=== PATIENT | male | born 1950 | race Caucasian/White ===

== ENCOUNTER 2024-12-24 06:29 | Emergency (ER) | payer OTHER, SELFPAY ==
[2024-12-24 06:38] VITALS: BP 212/126
--- NOTE | 2024-12-24 06:48 | ED.GENMED ---
History of Present Illness
General
Chief Complaint: Urinary Symptoms
Source: patient
Exam Limitations: none
Time Seen by Provider: 12/24/24 06:47
Nursing documentation reviewed up to this point in time: agreed with
History of Present Illness
History of Present Illness:
74-year-old male presents emergency department complaining of being unable to urinate for the past 24 hours. His abdomen distended and he is very uncomfortable. He has had this happen before.
Past History
Past History
ED Past Medical History: Other (Acute urinary retention September 2020; BPH)
ED Past Surgical History: Other (Hernia repair 1989)
Social History
Tobacco: Non-smoker
Alcohol: None
Drug: None
Personal:
Living: with family
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
Family History
Family History: Other (Noncontributory)
Review of Systems
Review of Systems
Allergies reviewed?: Yes
All Other Systems: Not applicable
Constitutional: Reports no symptoms
EENT: Reports no symptoms
Respiratory: Reports no symptoms
Cardiac: Reports no symptoms
ABD/GI: Reports no symptoms
: Reports difficulty voiding
Musculoskeletal: Reports no symptoms
Skin: Reports no symptoms
Neurological: Reports no symptoms
Endocrine: Reports no symptoms
Hematologic/Lymphatic: Reports no symptoms
Phy Exam
Physical Exam
Physical Exam:
Physical Exam
General: Afebrile, appears on, pacing in room
Neck: supple. no meningeal signs. normal posterior pharynx
Heart: s1/s2 tachycardia, no murmur. equal radial
pulses.
HEENT: Pupils equal round reactive to light, EOMI
Lungs: no acute respiratory distress. clear bilaterally
Abdomen: normal bowel sounds. not tender. no CVAT, suprapubic distention
Neuro: alert and oriented. no focal neurological deficits cranial nerves II through XII intact
Skin: no rash
Psychiatric: well kept. interactive and cooperative
Extremities: no edema. no calf tenderness. negative homans. good distal pulses
Course
Orders/Labs/Results
Orders:
Orders
12/24/24 06:47
Dickinson Placement- Treatment ONCE
Reason for insertion: Acute Retention
Vital Signs
Initial and Last Documented VS:
Initial Vital Signs
Temp Pulse Resp BP Pulse Ox
97.8 F 138 30 212/126 100
12/24/24 06:38 12/24/24 06:38 12/24/24 06:38 12/24/24 06:38 12/24/24 06:38
Last Documented Vital Signs
Temp Pulse Resp BP Pulse Ox
97.8 F 113 20 210/141 99
12/24/24 06:38 12/24/24 07:05 12/24/24 07:05 12/24/24 07:05 12/24/24 07:05
MDM/Problems Addressed
Differential Diagnosis Includes:
UTI, bowel obstruction, urinary retention
MDM/Problems Addressed:
74-year-old male with acute urinary retention, improved after Dickinson placement. Will follow-up with urology.
Chronic conditions affecting care: Other (BPH)
Acute Exacerbation and/or Progression of Chronic Illness: Other (BPH)
*Pulse Oximetry
Patient hypoxic: no
*Critical Care Note
Total Time (30-74mins, 75-104mins- exclusive of procedures): Not Applicable
Patient Management
Social determinants of health affecting care: Living situation and Strong social support
Escalation/DeEscalation of care consider admission/obs:
Admission not indicated
ED Attending Note
-
Portions of this chart may have been created with voice recognition software.� Occasional wrong word or��sound alike� substitutions may have occurred due to the inherent limitations of voice recognition software.
Discharge Plan
Departure
Patient Disposition: Home (Routine Discharge)
Date of Disposition: 12/24/24
Time of Disposition: 07:52
Patient with high blood pressure during this ER visit?: Yes
Condition: Good
Discharge Problem:
Acute urinary retention
Instructions: How to Care for Your Dickinson Catheter, Male, BLOOD PRESSURE
Prescriptions:
No Action
tamsulosin 0.4 MG capsule
0.4 mg PO DAILY
doxazosin 1 MG tablet
0.5 mg PO HS Qty: 30 0RF
Referrals:
Peter Kelley MD [Active] - Call in 1-3 days for appt
Bandar Culp MD [Family Provider] -
Interventions
Interventions:
*Risk Screen - Suicide Last Done: 12/24/24 06:38
*Neglect/Abuse Screening Last Done: 12/24/24 06:38
Discharge Date and Time
Print Language: LUX[place]BOURG[place]
[2024-12-24 07:05] VITALS: BP 210/141
[2024-12-24 09:00] VITALS: BP 127/99
== END 2024-12-24 09:10 | disposition home or self-care (01) ==
LOC: EMR 06:29
PROVIDERS: EMERGENCY PHYSICIAN Emergency Medicine; FAMILY PHYSICIAN Family Medicine
DX: N40.1 Benign prostatic hyperplasia with lower urinary tract symptoms (principal); R33.8 Other retention of urine
CPT/HCPCS: 51702; 99283

== ENCOUNTER 2025-04-30 14:48 | Emergency (ER) | payer OTHER, SELFPAY ==
[2025-04-30 14:49] VITALS: BP 134/81
--- NOTE | 2025-04-30 16:03 | ED.GENMED ---
History of Present Illness
<BERTHA Russell - Last Filed: 04/30/25 21:52>
General
Chief Complaint: Male Genito-Urinary Symptoms
Source: patient
Time Seen by Provider: 04/30/25 15:35
History of Present Illness
History of Present Illness:
This is a 74 y/o M with a PMH of HLD, HTN, inguinal hernia, elevated PSA, BPH with urinary retention who presents with trouble urinating x few weeks. He reports talking with his family doc, Dr. Culp from [facility], who suggested
patient come to ED for a catheter. Patient reports being able to urinate however he has to strain and feels as though he is not emptying his bladder fully. He reports being told this is from his hernia. He began wearing depends in case of
incontinence but denies incontinence episodes. He denies fever, abdominal pain, dysuria, hematuria, frequency, hesitancy, nausea, vomiting, diarrhea, hematochezia, dyschezia.
He denies a hx of BPH or prostate CA. FHx noncontributory. He had hernia surgery in the . He denies allergies to medications.
Past History
<BERTHA Russell - Last Filed: 04/30/25 21:52>
Past History
ED Past Medical History: Other (Acute urinary retention September 2020; BPH)
ED Past Surgical History: Other (Hernia repair 1989)
Social History
Tobacco: Non-smoker
Alcohol: None
Drug: None
Personal:
Living: with family
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
Family History
Family History: Other (Noncontributory)
Review of Systems
<BERTHA Russell - Last Filed: 04/30/25 21:52>
Review of Systems
Constitutional: Reports no symptoms
Respiratory: Reports no symptoms
Cardiac: Reports no symptoms
ABD/GI: Reports no symptoms
: Reports difficulty voiding; Denies dysuria, flank pain, incontinence, urgency or discharge
Musculoskeletal: Reports no symptoms
Skin: Reports no symptoms
Neurological: Reports no symptoms
Phy Exam
<ST YvonneGA - Last Filed: 04/30/25 21:52>
General Physical Exam
General Presentation: well appearing
General age: appears stated age
General Skin: warm and dry
General Habitus: elderly and frail
General Mental: alert
Cardiovascular Exam
Cardiovascular Exam: tachycardia
Pulmonary Exam
Pulmonary Exam: lungs clear
Gastrointestinal Exam
Gastrointestinal Exam: normal bowel sounds, non tender, non distended, no indwelling devices and no masses
Genitourinary Exam Male
Exam Male: non circumcised and other (significant erythema, tenderness and yeast noted)
Course
<Ailyn Javier [facility] - Last Filed: 04/30/25 21:52>
Orders/Labs/Results
Orders:
Orders
04/30/25 16:09
Bladder Scan- Treatment ONCE
04/30/25 17:08
Dickinson Placement- Treatment ONCE
Reason for insertion: Outlet obstruction
04/30/25 17:22
Urinalysis Reflex To Culture Urgent
Date Specimen was Collected: 04/30/25
Time Specimen was Collected: 17:21
Urine Microscopic Reflex Cult Urgent
Urine Culture Urgent
JEFF Source: U
Specimen Description:
Date Specimen was Collected: 04/30/25
Time Specimen was Collected: 17:21
Abnormal Lab Results
04/30/25
17:22
Urine Ketones 2+ A
(Negative)
Ur Occult Blood Reflex 4+ A
(Negative)
Leukocyte Esterase Rfl 3+ A
(Negative)
Urine WBC (Reflex) >100 A /HPF
(0-5)
Urine Bacteria (Reflex) Few A
(Negative)
Urine Yeast Many A
(Negative)
Urine Glucose 4+ A
(Negative)
Urine Albumin (Reflex) 3+ A
(Neg - Trace)
Vital Signs
Initial and Last Documented VS:
Initial Vital Signs
Temp Pulse Resp BP Pulse Ox
97.3 F 124 20 134/81 96
04/30/25 14:49 04/30/25 14:49 04/30/25 14:49 04/30/25 14:49 04/30/25 14:49
Last Documented Vital Signs
Temp Pulse Resp BP Pulse Ox
97.3 F 98 16 137/89 98
04/30/25 14:49 04/30/25 18:19 04/30/25 18:19 04/30/25 18:19 04/30/25 18:19
<Aguila Lock MD - Last Filed: 04/30/25 19:45>
Orders/Labs/Results
Orders:
Orders
04/30/25 16:09
Bladder Scan- Treatment ONCE
04/30/25 17:08
Dickinson Placement- Treatment ONCE
Reason for insertion: Outlet obstruction
04/30/25 17:22
Urinalysis Reflex To Culture Urgent
Date Specimen was Collected: 04/30/25
Time Specimen was Collected: 17:21
Urine Microscopic Reflex Cult Urgent
Urine Culture Urgent
JEFF Source: U
Specimen Description:
Date Specimen was Collected: 04/30/25
Time Specimen was Collected: 17:21
Abnormal Lab Results
04/30/25
17:22
Urine Ketones 2+ A
(Negative)
Ur Occult Blood Reflex 4+ A
(Negative)
Leukocyte Esterase Rfl 3+ A
(Negative)
Urine WBC (Reflex) >100 A /HPF
(0-5)
Urine Bacteria (Reflex) Few A
(Negative)
Urine Yeast Many A
(Negative)
Urine Glucose 4+ A
(Negative)
Urine Albumin (Reflex) 3+ A
(Neg - Trace)
Vital Signs
Initial and Last Documented VS:
Initial Vital Signs
Temp Pulse Resp BP Pulse Ox
97.3 F 124 20 134/81 96
04/30/25 14:49 04/30/25 14:49 04/30/25 14:49 04/30/25 14:49 04/30/25 14:49
Last Documented Vital Signs
Temp Pulse Resp BP Pulse Ox
97.3 F 98 16 137/89 98
04/30/25 14:49 04/30/25 18:19 04/30/25 18:19 04/30/25 18:19 04/30/25 18:19
<BERTHA Russell - Last Filed: 04/30/25 21:52>
MDM/Problems Addressed
MDM/Problems Addressed:
This is a 74 y/o M with a PMH of HLD, HTN, inguinal hernia, elevated PSA, BPH with urinary retention who presents with trouble urinating x few weeks. Dickinson catheter placed successfully. Significant fungal infection noted. No antifungals at this time
per urology. Symptomatic treatment with good hygiene. Patient stable.
<BERTHA Russell - Last Filed: 04/30/25 21:52>
*Critical Care Note
Total Time (30-74mins, 75-104mins- exclusive of procedures): Not Applicable
ED Attending Note
<BERTHA Russell - Last Filed: 04/30/25 21:52>
-
Portions of this chart may have been created with voice recognition software.� Occasional wrong word or��sound alike� substitutions may have occurred due to the inherent limitations of voice recognition software.
<Aguila Noh, MD - Last Filed: 04/30/25 19:45>
ED Attending Note
Patient seen and examined by attending physician: Yes
ED Attending Note:
Patient with history of BPH and urinary retention requiring Dickinson catheter, presents to ED secondary to recurrent urinary frequency associated with incomplete voiding sensation over the past 2 weeks. Patient has been wearing diaper which has caused
significant irritation to his scrotum. Patient does report having had urinary retention earlier this year requiring catheter placement, secondary to 'infection'. Patient was evaluated by his primary care physician who advised patient come to the
ED for Dickinson placement.
Physical Exam
General: mild distress, not acutely ill. afebrile
Head: nc/at. eomi
Neck: supple. no meningeal signs.
Abdomen: normal bowel sounds. not tender.
: excoriation/erythema noted over penile/scrotum, with yeast present. mildly tender to palpation
Neuro: alert and oriented x 3. no focal neurological deficits
Skin: no rash
Psychiatric: well kept. interactive and cooperative
Extremities: no edema. no calf tenderness.
Postvoid residual: 110 mL urine
Dickinson catheter placed successfully.
Urinalysis results as well as his physical exam findings discussed with on-call urology, Dr. Martinez. Does not recommend antifungal treatment at this time. Recommend symptomatic treatment with hygiene, keeping area clean and dry, along with
[id number] A&D ointment for symptomatic treatment.
Discharge Plan
Departure
Patient Disposition: Home (Routine Discharge)
Date of Disposition: 04/30/25
Time of Disposition: 18:00
Patient with high blood pressure during this ER visit?: Yes
Condition: Fair
Discharge Problem:
Acute urinary retention
Instructions: How to Care for Your Dickinson Catheter, Male, Urinary Retention (DC), BLOOD PRESSURE
Prescriptions:
No Action
tamsulosin 0.4 MG capsule
0.4 mg PO DAILY
doxazosin 1 MG tablet
0.5 mg PO HS Qty: 30 0RF
Referrals:
Alok Martinez MD [Active, Urology]
UNKNOWN - PT DOES,NOT KNOW [Family Provider]
Activity Restrictions/Additional Instructions:
As discussed, please follow-up with your primary care physician as well as referred urologist for further evaluation or treatment.
Interventions
Interventions:
*Risk Screen - Suicide Last Done: 04/30/25 14:49
*General Assessment Last Done: 04/30/25 14:49
*Neglect/Abuse Screening Last Done: 04/30/25 18:19
*ED- Fall Risk Assessment Last Done: 04/30/25 18:19
*ED COVID-19 Vaccine History Last Done: 04/30/25 18:19
*Nursing Disposition Last Done: 04/30/25 18:19
ED-Male Genitourinary Assessment Last Done: 04/30/25 17:03
Discharge Date and Time
Discharge Date/Time: 04/30/25 18:21
Print Language: VINCENTIAN
[2025-04-30 17:29] LABS: Urine Albumin 3+ (Neg - Trace); Urine Bilirubin Negative (Negative); Urine Character Cloudy (Clear); Urine Color Yellow; Urine Glucose 4+ (Negative); Urine Ketone 2+ (Negative); Urine Leukocyte 3+ (Negative); Urine Nitrite Negative (Negative); Urine Occult Blood 4+ (Negative); Urine Specific Gravity 1.015 (<1.030); Urine Urobilinogen Negative (Neg - 1+)
[2025-04-30 17:46] LABS: Urine Squamous Cell 0-2 /LPF (Few)
[2025-04-30 17:47] LABS: Urine Bacteria Few (Negative); Urine White Cell >100 /HPF (0-5)
[2025-04-30 17:50] LABS: Urine Yeast Many (Negative)
[2025-04-30 18:19] VITALS: BP 137/89
== END 2025-04-30 18:21 | disposition home or self-care (01) ==
LOC: EMR 14:48
PROVIDERS: EMERGENCY PHYSICIAN Emergency Medicine
DX: R33.8 Other retention of urine (principal); N40.1 Benign prostatic hyperplasia with lower urinary tract symptoms; I10 Essential (primary) hypertension; E78.5 Hyperlipidemia, unspecified
CPT/HCPCS: 51702; 99283; 81003; 81015; 87086

== ENCOUNTER 2025-05-14 14:44 | Inpatient (IN) | payer OTHER, SELFPAY ==
[2025-05-14] VITALS (17 sets, daily range): BP systolic 92–147; BP diastolic 58–89; BMI 18.8; BMI 19.7
[2025-05-14] MEDS: NSS 1000 IV ×3 (08:23→16:41)
[2025-05-14 08:30] LABS: Hematocrit 49.2 % (39.0-52.0); Hemoglobin 16.7 g/dL (13.0-18.0); Mean Corp Hgb Conc. 33.9 g/dL (33.0-37.0); Mean Corpuscular Volume 80.7 fL (80.0-94.0); Platelet Count 628 10^3/uL (130-400); Red Cell Dist. Width 12.9 % (11.5-14.5)
--- NOTE | 2025-05-14 08:32 | ED.GENMED ---
History of Present Illness
General
Chief Complaint: Failure to Thrive
Source: patient and spouse
Exam Limitations: clinical condition
Time Seen by Provider: 05/14/25 08:07
History of Present Illness
History of Present Illness:
Patient is a 73-year-old male who has been digressing over the last month or so. Has had a Dickinson placed about 3 weeks ago. Followed by urology. Significant weight loss. has not been privy to the information from his doctor. No inguinal
hernias. Patient was brought in this morning with confusion in the last 24 hours. Collapsed in triage and went unresponsive. Brought immediately back to room 41. Patient is unable to add further history.
Past History
Past History
ED Past Medical History: Other (Acute urinary retention September 2020; BPH)
ED Past Surgical History: Other (Hernia repair 1989)
Social History
Tobacco: Non-smoker
Alcohol: None
Drug: None
Personal:
Living: with family
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
Family History
Family History: Other (Noncontributory)
Phy Exam
Physical Exam
Physical Exam:
GENERAL: Alert. Will answer simple questions but appears mildly confused. Very chronically ill-appearing and cachectic
EYE: Orbits normal.
NECK: Supple, no significant adenopathy.
ENT: Pharynx without erythema
CARDIAC: Tacky and irregular no murmur
LUNGS: Mildly tachypneic. Slight rhonchi in the bases
ABDOMEN: Soft, without focal tenderness or distention
: Dickinson in place with chocolate milk appearing urine
NEUROLOGICAL: Alert and oriented , grossly non-focal. But cognitively very slow
SKIN: Warm and dry, no rash or lesion, no discoloration, skin intact.
MUSCULOSKELETAL: No edema,no deformity.Good color
Course
Orders/Labs/Results
Orders:
Orders
05/14/25 08:02
EPINEPHrine [Adrenalin 1 mg/10 ml] 1 mg .ROUTE .STK-MED ONE
Etomidate [Amidate] 40 mg .ROUTE .STK-MED ONE
Succinylcholine Chloride [Anectine] 200 mg .ROUTE .STK-MED ONE
05/14/25 08:04
Electrocardiogram (*1) Urgent
Reason for Study: Other
Other Reason for Exam: Possible Sepsis
Cardiac Monitoring- Treatment ONCE
IV Insert/Care/Rem.- Treatment PRN
05/14/25 08:05
EKG- Treatment ONCE
05/14/25 08:09
0.9% Sodium Chloride 1000 ml [Nss] 1,000 ml IV BOLUS
CXR Port [CR Chest Portable - 1 View] Urgent
Comment:
Reason For Exam: Short of breath
Reason Study Needs to be Portable: Patient Unstable
05/14/25 08:10
Complete Blood Count/With Diff Urgent
Glycohemoglobin (HgbA1c) Urgent
05/14/25 08:15
Lactic Acid Q4H
Comment: ON ICE, CANCEL 2ND ORDER IF FIRST LACTIC ACID LEVEL <2
Blood Culture Q20M
JEFF Source: Blood/Venous
Specimen Description:
Comment: Urgent from separate sites. If patient screens positive for possible sepsis
Blood Culture Q20M
JEFF Source: Blood/Venous
Specimen Description:
Comment: Urgent from separate sites. If patient screens positive for possible sepsis
05/14/25 08:29
Urinalysis Reflex To Culture Urgent
Date Specimen was Collected: 05/14/25
Time Specimen was Collected: 08:05
Urine Microscopic Reflex Cult Urgent
Urine Culture Urgent
JEFF Source: U
Specimen Description:
Date Specimen was Collected: 05/14/25
Time Specimen was Collected: 08:05
05/14/25 08:31
Piperacillin/Tazo 3.375 Gram [Zosyn] 3.375 gram in 50 ml IV NOW
05/14/25 08:36
Add On- LAB Urgent
Tests Added?: tsh reflex t4
05/14/25 09:00
0.9% Sodium Chloride 1000 ml [Nss] 1,000 ml IV BOLUS
05/14/25 09:02
Vancomycin [Vancocin] 1,500 mg 0.9% Sodium Chloride 500 ml [Nss] 500 ml IV NOW
05/14/25 09:17
Vancomycin [Vancocin] 1,500 mg 0.9% Sodium Chloride 500 ml [Nss] 500 ml IV NOW
05/14/25 09:24
CT Abd/pel Without Iv Or Oral Urgent
Comment:
Reason For Exam: Weight loss/cachexia/mental status change
CT Head W/o Iv Contrast Urgent
Comment:
Reason For Exam: Weight loss/cachexia/mental status change
05/14/25 Lunch
NPO
Allow oral meds: No
Allow clear liquids: No
05/14/25 11:23
Electrocardiogram (*1) Stat
Reason for Study: Other
Other Reason for Exam: chest pain
05/14/25 11:29
Comprehensive Metabolic Panel Stat
Lactic Acid Q4H
Comment: ON ICE, CANCEL 2ND ORDER IF FIRST LACTIC ACID LEVEL <2
Magnesium Stat
Comment: ADD ON
TSH Reflex To Free T4 Stat
05/14/25 12:52
Bedside Glucose- Treatment ONCE
Reg Insulin 100 Units/100 ml [Novolin R Insulin Infusion] 100 units in 100 ml IV NOW
05/14/25 13:02
Add On- LAB Routine
Tests Added?: magnesium
Calcium Gluconate 1,000 mg IV NOW STA
05/14/25 13:04
Insulin Human Regular [Novolin R] 6 units IV NOW STA
05/14/25 13:14
Reg Insulin 100 Units/100 ml [Novolin R Insulin Infusion] 100 units in 100 ml IV NOW
05/14/25 13:27
Heparin Protocol- PTT Orders As Directed
PTT per Heparin protocol: -Obtain CBC and baseline PTT - if not already collected.
-Obtain PTT 6 hours from start of infusion. Then, every 6 hours until 2 consecutive
PTT's are therapeutic. Then, PTT Daily.
-With each rate change, obtain PTT every 6 hours until 2 consecutive PTT's are
therapeutic. Then, PTT Daily.
Notify MD As Directed
Notify physician if: PTT is greater than or equal to 200.
05/14/25 13:29
Admit/Transfer Patient As Directed
Co-Sign Provider:
Level of Care: Inpatient admission
Assign to:: ICU
Physician / Group: Valentina Lamas
Diagnosis: DKA
Reason for Hospitalization: DKA
Expected length of stay greater than two midnights?: Yes
ELOS- Estimated Length of Stay in days: 5
I certify the patient meets the requirements for IP care: Yes
PRN Pain Medication Management As Directed
May give lesser potent ordered pain med per pt: Yes
preference::
Protocol:: Medication orders for pain may be administered in a
manner that supports deferring to patient preference
when the pt is:
- Requesting an ordered lesser potent pain medication.
Least to most potent pain medications are defined
as: acetaminophen < NSAID < tramadol < opioids
(morphine, oxycodone, hydromorphone).
- Requesting a lesser dose of the same medication IF
ORDERED.
- Requesting a less intrusive route of administration
if both routes are prescribed by the provider (PO <
IV).
05/14/25 13:30
Heparin 01836 Units/250 ml 25,000 units in 250 ml IV PER PROTOCOL
Weight to be used for heparin protocol in kilograms (kg):: 56
Protocol:: Cardiac Tx/Acute Coronary
PTT Goal Range to be used:: PTT 73 to 111 seconds
Order type:: Initial
INITIAL Infusion Dose (UNITS/KG/hr) & then follow protocol:: 12 units/kg/hr
Infusion Dose in UNITS/hr & then follow protocol (UNITS/hr):: 650
INFUSION RATE in mL/hr & then follow protocol (mL/hr):: 6.5
PTT less than or equal to 64 seconds:: Increase rate by 200 units/hr (+ 2 mL/hr)
PTT 64.1 to 72.9 seconds:: Increase rate by 100 units/hr (+ 1 mL/hr)
PTT 73 to 111 seconds:: Target Range. No change in rate.
PTT 111.1 to 130.9 seconds:: Decrease rate by 100 units/hr (- 1 mL/hr)
PTT 131 to 199.9 seconds:: HOLD for 1 hr. Then decrease rate by 200 units/hr (- 2 mL/hr)
PTT greater than or equal to 200 seconds:: HOLD for 2 hrs & Notify Provider. Then decrease by 200 units/hr (-
2 mL/hr)
Lab follow-up:: Each change, PTT q6h until 2 consecutive are therapeutic. Then PTT
daily.
05/14/25 13:31
Code Status As Directed
Resuscitation Status: Full Code
05/14/25 13:50
Heparin 03862 Units/250 ml 25,000 units in 250 ml .ROUTE .STK-MED
05/14/25 14:00
Flush (0.9% Sodium Chloride) [Flush (Nss)] See Dose Instructions IV PER PROTOCOL
05/14/25 14:08
Add On- LAB Stat
Comments:: Please add A1C to AM Labs from today. Thank you
Tests Added?: A1C
05/14/25 14:09
B-Hydroxybutyrate Urgent
Basic Metabolic Panel Q2H
Lactate Level [Lactic Acid] Q6H
PTT Urgent
Comment: Obtain baseline before beginning heparin infusion if not already collected
Prothrombin Time Urgent
Comment: ADD ON
Venous Blood Gas Urgent
%Oxygen/Room Air: 95
05/14/25 14:50
0.9% Sodium Chloride 1000 ml [Nss] 1,000 ml IV 250 mls/hr
Reg Insulin 100 Units/100 ml [Novolin R Insulin Infusion] 100 units in 100 ml IV PER PROTOCOL
Currently infusing. Continue current dose and titrate:: Yes
05/14/25 14:50
Consult Cardiology [CARDIOLOGY CONSULT] Routine
Consulting Provider: Eddi Del Rio
Was physician already notified: Yes
Consult Infectious Disease [INFECTIOUS DISEASE CONSULT] Routine
Consulting Provider: Cate Crowley
Was physician already notified: Yes
Consult Bias Machine Operator [Bias Machine Operator Consult] Routine
Consulting Provider: Jermain Rivera
Was physician already notified: Yes
Diabetes Management by Nurse Practitioner Routine
Consulting Provider: Nelida Valentino
Was provider already notified?: Yes
Heparin Protocol- PTT Orders As Directed
PTT per Heparin protocol: -Obtain CBC and baseline PTT - if not already collected.
-Obtain PTT 6 hours from start of infusion. Then, every 6 hours until 2 consecutive
PTT's are therapeutic. Then, PTT Daily.
-With each rate change, obtain PTT every 6 hours until 2 consecutive PTT's are
therapeutic. Then, PTT Daily.
Activity As Directed
Activity Level: As Tolerated
Bedside Glucose Monitoring As Directed
Frequency: Q1H
Intake/ Output As Directed
Frequency: Per unit guidelines
Notify MD As Directed
Notify physician if: Nurse to contact provider when glucose reaches 250 to obtain orders for D5 0.45 NaCl
Notify MD As Directed
Notify physician if: PTT is greater than or equal to 200.
Vital Signs As Directed
Frequency: Per unit guidelines
OT Consult [Ot Eval And Treat] Routine
Physical Therapy Consult [Pt Eval And Treat] Routine
Activity Level: As Tolerated
Speech Therapy Eval & Treat Routine
05/14/25 16:00
Piperacillin/Tazo 2.25 Gram [Zosyn] 2.25 grams in 50 ml IV Q6H
05/14/25 16:05
Urine Creatinine Routine
Date Specimen was Collected: 05/14/25
Time Specimen was Collected: 16:01
Urine Sodium Routine
Date Specimen was Collected: 05/14/25
Time Specimen was Collected: 16:01
05/14/25 16:11
Basic Metabolic Panel Q4
05/14/25 20:45
Basic Metabolic Panel Q4
Lactate Level [Lactic Acid] Q6H
PTT Urgent
05/15/25 00:44
Basic Metabolic Panel Q4
05/15/25 04:47
Complete Blood Count/With Diff IN AM
05/15/25 05:04
Basic Metabolic Panel Q4
Lactate Level [Lactic Acid] Q6H
05/15/25 06:00
Echo 2D MMode Color/Doppler IN AM
Reason for Study: atrial fibrillation
Electrocardiogram (*1) IN AM
Reason for Study: Atrial Fibrillation
05/15/25 08:00
Tamsulosin [Flomax] 0.4 mg PO DAILY
05/15/25 11:35
Basic Metabolic Panel Q4
05/16/25 06:00
Complete Blood Count/No Diff IN AM
Comment: Notify MD if platelet count is <130,000 or decreases by 50% from baseline
05/17/25 06:00
Complete Blood Count/No Diff IN AM
Comment: Notify MD if platelet count is <130,000 or decreases by 50% from baseline
05/18/25 06:00
Complete Blood Count/No Diff IN AM
Comment: Notify MD if platelet count is <130,000 or decreases by 50% from baseline
05/19/25 06:00
Complete Blood Count/No Diff IN AM
Comment: Notify MD if platelet count is <130,000 or decreases by 50% from baseline
05/20/25 06:00
Complete Blood Count/No Diff IN AM
Comment: Notify MD if platelet count is <130,000 or decreases by 50% from baseline
05/21/25 06:00
Complete Blood Count/No Diff IN AM
Comment: Notify MD if platelet count is <130,000 or decreases by 50% from baseline
05/22/25 06:00
Complete Blood Count/No Diff IN AM
Comment: Notify MD if platelet count is <130,000 or decreases by 50% from baseline
05/23/25 06:00
Complete Blood Count/No Diff IN AM
Comment: Notify MD if platelet count is <130,000 or decreases by 50% from baseline
Abnormal Lab Results
05/14/25 05/14/25 05/14/25
08:10 08:15 08:29
WBC 51.9 H* 10^3/uL
(4.8-10.8)
Plt Count 628 H 10^3/uL
(130-400)
Abs Immat Gran (auto) 1.2 H 10^3/uL
(0-0.05)
Absolute Neuts (auto) 46.1 H 10^3/uL
(1.4-6.5)
Absolute Monos (auto) 3.3 H 10^3/uL
(0.1-0.6)
Immature Gran % 2.3 H %
(0-0.5)
Neutrophils % 88.8 H %
(42.2-75.2)
Lymphocytes % 2.5 L %
(20.5-51.1)
PT
VBG pH
VBG pCO2
VBG HCO3
Sodium
Potassium
Chloride
Carbon Dioxide
BUN
Creatinine
Glucose
Hemoglobin A1c 15.9 H %
(4.0-5.6)
Lactic Acid 4.9 H* mmol/L
(0.7-2.0)
Magnesium
AST
Total Protein
Albumin
Urine Ketones 2+ A
(Negative)
Ur Occult Blood Reflex 4+ A
(Negative)
Leukocyte Esterase Rfl 3+ A
(Negative)
Urine RBC 50-60 A /HPF
(0-2)
Urine WBC (Reflex) >100 A /HPF
(0-5)
Urine Bacteria (Reflex) Many A
(Negative)
Urine Yeast Moderate A
(Negative)
Urine Glucose 3+ A
(Negative)
Urine Albumin (Reflex) 3+ A
(Neg - Trace)
B-Hydroxybutyrate
POC Glucose
05/14/25 05/14/25 05/14/25
10:59 11:29 14:09
WBC
Plt Count
Abs Immat Gran (auto)
Absolute Neuts (auto)
Absolute Monos (auto)
Immature Gran %
Neutrophils %
Lymphocytes %
PT 18.6 H Sec
(11.4-14.6)
VBG pH 7.11 L*
(7.32-7.43)
VBG pCO2 28 L mmHg
(35-48)
VBG HCO3 8.9 L mmol/L
(22-27)
Sodium 126 L mmol/L 129 L mmol/L
(135-145) (135-145)
Potassium 6.4 H* mmol/L 5.9 H mmol/L
(3.5-5.1) (3.5-5.1)
Chloride 90 L mmol/L 94 L mmol/L
(98-107) (98-107)
Carbon Dioxide 6 L* mmol/L 7 L* mmol/L
(22-30) (22-30)
BUN 82 H mg/dl 80 H mg/dl
(9-20) (9-20)
Creatinine 3.0 H mg/dL 3.2 H mg/dL
(0.7-1.3) (0.7-1.3)
Glucose 754 H* mg/dl 653 H* mg/dl
(-) (-99)
Hemoglobin A1c
Lactic Acid 4.2 H* mmol/L 3.5 H mmol/L
(0.7-2.0) (0.7-2.0)
Magnesium 2.7 H mg/dl
(1.6-2.3)
AST 16 L U/L
(17-59)
Total Protein 5.4 L g/dl
(6.3-8.2)
Albumin 3.2 L g/dl
(3.5-5.0)
Urine Ketones
Ur Occult Blood Reflex
Leukocyte Esterase Rfl
Urine RBC
Urine WBC (Reflex)
Urine Bacteria (Reflex)
Urine Yeast
Urine Glucose
Urine Albumin (Reflex)
B-Hydroxybutyrate > 9.0 H mmol/L
(0.02-0.27)
POC Glucose > 600 H* mg/dl
(-)
05/14/25 08:10
05/14/25 14:09
Vital Signs
Initial and Last Documented VS:
Initial Vital Signs
Pulse Resp BP
138 16 122/81
05/14/25 08:07 05/14/25 08:07 05/14/25 08:07
Last Documented Vital Signs
Temp Pulse Resp BP Pulse Ox
98.6 F 79 21 96/58 98
05/15/25 11:40 05/15/25 12:00 05/15/25 12:00 05/15/25 12:00 05/15/25 12:07
MDM/Problems Addressed
Differential Diagnosis Includes:
Patient syncopized to triage. Atrial fibrillation RVR with unknown onset. No history of atrial fibrillation. Clinically very kick within clearly has digressed significantly over the last month. stated he was in no intubation no CPR however
patient who is relatively alert at this time states he would want this done. Differential would include sepsis underlying cancer underlying electrolyte abnormality underlying endocrine abnormality along with this atrial fibrillation/RVR. Workup in
progress
*Pulse Oximetry
SaO2: 94
Oxygen Mode of Delivery: Room air
Patient hypoxic: no
*EKG
Interpreted by ED Provider?: Yes
Interpretation: abnormal
Comparison EKG: no comparison EKG present
Heart Rate: 141
Rate: tachycardiac
Rhythm: a-fib and PVC's
[place]: normal axis
Interval: normal interval
QRS Pattern: wide non-specific
Ischemia: non-specific ST changes
*Glazing Machine Operator Interpretation
Rate: tachycardiac
Interpretation: abnormal
Heart Rate: 120
Rhythm: a-fib
*Critical Care Note
Total Time (30-74mins, 75-104mins- exclusive of procedures): 55
Data Reviewed
Review of Other/Old Records Reveals: Records
Update Note
Update Note:
0845... Patient and family been updated multiple times. High white count. Infection versus blood dyscrasia versus both. Zosyn has been ordered. Fluids ordered. Chest x-ray grossly unremarkable. Awaiting BUN/creatinine. Will need CT scans.
Clearly needs admission. Family is describing difficulty swallowing over the last week or so to the point that he has stopped with solids and some liquids.
0900.... Talk to patient's physician. Patient is also diabetic. This was not made aware earlier. Noncompliant apparently. Lactic acid 4.9. Second liter of fluid ordered.
0930... Blood hemolyzed. Will order CTs plain. I suspect his renal function is going to be off. Family updated. Chest x-ray reviewed and agree with radiology that is negative
1120... Patient looks much better. Much more alert. Stable vital signs. Converted to a sinus tachycardia. Will repeat EKG. Still waiting on labs. CT scans reviewed.
1200... Repeat EKG sinus tachycardia 101. Nonspecific changes
ED Attending Note
-
Portions of this chart may have been created with voice recognition software.� Occasional wrong word or��sound alike� substitutions may have occurred due to the inherent limitations of voice recognition software.
Discharge Plan
Departure
Patient Disposition: Admit
Date of Disposition: 05/14/25
Time of Disposition: 12:53
Presentation/result/management discussed w/ accepting MD/DO: Hospitalist
Discharge Problem:
DKA, Dehydration/renal insufficiency, Sepsis/UTI, Atrial fibrillation/RVR
Interventions
Interventions:
*Risk Screen - Suicide Last Done: 05/14/25 10:35
*General Assessment Last Done: 05/14/25 09:03
*Neglect/Abuse Screening Last Done: 05/14/25 09:03
*ED- Fall Risk Assessment Last Done: 05/14/25 09:03
*ED COVID-19 Vaccine History Last Done: 05/14/25 09:03
*Nursing Disposition Last Done: 05/14/25 14:45
Discharge Date and Time
Discharge Date/Time: 05/14/25 14:45
[2025-05-14 08:39] LABS: Urine Character Cloudy (Clear)
[2025-05-14 08:53] LABS: Urine Squamous Cell 0-2 /LPF (Few); Urine Urothelial Cell 0-2 /LPF (FEW)
[2025-05-14 08:55] LABS: Urine Red Blood Cell 50-60 /HPF (0-2); Urine White Cell >100 /HPF (0-5)
[2025-05-14 08:58] LABS: Nucleated Red Blood Cells % 0 % (-)
--- NOTE | 2025-05-14 09:05 | PHANOTE ---
med rec note- patient family explain that patient hides his drug bottles in his car, from what i can see drug bottles are full and have not been filled recently. also multiple of bottles for the same drug.
[2025-05-14] MEDS: ZOSYN 50 IV ×3 (09:18→22:34)
[2025-05-14] MEDS: VANCOCIN 530 MG IV (10:17)
[2025-05-14 11:01] LABS: Glucose - Point of Care > 600 mg/dl (70-99)
[2025-05-14 12:43] LABS: ALT (SGPT) 12 U/L (0-50); AST (SGOT) 16 U/L (17-59); Albumin 3.2 g/dl (3.5-5.0); Alkaline Phosphatase 109 U/L (38-126); Blood Urea Nitrogen 82 mg/dl (9-20); Calcium 9.3 mg/dl (8.4-10.2); Carbon Dioxide 6 mmol/L (22-30); Chloride 90 mmol/L (98-107); Estimated Creatinine Clearance 18 ml/min; Potassium 6.4 mmol/L (3.5-5.1); Sodium 126 mmol/L (135-145); Total Protein 5.4 g/dl (6.3-8.2); eGFR 21.40
--- NOTE | 2025-05-14 12:51 | HPS.HSE ---
Addendum entered and electronically signed by Valentina Lamas MD 05/14/25 16:10:
Essential HTN - hold BEAVER TRAPPER Losartan in setting of LUIS and hyperkalemia
Original Note:
Family Physician
-
Family Physician: Bandar Culp
Chief Complaint
-
confusion
History of Present Illness
Mr. Anthony Wright is a 74 yo man with hx HTN, HLD, BPH, ER visit 04/30/25 for urinary retention s/p zarate brought in by for confusion x 24 hours. Patient had a syncopal episode in triage.
History mainly obtained by family at bedside. Patient states he wasn't taking his medications because they caused urinary leakage around his zarate catheter which has now stopped. He has never been on insulin. Per family he hasn't had a bowel
movement in weeks. He also hasn't been eating. They report he coughs with any sips of water or food. He has lost significant weight. No fevers/chills. No chest pain. He vomited this morning. Last night he looked like he was gasping more for
air, he was more confused today and so they took him to the ER.
He is concerned about inguinal hernias he's had, they are reducible. He went to family doctor, did not allow family to go with him.
Patient states he can walk up stairs slowly.
Per family and patient, he feels and looks a lot better after receiving IVF in the ER.
Medical History
Past Medical History
Past Medical History: Reports Other ( HTN, HLD, BPH, ER visit 04/30/25 for urinary retention s/p zarate)
Past Surgical History: Reports Other
Social History
Tobacco: Non-smoker
Alcohol: None
Family History
Family History: Not pertinent
Allergies / Home Medications
Allergies reflects when Allergies were last updated in [facility].
Home Medications with original date entered in [facility]
Allergy/Medication List:
Allergies
Allergy/AdvReac Type Severity Reaction Status Date / Time
No Known Allergies Allergy Verified 04/30/25 14:51
Home Medications
tamsulosin 0.4 mg capsule 0.4 mg PO DAILY BPH 10/10/20
atorvastatin 20 mg tablet (Lipitor) 20 mg PO DAILY High Cholesterol 05/14/25
cinnamon bark 500 mg capsule (Cinnamon) 2,000 mg PO DAILY Supplement 05/14/25
glucosamine-chondroitin 250 mg-200 mg tablet 2 tab PO DAILY Supplement 05/14/25
losartan 50 mg tablet 50 mg PO DAILY Blood Pressure 05/14/25
metformin 1,000 mg tablet 2,000 mg PO DAILY Diabetes 05/14/25
pioglitazone 45 mg tablet (Actos) 45 mg PO DAILY Diabetes 05/14/25
semaglutide 14 mg tablet (Rybelsus) 14 mg PO DAILY Diabetes 05/14/25
Review of Systems
-
History Source: Patient
A 12 point ROS was completed and negative except as noted: Yes
Physical Exam
Vital Signs
Vital Signs
Temp Pulse Resp BP Pulse Ox
98.8 F 104 21 124/79 99
05/14/25 09:02 05/14/25 11:30 05/14/25 09:02 05/14/25 11:00 05/14/25 11:30
Physical Exam
General: No Apparent Distress, Conversant and Other (frail appearing, cachectic )
HEENT: PERRLA
Respiratory: Clear; No Wheezes
Cardiac: S1/S2 and Regular Rhythm
GI: Soft, Non Tender, Non Distended and Other (reducible inguinal hernia)
Genito-urinary: Zarate
Musculoskeletal: No Edema
Skin: Warm and Dry; No Rash
Neuro: AO x 3
Psych: Agitated
Laboratory Results
-
05/14/25 08:10
05/14/25 11:29
Laboratory Results
Lactic Acid 4.2 mmol/L (0.7-2.0) H* 05/14/25 11:29
Total Bilirubin 1.0 mg/dl (0.2-1.3) 05/14/25 11:29
AST 16 U/L (17-59) L 05/14/25 11:29
ALT 12 U/L (0-50) 05/14/25 11:29
Alkaline Phosphatase 109 U/L (38-126) 05/14/25 11:29
Data Reviewed
-
Diagnostic Radiology: Report Reviewed by me
Lab Data: Labs Reviewed by me
Impression/Plan
-
Mr. Anthony Wright is a 74 yo man with hx HTN, HLD, BPH, ER visit 04/30/25 for urinary retention s/p zarate brought in by for confusion x 24 hours. Patient had a syncopal episode in triage.
Triage VS: T 98.8, P 138, RR 16, BP 122/81m, SpO2 99%
EKG: atrial fibrillation with RVR @ 141, aberrantly conducted complexes versus PVC's; intraventricular conductin block
LABS: WBC 51.9, Hg 16.7, PLT 628, Na (corrected) 134, K+ 6.4, Cl 09, CO2 6, Cr 3.0, Lactate 4.9 --> 4.2, T. Bili 1.0, AST 16, ALT 12
UA with > 100 WBC
CXR
IMPRESSION:
No acute cardiopulmonary process.
CT A/P
IMPRESSION:
Limited CT examination in the absence of intravenous and oral contrast.
Small left nephrolith.
Mild right hydroureteronephrosis without evidence for an obstructing ureteral calculus.
Collapsed urinary bladder with a Zarate catheter in place and urinary bladder wall thickening. Recommend correlation with a urinalysis.
Prostatomegaly.
Bowel containing right inguinal hernia.
Other chronic findings, as detailed above.
HEAD CT
IMPRESSION:
No acute intracranial abnormality.
MAR: 2L NS, IV Vanc/Zosyn, IV insulin gtt
DKA
-AG = 30 with glucose > 700. Patient is not on insulin at home, has not been on oral anti-hyperglycemics
-s/p 2L and insulin regular 6 units x 1 followed by initiation of insulin gtt
-admit to ICU
-NS @ 250; add D5 when glucose < 250 and changed to 1/2 NS
-q1 hour glucose checks
-q2 hour BMP until K corrected
-DM CHIEF ENGINEER WATERWORKS consult
-Improvement Auditor consult
Acute Renal Failure
-patient clearly dehydrated, has not been eating or drinking for several weeks
-aggressive IVF as above
-CT with mild right hydro, no stone
-continue zarate catheter
-urine studies
-consider renal consult if no improvement in renal function tomorrow
Hyperkalemia in setting of DKA
-IV insulin as above
-q2 hour BMP
Severe Sepsis
Lactic Acidosis
UTI
-IVF as above, trend lactate
-continue IV Zosyn, history of Pseudomonas in urine
-yeast in urine - will consult ID, unclear if indication to treat in setting of chronic zarate and DKA
Atrial Fibrillation with RVR
-patient currently in sinus
-F/U TSH
-TTE
-Cardiology consult
-start IV Heparin gtt, patient denies history of bleeding episodes
Urinary Retention with chronic zarate catheter on admission
-*patient will need zarate catheter exchange this admission
Right Inguinal Hernia
-reducible
Constipation
-patient will likely need enema, consider ordering tomorrow when acute issues more stabilized
DVT PPx: heparin gtt
FULL CODE - patient reports full code, this seems to be different than wishes in past per family; further discussions can be had as inpatient
Total Critical Care Time 60 minutes. I was immediately available to the patient and staff. I personally examined, reviewed labs, diagnostic images/reports, interpretations, treatment plans, discussed patient care with other providers and family
or caregivers (if patient is unable to make decisions), entered orders as appropriate and documented the medical record.
[2025-05-14 13:01] LABS: Glucose 754 mg/dl (70-99)
[2025-05-14] MEDS: CALCIUM GLUCONATE 1000 MG IV (13:19)
[2025-05-14] MEDS: NOVOLIN R 6 UNITS IV (13:26)
[2025-05-14] MEDS: NOVOLIN R INSULIN INFUSION 100 IV (13:29)
[2025-05-14 13:40] LABS: Magnesium 2.7 mg/dl (1.6-2.3)
--- NOTE | 2025-05-14 14:00 | CM ---
CM reviewed chart and met with and daughter at bedside in ED
Lives with , multistory home, [address], first floor half BA full flight of steps to second floor BR/full BA
Independent in ADLs, personal care, driving and ambulation at baseline. No DME in home
Recent zarate insertion 04/30/25
No hx VN/SNF
PCP: Bandar Culp
Phrmacy: [facility] [address] [facility]
Discharge plan: Anticipate home pending ongoing medical evaluation, watch for needs
[2025-05-14] MEDS: HEPARIN 25000 UNITS/250 ML IV (14:16)
[2025-05-14 14:19] LABS: Venous Blood Gas B.E. -19.2 mmol/L (-4 to +4); Venous Blood Gas O2 Sat % 76.0 %
[2025-05-14 14:35] LABS: Blood Urea Nitrogen 80 mg/dl (9-20); Calcium 9.6 mg/dl (8.4-10.2); Carbon Dioxide 7 mmol/L (22-30); Chloride 94 mmol/L (98-107); Estimated Creatinine Clearance 17 ml/min; Potassium 5.9 mmol/L (3.5-5.1); Sodium 129 mmol/L (135-145); eGFR 19.80
[2025-05-14 14:46] LABS: APTT 30.5 Sec (23.4-35.0)
[2025-05-14 14:59] LABS: Glucose - Point of Care > 600 mg/dl (70-99)
[2025-05-14 15:15] LABS: INR 1.50; PT 18.6 Sec (11.4-14.6)
[2025-05-14 15:21] LABS: Glucose 653 mg/dl (70-99)
--- NOTE | 2025-05-14 15:40 | CON.INTV ---
Consultation
Consultation Request
Date/Time Consultation Requested: 05/14/2025 - 1449
Date/Time Consultation Performed: 05/14/2025 - 151
Requesting Provider: Dr. Lamas
Performing Provider: Dr. Rivera
Reason for Consultation: DKA
Medical History
-
Chief Complaint: Eating less, malaise
History of Present Illness:
74-year-old male with a past medical history of chronic urinary retention with chronic Zarate, BPH, history of UTI, DM type II, history of COVID-19 who initially presented as he has been eating poorly for the last month. While in triage she became
unresponsive and collapsed/became unresponsive. He has been disoriented since last night, per the . He was found to be in A-fib with RVR and heparin drip was started. He did spontaneously convert back into sinus rhythm. He says that he is
not take his medications as his Zarate has been leaking. He does not take insulin. Per the family he has not had a bowel movement in weeks. In the ER, he was afebrile to 98.8 �F, pulse rate 138, respiratory rate 16, BP 122/81 and he was saturating
94% on room air. His WBC was markedly elevated at 51.9, with platelet count 628, blood gas pH 7.11 (VBG), potassium 6.4, sodium 126, serum bicarbonate level 6, glucose 754, lactate 4.2, initial urine was brown with moderate yeast. CXR shows no
acute cardiopulmonary process, CT abdomen/pelvis shows mild right-sided hydroureteronephrosis without an obstructive calculus, and a bowel containing right inguinal hernia, and CT head showed no acute intracranial abnormality. He was given 2 L NS
0.9%, Vanco/Zosyn, 6 units regular insulin, calcium gluconate and started on an insulin drip. Patient now being admitted to the ICU and supervisor microfilm duplicating unit services consulted for additional management/recommendations.
When I saw the patient, he was very withdrawn. Currently on insulin drip at 6 units/hr. current heart rate 98, BP 106/89 and he saturating 100% on room air. He is very drowsy although he does easily arouse and can talk to me/communicate but he is
confused and mixes up his story frequently.
PMHx: Chronic urinary retention with chronic Zarate, history of UTI, BPH, DM type II, history of COVID-19
PSHx: Right thumb debridement with closed reduction percutaneous pinning of the distal phalanx fracture (06/2012), hernia repair
Past Medical History
Past Medical History: Other (Above as per HPI)
Past Surgical History: Other (Above as per HPI)
Social History
Tobacco: Non-smoker
Alcohol: None
Drug: None
Personal:
Living: With Family
Family History
Family History: Reviewed & Not Pertinent
Allergies / Home Medications
Allergies
Allergy/AdvReac Type Severity Reaction Status Date / Time
No Known Allergies Allergy Verified 04/30/25 14:51
Home Medications
�Medication �Instructions �Recorded �Confirmed �Last Taken �Type
tamsulosin 0.4 mg capsule 0.4 mg PO DAILY BPH 10/10/20 05/14/25 Unknown History
atorvastatin 20 mg tablet (Lipitor) 20 mg PO DAILY High Cholesterol 05/14/25 05/14/25 Unknown History
cinnamon bark 500 mg capsule 2,000 mg PO DAILY Supplement 05/14/25 05/14/25 Unknown History
(Cinnamon)
glucosamine-chondroitin 250 mg-200 2 tab PO DAILY Supplement 05/14/25 05/14/25 Unknown History
mg tablet
losartan 50 mg tablet 50 mg PO DAILY Blood Pressure 05/14/25 05/14/25 Unknown History
metformin 1,000 mg tablet 2,000 mg PO DAILY Diabetes 05/14/25 05/14/25 Unknown History
pioglitazone 45 mg tablet (Actos) 45 mg PO DAILY Diabetes 05/14/25 05/14/25 Unknown History
semaglutide 14 mg tablet (Rybelsus) 14 mg PO DAILY Diabetes 05/14/25 05/14/25 Unknown History
Review of Systems
-
Unable to Obtain full review of systems at this time due to: Acuity
Vitals / Labs / Diagnostic Testing
Vital Signs
Temp Pulse Resp BP Pulse Ox
98.5 F 93 23 92/72 99
05/14/25 19:29 05/14/25 18:30 05/14/25 18:30 05/14/25 18:06 05/14/25 18:30
Laboratory Results
05/14/25
14:09
PT 18.6 H
INR 1.50
APTT 30.5
Diagnostic Testing:
Physical Exam
-
HEENT: Normocephalic and Anicteric
Cardiovascular: S1/S2 and Peripheral Edema (negative)
Respiratory: Wheeze (negative), Rales (negative), Rhonchi (negative) and Non-Labored Respirations
GI: Soft, Non Distended, Non Tender, Normal Bowel Sounds and Other (Right-sided inguinal hernia)
Neurology: Awake and Other (Drowsy with confusion although he is easily arousable and answering questions, but sometimes not answering correctly)
Skin: Dry and Other (Dusky toes which are cool to touch)
General: Respiratory Distress (negative), Comfortable, Fever (negative) and Chills (negative)
Assessment
-
Assessment: 74-year-old male with a past medical history of chronic urinary retention with chronic Zarate, BPH, history of UTI, DM type II, history of COVID-19 who initially presented as he has been eating poorly for the last month. While in triage
she became unresponsive and collapsed/became unresponsive. He has been disoriented since last night, per the . He was found to be in A-fib with RVR and heparin drip was started. He did spontaneously convert back into sinus rhythm. He says
that he is not take his medications as his Zarate has been leaking. He does not take insulin. Per the family he has not had a bowel movement in weeks. In the ER, he was afebrile to 98.8 �F, pulse rate 138, respiratory rate 16, BP 122/81 and he was
saturating 94% on room air. His WBC was markedly elevated at 51.9, with platelet count 628, blood gas pH 7.11 (VBG), potassium 6.4, sodium 126, serum bicarbonate level 6, glucose 754, lactate 4.2, initial urine was brown with moderate yeast. CXR
shows no acute cardiopulmonary process, CT abdomen/pelvis shows mild right-sided hydroureteronephrosis without an obstructive calculus, and a bowel containing right inguinal hernia, and CT head showed no acute intracranial abnormality. He was given
2 L NS 0.9%, Vanco/Zosyn, 6 units regular insulin, calcium gluconate and started on an insulin drip. Patient now being admitted to the ICU and supervisor microfilm duplicating unit services consulted for additional management/recommendations.
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
Impression:
#DM type II complicated by DKA
#Acute toxic�metabolic encephalopathy in the setting of DKA and possibly sepsis with LUIS
#New onset A-fib now back into NSR
#Failure to thrive with cachexia
#Pseudohyponatremia due to hyperglycemia
#LUIS
#Metabolic acidosis with increased anion gap with hyperkalemia
#Leukocytosis with mild bandemia, suggesting leukemoid reaction
#Complicated UTI
#Chronic urinary retention due to BPH with chronic Zarate catheter (follows with urology - Dr. Sanchez - as an outpatient)
Plan:
- Believe that he collapsed due to A-fib with RVR with hypotension in the setting of severe metabolic derangements with DKA, metabolic acidosis, hyponatremia, hypochloremia with FT & hypovolemia
- He is now doing better since getting IV fluids, and has spontaneously converted back into NSR
- Continue telemetry
- Replete K >4, Mg >2
- Cardiology consulted - recs appreciated
- Check echo
- Regarding his DKA, continue with insulin infusion with q4hr BMP
- Avoid hypoglycemia with q1hr fingersticks; avoid hypokalemia with BMP checks as above
- Once BG is <250 then start D5-1/2NS with potassium supplementation depending on the preceding BMP potassium level
- Once the anion gap is closed x 2 BMP blood draws with the serum bicarbonate level of at least 18 or above, then would transition off the insulin drip by bridging with Lantus, turning off insulin drip 2 hours later
- He does not take any insulin as an outpatient so this will be based on how much total insulin he has received over the preceding 24 hours
- Consult diabetic STITCH BONDING MACHINE OPERATOR
- We need to be careful not to bridge him off the insulin drip too soon otherwise he will be difficult to keep euglycemic
- Maintain SpO2 >90-94%
- Continue aspiration precautions
- Continue empiric antibiotics with Zosyn
- Urinalysis shows >100 urine WBC, and he does have a chronic zarate - -> I convinced the pt to allow us to exchange his zarate and we will send off a fresh UA sample with reflex to UCx
- Follow up blood and urine cultures
- Trend WBC and fever curve
- ID on board - recs appreciated
- Would be prudent and consult urology as well - I already discussed the case today with Dr. Sanchez and made him aware that the pt is here in the ICU, and he agreed to replace the zarate and send off a fresh UA with UCx
- Of note, the moderate yeast that was seen is because he has a chronic Zarate and this should not be treated especially given that he is not a transplant patient nor is he neutropenic
- Maintain MAP>65
- Check echo
- Patient has multiple toes which are dusky and cool to touch do check an arterial ultrasound with BAYLEE; if concerning findings seen then we will consider vascular consult
- Replete electrolytes with K>4, Mg>2
- Maintain euglycemia with goal BG 140-180
- Trend H/H and transfuse if needed to keep Hb>7g/dL; keep plt>20k, unless there is concern for bleeding then keep plt>50k
- prn nebulized bronchodilators - not currently bronchospastic
- Incentive spirometer encouraged 10x per hour for at least 4 hrs a day
- Once he is able to eat, would consult dietitian and give ADA
- DVT ppx: Heparin gtt (due to A-fib)
Code status: Full code
Continue ICU level care for this critically ill patient.
Critical care statement: A total of 41 minutes of critical care time was provided for this patient today. This includes management of unstable vital signs, evaluation of the patient at bedside, reviewing the patient's pertinent medical records
including radiographs, microbiology, laboratory evaluations, and discussion with primary team, consultants, pharmacy, nutrition, physical therapy, case management, charge nurse, critical care nursing, and respiratory therapy.
--- NOTE | 2025-05-14 15:43 | CON.CAR ---
Addendum entered and electronically signed by Eddi Del Rio MD 05/14/25 18:26:
I saw and examined the patient.
The Supervisor Coffee's note was reviewed and I agree with the note.
Comment:
GEN: No distress, awake
HEENT: supple, anicteric, mmm
LUNGS: CTA, no wheezes/rales
CV: Reg, S1/S2, 1/6 syst LSB, no gallop
ABD: soft, BS+, NT/ND
EXT: No edema
NEURO: Gross non-focal
SKIN: No rash
Plan:
74-year-old male who presents to [facility] with DKA, acute renal failure, hyperkalemia, weight loss, and failure to thrive. He presented with more confusion today and was found to have a blood sugar of 750, bicarb of 6 and lactic acid of
5. He was also found to be in new onset atrial fibrillation with rapid ventricular rate. We were asked to help manage his A-fib. He spontaneously converted back into sinus rhythm. He denies any previous history of A-fib, chest pain, shortness of
breath, or palpitations. He was recently diagnosed with type 2 diabetes.
Patient remains in sinus rhythm. Would continue heparin for today and likely initiate Eliquis 5 mg p.o. twice daily in AM. [id number] score is 3.
Check echocardiogram and continue to follow his rhythm on telemetry.
Continue antibiotics and IV fluids for DKA. Continue to correct lactic acidosis, and continue to treat hyperkalemia.
Cardiac troponin 0.025 likely consistent with DKA.
Original Note:
Consultation
Consultation Request
Date/Time Consultation Performed: 05/14/25
Requesting Provider: Dr. Lamas
Performing Provider: Candice Kumar PA-C for Dr. Del Rio
Reason for Consultation: PAF
Medical History
-
Chief Complaint: FTT
History of Present Illness:
Patient is a 74-year-old male with past medical history of inguinal hernia which has not yet been repaired, new diabetes within the last month not on medication, urinary retention with Dickinson placement several weeks ago who presented to [place]
[facility] emergency room due to failure to thrive and weight loss over the last month. He states he has not been able to eat very much at all as when he eats he has pain. He is a poor historian and seems to be getting confused. He brings up
multiple times that he was not taking his medications as they cause urinary leakage around his Dickinson catheter. Today family noted he was more confused and brought him in. On arrival was noted to have a blood sugar of 754 with bicarb of 6 and lactic
acid of 5, consistent with DKA. Also on arrival was noted to be in atrial fibrillation with rapid ventricular response. He spontaneously converted to sinus rhythm as he was initiated on treatment and remains in sinus rhythm at this time. He
denies history of cardiac issues including arrhythmias in the past. He denies chest pain, shortness of breath, palpitations. Cardiology consulted for evaluation
PMH:
Recent diagnosis type 2 diabetes
Urinary retention with Dickinson in place last several weeks
Inguinal hernia
Hypertension
Hyperlipidemia
BPH
Past Medical History
Past Medical History: Other (in HPI)
Social History
Tobacco: Non-Smoker
Alcohol: None
Personal:
Living: With Family
Employment: Retired
Allergies / Home Medications
Allergy/AdvReac Type Severity Reaction Status Date / Time
No Known Allergies Allergy Verified 04/30/25 14:51
�Medication �Instructions �Recorded �Confirmed �Type
tamsulosin 0.4 mg capsule 0.4 mg PO DAILY BPH 10/10/20 05/14/25 History
atorvastatin 20 mg tablet (Lipitor) 20 mg PO DAILY High Cholesterol 05/14/25 05/14/25 History
cinnamon bark 500 mg capsule 2,000 mg PO DAILY Supplement 05/14/25 05/14/25 History
(Cinnamon)
glucosamine-chondroitin 250 mg-200 2 tab PO DAILY Supplement 05/14/25 05/14/25 History
mg tablet
losartan 50 mg tablet 50 mg PO DAILY Blood Pressure 05/14/25 05/14/25 History
metformin 1,000 mg tablet 2,000 mg PO DAILY Diabetes 05/14/25 05/14/25 History
pioglitazone 45 mg tablet (Actos) 45 mg PO DAILY Diabetes 05/14/25 05/14/25 History
semaglutide 14 mg tablet (Rybelsus) 14 mg PO DAILY Diabetes 05/14/25 05/14/25 History
Review of Systems
-
History Source: Patient and Other (nursing)
All other systems: Negative unless noted
Physical Exam
Vital Signs
Temp Pulse Resp BP Pulse Ox
98.8 F 104 21 124/79 99
05/14/25 09:02 05/14/25 11:30 05/14/25 09:02 05/14/25 11:00 05/14/25 11:30
Lab Results
05/14/25 08:10
Physical Exam
General: No Apparent Distress, Comfortable and Other (confused at times. cachectic)
HEENT: Normocephalic, Anicteric and Moist Mucous Membranes
Respiratory: Clear and Non Labored Respirations
Cardiac: S1/S2, Regular Rhythm and Other (tachycardic)
GI: Soft, Non Tender, Non Distended and Normal Bowel Sounds
Musculoskeletal: No Clubbing, Cyanosis and No Edema
Skin: Warm and Dry
Neuro: Awake, Alert and Oriented (to self)
Impression / Plan
-
Primary Manufacturing Scheduler: none prior to admission
Assessment:
Confusion
FTT
Weight loss
DKA
Acute renal failure
Hyperkalemia
Hyponatremia
Severe sepsis
Lactic acidosis
UTI
Paroxysmal atrial fibrillation, new diagnosis status post spontaneous conversion to sinus rhythm
Recent diagnosis type 2 diabetes
Urinary retention with Dickinson in place last several weeks
R Inguinal hernia
Hypertension
Hyperlipidemia
BPH
ECHO 05/14/25: pending
Plan:
- Patient presents with confusion, failure to thrive, and weight loss over the last month in the setting of recent diagnosis type 2 diabetes and urinary retention with Dickinson placement within the last several weeks. On arrival is noted to be in DKA
with evidence of acute renal failure hyperkalemia and UTI with severe sepsis.
- Cardiology consulted as noted to be in atrial fibrillation with RVR on arrival, status post spontaneous conversion to sinus rhythm. Remains in sinus at this time on review of telemetry. Continue to follow
- [id number] score of 3 for age, hypertension, diabetes. Continue IV heparin. Eventual transition to DOAC
- blood pressure stable. Consider addition of low-dose beta-emily with hold parameters
- Check echo
- Check TSH
- Check troponin
- Check CVE
- Continue DKA management per primary service
- Treatment of UTI per primary service and infectious disease
- Follow creatinine. Holding outpatient losartan in setting of acute renal failure.
- Follow mental status. Head CT without acute intracranial abnormalities
- Would consider for eventual outpatient ischemic evaluation. EKG in sinus rhythm reviewed by me without evidence of acute ischemic changes.
- Discussed with nursing
Data Reviewed
-
EKG: Tracing Personally Visualized and interpreted
CT Scan: Report Reviewed by me
Labs: Labs Reviewed by me
Old Records: Reviewed
[2025-05-14 16:09] LABS: Glucose - Point of Care > 600 mg/dl (70-99)
--- NOTE | 2025-05-14 16:21 | PTCARENOTE ---
arrived from ED, insulin, heparin gtts, settled into room 3360, complete CHG bath, incont dried on caked on stool, skin excor, cleaned, protectant applied, positioned to side for comfort. fluids as ordered, labs drawn from ED, pending. accucheck
still reading hi. Seen by Drs. Del Rio, infectious disease, speech, and Rivera. Story vacillates at times, pt is vague about details, states diabetic one month, has had indwelling catheter 3 weeks, hasn't eaten much at all, see admission for
documentation. skin is very dusky, jaylen toes and fingertips. pulses noted strong in feet. family now bedside and updated. pt restless at times.
[2025-05-14] MEDS: TOPROL XL 25 MG PO (16:39)
[2025-05-14] MEDS: SUBLIMAZE 25 MCG IV (16:40)
[2025-05-14 16:41] LABS: Blood Urea Nitrogen 38 mg/dl (9-20); Calcium 3.2 mg/dl (8.4-10.2); Carbon Dioxide < 5 mmol/L (22-30); Chloride 130 mmol/L (98-107); Estimated Creatinine Clearance 56 ml/min; Glucose 212 mg/dl (70-99); HDL Cholesterol 14 mg/dl; LDL Cholesterol, Calculated 29.99999 mg/dl; Potassium 2.2 mmol/L (3.5-5.1); Sodium 141 mmol/L (135-145); Very Low Density Lipoprotein 6 mg/dl (0-30); eGFR > 60.00
--- NOTE | 2025-05-14 17:02 | PTCARENOTE ---
lab results with questionable results, redrawing, lab and Dr. Lamas notified. swallowed pill easily, medicated with fentanyl pre zarate exchange per order.
--- NOTE | 2025-05-14 17:26 | PTCARENOTE ---
prior zarate removed, new sterile zarate inserted per protocol. tolerated fair. premed given as ordered, see MAR.
[2025-05-14 17:43] LABS: Troponin I 0.025 ng/ml
[2025-05-14 17:48] LABS: Blood Urea Nitrogen 82 mg/dl (9-20); Calcium 9.3 mg/dl (8.4-10.2); Carbon Dioxide 10 mmol/L (22-30); Chloride 96 mmol/L (98-107); Estimated Creatinine Clearance 21 ml/min; Glucose 491 mg/dl (70-99); HDL Cholesterol 47 mg/dl; LDL Cholesterol, Calculated 85 mg/dl; Potassium 5.9 mmol/L (3.5-5.1); Sodium 130 mmol/L (135-145); Very Low Density Lipoprotein 18 mg/dl (0-30); eGFR 25.41
[2025-05-14 18:25] LABS: Urine Character Cloudy (Clear)
[2025-05-14 18:39] LABS: Glucose - Point of Care 493 mg/dl (70-99)
[2025-05-14 18:41] LABS: Urine Squamous Cell 0-2 /LPF (Few)
[2025-05-14 18:42] LABS: Urine Red Blood Cell 30-40 /HPF (0-2); Urine White Cell >100 /HPF (0-5)
--- NOTE | 2025-05-14 19:15 | PTCARENOTE ---
repositioned in bed, accucheck hi, serum sent and pending. no other change. feet remain dusky, family updated and now heading home. remains with bed alarm and call ward.
[2025-05-14 19:22] LABS: Glucose 333 mg/dl (70-99)
--- NOTE | 2025-05-14 19:53 | CON.ID ---
Consultation
-
Date/Time Consultation Requested: May 14, 2025
Date/Time Consultation Performed: May 14, 2025
Requesting Provider: Dr Lamas
Performing Provider: Janet Corral MD
Reason for Consultation: Sepsis
Chief Complaint / Past History
Chief Complaint
Presented in ED with confusion in setting of newly diagnosed diabetes and recently placed Zarate catheter for urinary retention 3 weeks ago
History of Present Illness
The patient was followed by urology had Zarate placed 3 weeks ago for urinary retention. Since that time he has lost weight and has not been eating. The patient was brought to the ED with confusion and subsequent collapse in the emergency department
Past History
Past Medical History: Hypercholesterolemia, NIDDM (BPH,urinary retention, zarate catheer without change for 3 weeks ?) and Venous Hypertension
Past Surgical History: None
Allergy History:
No Known Allergies Allergy (Verified 04/30/25 14:51)
Medications Reviewed: Yes
Social History
Tobacco: Non-Smoker
Alcohol: None
Drug: None
Personal:
Living: With Family
Employment: Employed
Family History
Family History: Not Pertinent
Review of Systems
Review of Systems
General: Change in Appetite (eats little with significant weight loss)
Gasteroenterology: Weight Loss
Genital / Urological: Other (BPH with urinary retention)
Endocrine: Weight Change, Weakness and Fatigue
Psychological: Other (increased confusion)
Vital Signs
Temp Pulse Resp BP Pulse Ox
98.5 F 93 23 92/72 99
05/14/25 19:29 05/14/25 18:30 05/14/25 18:30 05/14/25 18:06 05/14/25 18:30
Physical Exam
Physical Exam
Constitutional: Acutely Ill, Chronically Ill and Cachetic
Head: Normocephalic
Eyes: Pupils Equal, Pupils Round, No Conjunctival Hemorrhage and Sclera Anicteric
Pharynx: Benign
Oral: No Thrush and No Ulcers
Cardiovascular: Other (tachycardia)
Pulmonary: Clear and Non Labored
Gastrointestinal: Soft, Non Distended and Decreased Bowel Sounds (per report without bowel movement for days)
Genito-Urinary: Zarate and Turbid Urine (per nurse patient with turbid thick brown urine in zarate bag//current fresh urine is light yellow clear after ED hydration)
Extremities: Other (pulses present with blue/purple discoloration of toes and cold feet /skin intact)
Skin: Warm and Dry
Wound: None
Neurological: Awake (seems confused with minimal speech , answers some questions but appears weak , dehydrated)
Psychological: Calm and Confused
Lines: PIV
Lab / Diagnostic Study Results
Abs Immat Gran (auto) 1.2 10^3/uL (0-0.05) H 05/14/25 08:10
Absolute Neuts (auto) 46.1 10^3/uL (1.4-6.5) H 05/14/25 08:10
Absolute Lymphs (auto) 1.3 10^3/uL (1.2-3.4) 05/14/25 08:10
Absolute Monos (auto) 3.3 10^3/uL (0.1-0.6) H 05/14/25 08:10
Absolute Basos (auto) 0.1 10^3/uL (0-0.2) 05/14/25 08:10
Immature Gran % 2.3 % (0-0.5) H 05/14/25 08:10
Neutrophils % 88.8 % (42.2-75.2) H 05/14/25 08:10
Lymphocytes % 2.5 % (20.5-51.1) L 05/14/25 08:10
Monocytes % 6.3 % (1.7-9.3) 05/14/25 08:10
Eosinophils % 0.0 % (0-6) 05/14/25 08:10
Basophils % 0.1 % (0-2) 05/14/25 08:10
PT 18.6 Sec (11.4-14.6) H 05/14/25 14:09
INR 1.50 05/14/25 14:09
Lactic Acid 5.0 mmol/L (0.7-2.0) H* 05/14/25 17:06
Urine WBC >100 /HPF (0-5) A 05/14/25 18:10
Ur Squamous Epith Cells 0-2 /LPF (Few) 05/14/25 18:10
Microbiology Results
Micro:
05/14/25 08:15 Blood Culture - Pending
Blood/Venous
05/14/25 08:15 Blood Culture - Pending
Blood/Venous
05/14/25 08:29 Urine Culture - Pending
Urine
Assessment / Plan
1. Leukocytosis with WBC 51.9 with left shift of PMN 88.8 % with bands of 2.3 %
2. Hemoconcentration Hgb 16.7
3. Cachexia with BMI of 19.7
4, Diabetes uncontrolled with severe dehydration ABG, PH 7.11
5. BPH with indwelling zraate and significant prostate enlargement on CT
6. Altered mental status recently with CT head showing atrophy without acute findings
7. Reduceable inguinal hernias
8. Blood cultures drawn and pending with Zosyn started
9. EKG with septal infarct with age indeterminate
Care Review
Plan reviewed with: Nurse (patient discussed with IC nurses)
Total Time Spent with Patient (in minutes): 55
[2025-05-14] MEDS: NSS IV (20:20)
[2025-05-14 20:44] LABS: Glucose - Point of Care 363 mg/dl (70-99)
[2025-05-14 21:06] LABS: APTT 34.4 Sec (23.4-35.0); Blood Urea Nitrogen 83 mg/dl (9-20); Calcium 9.0 mg/dl (8.4-10.2); Carbon Dioxide 21 mmol/L (22-30); Chloride 102 mmol/L (98-107); Estimated Creatinine Clearance 23 ml/min; Glucose 211 mg/dl (70-99); Potassium 5.4 mmol/L (3.5-5.1); Sodium 132 mmol/L (135-145); eGFR 27.97
[2025-05-14 21:08] LABS: Hematocrit 41.2 % (39.0-52.0); Hemoglobin 14.8 g/dL (13.0-18.0); Mean Corp Hgb Conc. 35.9 g/dL (33.0-37.0); Mean Corpuscular Volume 77.9 fL (80.0-94.0); Platelet Count 506 10^3/uL (130-400); Red Cell Dist. Width 13.0 % (11.5-14.5)
[2025-05-14 21:21] LABS: Nucleated Red Blood Cells % 0 % (-)
[2025-05-14 21:40] LABS: Glucose - Point of Care 295 mg/dl (70-99)
[2025-05-14 22:45] LABS: Glucose - Point of Care 332 mg/dl (70-99)
--- NOTE | 2025-05-14 23:09 | PTCARENOTE ---
Assumed care of pt at 1900. Pt is oriented to self and somewhat to place, knows he is in a hospital but unsure which one. Able to state his birthday but then when asked what month it was pt kept repeating 'August' (his month) and then kept
whispering August. Not oriented to year, not oriented to situation. Pt is restless, pulls at gown, kicks pillows out of the bed, etc. Can follow simple commands but then forgets very quickly what you asked him to do (like keep his arm straight for
blood being drawn, etc). Pt denies any pain but then makes noises as if he is in pain, especially during zarate care or anything near that area--scrotum and penis are excoriated. Barrier cream and desenex powder applied. SR 80s-90s on monitor. Spo2
100% on RA. Physical assessment as documented in nursing shift assessment flowsheet. Pt on Heparin drip, Insulin drip per DKA protocol, and IVF. See med titration flowsheets for details on med rates/titrations.
[2025-05-14] MEDS: D5/0.9% SODIUM CHLORIDE 1000 IV (23:34)
[2025-05-14 23:41] LABS: Glucose - Point of Care 219 mg/dl (70-99)
[2025-05-15] VITALS (33 sets, daily range): BP systolic 77–113; BP diastolic 49–69; PULSE 78; O2SAT 98; BMI 20.6
--- NOTE | 2025-05-15 00:21 | PTCARENOTE ---
Assessment mostly unchanged. Urine output has decreased to 0mL the last two hours--had been ~20mL/hr up to that point. Bladder scan done to verify that zarate wasn't clogged d/t large amount of debris and sediment that had been present in urine, only
14mL on bladder scan. Jacqueline SOUTH aware, IVF already infusing at 250mL/hr. Remains on insulin and heparin drips. SR 90s on monitor, SpO2 100% on RA.
[2025-05-15 00:45] LABS: Glucose - Point of Care 201 mg/dl (70-99)
[2025-05-15 01:18] LABS: Blood Urea Nitrogen 72 mg/dl (9-20); Calcium 8.2 mg/dl (8.4-10.2); Carbon Dioxide 16 mmol/L (22-30); Chloride 109 mmol/L (98-107); Estimated Creatinine Clearance 25 ml/min; Glucose 190 mg/dl (70-99); Potassium 4.7 mmol/L (3.5-5.1); Sodium 136 mmol/L (135-145); eGFR 31.05
[2025-05-15 01:46] LABS: Glucose - Point of Care 214 mg/dl (70-99)
[2025-05-15 02:58] LABS: Glucose - Point of Care 170 mg/dl (70-99)
[2025-05-15] MEDS: D5/0.9% SODIUM CHLORIDE 1000 IV (03:41)
[2025-05-15 03:47] LABS: Glucose - Point of Care 150 mg/dl (70-99)
[2025-05-15 04:51] LABS: Glucose - Point of Care 140 mg/dl (70-99)
[2025-05-15] MEDS: ZOSYN 50 IV ×4 (04:59→21:26)
[2025-05-15 05:22] LABS: Hematocrit 40.2 % (39.0-52.0); Hemoglobin 14.8 g/dL (13.0-18.0); Mean Corp Hgb Conc. 36.8 g/dL (33.0-37.0); Mean Corpuscular Volume 77.5 fL (80.0-94.0); Platelet Count 379 10^3/uL (130-400); Red Cell Dist. Width 13.2 % (11.5-14.5)
[2025-05-15 05:27] LABS: APTT 54.0 Sec (23.4-35.0)
[2025-05-15 05:47] LABS: Blood Urea Nitrogen 73 mg/dl (9-20); Calcium 8.5 mg/dl (8.4-10.2); Carbon Dioxide 17 mmol/L (22-30); Chloride 111 mmol/L (98-107); Estimated Creatinine Clearance 28 ml/min; Glucose 64 mg/dl (70-99); Potassium 4.8 mmol/L (3.5-5.1); Sodium 135 mmol/L (135-145); eGFR 32.83
[2025-05-15 05:54] LABS: Glucose - Point of Care 104 mg/dl (70-99)
[2025-05-15] MEDS: D5/0.45%NSS with KCL 20 MEQ 1000 IV ×3 (06:02→20:23)
--- NOTE | 2025-05-15 06:03 | W.PN.UPDATE ---
Update Note
Progress Note Update
Issues with elliot (clotting), I and O are not correct, CR and Lactic treading down
--- NOTE | 2025-05-15 06:12 | PTCARENOTE ---
0400 assessment mostly unchanged. Pt now able to state he is in [facility] but unsure of date and situation. No urine output noted in zarate chamber, pt noted to have had a BM and when looking closer, appeared to be wet underneath as if the
catheter was leaking. Balloon deflated, catheter advanced and reinflated, pt immediately started urinating around the catheter. Upon closer inspection, the same type of debris that had been draining from the catheter was noted to be on the sheet and
pad under patient. Discussed with Jacqueline SOUTH, order obtained to irrigate zarate PRN. Zarate irrigated with a total of 140mL sterile saline and 160mL retrieved--tompkins liquid with large amount of debris, brown and bradshaw pieces. Zarate then started to
drain a light pink cloudy color with sediment. Pt placed in reverse trendelenberg to facilitate draining of urine. Pt cleaned with soap and water and barrier cream applied, entire bed changed as well as gown.
[2025-05-15 06:34] LABS: Absolute Neutrophils -Man Diff 33.7 10^3/uL (1.4-6.5); Platelets Checked Yes
[2025-05-15 06:35] LABS: Normal RBC Morphology Yes; Toxic Granulation 1+; Vacuolated Segs Occasional
[2025-05-15 06:36] LABS: Total Cells Counted 100
[2025-05-15 06:51] LABS: Glucose - Point of Care 142 mg/dl (70-99)
--- NOTE | 2025-05-15 07:32 | W.PN.HOSP.TC ---
Addendum entered and electronically signed by Alfredo Persaud MD 05/15/25 12:53:
Sacrum Stage 1 Pressure Injury, POA
severe protein calorie malnutrition
Original Note:
Today's Communication/Plan
-
see plan
Assessment / Plan
Assessment / Plan
74 yo man with hx HTN, HLD, BPH, ER visit 04/30/25 for urinary retention s/p zarate brought in by for confusion x 24 hours. Patient had a syncopal episode in triage.
Gen: NAD, Awake and alert, appears chronically ill and malnourished
Eyes: EOMI, PERRLA, no scleral icterus.
Neck: supple.
CV: RRR, +S1/S2, no m/r/g.
Resp: CTAB, no rales, wheezes, or rhonchi.
Abd: +BS, soft, NT, ND
Skin: No rashes.
Neuro: CN 2-12 intact, non-focal.
Psych: Normal mood and affect.
05/14/25 08:15 Blood/Venous Blood Culture - Preliminary
Positive culture in progress
05/14/25 08:15 Blood/Venous Gram Stain - Final
05/14/25 08:29 Urine Urine Culture - Final
05/14/25 08:15 Blood/Venous Blood Culture - Preliminary
No Growth in 24 hours- Final report to follow
EKG: atrial fibrillation with RVR @ 141, aberrantly conducted complexes versus PVC's; intraventricular conduction block
CXR: No acute cardiopulmonary process.
CT A/P (without PO/IV contrast): Limited CT examination in the absence of intravenous and oral contrast. Small left nephrolith. Mild right hydroureteronephrosis without evidence for an obstructing ureteral calculus. Collapsed urinary bladder with a
Zarate catheter in place and urinary bladder wall thickening. Recommend correlation with a urinalysis. Prostatomegaly. Bowel containing right inguinal hernia. Other chronic findings, as detailed above.
CT head: No acute intracranial abnormality.
DKA:
-on admission AG 30 with glucose > 700 and elevated beta hydroxybutyric acid. Patient was not on insulin at home, had not been on oral anti-hyperglycemics.
-s/p 2L and insulin regular 6 units x 1 followed by initiation of insulin gtt
-glucose has improved with insulin gtt, now on D5 1/2NS, still with AG, cont insulin gtt
-hyperkalemia resolved
-transition to basal/bolus insulin once AG resolves
LUIS:
-due to dehydration causing prerenal azotemia as well as osmotic diuresis from DKA
-cont aggressive IVFs
-CT A/P with mild right hydro, no stone
-continue zarate catheter today
Severe sepsis due to CAUTI:
-zarate catheter was present on admission
-with lactic acidosis, improving with IVFs
-cont Zosyn
-follow BCxs/UCx (1 of 2 BCxs with GNR)
-c/s ID
-with hypotension will give 1L NS and reassess. May need further IVF boluses or vasopressors.
Atrial Fibrillation with RVR:
-converted to SR
-check echo
-TSH normal
-Cardiology consult
-cont Heparin gtt
Other problems:
Chronic urinary Retention with chronic zarate catheter: will need zarate catheter exchange this admission. c/s urology.
Right Inguinal Hernia, reducible
Constipation: may need enema
Family updated at bedside. Discussed with critical care.
FULL/heparin gtt
Total critical care time spent = 34 min
Anticipated Discharge: > 48 hours
Subjective/Interval History
-
Date of Service: May 15, 2025
Objective Data
-
Labs:
Laboratory Results
05/14/25 05/15/25 05/15/25
20:45 00:44 04:47
WBC 47.4 H* 35.5 H
Hgb 14.8 14.8
Hct 41.2 40.2
Plt Count 506 H 379 D
APTT 34.4
Sodium 132 L 136
Potassium 5.4 H 4.7
Chloride 102 109 H
Carbon Dioxide 21 L 16 L
BUN 83 H 72 H
Creatinine 2.4 H 2.2 H
Glucose 211 H 190 H
Calcium 9.0 8.2 L
05/15/25 05/15/25 05/15/25
05:04 08:00 12:00
WBC
Hgb
Hct
Plt Count
APTT 54.0 H Pending
Sodium 135 Pending Pending
Potassium 4.8 Pending Pending
Chloride 111 H Pending Pending
Carbon Dioxide 17 L Pending Pending
BUN 73 H Pending Pending
Creatinine 2.1 H Pending Pending
Glucose 64 L Pending Pending
Calcium 8.5 Pending Pending
Vital Signs:
Vital Signs
Temp Pulse Resp BP Pulse Ox
97.9 F 80 16 87/53 99
05/15/25 03:09 05/15/25 07:15 05/15/25 07:15 05/15/25 07:03 05/15/25 06:00
I&O
05/14/25 05/15/25 05/16/25
06:59 06:59 06:59
Intake Total 4500.1 / 4661.6 161.5 / 161.5
Output Total 380 / 380
Balance 4120.1 / 4281.6 161.5 / 161.5
[2025-05-15 07:43] LABS: Glucose - Point of Care 166 mg/dl (70-99)
[2025-05-15] MEDS: TOPROL XL PO (08:10)
[2025-05-15] MEDS: FLOMAX PO ×2 (08:11→08:18)
[2025-05-15] MEDS: LIPITOR PO ×2 (08:11→08:18)
--- NOTE | 2025-05-15 08:20 | W.PN.INTV ---
Today's Communication / Plan
Recommendations
Insulin drip with D5 IVF
Avoid hypoglycemia and avoid hypokalemia
Heparin drip
Antibiotics; obtain a surveillance set of blood cultures today
Diet as per [employer] INF[employer]STRU[employer]URE CONSULTANT -currently rec'd to be NPO
Refusing to work with PT
Continue ICU level of care for this critically ill patient
Assessment
-
Assessment: 74-year-old male with a past medical history of chronic urinary retention with chronic Zarate, BPH, history of UTI, DM type II, history of COVID-19 who initially presented as he has been eating poorly for the last month. While in triage
she became unresponsive and collapsed/became unresponsive. He has been disoriented since last night, per the . He was found to be in A-fib with RVR and heparin drip was started. He did spontaneously convert back into sinus rhythm. He says
that he is not take his medications as his Zarate has been leaking. He does not take insulin. Per the family he has not had a bowel movement in weeks. In the ER, he was afebrile to 98.8 �F, pulse rate 138, respiratory rate 16, BP 122/81 and he was
saturating 94% on room air. His WBC was markedly elevated at 51.9, with platelet count 628, blood gas pH 7.11 (VBG), potassium 6.4, sodium 126, serum bicarbonate level 6, glucose 754, lactate 4.2, initial urine was brown with moderate yeast. CXR
shows no acute cardiopulmonary process, CT abdomen/pelvis shows mild right-sided hydroureteronephrosis without an obstructive calculus, and a bowel containing right inguinal hernia, and CT head showed no acute intracranial abnormality. He was given
2 L NS 0.9%, Vanco/Zosyn, 6 units regular insulin, calcium gluconate and started on an insulin drip. Patient now being admitted to the ICU and military science instructor services consulted for additional management/recommendations.
Chronic medical conditions LAST CHALKER: chronic urinary retention with chronic Zarate, history of UTI, BPH, DM type II, history of COVID-19
Impression:
#DM type II complicated by DKA
#Acute toxic�metabolic encephalopathy in the setting of DKA and possibly sepsis with LUIS
#New onset A-fib now back into NSR
#Failure to thrive with cachexia
#Pseudohyponatremia due to hyperglycemia
#LUIS
#Metabolic acidosis with increased anion gap with hyperkalemia
#Leukocytosis with mild bandemia, suggesting leukemoid reaction
#Complicated UTI
#Chronic urinary retention due to BPH with chronic Zarate catheter (follows with urology - Dr. Sanchez - as an outpatient)
Plan:
- Believe that he collapsed due to A-fib with RVR with hypotension in the setting of severe metabolic derangements with DKA, metabolic acidosis, hyponatremia, hypochloremia with FT & hypovolemia
- He remains in NSR; spontaneously converted back into NSR on 05/14
- Continue telemetry
- Replete K >4, Mg >2
- Cardiology consulted - recs appreciated
- Echo checked on 05/15/2025 which was a technically difficult study, showing preserved LVEF at 50%, with no gross regional WMA, with normal RV size and function and no significant valvular pathology
- Regarding his DKA, continue with insulin infusion with q4-6hr BMP
- Avoid hypoglycemia with q1hr fingersticks; avoid hypokalemia with BMP checks as above
- Once BG is <250 then start D5-1/2NS with potassium supplementation depending on the preceding BMP potassium level
- Once the anion gap is closed x 2 BMP blood draws with the serum bicarbonate level of at least 18 or above, then would transition off the insulin drip by bridging with Lantus, turning off insulin drip 2 hours later
- He does not take any insulin as an outpatient so this will be based on how much total insulin he has received over the preceding 24 hours
- Diabetic CUSTOMER SOLUTIONS COORDINATOR consulted - recs appreciated
- We need to be careful not to bridge him off the insulin drip too soon otherwise he will be difficult to keep euglycemic
- Maintain SpO2 >90-94%
- Continue aspiration precautions
- Continue empiric antibiotics with Zosyn
- Urinalysis shows >100 urine WBC, and he does have a chronic zarate - -> I convinced the pt to allow us to exchange his zarate and we will send off a fresh UA sample with reflex to UCx
- Follow up blood and urine cultures
- Blood cultures growing Klebsiella oxytoca + Staphylococcus aureus � follow sensitivities and obtain a surveillance set of blood cultures today
- Trend WBC and fever curve
- ID on board - recs appreciated
- Consult urology as well - I already discussed the case on 05/[address] Sanchez and made him aware that the pt is here in the ICU, and he agreed to replace the zarate and send off a fresh UA with UCx
- Of note, the moderate yeast that was seen on UA from 05/14 is because he has a chronic Zarate and this should not be treated especially given that he is not a transplant patient nor is he neutropenic
- Maintain MAP>65
- Patient has multiple toes which are dusky and cool to touch - arterial ultrasound with BAYLEE checked which shows normal BAYLEE with no large vessel arterial stenosis; no indication to consult vascular surgery at this time
- Replete electrolytes with K>4, Mg>2
- Maintain euglycemia with goal BG 140-180; HbA1C: 15.9
- Trend H/H and transfuse if needed to keep Hb>7g/dL; keep plt>20k, unless there is concern for bleeding then keep plt>50k
- prn nebulized bronchodilators - not currently bronchospastic
- Incentive spirometer encouraged 10x per hour for at least 4 hrs a day
- Diet as per MI[employer] INFRASTRUCTURE CONSULTANT (failed today); once he is able to eat, would consult dietitian and give ADA
- DVT ppx: Heparin gtt (due to A-fib)
Code status: Full code
Continue ICU level care for this critically ill patient.
Critical care statement: A total of 38 minutes of critical care time was provided for this patient today. This includes management of unstable vital signs, evaluation of the patient at bedside, reviewing the patient's pertinent medical records
including radiographs, microbiology, laboratory evaluations, and discussion with primary team, consultants, pharmacy, nutrition, physical therapy, case management, charge nurse, critical care nursing, and respiratory therapy.
Data:
Transthoracic echocardiogram 05/15/2025:
Technically difficult study
Small left ventricular chamber size. Low normal left ventricular systolic
function. Left ventricular ejection fraction is 50% by visual estimate. No
gross regional wall motion abnormalities within limits of the study. Mild
concentric left ventricular hypertrophy. Normal diastolic function.
Normal right ventricular size and function.
No significant valvular pathology
No prior study for comparison
Subjective Dataa
Subjective Data
Date of Service:
Date of Service: May 15, 2025
Chief Complaint: Mis Manager Follow Up
Subjective:
Patient was seen and evaluated today at bedside. I spoke with the patient's daughter, Ligia, and the patient's , Virgen, and answered all questions. Pt is currently on insulin drip at 1 unit/h, and on D5 1/2 NS at 150cc/hr. Still confused.
HR 79, BP 90/61 and SpO2 100% on room air. Failed MI[employer] INFRASTRUCTURE CONSULTANT today. Refused to work with PT today as well.
Review of Systems
General: Other (Unobtainable (confusion/AMS))
Objective Data
Data Reviewed
Vital Signs / I&O / Oxygen:
Vital Signs
Temp Pulse Resp BP Pulse Ox
97.9 F 79 16 97/64 99
05/15/25 07:55 05/15/25 08:10 05/15/25 07:15 05/15/25 08:10 05/15/25 06:00
Intake and Output
05/14/25 05/15/25 05/16/25
06:59 06:59 06:59
Intake Total 4500.1 / 4661.6 486.5 / 486.5
Output Total 380 / 380 180 / 180
Balance 4120.1 / 4281.6 306.5 / 306.5
SaO2 99
Physical Exam
General: Respiratory Distress (negative), Comfortable, Chills (negative) and Sweats (negative)
HEENT: Normocephalic and Anicteric
Cardiovascular: S1-S2 and Peripheral Edema (negative)
Respiratory: Clear, Wheeze (negative), Crackles (negative), Rhonchi (negative) and Non-Labored Respirations
GI: Soft, Non Distended, Non Tender and Normal Bowel Sounds
Neurology: Tremors (negative) and Other (Drowsy)
Skin: Warm, Dry, Cyanosis (Multiple toes) and Jaundice (negative)
Labs/Micro/Reports
Lab Data
05/15/25 04:47
Laboratory Results
05/14/25 05/14/25 05/15/25
14:09 20:45 05:04
PT 18.6 H
INR 1.50
APTT 30.5 34.4 54.0 H
Microbiology
05/14/25 08:15 Blood/Venous Blood Culture - Preliminary
Positive culture in progress
05/14/25 08:15 Blood/Venous Gram Stain - Final
05/14/25 08:29 Urine Urine Culture - Final
05/14/25 08:15 Blood/Venous Blood Culture - Preliminary
No Growth in 24 hours- Final report to follow
[2025-05-15 08:42] LABS: Glucose - Point of Care 148 mg/dl (70-99)
[2025-05-15 08:58] LABS: Glycohemoglobin (HgbA1c) 15.9 % (4.0-5.6)
--- NOTE | 2025-05-15 09:01 | W.PN.CARDCBS ---
Today's Communication / Plan
-
Maintaining sinus rhythm
Check echo
Continue low dose metoprolol
Transition heparin to Eliquis
Impression / Plan
-
Primary Can Marker: none prior to admission
Assessment:
Confusion
FTT
Weight loss
DKA
Acute renal failure
Hyperkalemia
Hyponatremia
Severe sepsis
Lactic acidosis
UTI
Paroxysmal atrial fibrillation, new diagnosis status post spontaneous conversion to sinus rhythm
Recent diagnosis type 2 diabetes
Urinary retention with Dickinson in place last several weeks
R Inguinal hernia
Hypertension
Hyperlipidemia
BPH
ECHO 05/14/25: pending
Patient presents with confusion, failure to thrive, and weight loss over the last month in the setting of recent diagnosis type 2 diabetes and urinary retention with Dickinson placement within the last several weeks. On arrival is noted to be in DKA
with evidence of acute renal failure hyperkalemia and UTI with severe sepsis.
Plan:
- Cardiology consulted as noted to be in atrial fibrillation with RVR on arrival, status post spontaneous conversion to sinus rhythm. Remains in sinus at this time on review of telemetry. Continue to follow
- [id number] score of 3 for age, hypertension, diabetes. Continue IV heparin. Eventual transition to Eliquis.
- Low-dose beta-emily with hold parameters
- Check echo
- Continue DKA management per primary service
- Treatment of UTI per primary service and infectious disease
- Follow creatinine. Holding outpatient losartan in setting of acute renal failure.
- Discussed with patient's son at bedside
Progress Note - Can Marker
Subjective
Date of Service: May 15, 2025
NAOE. Remains in sinus rhythm overnight.
Objective
Labs:
05/15/25 04:47
Labs
Hgb 14.8 g/dL (13.0-18.0) 05/15/25 04:47
Hct 40.2 % (39.0-52.0) 05/15/25 04:47
Plt Count 379 10^3/uL (130-400) D 05/15/25 04:47
PT 18.6 Sec (11.4-14.6) H 05/14/25 14:09
INR 1.50 05/14/25 14:09
APTT 54.0 Sec (23.4-35.0) H 05/15/25 05:04
Sodium 135 mmol/L (135-145) 05/15/25 05:04
Potassium 4.8 mmol/L (3.5-5.1) 05/15/25 05:04
BUN 73 mg/dl (9-20) H 05/15/25 05:04
Creatinine 2.1 mg/dL (0.7-1.3) H 05/15/25 05:04
Glucose 64 mg/dl (70-99) L 05/15/25 05:04
Troponins
05/14/25 05/14/25
17:06 17:06
Troponin I 0.025 Cancelled
Vital Signs and I&O:
Vital Signs
Temp Pulse Resp BP Pulse Ox
97.9 F 79 16 97/64 99
05/15/25 07:55 05/15/25 08:10 05/15/25 07:15 05/15/25 08:10 05/15/25 06:00
Vital Signs
Temp Pulse Resp BP Pulse Ox
97.9 F 79 16 97/64 99
05/15/25 07:55 05/15/25 08:10 05/15/25 07:15 05/15/25 08:10 05/15/25 06:00
Intake & Output
05/13/25 05/14/25 05/15/25 05/16/25
06:59 06:59 06:59 06:59
Intake Total 4500.1 / 4661.6 324.0 / 324.0
Output Total 380 / 380 140 / 140
Balance 4120.1 / 4281.6 184.0 / 184.0
Physical Exam
Physical Exam
Gen: NAD, drowsy
HEENT: NC/AT, sclera anicteric
Neck: No JVD
CV: RRR, NL s1/s2
Lungs: CTAB
Abd: S/ND
Ext: No LE edema
Skin: Warm, dry
Neuro: Non-focal
--- NOTE | 2025-05-15 09:22 | PTCARENOTE ---
recd 0715 handoff bedside, hourly glucose checks noted. VS stable. Wants to be left alone. Restless at times. Echo completed. Family bedside, updated. Seen by speech therapy. Extremities jaylen feet remain mottled. Heparin infusing as ordered.
Skin care given. Turning self with direction. Tolerating room air. Cachectic, abdomen very concave.
[2025-05-15 09:50] LABS: Glucose - Point of Care 150 mg/dl (70-99)
--- NOTE | 2025-05-15 10:17 | PTOTSP ---
Dysphagia Evaluation
Patient presents with signs concerning for oral>pharyngeal dysphagia and aspiration of unknown etiology, on-going at least 1 month, likely exacerbated by DKA with TME. Limited tolerance of sparing PO (prolonged oral holding and overt coughing w/
tsps of puree, sips of thin) and current cognitive status are barriers to instrumental swallowing assessment at this time.
Recommend:
1. Temporary NPO; consider non-oral means if prolonged NPO status
2. Medications: non-oral
3. Oral care 3x daily
4. Aspiration Risk Hydration Protocol - sparing ice chips after oral care with nursing supervision
5. CVIR TECH to re-evaluate and determine if/when diet initiation appropriate and/or instrumental swallowing assessment appropriate
[2025-05-15 10:38] LABS: Glucose - Point of Care 139 mg/dl (70-99)
[2025-05-15] MEDS: NSS 1000 IV (10:48)
--- NOTE | 2025-05-15 10:57 | PTCARENOTE ---
sleeping at present, calm. family bedside. BAYLEE study completed. fluid bolus infusing per Dr. Persaud's order. IV sites patent.
--- NOTE | 2025-05-15 11:23 | PN.DE.MGMTRT ---
Insulin Management
- -
05/15/2025 Diabetes Management Consult
Patient admitted 05/14 with failure to thrive, hyperglycemia, DKA with GAP 30 PMH HTN, HLD, diabetes, BPH - chronic zarate catheter. Prior to admission was prescribed Rybelsus, Actos, metformin; was not taking these medications. A1C 15.9%, cr 2.1,
eGFR 32.83,
Patient is awake and alert but unable to answer questions accurately. Family is at bedside and very supportive, answering questions for patient. states they were not aware patient had diabetes, they found the prescribed medications and or
prescriptions in his truck. They think he has had diabetes ~ 1 year but did not follow up.
Patient was started on DKA insulin infusion for GAP 30. Remains NPO. After discussion with Manager Clinical Informatics will continue insulin infusion due to cr and NPO status . Patient is receiving Dextrose in IV.
Will follow for readiness to transition. I did discuss with and daughter patient will require insulin injections and begin testing his blood sugar at home at discharge.
Will ask nurse educator to provide and educate on monitor and insulin.
Discussed with nurse.
Will follow.
Diabetes History
- -
Type of Diabetes: 2 requiring insulin
Pre-Admission Diabetes Regimen
05/14/25 05/14/25 05/14/25
11:29 14:09 15:00
Creatinine 3.0 H 3.2 H Cancelled
05/14/25 05/14/25 05/14/25
16:11 17:00 17:06
Creatinine 1.0 Cancelled 2.6 H
05/14/25 05/15/25 05/15/25
20:45 00:44 05:04
Creatinine 2.4 H 2.2 H 2.1 H
05/15/25
08:00
Creatinine Cancelled
Lab Results
Hemoglobin A1c 15.9 % (4.0-5.6) H 05/14/25 08:10
Insulin Pump Settings
IP Diabetes Regimen
05/14/25 05/14/25 05/14/25
11:29 14:09 14:48
Glucose 754 H* 653 H*
POC Glucose > 600 H*
05/14/25 05/14/25 05/14/25
15:00 15:58 16:11
Glucose Cancelled 212 H
POC Glucose > 600 H*
05/14/25 05/14/25 05/14/25
17:00 17:06 18:27
Glucose Cancelled 491 H*
POC Glucose 493 H*
05/14/25 05/14/25 05/14/25
18:36 20:32 20:45
Glucose 333 H 211 H
POC Glucose 363 H
05/14/25 05/14/25 05/14/25
21:29 22:34 23:30
Glucose
POC Glucose 295 H 332 H 219 H
05/15/25 05/15/25 05/15/25
00:34 00:44 01:34
Glucose 190 H
POC Glucose 201 H 214 H
05/15/25 05/15/25 05/15/25
02:47 03:36 04:39
Glucose
POC Glucose 170 H 150 H 140 H
05/15/25 05/15/25 05/15/25
05:04 05:43 06:40
Glucose 64 L
POC Glucose 104 H 142 H
05/15/25 05/15/25 05/15/25
07:32 08:00 08:30
Glucose Cancelled
POC Glucose 166 H 148 H
05/15/25 05/15/25
09:38 10:27
Glucose
POC Glucose 150 H 139 H
Patient Education
[2025-05-15 11:48] LABS: Glucose - Point of Care 157 mg/dl (70-99)
--- NOTE | 2025-05-15 11:54 | CONS.URO ---
Consultation
-
Date/Time Consultation Performed: 05/15/25 0630
Performing Provider: Peffer
Reason for Consultation: URinary retention, hydronephrosis
Medical History
History of Present Illness
74M hx HTN, HLD, BPH, ER visit 04/30/25 for urinary retention s/p zarate brought in by for confusion x 24 hours.
Prior hx of BPH and saw Dr. Sanchez in the past
Several prior ER visits for retention over the past few years
Patient had a syncopal episode in triage.
Patient states he wasn't taking his medications because they caused urinary leakage around his zarate catheter
Per family he hasn't had a bowel movement in weeks and also hasn't been eating. They report he coughs with any sips of water or food. He has lost significant weight. No fevers/chills. No chest pain. He vomited this morning. Last night he looked
like he was gasping more for air, he was more confused today and so they took him to the ER.
He was found to be in DKA and acute renal failure
Admitted for this and severe sepsis from suspected UTI
CT scan showed zarate in bladder with massive prostate
R hydroureteronephrosis
He is bothered by bladder spasms with the zarate catheter
Overall feels much better since admit
Past Medical History
Past Medical History: Other (as above)
Social History
Personal:
Living: With Family
Family History
Family History: Reviewed & Not Pertinent
Allergies/Home Medications
Allergies
Allergy/AdvReac Type Severity Reaction Status Date / Time
No Known Allergies Allergy Verified 04/30/25 14:51
Home Medications
�Medication �Instructions �Recorded �Confirmed �Type
tamsulosin 0.4 mg capsule 0.4 mg PO DAILY BPH 10/10/20 05/14/25 History
atorvastatin 20 mg tablet (Lipitor) 20 mg PO DAILY High Cholesterol 05/14/25 05/14/25 History
cinnamon bark 500 mg capsule 2,000 mg PO DAILY Supplement 05/14/25 05/14/25 History
(Cinnamon)
glucosamine-chondroitin 250 mg-200 2 tab PO DAILY Supplement 05/14/25 05/14/25 History
mg tablet
losartan 50 mg tablet 50 mg PO DAILY Blood Pressure 05/14/25 05/14/25 History
metformin 1,000 mg tablet 2,000 mg PO DAILY Diabetes 05/14/25 05/14/25 History
pioglitazone 45 mg tablet (Actos) 45 mg PO DAILY Diabetes 05/14/25 05/14/25 History
semaglutide 14 mg tablet (Rybelsus) 14 mg PO DAILY Diabetes 05/14/25 05/14/25 History
Physical Exam
Vital Signs
Vital Signs
Temp Pulse Resp BP Pulse Ox
98.6 F 79 17 96/64 99
05/15/25 11:40 05/15/25 11:15 05/15/25 11:15 05/15/25 11:05 05/15/25 11:00
Lab / Testing Results
Laboratory Results
05/15/25 04:47
Physical Exam
General: Pain, Poor Appetite and Other (thin ,frail, )
Respiratory: Non Labored Respirations
GI: Soft and Non Tender
Genito-urinary: No Costovertebral Tend
Neuro: AO x 3
Psych: Calm and Intact Judgement
Assessment / Plan
-
74M hx of BPH and multiple prior urinary retention episodes, on tamsulosin at baseline
Recent ER visit with urinary retention with zarate placed
Admitted with failure to thrive, DKA, malnutrition, acute renal failure
Sepsis from suspected UTI, R hydronephrosis
Hydronephrosis
- Mild R hydroureteronephrosis with dilation of ureter whole way to bladder, no obstructing stone or mass
- Likely represents chronic ureteral reflux from urinary retention
- No acute intervention needed
- Maintain zarate at discharge
Urinary retention
- Likely acute on chronic urinary retention from BPH, possible component of neurogenic bladder if DM had been present and untreated for extended period
- 140cc prostate volume on CT
- Given multiple prior admissions to ER for retention and now with hydronephrosis, recommend discharge with zarate in place for further outpatient discussion
Leakage from catheter
- May be obstruction from debris or bladder spasms from catheter/UTI
- Change zarate to 18Fr to drain better
- Hand irrigate PRN
- Okay to add anticholinergic like solifenacin for spasms but given constipation on admit will leave this up to primary team
[2025-05-15 12:03] LABS: APTT 65.4 Sec (23.4-35.0)
[2025-05-15] MEDS: NOVOLIN R INSULIN INFUSION 100 IV (12:14)
--- NOTE | 2025-05-15 12:22 | PN.CDI ---
CDI
- -
CDI:
Physician Documentation Request
Admit Date: 05/14/25 14:44
Dear Doctor Cori,
Clinical Indicators:
Patient admitted with severe sepsis and DKA.
05/15 PN, '...appears chronically ill and malnourished.'
05/15 RD assessment/note,-'Reported 10-20lb weight loss over 2 weeks significant 7.4-14.8%'
-'Pt meets criteria for severe protein calorie malnutrition of chronic illness with >5%
wt loss over 1 month, prolonged poor intake <75% x 1 month. '
Please provide additional specificity regarding the severity of the malnutrition:
Severe Protein Calorie Malnutrition
Other (please specify)
[place] Criteria ([facility] Hospitalist 2017)
2 or more criteria must be present for either
non severe or severe malnutrition
Note that the criteria differs related to the
presence of an acute or chronic illness
Acute Illness Chronic Illness
Energy Intake Non Severe: <75% for >7 days Non Severe: <75% for >1 month
Severe: <50% for >5 days Severe: <75% for >1 month
Weight Loss Non Severe: 1-2% over 1 week Non Severe: 5% over 1 month
5% over 1 month 7.5% over 3 months
7.5% over 3 months 10% over 6 months
1 year N/A 20% over 1 year
Severe: >2% over 1 week Severe: >5% over 1 month
>5% over 1 month >7.5% over 3 months
>7.5% over 3 months >10% over 6 months
1 year N/A >20% over 1 year
Body Fat Non Severe: Mild Decrease Non Severe: Mild Loss
Severe: Moderate Decrease Severe: Severe Loss
Muscle Mass Non Severe: Mild Decrease Non Severe: Mild Loss
Severe: Moderate Decrease Severe: Severe Loss
Fluid Accumulation Non Severe: Mild Accumulation Non Severe: Mild Accumulation
Severe: Moderate to severe Severe: Moderate to severe
accumulation accumulation
Reduced Physician Underwriter Strength Non Severe: N/A Non Severe: N/A
Severe: Measurably reduced Severe: Measurably reduced
Additional criteria that can be used to Determine if Mild or Moderate Malnutrition (Merck Manual 2018)
Mild Moderate Severe
Albumin gm/dl <3.0 gm/dl <2.5 gm/dl <2.0 gm/dl
Pre Albumin mg/dl <15 gm/dl <10 mg/dl <5.0 mg/dl
BMI <18.5 <17 <16
Use of terms such as suspected, likely, concern for, or probable (associated with a specific diagnosis that is being evaluated, monitored, or treated as if it exists) are acceptable and can be coded in the inpatient setting, when documented at the
time of discharge.
Thank you,
WENDY Blanc RN
CDI Specialist
available via tiger text
Please use your independent medical judgment in providing your response.
--- NOTE | 2025-05-15 12:33 | PN.CDI ---
CDI
- -
CDI:
Physician Documentation Request
Admit Date: 05/14/25 14:44
Dear Doctor Cori,
Clinical Indicators:
Patient admitted with severe sepsis and DKA.
05/14 RN skin wound assessments: Sacrum Stage 1 Pressure Injury, POA
Treatment: Silicone border foam dressing
Physician documentation of the type and location of wounds is required for compliant documentation. Based on the above clinical findings and your assessment, please provide the following in your progress note:
1. Location of the ulcer/wound, including laterality.
2. Type (etiology) of ulcer/wound:
- Pressure (decubitus) ulcer
- Other
3. If a pressure ulcer, please also include the stage* of the ulcer:
- Stage 1 - Skin intact, non-blanchable redness
- Stage 2 - Partial thickness loss of dermis, includes intact or open blister
- Stage 3 - Full thickness tissue not including bone, tendon or muscle
- Stage 4 - Full thickness tissue loss, including exposed bone, tendon or muscle
- Unstageable - Full thickness loss in which the base of the ulcer is covered by slough (yellow, tompkins, bradshaw, green or brown) and/or eschar (tompkins, brown or black) in the wound bed.
- Unable to determine
Use of terms such as suspected, likely, concern for, or probable (associated with a specific diagnosis that is being evaluated, monitored, or treated as if it exists) are acceptable and can be coded in the inpatient setting, when documented at the
time of discharge.
Thank you,
WENDY Blanc RN
CDI Specialist
available via tiger text
Please use your independent medical judgment in providing your response.
*Source: National Pressure Ulcer Advisory Panel (NPUAP)
[2025-05-15 12:47] LABS: Glucose - Point of Care 144 mg/dl (70-99)
[2025-05-15 13:16] LABS: Blood Urea Nitrogen 68 mg/dl (9-20); Calcium 8.0 mg/dl (8.4-10.2); Carbon Dioxide 14 mmol/L (22-30); Chloride 110 mmol/L (98-107); Estimated Creatinine Clearance 31 ml/min; Glucose 164 mg/dl (70-99); Potassium 4.5 mmol/L (3.5-5.1); Sodium 133 mmol/L (135-145); eGFR 37.02
[2025-05-15 13:44] LABS: Glucose - Point of Care 128 mg/dl (70-99)
[2025-05-15 14:53] LABS: Glucose - Point of Care 159 mg/dl (70-99)
--- NOTE | 2025-05-15 15:23 | PTCARENOTE ---
zarate drainage sluggish, sediment, leaked small amount under pt. reluctant to drain by gravity, irrigated per order by hand with return white shreds and black/dark clumps, faintly pink tinge afterward, pad changed. tolerated.
--- NOTE | 2025-05-15 15:38 | CM ---
IV/Zosyn. Discharge POC: Therapy recommendation for SNF. [employer] list provided to and daughter. They will choose 4-5 preferences. They have concern patient will not be amenable to going to SNF.
[2025-05-15 16:11] LABS: Glucose - Point of Care 184 mg/dl (70-99)
[2025-05-15] MEDS: HEPARIN 25000 UNITS/250 ML IV (17:06)
[2025-05-15 17:10] LABS: Glucose - Point of Care 172 mg/dl (70-99)
[2025-05-15 18:19] LABS: Venous Blood Gas B.E. -10.2 mmol/L (-4 to +4); Venous Blood Gas O2 Sat % 59.4 %
[2025-05-15 18:25] LABS: Glucose - Point of Care 108 mg/dl (70-99)
[2025-05-15 18:35] LABS: APTT 62.3 Sec (23.4-35.0)
[2025-05-15 18:39] LABS: Blood Urea Nitrogen 64 mg/dl (9-20); Calcium 8.4 mg/dl (8.4-10.2); Carbon Dioxide 18 mmol/L (22-30); Chloride 109 mmol/L (98-107); Estimated Creatinine Clearance 32 ml/min; Glucose 116 mg/dl (70-99); Potassium 4.5 mmol/L (3.5-5.1); Sodium 135 mmol/L (135-145); eGFR 39.50
--- NOTE | 2025-05-15 18:45 | PTCARENOTE ---
Dr. Martinez in to see pt and speak with family. reviewing options to patient, pt with family and MD agreeable with holding off on zarate change for now but pt agreeable if leakage, spasm, or another need to irrigate catheter.
[2025-05-15 19:13] LABS: Glucose - Point of Care 171 mg/dl (70-99)
[2025-05-15 20:11] LABS: Glucose - Point of Care 147 mg/dl (70-99)
--- NOTE | 2025-05-15 20:13 | W.PN.ID1 ---
Date of Service
Date of Service: May 15, 2025
Today's Communication
discussed with nurse
Assessment / Plan
1. Leukocytosis with improvement
2. Hemoconcentration improved
3. Cachexia with BMI of 19.7
4, Diabetes uncontrolled with severe dehydration
5. BPH with indwelling zarate and significant prostate enlargement on CT seen by urology
6. Altered mental status recently with CT head showing atrophy without acute findings
Consider psychiatry evaluation /family concerned about hidden meds at home,denying DM dx
Identical twin brother with severe dementia and recent
7. Reduceable inguinal hernias
8. Blood cultures drawn and pending with Zosyn/Vancomycin started
final culture results pending
9. EKG with septal infarct with age indeterminate, seen by cardiology
Chief Complaint
-: Leukocytosis, Clinical Sepsis, UTI and Bacteremia
Subjective / Review of Systems
Review of Systems: No Fever, No Chills, No Headache, No Pharyngitis, No Stiff Neck, No Cough, No Sputum Production, No Chest Pain, No Palpitations, No Abdominal Pain, No Nausea, No Vomiting and No Diarrhea (zarate in place)
Vital Signs / Physical Exam
Vital Signs
Vital Signs
Temp Pulse Resp BP Pulse Ox
97.7 F 75 20 91/57 98
05/15/25 19:00 05/15/25 19:00 05/15/25 19:00 05/15/25 19:00 05/15/25 19:57
Physical Exam
Constitutional: Well Developed, Comfortable, Acutely Ill, Chronically Ill and Cachetic
Head: Normocephalic
Eyes: Pupils Equal, Pupils Round, No Conjunctival Hemorrhage and Sclera Anicteric
Oropharyngeal: Benign
Cardiovascular: Regular Rate
Pulmonary: Clear and Non Labored
Gastrointestinal: Soft, Non Distended and Decreased Bowel Sounds
Genito-Urinary: Zarate
Extremities: Other (skin changes left foot /toes improved but toes still cold)
Skin: Warm and Dry
Wound: None
Neurological: Awake (drowsy,able to answer questions with one or two words but not conversant)
Psychological: Calm (per discussion with family concern about mental status, identical twin brother recently dying with Altzheimer's as well as medical issues //worsening unusual behavior at home)
Lines: PIV
Objective Data
Lab Data
Lab Results
05/15/25 04:47
05/15/25 18:09
PT 18.6 Sec (11.4-14.6) H 05/14/25 14:09
INR 1.50 05/14/25 14:09
APTT 62.3 Sec (23.4-35.0) H 05/15/25 18:09
Estimated Creat Clear 32 ml/min 05/15/25 18:09
Lactic Acid 3.2 mmol/L (0.7-2.0) H 05/15/25 18:09
Total Bilirubin 1.0 mg/dl (0.2-1.3) 05/14/25 11:29
AST 16 U/L (17-59) L 05/14/25 11:29
ALT 12 U/L (0-50) 05/14/25 11:29
Alkaline Phosphatase 109 U/L (38-126) 05/14/25 11:29
Most recent labs reviewed.
Microbiology: Report Reviewed
Micro Results:
05/15/25 18:09 Blood Culture - Pending
Blood/Venous
05/14/25 08:15 Blood Culture - Preliminary
Blood/Venous Positive culture in progress
Gram Stain - Preliminary
05/14/25 08:15 Blood Culture - Preliminary
Blood/Venous Klebsiella oxytoca
Staphylococcus aureus
Gram Stain - Final
05/14/25 08:29 Urine Culture - Final
Urine
Care Review
Plan reviewed with: Nurse, Physician and Other (family concern that he will elope as soon as he can walk out /worried about mental decline)
Total Time Spent with Patient (in minutes): 45
[2025-05-15 21:12] LABS: Glucose - Point of Care 184 mg/dl (70-99)
[2025-05-15] MEDS: DILAUDID 0.25 MG IV (21:26)
--- NOTE | 2025-05-15 21:52 | PTCARENOTE ---
Assumed care of pt at 1900. Pt is drowsy but easily arousable. Able to follow commands, is mostly cooperative with care. Oriented to self only and he knows he is in a hospital, sometimes able to state [facility], not oriented to time or
situation. Pt able to reposition himself in the bed and he does so frequently. Pt will deny pain when asked but has non-verbal cues such as grimacing, especially with zarate/perineal care. Scrotum and penis are red and excoriated. Calazime barrier
cream applied, along with Desenex power. CHG cloth bath done and linens changed. Zarate catheter is currently draining without any leakage noted, urine continues to be cloudy with sediment and larger bits of debris but is more yellow in color than
previous night. SR 70s on monitor. SpO2 98-100% on RA. Physical assessment as documented in nursing shift assessment flowsheet. Pt continues on Heparin drip, Insulin drip per DKA protocol, and IVF. Bed alarm activated.
[2025-05-15 22:08] LABS: Glucose - Point of Care 150 mg/dl (70-99)
[2025-05-15 23:11] LABS: Glucose - Point of Care 152 mg/dl (70-99)
[2025-05-16] VITALS (23 sets, daily range): BP systolic 80–111; BP diastolic 52–88; BMI 21.6
[2025-05-16 00:02] LABS: Glucose - Point of Care 178 mg/dl (70-99)
--- NOTE | 2025-05-16 00:13 | PTCARENOTE ---
Assessment unchanged. Remains on insulin and heparin drips. SR 70s on monitor. Dickinson continues to drain without any leakage around catheter. Pt medicated for pain earlier in shift with IV Dilaudid (see EMAR), fell asleep afterwards and has not been
as restless.
[2025-05-16 01:09] LABS: Glucose - Point of Care 101 mg/dl (70-99)
[2025-05-16 01:40] LABS: Hematocrit 36.2 % (39.0-52.0); Hemoglobin 12.4 g/dL (13.0-18.0); Mean Corp Hgb Conc. 34.3 g/dL (33.0-37.0); Mean Corpuscular Volume 81.0 fL (80.0-94.0); Platelet Count 332 10^3/uL (130-400); Red Cell Dist. Width 13.6 % (11.5-14.5)
[2025-05-16 01:47] LABS: ALT (SGPT) 12 U/L (0-50); AST (SGOT) 18 U/L (17-59); Albumin 1.9 g/dl (3.5-5.0); Alkaline Phosphatase 71 U/L (38-126); Blood Urea Nitrogen 59 mg/dl (9-20); Calcium 7.8 mg/dl (8.4-10.2); Carbon Dioxide 17 mmol/L (22-30); Chloride 112 mmol/L (98-107); Estimated Creatinine Clearance 34 ml/min; Glucose 125 mg/dl (70-99); Magnesium 2.1 mg/dl (1.6-2.3); Potassium 4.4 mmol/L (3.5-5.1); Sodium 134 mmol/L (135-145); Total Protein 3.9 g/dl (6.3-8.2); eGFR 42.30
[2025-05-16 01:48] LABS: APTT 106.0 Sec (23.4-35.0)
[2025-05-16 02:10] LABS: Glucose - Point of Care 162 mg/dl (70-99)
[2025-05-16 03:13] LABS: Glucose - Point of Care 167 mg/dl (70-99)
[2025-05-16] MEDS: ZOSYN 50 IV ×4 (03:53→22:18)
[2025-05-16] MEDS: D5/0.45%NSS with KCL 20 MEQ 1000 IV ×2 (03:53→09:50)
[2025-05-16 04:16] LABS: Glucose - Point of Care 140 mg/dl (70-99)
--- NOTE | 2025-05-16 04:26 | PTCARENOTE ---
No change in assessment. Heparin drip at therapeutic rate, next PTT for 0730. Continues on insulin drip.
[2025-05-16 05:11] LABS: Glucose - Point of Care 149 mg/dl (70-99)
[2025-05-16 06:08] LABS: Glucose - Point of Care 143 mg/dl (70-99)
[2025-05-16 07:10] LABS: Glucose - Point of Care 151 mg/dl (70-99)
[2025-05-16] MEDS: TOPROL XL PO (07:39)
[2025-05-16] MEDS: LIPITOR PO (07:39)
[2025-05-16] MEDS: FLOMAX PO (07:39)
--- NOTE | 2025-05-16 07:55 | PN.DE.MGMTRT ---
Insulin Management
- -
05/16/2025: Diabetes Management follow up
Patient admitted 05/14 with failure to thrive, hyperglycemia, DKA with GAP 30.
PMH: HTN, HLD, diabetes, BPH - chronic Dickinson catheter. Prior to admission was prescribed Rybelsus, Actos, metformin; was not taking these medications. A1C 15.9%, cr 2.1, eGFR 32.83,
Patient is awake and alert but unable to answer questions accurately. Family is at bedside and very supportive, answering questions for patient. states they were not aware patient had diabetes, they found the prescribed medications and other
prescriptions in his truck. They think he has had diabetes ~ 1 year but did not follow up.
Patient was started on DKA insulin infusion for GAP 30. GAP has closed x2. Remains NPO. Cr improving, 2.0-->1.4 today
Glucose range 150 to 204 while on insulin infusion, requiring 1-3 units on insulin /hr
Discussed with [facility] Dr. Rivera, plan to transition off drip to SQ insulin
Pt has been ordered Lantus 12 units now and turn drip off 1 hr after giving SQ insulin.
Will start moderate corrective Q6 hrs. Discussed with nurse. Will cont to follow.
05/15 Discussed with and daughter patient will require insulin injections and begin testing his blood sugar at home at discharge.
Will ask nurse educator to provide and educate on monitor and insulin.
Diabetes History
- -
Type of Diabetes: 2 requiring insulin
Pre-Admission Diabetes Regimen
05/15/25 05/15/25 05/15/25
08:00 11:35 18:09
Creatinine Cancelled 1.9 H 1.8 H
05/16/25 05/16/25
01:20 01:21
Creatinine Cancelled 1.7 H
Lab Results
Hemoglobin A1c 15.9 % (4.0-5.6) H 05/14/25 08:10
Insulin Pump Settings
IP Diabetes Regimen
05/15/25 05/15/25 05/15/25
08:00 08:30 09:38
Glucose Cancelled
POC Glucose 148 H 150 H
05/15/25 05/15/25 05/15/25
10:27 11:35 12:35
Glucose 164 H
POC Glucose 139 H 157 H 144 H
05/15/25 05/15/25 05/15/25
13:33 14:42 15:59
Glucose
POC Glucose 128 H 159 H 184 H
05/15/25 05/15/25 05/15/25
16:59 18:09 18:14
Glucose 116 H
POC Glucose 172 H 108 H
05/15/25 05/15/25 05/15/25
19:02 19:58 21:00
Glucose
POC Glucose 171 H 147 H 184 H
05/15/25 05/15/25 05/15/25
21:56 22:59 23:52
Glucose
POC Glucose 150 H 152 H 178 H
05/16/25 05/16/25 05/16/25
00:58 01:20 01:21
Glucose Cancelled 125 H
POC Glucose 101 H
05/16/25 05/16/25 05/16/25
01:58 03:01 04:05
Glucose
POC Glucose 162 H 167 H 140 H
05/16/25 05/16/25 05/16/25
05:00 05:57 06:58
Glucose
POC Glucose 149 H 143 H 151 H
Patient Education
--- NOTE | 2025-05-16 08:00 | PTCARENOTE ---
Assumed care of pt from night warehouse manager RN. AAOx2. disoriented to time. Drowsy but easily arousable to verbal stimuli. NSR on tele, HRs 70s. SpO2 98% on room air. VSS. Insulin gtt infusing per protocol. Heparin gtt continues at 1350 units/hr. Assessment
documented. Pt resting in bed, call ward in reach.
[2025-05-16 08:11] LABS: Glucose - Point of Care 128 mg/dl (70-99)
[2025-05-16 08:17] LABS: APTT 90.9 Sec (23.4-35.0)
--- NOTE | 2025-05-16 08:27 | W.PN.INTV ---
Today's Communication / Plan
Recommendations
Weaning off insulin drip now
Start Lantus + ISS
QUANTITATIVE CONSULTANT to evaluate again today
Heparin drip; can change to Eliquis once he can take PO meds per QUANTITATIVE CONSULTANT
Antibiotics and follow up cultures
Continue PT/OT - yesterday he refused to work with PT
Patient is stable for downgrade out of ICU to IMU. No additional recommendations at this time. Director Of Student Financial Aid/Pulmonary service will now sign off. Please reconsult if there are any additional questions/concerns, or if patient's respiratory status
deteriorates.
Assessment
-
Assessment: 74-year-old male with a past medical history of chronic urinary retention with chronic Zarate, BPH, history of UTI, DM type II, history of COVID-19 who initially presented as he has been eating poorly for the last month. While in triage
she became unresponsive and collapsed/became unresponsive. He has been disoriented since last night, per the . He was found to be in A-fib with RVR and heparin drip was started. He did spontaneously convert back into sinus rhythm. He says
that he is not take his medications as his Zarate has been leaking. He does not take insulin. Per the family he has not had a bowel movement in weeks. In the ER, he was afebrile to 98.8 �F, pulse rate 138, respiratory rate 16, BP 122/81 and he was
saturating 94% on room air. His WBC was markedly elevated at 51.9, with platelet count 628, blood gas pH 7.11 (VBG), potassium 6.4, sodium 126, serum bicarbonate level 6, glucose 754, lactate 4.2, initial urine was brown with moderate yeast. CXR
shows no acute cardiopulmonary process, CT abdomen/pelvis shows mild right-sided hydroureteronephrosis without an obstructive calculus, and a bowel containing right inguinal hernia, and CT head showed no acute intracranial abnormality. He was given
2 L NS 0.9%, Vanco/Zosyn, 6 units regular insulin, calcium gluconate and started on an insulin drip. Patient now being admitted to the ICU and wool washer feeder services consulted for additional management/recommendations.
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
Impression:
#DM type II complicated by DKA - now resolved and being weaned off insulin gtt
#Acute toxic�metabolic encephalopathy in the setting of DKA and possibly sepsis with LUIS - encephalopathy improved
#New onset A-fib now back into NSR
#Failure to thrive with cachexia
#Pseudohyponatremia due to hyperglycemia - pseudohyponatremia now resolved, and he is likely hyponatremic now from increased ADH secretion
#LUIS
#Metabolic acidosis with increased anion gap with hyperkalemia
#Leukocytosis with mild bandemia, suggesting leukemoid reaction
#Complicated UTI
#Chronic urinary retention due to BPH in the setting of neurogenic bladder from uncontrolled diabetes with chronic Zarate catheter (follows with urology - Dr. Sanchez - as an outpatient)
Plan:
- Believe that he collapsed due to A-fib with RVR with hypotension in the setting of severe metabolic derangements with DKA, metabolic acidosis, hyponatremia, hypochloremia with FT & hypovolemia
- He remains in NSR; spontaneously converted back into NSR on 05/14
- Continue telemetry
- Replete K >4, Mg >2
- Cardiology consulted - recs appreciated
- Echo checked on 05/15/2025 which was a technically difficult study, showing preserved LVEF at 50%, with no gross regional WMA, with normal RV size and function and no significant valvular pathology
- Regarding his DKA, his gap is now closed, and I believe that his metabolic acidosis is due to ongoing acute kidney injury, possibly in the setting of starvation ketosis/ketoacidosis
- He is being weaned off drip now, and then transition to once daily Lantus with ISS
- Diabetic FUR WEIGHER on board
- Once the insulin drip is off, stop the dextrose containing fluids as well
- Continue to trend UOP and sCr
- If creatinine continues to worsen then would consult nephrology
- Maintain SpO2 >90-94% - remains on room air and is breathing comfortably, saturating 98%
- Continue aspiration precautions
- Continue empiric antibiotics with Zosyn
- Urinalysis shows >100 urine WBC, and he does have a chronic zarate - -> zarate exchanged on 05/14, and the second urinalysis from 05/14 is from the fresh Zarate
- Follow up blood and urine cultures
- Blood cultures growing Klebsiella oxytoca; blood culture from 05/14 also initially grew Staphylococcus aureus which was not present at 24 hours � follow sensitivities and follow up surveillance set of blood cultures drawn 05/15
- Trend WBC and fever curve
- ID on board - recs appreciated
- Urology consulted - recs appreciated - Dr. Rivera discussed the case on 05/[address] Sanchez and made him aware that the pt is here in the ICU, and he agreed to replace the zarate and send off a fresh UA with UCx
- The moderate yeast that was seen on UA from 05/14 is because he has a chronic Zarate and this should not be treated especially given that he is not a transplant patient nor is he neutropenic
- Maintain MAP>65
- Patient has multiple toes which are dusky and cool to touch - arterial ultrasound with BAYLEE checked which shows normal BAYLEE with no large vessel arterial stenosis; no indication to consult vascular surgery at this time
- Replete electrolytes with K>4, Mg>2
- Maintain euglycemia with goal BG 140-180; HbA1C: 15.9
- Trend H/H and transfuse if needed to keep Hb>7g/dL; keep plt>20k, unless there is concern for bleeding then keep plt>50k
- prn nebulized bronchodilators - not currently bronchospastic
- Incentive spirometer encouraged 10x per hour for at least 4 hrs a day
- Diet as per QUANTITATIVE CONSULTANT (failed yesterday); once he is able to eat, would consult dietitian and give ADA
- DVT ppx: Heparin gtt (due to A-fib) - change to Eliquis once he can take PO meds, otherwise continue parenteral AC
Code status: Full code
Patient is stable for downgrade out of ICU to IMU. No additional recommendations at this time. Director Of Student Financial Aid/Pulmonary service will now sign off. Thank you for allowing us to be involved in the care of this patient. Please reconsult if there are
any additional questions/concerns, or if patient's respiratory status deteriorates.
Data:
Transthoracic echocardiogram 05/15/2025:
Technically difficult study
Small left ventricular chamber size. Low normal left ventricular systolic
function. Left ventricular ejection fraction is 50% by visual estimate. No
gross regional wall motion abnormalities within limits of the study. Mild
concentric left ventricular hypertrophy. Normal diastolic function.
Normal right ventricular size and function.
No significant valvular pathology
No prior study for comparison
Total time spent today was 58 minutes for this encounter. Time includes reviewing laboratory test/imaging results, reviewing pertinent medical records, obtaining and reviewing medical history, performing an appropriate exam, ordering medications,
tests and procedures. Time also includes documentation of this encounter, coordinating patient care and communicating with other healthcare professionals. Total time does not include separately billed tests performed on this date of service.
Subjective Dataa
Subjective Data
Date of Service:
Date of Service: May 16, 2025
Chief Complaint: Director Of Student Financial Aid Follow Up
Subjective:
Patient was seen and evaluated this morning. Patient's daughter, Ligia, present at bedside. Patient is complaining of hiccups. Heart rate 75, BP 96/61. Currently on insulin drip at 0.5 unit/hr. he otherwise denies chest pain, SOB, nausea,
fevers or chills.
Review of Systems
General: Other (Negative unless mentioned above)
Objective Data
Data Reviewed
Vital Signs / I&O / Oxygen:
Vital Signs
Temp Pulse Resp BP Pulse Ox
97.8 F 75 24 97/61 98
05/16/25 07:46 05/16/25 09:00 05/16/25 09:00 05/16/25 09:00 05/15/25 21:15
Intake and Output
05/15/25 05/16/25 05/17/25
06:59 06:59 06:59
Intake Total 4500.1 / 4661.6 4981.2 / 5145.7 493.0 / 493.0
Output Total 380 / 380 1450 / 1500 70 / 70
Balance 4120.1 / 4281.6 3531.2 / 3645.7 423.0 / 423.0
SaO2 98
Physical Exam
General: Respiratory Distress (negative), Comfortable, Chills (negative) and Sweats (negative)
HEENT: Normocephalic and Anicteric
Cardiovascular: S1-S2 and Peripheral Edema (negative)
Respiratory: Clear, Wheeze (negative), Crackles (negative), Rhonchi (negative) and Non-Labored Respirations
GI: Soft, Non Distended, Non Tender and Normal Bowel Sounds
Neurology: Awake, Alert and Tremors (negative)
Skin: Warm, Dry, Cyanosis (Multiple toes) and Jaundice (negative)
Labs/Micro/Reports
Lab Data
05/16/25 01:21
05/16/25 01:21
Laboratory Results
05/15/25 05/15/25 05/16/25
11:35 18:09 01:20
APTT 65.4 H 62.3 H 106.0 H
05/16/25
07:52
APTT 90.9 H
Microbiology
05/14/25 08:15 Blood/Venous Blood Culture - Preliminary
Klebsiella oxytoca
05/14/25 08:15 Blood/Venous Gram Stain - Final
05/14/25 08:15 Blood/Venous Blood Culture - Preliminary
Positive culture in progress
05/14/25 08:15 Blood/Venous Gram Stain - Preliminary
05/14/25 08:29 Urine Urine Culture - Final
[2025-05-16 09:08] LABS: Glucose - Point of Care 99 mg/dl (70-99)
--- NOTE | 2025-05-16 09:35 | W.PN.HOSP.TC ---
Today's Communication/Plan
-
see plan
Assessment / Plan
Assessment / Plan
74 yo man with hx HTN, HLD, BPH, ER visit 04/30/25 for urinary retention s/p zarate brought in by for confusion x 24 hours. Patient had a syncopal episode in triage.
Gen: NAD, Awake and alert, appears chronically ill and malnourished
Eyes: EOMI, PERRLA, no scleral icterus.
Neck: supple.
CV: RRR, +S1/S2, no m/r/g.
Resp: CTAB, no rales, wheezes, or rhonchi.
Abd: +BS, soft, NT, ND
Skin: No rashes.
Neuro: CN 2-12 intact, non-focal.
Psych: Normal mood and affect.
05/14/25 08:15 Blood/Venous Blood Culture - Preliminary
Klebsiella oxytoca
05/14/25 08:15 Blood/Venous Gram Stain - Final
05/14/25 08:15 Blood/Venous Blood Culture - Preliminary
Positive culture in progress
05/14/25 08:15 Blood/Venous Gram Stain - Preliminary
05/14/25 08:29 Urine Urine Culture - Final
EKG: atrial fibrillation with RVR @ 141, aberrantly conducted complexes versus PVC's; intraventricular conduction block
CXR: No acute cardiopulmonary process.
CT A/P (without PO/IV contrast): Limited CT examination in the absence of intravenous and oral contrast. Small left nephrolith. Mild right hydroureteronephrosis without evidence for an obstructing ureteral calculus. Collapsed urinary bladder with a
Zarate catheter in place and urinary bladder wall thickening. Recommend correlation with a urinalysis. Prostatomegaly. Bowel containing right inguinal hernia. Other chronic findings, as detailed above.
CT head: No acute intracranial abnormality.
Echo: TDS. Small lLV chamber size. EF 50%. No gross regional wall motion abnormalities within limits of the study. Mild concentric LVH. Normal diastolic function. Normal RV sz/fxn. No significant valvular pathology
DKA:
-on admission AG 30 with glucose > 700 and elevated beta hydroxybutyric acid. Patient was not on insulin at home, had not been on oral anti-hyperglycemics.
-s/p 2L and insulin regular 6 units x 1 followed by initiation of insulin gtt
-glucose has improved with insulin gtt, now on D5 1/2NS
-hyperkalemia resolved
-transition to basal/bolus insulin now that AG has resolved
LUIS:
-due to dehydration causing prerenal azotemia as well as osmotic diuresis from DKA
-cont aggressive IVFs
-CT A/P with mild right hydro, no stone
-continue zarate catheter
Severe sepsis due to CAUTI:
-zarate catheter was present on admission
-with lactic acidosis, persistent despite IVFs
-cont Zosyn as per ID
-follow sensitivities Ceci in BCxs (UCx contaminated)
Atrial Fibrillation with RVR:
-converted to SR
-echo above
-TSH normal
-Cardiology consult
-cont Heparin gtt
Acute on chronic chronic urinary Retention with chronic zarate catheter:
-Due to underlying BPH and possibly a component of neurogenic bladder
-Mild right hydroureteronephrosis as likely ureteral reflux from urinary retention
-Uro following
-cont Flomax
Dysphagia:
-as per speech patient was uncooperative with speech eval today. He stated he would not want nonoral means of nutrition.
Other problems:
Right Inguinal Hernia, reducible
Constipation: may need enema
Family updated at bedside. Discussed with critical care.
FULL/heparin gtt
Total critical care time spent = 36 min
Anticipated Discharge: > 48 hours
Subjective/Interval History
-
Date of Service: May 16, 2025
No new complaints.
Objective Data
-
Labs:
Laboratory Results
06/05/16/25 05/16/25
01:20 01:21 07:52
WBC 31.7 H
Hgb 12.4 L
Hct 36.2 L
Plt Count 332
APTT 106.0 H 90.9 H
Sodium Cancelled 134 L
Potassium Cancelled 4.4
Chloride Cancelled 112 H
Carbon Dioxide Cancelled 17 L
BUN Cancelled 59 H
Creatinine Cancelled 1.7 H
Glucose Cancelled 125 H
Calcium Cancelled 7.8 L
Total Bilirubin 0.5
AST 18
ALT 12
Alkaline Phosphatase 71
05/16/25
10:00
WBC
Hgb
Hct
Plt Count
APTT
Sodium Pending
Potassium Pending
Chloride Pending
Carbon Dioxide Pending
BUN Pending
Creatinine Pending
Glucose Pending
Calcium Pending
Total Bilirubin
AST
ALT
Alkaline Phosphatase
Vital Signs:
Vital Signs
Temp Pulse Resp BP Pulse Ox
97.8 F 75 24 97/61 98
05/16/25 07:46 05/16/25 09:00 05/16/25 09:00 05/16/25 09:00 05/15/25 21:15
I&O
05/15/25 05/16/25 05/17/25
06:59 06:59 06:59
Intake Total 4500.1 / 4661.6 4981.2 / 5145.7 493.0 / 493.0
Output Total 380 / 380 1450 / 1500 70 / 70
Balance 4120.1 / 4281.6 3531.2 / 3645.7 423.0 / 423.0
[2025-05-16] MEDS: DILAUDID 0.25 MG IV (09:57)
[2025-05-16 10:39] LABS: Glucose - Point of Care 137 mg/dl (70-99)
[2025-05-16] MEDS: LANTUS 0.12 UNITS SC (10:57)
[2025-05-16 11:08] LABS: Blood Urea Nitrogen 46 mg/dl (9-20); Calcium 6.9 mg/dl (8.4-10.2); Carbon Dioxide 14 mmol/L (22-30); Chloride 109 mmol/L (98-107); Estimated Creatinine Clearance 44 ml/min; Glucose 384 mg/dl (70-99); Potassium 5.2 mmol/L (3.5-5.1); Sodium 129 mmol/L (135-145); eGFR 53.40
[2025-05-16 11:43] LABS: Glucose - Point of Care 120 mg/dl (70-99)
[2025-05-16 12:41] LABS: Glucose - Point of Care 121 mg/dl (70-99)
[2025-05-16 12:51] LABS: Blood Urea Nitrogen 51 mg/dl (9-20); Calcium 7.8 mg/dl (8.4-10.2); Carbon Dioxide 16 mmol/L (22-30); Chloride 112 mmol/L (98-107); Estimated Creatinine Clearance 38 ml/min; Glucose 125 mg/dl (70-99); Potassium 4.3 mmol/L (3.5-5.1); Sodium 133 mmol/L (135-145); eGFR 45.50
[2025-05-16] MEDS: NOVOLOG FLEXPEN-MODERATE RESISTANCE SC ×3 (12:57→23:32)
--- NOTE | 2025-05-16 13:16 | PTCARENOTE ---
Insulin gtt discontinued. IVF switched to sterile water with sodium bicarb. Assessment unchanged. Pt resting in bed, call ward in reach.
[2025-05-16] MEDS: SODIUM BICARBONATE 1150 MEQ IV ×2 (13:24→22:17)
--- NOTE | 2025-05-16 13:26 | W.PN.CARDCBS ---
Today's Communication / Plan
-
Transition heparin to Eliquis when able to take p.o.
We will sign off, please recall as needed
Impression / Plan
-
Primary Diesel Stationary Engineer: none prior to admission
Assessment:
Confusion
FTT
Weight loss
DKA
Acute renal failure
Hyperkalemia
Hyponatremia
Severe sepsis
Lactic acidosis
UTI
Paroxysmal atrial fibrillation, new diagnosis status post spontaneous conversion to sinus rhythm
Recent diagnosis type 2 diabetes
Urinary retention with Dickinson in place last several weeks
R Inguinal hernia
Hypertension
Hyperlipidemia
BPH
Patient presents with confusion, failure to thrive, and weight loss over the last month in the setting of recent diagnosis type 2 diabetes and urinary retention with Dickinson placement within the last several weeks. On arrival is noted to be in DKA
with evidence of acute renal failure hyperkalemia and UTI with severe sepsis.
Plan:
- Cardiology consulted as noted to be in atrial fibrillation with RVR on arrival, status post spontaneous conversion to sinus rhythm. Remains in sinus at this time on review of telemetry. Continue to follow on tele here.
- [id number] score of 3 for age, hypertension, diabetes. Continue IV heparin. Transition to Eliquis when no longer NPO.
- Low-dose beta-emily with hold parameters
- Echo with low normal LV function and no significant valvular pathology
- Continue DKA management per primary service
- Treatment of UTI per primary service and infectious disease
- Follow creatinine. Holding outpatient losartan in setting of acute renal failure.
- Discussed with patient's daughter at bedside
We will sign off, please recall as needed
Progress Note - Diesel Stationary Engineer
Subjective
Date of Service: May 16, 2025
No acute overnight events. Patient remains somnolent/drowsy in the medical ICU.
Objective
Labs:
05/16/25 01:21
05/16/25 12:00
Labs
Hgb 12.4 g/dL (13.0-18.0) L 05/16/25 01:21
Hct 36.2 % (39.0-52.0) L 05/16/25 01:21
Plt Count 332 10^3/uL (130-400) 05/16/25 01:21
PT 18.6 Sec (11.4-14.6) H 05/14/25 14:09
INR 1.50 05/14/25 14:09
APTT 90.9 Sec (23.4-35.0) H 05/16/25 07:52
Sodium 133 mmol/L (135-145) L 05/16/25 12:00
Potassium 4.3 mmol/L (3.5-5.1) 05/16/25 12:00
BUN 51 mg/dl (9-20) H 05/16/25 12:00
Creatinine 1.6 mg/dL (0.7-1.3) H 05/16/25 12:00
Glucose 125 mg/dl (70-99) H 05/16/25 12:00
Troponins
05/14/25 05/14/25
17:06 17:06
Troponin I 0.025 Cancelled
Vital Signs and I&O:
Vital Signs
Temp Pulse Resp BP Pulse Ox
97.5 F 70 16 85/56 98
05/16/25 12:00 05/16/25 12:03 05/16/25 12:03 05/16/25 12:03 05/16/25 13:05
Vital Signs
Temp Pulse Resp BP Pulse Ox
97.5 F 70 16 85/56 98
05/16/25 12:00 05/16/25 12:03 05/16/25 12:03 05/16/25 12:03 05/16/25 13:05
Intake & Output
05/14/25 05/15/25 05/16/25 05/17/25
06:59 06:59 06:59 06:59
Intake Total 4500.1 / 4661.6 4981.2 / 5145.7 999.5 / 999.5
Output Total 380 / 380 1450 / 1500 305 / 305
Balance 4120.1 / 4281.6 3531.2 / 3645.7 694.5 / 694.5
Physical Exam
Physical Exam
Gen: NAD
HEENT: NC/AT, sclera anicteric
Neck: No JVD
CV: RRR, NL s1/s2, no M/R/G
Lungs: CTAB
Abd: S/ND
Ext: No LE edema
Skin: Warm, dry
Neuro: Non-focal
[2025-05-16 13:49] LABS: Glucose - Point of Care 89 mg/dl (70-99)
--- NOTE | 2025-05-16 13:50 | CM ---
IV/AB. Discharge POC: Received preferences for SNF from family. Referrals forwarded.
[2025-05-16] MEDS: HEPARIN 25000 UNITS/250 ML IV (14:46)
[2025-05-16] MEDS: THORAZINE 51 MG IV (15:31)
--- NOTE | 2025-05-16 16:07 | PTOTSP ---
EXCAVATING CONTRACTOR Note
See patient care note for details.
Recommend:
1. THIN LIQUIDS AND SMOOTH PUREES (similar to FULL LIQUID DIET)
2. Medications: non-oral preferred; essential non-oral meds can be trialed crushed in puree if medically cleared
3. Strategies: supervision, assist as needed, small sips/bites, oral care 3x daily
4. Dysphagia f/u to determine if/when diet advancement appropriate and if/when instrumental swallowing testing appropriate.
[2025-05-16 17:24] LABS: Glucose - Point of Care 105 mg/dl (70-99)
--- NOTE | 2025-05-16 17:24 | W.PN.ID1 ---
Date of Service
Date of Service: May 16, 2025
Today's Communication
patient discussed with family and nurse
Assessment / Plan
1. Leukocytosis with continued improvement
2. Hemoconcentration improved
3. Cachexia with BMI of 21.6
4, Diabetes uncontrolled and untreated with severe dehydration improving
5. BPH with indwelling zarate with urine now yellow and clearer, significant prostate enlargement on CT seen by urology
Repeat U/A with reflex culture ordered
6. Altered mental status recently with CT head showing atrophy without acute findings,more awake today
More cooperative today
Able to answer some questions
7. Reduceable inguinal hernias ,no apparent abdominal pain
8. Blood cultures drawn with no MRSA,with Klebsiella oxytoca
Final culture results and sensitivities pending
Repeat blood cultures drawn and pending
9. EKG with septal infarct with age indeterminate, seen by cardiology
Chief Complaint
-: Leukocytosis, Pneumonia, UTI and Bacteremia
Subjective / Review of Systems
Review of Systems: No Fever, No Chills, No Headache, No Pharyngitis, No Stiff Neck, No Swollen Lymph Nodes, No Cough, No Sputum Production, No Chest Pain, No Palpitations, No Abdominal Pain, No Nausea, No Vomiting, No Diarrhea, No Dysuria, No Joint
Pain and Skin Rash (Denies all symptoms and is able to answer questions and is more awake today)
Vital Signs / Physical Exam
Vital Signs
Vital Signs
Temp Pulse Resp BP Pulse Ox
97.9 F 73 22 96/63 98
05/16/25 15:45 05/16/25 14:19 05/16/25 14:19 05/16/25 14:19 05/16/25 13:05
Physical Exam
Constitutional: No Acute Distress, Well Developed, Comfortable, Acutely Ill, Chronically Ill, Toxic and Cachetic
Head: Normocephalic
Eyes: Pupils Equal, Pupils Round, No Conjunctival Hemorrhage, Sclera Anicteric and Erythema
Oropharyngeal: Benign
Cardiovascular: Irregular Rate
Pulmonary: Clear and Non Labored
Gastrointestinal: Soft, Non Tender, Non Distended and Decreased Bowel Sounds
Genito-Urinary: Zarate and Clear Urine
Extremities: Other (no edema,fair ROM)
Skin: Warm and Dry (hematoma left arm)
Wound: None
Neurological: Awake, Alert and No Motor Deficits
Psychological: Calm
Lines: CVP
Objective Data
Lab Data
Lab Results
05/16/25 01:21
05/16/25 12:00
PT 18.6 Sec (11.4-14.6) H 05/14/25 14:09
INR 1.50 05/14/25 14:09
APTT 90.9 Sec (23.4-35.0) H 05/16/25 07:52
Estimated Creat Clear 38 ml/min 05/16/25 12:00
Lactic Acid 2.0 mmol/L (0.7-2.0) 05/16/25 10:33
Total Bilirubin 0.5 mg/dl (0.2-1.3) 05/16/25 01:21
AST 18 U/L (17-59) 05/16/25 01:21
ALT 12 U/L (0-50) 05/16/25 01:21
Alkaline Phosphatase 71 U/L (38-126) 05/16/25 01:21
Most recent labs reviewed.
Microbiology: Report Reviewed (await sensitivities for targeted antibiotic, afebrile with decreasing WBC)
Micro Results:
05/14/25 08:15 Blood Culture - Preliminary
Blood/Venous Positive culture in progress
Gram Stain - Preliminary
05/14/25 08:15 Blood Culture - Preliminary
Blood/Venous Klebsiella oxytoca
Gram Stain - Final
05/15/25 18:09 Blood Culture - Pending
Blood/Venous
05/14/25 08:29 Urine Culture - Final
Urine
Chest X-Ray: Report Reviewed
Care Review
Plan reviewed with: Nurse (discussed with family)
Total Time Spent with Patient (in minutes): 45
[2025-05-16 18:36] LABS: Urine Character Cloudy (Clear)
[2025-05-16 19:00] LABS: Urine Red Blood Cell 40-50 /HPF (0-2); Urine White Cell 90-100 /HPF (0-5)
[2025-05-16 19:10] LABS: Urine Squamous Cell 0-2 /LPF (Few)
[2025-05-16] MEDS: ELIQUIS 5 MG PO (20:00)
--- NOTE | 2025-05-16 20:00 | PTCARENOTE ---
On assessment pt AAOx2, disoriented to time, at bedside, SR on the monitor, BPs soft but MAP above 65, RA, decreased appetite, #16 zarate, no complaints at this time, bed alarm on and call ward in reach
[2025-05-16 23:26] LABS: Glucose - Point of Care 112 mg/dl (70-99)
[2025-05-17] VITALS (18 sets, daily range): BP systolic 101–132; BP diastolic 68–83; PULSE 79; O2SAT 96; BMI 22.2
--- NOTE | 2025-05-17 | PTCARENOTE ---
pt repositioned q2h, hep gtt D/C and elequis started, bed alarm on and call ward in reach
[2025-05-17] MEDS: ZOSYN 50 IV ×4 (03:52→21:35)
--- NOTE | 2025-05-17 04:00 | PTCARENOTE ---
no changes from prior assessment, call ward in reach
[2025-05-17 04:20] LABS: Venous Blood Gas B.E. 0.2 mmol/L (-4 to +4); Venous Blood Gas O2 Sat % 99.9 %
[2025-05-17 04:28] LABS: Hematocrit 36.0 % (39.0-52.0); Hemoglobin 12.6 g/dL (13.0-18.0); Mean Corp Hgb Conc. 35.0 g/dL (33.0-37.0); Mean Corpuscular Volume 79.3 fL (80.0-94.0); Platelet Count 290 10^3/uL (130-400); Red Cell Dist. Width 13.8 % (11.5-14.5)
[2025-05-17 04:56] LABS: Blood Urea Nitrogen 42 mg/dl (9-20); Calcium 7.6 mg/dl (8.4-10.2); Carbon Dioxide 22 mmol/L (22-30); Chloride 110 mmol/L (98-107); Estimated Creatinine Clearance 47 ml/min; Glucose 116 mg/dl (70-99); Magnesium 1.8 mg/dl (1.6-2.3); Potassium 3.9 mmol/L (3.5-5.1); Sodium 133 mmol/L (135-145); eGFR 58.37
[2025-05-17 05:36] LABS: Glucose - Point of Care 101 mg/dl (70-99)
[2025-05-17] MEDS: NOVOLOG FLEXPEN-MODERATE RESISTANCE SC ×2 (05:41→23:35)
--- NOTE | 2025-05-17 07:53 | W.PN.HOSP.TC ---
Today's Communication/Plan
-
see plan
Assessment / Plan
Assessment / Plan
74 yo man with hx HTN, HLD, BPH, ER visit 04/30/25 for urinary retention s/p zarate brought in by for confusion x 24 hours. Patient had a syncopal episode in triage.
Gen: NAD, Awake and alert, appears chronically ill and malnourished
Eyes: EOMI, PERRLA, no scleral icterus.
Neck: supple.
CV: remains RRR, +S1/S2, no m/r/g.
Resp: CTAB anteriorly, no rales, wheezes, or rhonchi.
Abd: +BS, soft, NT, ND
Skin: No rashes.
Neuro: remains CN 2-12 intact, non-focal.
Psych: Normal mood and affect.
05/14/25 08:15 Blood/Venous Blood Culture - Preliminary
Klebsiella oxytoca
05/14/25 08:15 Blood/Venous Gram Stain - Final
05/15/25 18:09 Blood/Venous Blood Culture - Preliminary
No Growth in 24 hours- Final report to follow
05/14/25 08:15 Blood/Venous Blood Culture - Preliminary
Positive culture in progress
05/14/25 08:15 Blood/Venous Gram Stain - Preliminary
05/14/25 08:29 Urine Urine Culture - Final
EKG: atrial fibrillation with RVR @ 141, aberrantly conducted complexes versus PVC's; intraventricular conduction block
CXR: No acute cardiopulmonary process.
CT A/P (without PO/IV contrast): Limited CT examination in the absence of intravenous and oral contrast. Small left nephrolith. Mild right hydroureteronephrosis without evidence for an obstructing ureteral calculus. Collapsed urinary bladder with a
Zarate catheter in place and urinary bladder wall thickening. Recommend correlation with a urinalysis. Prostatomegaly. Bowel containing right inguinal hernia. Other chronic findings, as detailed above.
CT head: No acute intracranial abnormality.
Echo: TDS. Small LV chamber size. EF 50%. No gross regional wall motion abnormalities within limits of the study. Mild concentric LVH. Normal diastolic function. Normal RV sz/fxn. No significant valvular pathology
DKA:
-on admission AG 30 with glucose > 700 and elevated beta hydroxybutyric acid. Patient was not on insulin at home, had not been on oral anti-hyperglycemics.
-s/p 2L and insulin regular 6 units x 1 followed by initiation of insulin gtt
-glucose improved and AG resolved with insulin gtt
-hyperkalemia resolved
-now transitioned to Lantus/SSI/accuchecks
LUIS:
-due to dehydration causing prerenal azotemia as well as osmotic diuresis from DKA
-cont IVFs (decrease rate to 75cc/hr)
-CT A/P with mild right hydro, no stone
-continue zarate catheter
Severe sepsis due to CAUTI:
-zarate catheter was present on admission
-with lactic acidosis, now resolved
-cont Zosyn as per ID
-follow sensitivities Kelbsiella in BCxs (UCx contaminated)
Atrial Fibrillation with RVR:
-converted to SR
-echo above
-TSH normal
-Cardiology consult
-was on Heparin gtt, now on Eliquis
Acute on chronic chronic urinary Retention with chronic zarate catheter:
-Due to underlying BPH and possibly a component of neurogenic bladder
-Mild right hydroureteronephrosis as likely ureteral reflux from urinary retention
-Uro following
-cont Flomax
Dysphagia:
-speech following, pt now of full liquids
Other problems:
Right Inguinal Hernia, reducible
Constipation: may need enema
FULL/Eliquis
Anticipated Discharge: > 48 hours
Subjective/Interval History
-
Date of Service: May 17, 2025
No new complaints.
Objective Data
-
Labs:
Laboratory Results
05/17/25
04:10
WBC 16.7 H
Hgb 12.6 L
Hct 36.0 L
Plt Count 290
Sodium 133 L
Potassium 3.9
Chloride 110 H
Carbon Dioxide 22
BUN 42 H
Creatinine 1.3
Glucose 116 H
Calcium 7.6 L
Vital Signs:
Vital Signs
Temp Pulse Resp BP Pulse Ox
99.0 F 84 16 122/70 96
05/17/25 07:23 05/17/25 06:00 05/17/25 06:00 05/17/25 06:00 05/17/25 06:00
I&O
05/16/25 05/17/25 05/18/25
06:59 06:59 06:59
Intake Total 4981.2 / 5145.7 3615.0 / 3615.0
Output Total 1450 / 1500 1510 / 1510
Balance 3531.2 / 3645.7 2105.0 / 2105.0
--- NOTE | 2025-05-17 08:10 | PTCARENOTE ---
Assumed care of pt at 0715 following shift report. Pt woken to name for assessment and care. Ox person, place, month and year. Affect flat. Answers questions appropriately but does not offer conversation. Denies c/o pain. Received on RA w/ Pox
94-96%. Denies SOB. Physical assessment completed as documented. Repositioned and comfort care/ hygiene provided. Pt refused to order breakfast at this time despite encouragement. Took PO meds w/ sips of water- slow to swallow but no coughing or
distress noted. Call ed w/in pt reach and safe environment maintained.
--- NOTE | 2025-05-17 08:14 | W.PN.ID1 ---
Addendum entered and electronically signed by Sb Foss, 05/17/25 09:27:
Blood cultures now also revealed growth of Staph aureus.
Will add empiric daptomycin pending further culture data. Hold statin for now.
Original Note:
Date of Service
Date of Service: May 17, 2025
Today's Communication
Continue Zosyn.
Assessment / Plan
Bacteremia with Klebsiella oxytoca
Leukocytosis; improving
Obstructive uropathy
DM (uncontrolled
BPH
HTN
HLD
Recommendations:
Currently Zosyn 2.25 g IV every 6 hours (d#3)
Clinical improvement noted.
Continue current antibiotics.
Repeat blood cultures pending; no growth x 24 hours
Follow white count and temperature curve.
Await final susceptibility of recovered Klebsiella
Chief Complaint
-: Leukocytosis, UTI and Bacteremia
Subjective / Review of Systems
Patient seen and examined. Denies pain.
Review of Systems: No Fever, No Chills and No Abdominal Pain
Vital Signs / Physical Exam
Vital Signs
Vital Signs
Temp Pulse Resp BP Pulse Ox
99.0 F 84 16 122/70 96
05/17/25 07:23 05/17/25 06:00 05/17/25 06:00 05/17/25 06:00 05/17/25 06:00
Physical Exam
Constitutional: No Acute Distress, Comfortable and Non-toxic
Eyes: Sclera Anicteric
Cardiovascular: S1/S2; Negative S3/S4
Pulmonary: Non Labored
Gastrointestinal: Soft, Non Tender and Non Distended
Genito-Urinary: Dickinson and Clear Urine; Negative Turbid Urine or Hematuria
Neurological: Awake and Alert
Psychological: Calm
Objective Data
Lab Data
Lab Results
05/17/25 04:10
05/17/25 04:10
PT 18.6 Sec (11.4-14.6) H 05/14/25 14:09
INR 1.50 05/14/25 14:09
APTT 90.9 Sec (23.4-35.0) H 05/16/25 07:52
Estimated Creat Clear 47 ml/min 05/17/25 04:10
Lactic Acid 2.0 mmol/L (0.7-2.0) 05/16/25 10:33
Total Bilirubin 0.5 mg/dl (0.2-1.3) 05/16/25 01:21
AST 18 U/L (17-59) 05/16/25 01:21
ALT 12 U/L (0-50) 05/16/25 01:21
Alkaline Phosphatase 71 U/L (38-126) 05/16/25 01:21
Most recent labs reviewed.
Micro Results:
05/14/25 08:15 Blood Culture - Preliminary
Blood/Venous Klebsiella oxytoca
Gram Stain - Final
05/16/25 17:58 Urine Culture - Pending
Urine
05/15/25 18:09 Blood Culture - Preliminary
Blood/Venous No Growth in 24 hours- Final report to follow
05/14/25 08:15 Blood Culture - Preliminary
Blood/Venous Positive culture in progress
Gram Stain - Preliminary
05/14/25 08:29 Urine Culture - Final
Urine
Imaging:
05/14/2025 CT abdomen/pelvis without contrast: Limited CT in the absence of contrast. Small left nephrolith noted. Mild right hydroureteronephrosis, without evidence for obstructing ureteral calculus. A collapsed urinary bladder with a Idckinson
catheter in place. Prostamegaly noted. Please see full dictation for additional detail.
05/14/2025 CXR (portable): No focal consolidation, pleural effusion or pneumothorax noted.
Chest X-Ray: Image Reviewed and Report Reviewed
CT Scan: Image Reviewed and Report Reviewed
[2025-05-17] MEDS: TOPROL XL 12.5 MG PO (08:30)
[2025-05-17] MEDS: NEUTRA-PHOS POWDER PACKET 250 MG PO ×4 (08:31→21:35)
[2025-05-17] MEDS: LIPITOR 20 MG PO (08:31)
[2025-05-17] MEDS: ELIQUIS 5 MG PO ×2 (08:31→19:23)
[2025-05-17] MEDS: LANTUS 0.12 UNITS SC (08:31)
[2025-05-17] MEDS: FLOMAX 0.4 MG PO (08:31)
[2025-05-17] MEDS: SODIUM BICARBONATE 1150 MEQ IV (10:18)
--- NOTE | 2025-05-17 11:00 | PTCARENOTE ---
Assisted onto bedpan to attempt BM- unsuccessful. Repositioned and comfort care provided. After education on benefits of increased activity, pt expressed willingness to attempt to get OOB to chair 'after noon time today'. Pt's daughter visiting at
bedside-updated on pt's present condition and plan of care including transfer to M/S room when bed available. Pt ate water ice for breakfast-declined anything additional despite education on need/benefit of good nutrition and much encouragement.
[2025-05-17] MEDS: CUBICIN 14 MG IV (11:13)
[2025-05-17 12:19] LABS: Glucose - Point of Care 181 mg/dl (70-99)
[2025-05-17] MEDS: NOVOLOG FLEXPEN-MODERATE RESISTANCE 1 UNITS SC ×2 (12:30→18:34)
--- NOTE | 2025-05-17 14:26 | PTCARENOTE ---
Pt OOB to chair w/ assist of two staff. Completed AM hygiene w/ assistance. Tolerated well. Remained OOB in chair x1.5hr and then returned to bed upon request. here to visit. Lunch ordered for pt- encouraged nutrition again w/ pt. No new
complaints.
[2025-05-17 17:46] LABS: Glucose - Point of Care 150 mg/dl (70-99)
--- NOTE | 2025-05-17 17:55 | PTCARENOTE ---
Pt ambulated w/ assistance to BR to have BM. Refused to sit in chair - returned to bed at pt's request. Pt in process of eating from late lunch tray w/ 's assistance and encouragement.
--- NOTE | 2025-05-17 18:45 | PTOTSP ---
ST Follow-Up
Pt presents with swallowing parameters that are fairly within functional limits for thin liquids based on limited tx session - cannot rule out silent aspiration at bedside. Assessment limited due to pt's reduced participation and reduced acceptance
of solid consistencies. Would consider a registered dietitian consultation to help with pt's nutrition if pt is only consuming liquids at this time. VET TECH team will continue to follow and re-assess pt's tolerance of solids as pt will permit.
--- NOTE | 2025-05-17 19:33 | PTCARENOTE ---
On assessment pt AAOx2-3, forgetful at times, SR on the monitor, BPs soft but MAP above 65, RA, decreased appetite, #16 zarate, no complaints at this time, bed alarm on and call ward in reach
[2025-05-17 23:33] LABS: Glucose - Point of Care 126 mg/dl (70-99)
--- NOTE | 2025-05-17 23:36 | PTCARENOTE ---
pt assist x2 OOB, very unsteady and weak, large BM in toilet. pt educated not to get OOB without help, bed alarm on and call ward in reach
[2025-05-18] VITALS (10 sets, daily range): BP systolic 103–128; BP diastolic 68–93
[2025-05-18 04:06] LABS: Hematocrit 40.8 % (39.0-52.0); Hemoglobin 14.1 g/dL (13.0-18.0); Mean Corp Hgb Conc. 34.6 g/dL (33.0-37.0); Mean Corpuscular Volume 80.5 fL (80.0-94.0); Platelet Count 284 10^3/uL (130-400); Red Cell Dist. Width 13.8 % (11.5-14.5)
[2025-05-18] MEDS: ZOSYN 50 IV ×4 (04:12→21:37)
[2025-05-18 05:29] LABS: Glucose - Point of Care 139 mg/dl (70-99)
[2025-05-18] MEDS: NOVOLOG FLEXPEN-MODERATE RESISTANCE SC (06:02)
--- NOTE | 2025-05-18 07:26 | W.PN.ID1 ---
Date of Service
Date of Service: May 18, 2025
Today's Communication
Continue antibiotics.
Assessment / Plan
Bacteremia with Klebsiella oxytoca / S. aureus
- suspect urinary source
Leukocytosis; improving
Obstructive uropathy
DM (uncontrolled; HbA1c = 15.9)
BPH
HTN
HLD
Recommendations:
Currently Zosyn 2.25 g IV every 6 hours (d#4)
Daptomycin 700 mg IV every 24 hours (d#2)
Clinical improvement noted.
Continue Zosyn; increased to 3.375 g IV every 6 hours
Continue daptomycin
Repeat blood cultures pending; no growth x 24 hours
Follow white count and temperature curve.
Await final susceptibility of recovered Staph aureus. Susceptibilities of Klebsiella noted.
����������������������������������������������������������
Chief Complaint
-: Leukocytosis, UTI and Bacteremia
Subjective / Review of Systems
Patient seen and examined. Denies complaints today. Denies fevers or chills. Denies abdominal pain. No back pain.
Vital Signs / Physical Exam
Vital Signs
Vital Signs
Temp Pulse Resp BP Pulse Ox
98.2 F 101 16 115/76 95
05/18/25 03:07 05/18/25 06:00 05/18/25 05:00 05/18/25 06:00 05/18/25 06:05
Physical Exam
Constitutional: No Acute Distress, Comfortable and Non-toxic
Eyes: Sclera Anicteric
Cardiovascular: S1/S2; Negative S3/S4
Pulmonary: Non Labored
Gastrointestinal: Soft, Non Tender and Non Distended
Genito-Urinary: Dickinson, Turbid Urine and Hematuria
Extremities: Edema; Negative Cyanosis or Erythema
Neurological: Awake and Alert
Psychological: Calm
Objective Data
Lab Data
Lab Results
05/18/25 03:54
05/17/25 04:10
05/16/25 05/17/25 05/18/25
01:21 04:10 03:54
WBC 31.7 H 16.7 H 15.7 H
PT 18.6 Sec (11.4-14.6) H 05/14/25 14:09
INR 1.50 05/14/25 14:09
APTT 90.9 Sec (23.4-35.0) H 05/16/25 07:52
Estimated Creat Clear 47 ml/min 05/17/25 04:10
Lactic Acid 2.0 mmol/L (0.7-2.0) 05/16/25 10:33
Total Bilirubin 0.5 mg/dl (0.2-1.3) 05/16/25 01:21
AST 18 U/L (17-59) 05/16/25 01:21
ALT 12 U/L (0-50) 05/16/25 01:21
Alkaline Phosphatase 71 U/L (38-126) 05/16/25 01:21
Most recent labs reviewed.
Micro Results:
05/15/25 18:09 Blood Culture - Preliminary
Blood/Venous No Growth in 48 hours- Final report to follow
05/14/25 08:15 Blood Culture - Preliminary
Blood/Venous Staphylococcus aureus
Gram Stain - Final
05/14/25 08:15 Blood Culture - Preliminary
Blood/Venous Klebsiella oxytoca
S. aureus
Gram Stain - Final
05/16/25 17:58 Urine Culture - Pending
Urine
05/14/25 08:29 Urine Culture - Final
Urine
Imaging:
05/14/2025 CT abdomen/pelvis without contrast: Limited CT in the absence of contrast. Small left nephrolith noted. Mild right hydroureteronephrosis, without evidence for obstructing ureteral calculus. A collapsed urinary bladder with a Dickinson
catheter in place. Prostamegaly noted. Please see full dictation for additional detail.
05/14/2025 CXR (portable): No focal consolidation, pleural effusion or pneumothorax noted.
Chest X-Ray: Image Reviewed
CT Scan: Image Reviewed
--- NOTE | 2025-05-18 07:46 | W.PN.HOSP.TC ---
Addendum entered and electronically signed by Alfredo Persaud MD 05/18/25 12:49:
Case discussed with Drs. Foss and Marcin. Pt needs ISAI, cards aware.
Original Note:
Today's Communication/Plan
-
see plan
Assessment / Plan
Assessment / Plan
74 yo man with hx HTN, HLD, BPH, ER visit 04/30/25 for urinary retention s/p zarate brought in by for confusion x 24 hours. Patient had a syncopal episode in triage.
Gen: NAD, Awake and alert, appears chronically ill and malnourished
Eyes: EOMI, PERRLA, no scleral icterus.
Neck: supple.
CV: tachy, reg rhythm, +S1/S2, no m/r/g.
Resp: remains CTAB anteriorly, no rales, wheezes, or rhonchi.
Abd: +BS, soft, NT, ND
Skin: No rashes.
Neuro: continues to remain CN 2-12 intact, non-focal.
Psych: Normal mood and affect.
05/15/25 18:09 Blood/Venous Blood Culture - Preliminary
No Growth in 48 hours- Final report to follow
05/14/25 08:15 Blood/Venous Blood Culture - Preliminary
Staphylococcus aureus
05/14/25 08:15 Blood/Venous Gram Stain - Final
05/14/25 08:15 Blood/Venous Blood Culture - Preliminary
Klebsiella oxytoca
05/14/25 08:15 Blood/Venous Gram Stain - Final
05/14/25 08:29 Urine Urine Culture - Final
EKG: atrial fibrillation with RVR @ 141, aberrantly conducted complexes versus PVC's; intraventricular conduction block
CXR: No acute cardiopulmonary process.
CT A/P (without PO/IV contrast): Limited CT examination in the absence of intravenous and oral contrast. Small left nephrolith. Mild right hydroureteronephrosis without evidence for an obstructing ureteral calculus. Collapsed urinary bladder with a
Zarate catheter in place and urinary bladder wall thickening. Recommend correlation with a urinalysis. Prostatomegaly. Bowel containing right inguinal hernia. Other chronic findings, as detailed above.
CT head: No acute intracranial abnormality.
Echo: TDS. Small LV chamber size. EF 50%. No gross regional wall motion abnormalities within limits of the study. Mild concentric LVH. Normal diastolic function. Normal RV sz/fxn. No significant valvular pathology
Severe sepsis due to CAUTI:
-zarate catheter was present on admission
-with lactic acidosis, now resolved
-cont Zosyn/Dapto as per ID based on Cx data above (Klebsiella and Staph aureus). Cont to follow Cxs.
-leukocytosis has improved from 51.9 to 15.7
DKA:
-new Dx DM2, a1c 15.9%
-on admission AG 30 with glucose > 700 and elevated beta hydroxybutyric acid. Patient was not on insulin at home, had not been on oral anti-hyperglycemics.
-s/p 2L and insulin regular 6 units x 1 followed by initiation of insulin gtt
-glucose improved and AG resolved with insulin gtt
-hyperkalemia resolved
-now transitioned to Lantus/SSI/accuchecks
LUIS:
-due to dehydration causing prerenal azotemia as well as osmotic diuresis from DKA
-cont IVFs (decrease rate to 75cc/hr)
-CT A/P with mild right hydro, no stone
-continue zarate catheter
Atrial Fibrillation with RVR:
-converted to SR
-echo above
-TSH normal
-Cardiology saw in consult
-was on Heparin gtt, now on Eliquis
Acute on chronic chronic urinary Retention with chronic zarate catheter:
-Due to underlying BPH and possibly a component of neurogenic bladder
-Mild right hydroureteronephrosis as likely ureteral reflux from urinary retention
-Uro following
-cont Flomax
Dysphagia:
-speech following, pt now of full liquids
-start IVFs with dec PO intake
Other problems:
Right Inguinal Hernia, reducible
Constipation
FULL/Eliquis
Downgraded to MS on 05/17/25
Anticipated Discharge: > 48 hours
Subjective/Interval History
-
Date of Service: May 18, 2025
No new complaints. Denies CP/SOB. RN states pt with minimal PO intake.
Objective Data
-
Labs:
Laboratory Results
05/18/25
03:54
WBC 15.7 H
Hgb 14.1
Hct 40.8
Plt Count 284
Vital Signs:
Vital Signs
Temp Pulse Resp BP Pulse Ox
98.2 F 101 16 115/76 95
05/18/25 03:07 05/18/25 06:00 05/18/25 05:00 05/18/25 06:00 05/18/25 06:05
I&O
05/17/25 05/18/25 05/19/25
06:59 06:59 06:59
Intake Total 3615.0 / 3740.0 1909
Output Total 1510 / 1510 1410 / 1410
Balance 2105.0 / 2230.0 500 / 500
--- NOTE | 2025-05-18 08:10 | PTCARENOTE ---
Assumed care of pt at 0715 following shift report. Pt woken to name for assessment and care. Denies c/o pain. Ambulated w/ use of rolling walker to BR to have BM. Tolerated activity well- to bedside chair. Hygiene and comfort care provided. Call
ed w/in pt reach and safe environment maintained.
--- NOTE | 2025-05-18 08:53 | CM ---
Chart reviewed: Anticipated discharge > 48 hours
Updated Clinicals and PASRR sent to [facility], and [facility];
[facility] unable to accept
Plan: Discharge to SNF when medically stable pending bed availability and authorization approval
[2025-05-18] MEDS: TOPROL XL 12.5 MG PO (08:58)
[2025-05-18] MEDS: NEUTRA-PHOS POWDER PACKET 250 MG PO ×4 (08:58→21:37)
[2025-05-18] MEDS: ELIQUIS 5 MG PO ×2 (08:58→20:30)
[2025-05-18] MEDS: FLOMAX 0.4 MG PO (08:58)
[2025-05-18] MEDS: LANTUS 0.12 UNITS SC (08:59)
[2025-05-18] MEDS: NSS 1000 IV ×2 (09:01→20:30)
[2025-05-18] MEDS: TYLENOL 650 MG PO (09:02)
[2025-05-18 09:40] LABS: Blood Urea Nitrogen 31 mg/dl (9-20); Calcium 7.7 mg/dl (8.4-10.2); Carbon Dioxide 25 mmol/L (22-30); Chloride 105 mmol/L (98-107); Estimated Creatinine Clearance 57 ml/min; Glucose 139 mg/dl (70-99); Potassium 3.9 mmol/L (3.5-5.1); Sodium 134 mmol/L (135-145); eGFR > 60.00
[2025-05-18] MEDS: CUBICIN 14 MG IV (11:24)
[2025-05-18] MEDS: NOVOLOG FLEXPEN-MODERATE RESISTANCE 3 UNITS SC (13:12)
[2025-05-18 13:22] LABS: Glucose - Point of Care 217 mg/dl (70-99)
--- NOTE | 2025-05-18 13:55 | W.PN.UPDATE ---
Update Note
Progress Note Update
Requested by hospitalist to arrange for ISAI to assess for infectious endocarditis
Given his documented dysphagia will order barium swallow study to be done prior to ISAI
[2025-05-18 18:33] LABS: Glucose - Point of Care 182 mg/dl (70-99)
[2025-05-18] MEDS: NOVOLOG FLEXPEN-MODERATE RESISTANCE 1 UNITS SC (18:33)
--- NOTE | 2025-05-18 22:13 | PTCARENOTE ---
Assumed care of pt at 1900. Pt is Med/Surg level of care. A/O x2-3, needs to be reoriented to time and situation at times. Flat affect noted. No c/o pain. Physical assessment as documented in nursing shift assessment flowsheet. Pt's zarate catheter
draining nigel with large amounts of sediment and debris, noted to have only put 10mL out between 1899 and 2129 with no urine noted in the tubing. Zarate irrigated with 150mL sterile saline and is now draining again. The same debris clogging the
catheter was also noted around pt's urinary meatus (maybe leaked around catheter), zarate care done and barrier cream applied to scrotum which is still excoriated, although has improved overall. Pt now resting with eyes closed, bed alarm activated.
[2025-05-19] VITALS (8 sets, daily range): BP systolic 105–138; BP diastolic 64–78
[2025-05-19] MEDS: NOVOLOG FLEXPEN-MODERATE RESISTANCE 3 UNITS SC ×2 (00:05→12:22)
[2025-05-19 00:14] LABS: Glucose - Point of Care 248 mg/dl (70-99)
[2025-05-19] MEDS: ZOSYN 50 IV ×4 (03:15→21:30)
[2025-05-19] MEDS: NOVOLOG FLEXPEN-MODERATE RESISTANCE 1 UNITS SC (05:27)
[2025-05-19] MEDS: NSS 1000 IV ×2 (05:27→17:27)
[2025-05-19 05:37] LABS: Glucose - Point of Care 163 mg/dl (70-99)
[2025-05-19 05:42] LABS: Hematocrit 37.8 % (39.0-52.0); Hemoglobin 13.1 g/dL (13.0-18.0); Mean Corp Hgb Conc. 34.7 g/dL (33.0-37.0); Mean Corpuscular Volume 79.9 fL (80.0-94.0); Platelet Count 230 10^3/uL (130-400); Red Cell Dist. Width 13.8 % (11.5-14.5)
[2025-05-19 06:19] LABS: Blood Urea Nitrogen 24 mg/dl (9-20); Calcium 7.5 mg/dl (8.4-10.2); Carbon Dioxide 24 mmol/L (22-30); Chloride 108 mmol/L (98-107); Estimated Creatinine Clearance 57 ml/min; Glucose 189 mg/dl (70-99); Potassium 3.5 mmol/L (3.5-5.1); Sodium 136 mmol/L (135-145); eGFR > 60.00
--- NOTE | 2025-05-19 07:34 | W.PN.ID1 ---
Date of Service
Date of Service: May 19, 2025
Today's Communication
Continue current antibiotics for today. Await ISAI.
Assessment / Plan
Bacteremia with Klebsiella oxytoca / S. aureus
- suspect urinary source
- S. aureus bacteremia appears sustained over 48 hours (thus far)
Leukocytosis; improving
Obstructive uropathy
Hematuria
DM (uncontrolled; HbA1c = 15.9)
BPH
HTN
HLD
Recommendations:
Currently Zosyn 2.25 g IV every 6 hours (d#5)
Daptomycin 700 mg IV every 24 hours (d#3)
Continue Zosyn; increased to 3.375 g IV every 6 hours
Continue daptomycin
Repeat blood cultures with gram-positive cocci.
Follow white count and temperature curve.
Case previously discussed with Hospitalist service. TTE technically difficult. Cardiology consulted for ISAI.
����������������������������������������������������������
Chief Complaint
-: Leukocytosis, UTI and Bacteremia
Subjective / Review of Systems
Review of Systems: No Fever and No Chills
Vital Signs / Physical Exam
Vital Signs
Vital Signs
Temp Pulse Resp BP Pulse Ox
97.3 F 92 16 123/78 98
05/19/25 07:07 05/19/25 03:17 05/18/25 19:23 05/19/25 03:17 05/19/25 03:17
Physical Exam
Constitutional: No Acute Distress, Comfortable and Non-toxic
Eyes: No Conjunctival Hemorrhage and Sclera Anicteric
Cardiovascular: S1/S2; Negative S3/S4 or Murmur
Pulmonary: Non Labored
Gastrointestinal: Soft, Non Tender and Non Distended
Genito-Urinary: Dickinson, Turbid Urine and Hematuria
Extremities: Edema (1+); Negative Cyanosis or Erythema
Skin: Warm and Dry; Negative Rash
Neurological: Awake and Alert
Psychological: Calm
Objective Data
Lab Data
Lab Results
05/19/25 05:20
05/19/25 05:20
PT 18.6 Sec (11.4-14.6) H 05/14/25 14:09
INR 1.50 05/14/25 14:09
APTT 90.9 Sec (23.4-35.0) H 05/16/25 07:52
Estimated Creat Clear 57 ml/min 05/19/25 05:20
Lactic Acid 2.0 mmol/L (0.7-2.0) 05/16/25 10:33
Total Bilirubin 0.5 mg/dl (0.2-1.3) 05/16/25 01:21
AST 18 U/L (17-59) 05/16/25 01:21
ALT 12 U/L (0-50) 05/16/25 01:21
Alkaline Phosphatase 71 U/L (38-126) 05/16/25 01:21
Most recent labs reviewed.
Micro Results:
05/18/25 15:49 Blood Culture - Pending
Blood/Venous
05/18/25 15:03 Blood Culture - Pending
Blood/Venous
05/16/25 17:58 Urine Culture - Preliminary
Urine Yeast
05/14/25 08:15 Blood Culture - Final
Blood/Venous S aureus-Methicillin Sensitive
Gram Stain - Final
05/15/25 18:09 Blood Culture - Preliminary
Blood/Venous Positive culture in progress
Gram Stain - Preliminary
05/14/25 08:15 Blood Culture - Preliminary
Blood/Venous Klebsiella oxytoca
Gram Stain - Final
05/14/25 08:29 Urine Culture - Final
Urine
Imaging:
05/15/2025 ECHO (TTE): Technically difficult study. Small LV chamber size. EF approximately 50%. Mild concentric left ventricular hypertrophy. No significant valvular pathology noted. Thickened mitral valve leaflets. Mitral annular
calcification noted. Aortic valve leaflets also noted to be thickened.
05/14/2025 CT abdomen/pelvis without contrast: Limited CT in the absence of contrast. Small left nephrolith noted. Mild right hydroureteronephrosis, without evidence for obstructing ureteral calculus. A collapsed urinary bladder with a Dickinson
catheter in place. Prostamegaly noted. Please see full dictation for additional detail.
05/14/2025 CXR (portable): No focal consolidation, pleural effusion or pneumothorax noted.
[2025-05-19] MEDS: ELIQUIS 5 MG PO ×2 (08:16→19:43)
[2025-05-19] MEDS: NEUTRA-PHOS POWDER PACKET 250 MG PO ×4 (08:16→21:29)
[2025-05-19] MEDS: FLOMAX 0.4 MG PO (08:16)
[2025-05-19] MEDS: TOPROL XL 12.5 MG PO (08:19)
[2025-05-19] MEDS: LANTUS 0.12 UNITS SC (08:22)
[2025-05-19 08:26] LABS: Glucose - Point of Care 184 mg/dl (70-99)
--- NOTE | 2025-05-19 08:29 | W.PN.CARDCBS ---
Today's Communication / Plan
-
ISAI AM pending barium swallow
Impression / Plan
-
.
Primary Card Maker: none prior to admission
Impression:
Confusion, FTT, Weight loss
DKA , with hx recent diagnosis DM-2
Acute renal failure, improved
Sepsis, UTI
Bacteremia with Klebsiella oxytoca / S. aureus, possibly urinary source
Leukocytosis; improving
Hyperkalemia and hyponatremia, resolved
Paroxysmal atrial fibrillation, new diagnosis status post spontaneous conversion to sinus rhythm
Urinary retention with Dickinson in place last several weeks
R Inguinal hernia
Hypertension
Hyperlipidemia
BPH
Plan:
Patient presents with confusion, failure to thrive, and weight loss over the last month in the setting of recent diagnosis type 2 diabetes and urinary retention with Dickinson placement within the last several weeks. On arrival is noted to be in DKA
with evidence of acute renal failure hyperkalemia and UTI with severe sepsis.
Cardiology reconsulted to eval for ISAI.
Barium swallow pending. Pending barium swallow, likely ISAI AM May 20
Remains in sinus after spontaneous conversion.
[id number] score of 3 for age, hypertension, diabetes. Continue Eliquis
Cont Low-dose beta-emily with hold parameters
Echo with low normal LV function and no significant valvular pathology
Treatment for DM management per primary service
Cont urosepsis treatment as per ID, cont broad spectrum abx.
Outpatient losartan was held in setting of acute renal failure, consider resuming prior to d/c possibly lower dose due to now on beta emily.
Discussed with nursing.
Progress Note - Card Maker
Subjective
Date of Service: May 19, 2025
Pt seen and examined. No complaints. No chest pain or shortness of breath.
Objective
Labs:
05/19/25 05:20
05/19/25 05:20
Labs
Hgb 13.1 g/dL (13.0-18.0) 05/19/25 05:20
Hct 37.8 % (39.0-52.0) L 05/19/25 05:20
Plt Count 230 10^3/uL (130-400) 05/19/25 05:20
PT 18.6 Sec (11.4-14.6) H 05/14/25 14:09
INR 1.50 05/14/25 14:09
APTT 90.9 Sec (23.4-35.0) H 05/16/25 07:52
Sodium 136 mmol/L (135-145) 05/19/25 05:20
Potassium 3.5 mmol/L (3.5-5.1) 05/19/25 05:20
BUN 24 mg/dl (9-20) H 05/19/25 05:20
Creatinine 1.1 mg/dL (0.7-1.3) 05/19/25 05:20
Glucose 189 mg/dl (70-99) H 05/19/25 05:20
Vital Signs and I&O:
Vital Signs
Temp Pulse Resp BP Pulse Ox
97.3 F 84 16 138/78 98
05/19/25 07:07 05/19/25 08:19 05/18/25 19:23 05/19/25 08:19 05/19/25 03:17
Vital Signs
Temp Pulse Resp BP Pulse Ox
97.3 F 84 16 138/78 98
05/19/25 07:07 05/19/25 08:19 05/18/25 19:23 05/19/25 08:19 05/19/25 03:17
Intake & Output
05/17/25 05/18/25 05/19/25 05/20/25
06:59 06:59 06:59 06:59
Intake Total 3615.0 / 3740.0 1910 / 1910 3190 / 3190
Output Total 1510 / 1510 1410 / 1410 1290 / 1290
Balance 2105.0 / 2230.0 500 / 500 1900 / 1900
Physical Exam
Physical Exam
General: No acute distress, AAOX3
Neck: Negative JVD
Heart: Regular, Negative S3 positive S1/S2, Negative S4, No murmur
Lungs: CTA b/l, negative wheezes/rales/rhonchi
Abd: Positive BS, NT/ND, neg rebound/rigidity/guarding
Ext: Negative cyanosis/clubbing/edema
Neuro: nonfocal
--- NOTE | 2025-05-19 08:47 | PN.DE.MGMTRT ---
Insulin Management
- -
05/19/2025: Diabetes Management follow up
Patient admitted on 05/14 with confusion, failure to thrive, and weight loss over the last month in the setting of recent Dx of T2DM, and urinary retention with Dickinson placement within the last several weeks. On arrival is noted for hyperglycemia,
DKA (GAP 30) with evidence of acute renal failure hyperkalemia and UTI with severe sepsis. PMH: HTN, HLD, diabetes, BPH - chronic Dickinson catheter. [employer], was prescribed Rybelsus, Actos, metformin; was not taking these medications. Family is at bedside
and very supportive, answering questions for patient. states they were not aware patient had diabetes, they found the prescribed medications and other prescriptions in his truck. They think he has had diabetes ~ 1 year but did not follow up.
A1C 15.9%, cr 2.1, eGFR 32.83.
Patient was sleeping at time of my visit, unable to answer questions or discuss diabetes plan of care. at bedside, very supportive
Transitioned off insulin infusion to SQ insulin on 05/16 to Lantus 12 units and low corrective Q6 while NPO.
Pt was started on a diet-Full liquids on 05/16. Glucose 182 to 217, requiring 1-3 units of corrective insulin Q6 hrs. FBG 184 POC this AM.
Will start AC NovoLog 4 units. Cont Lantus 12 units daily in AM. LUIS has resolved, Cr 1.1, eGFR >60 today
Discussed with nurse. Will cont to follow.
05/15 Discussed with and daughter patient will require insulin injections and begin testing his blood sugar at home at discharge.
Will ask nurse educator to provide and educate on monitor and insulin.
Diabetes History
- -
Type of Diabetes: 2 requiring insulin
Pre-Admission Diabetes Regimen
05/18/25 05/19/25
08:56 05:20
Creatinine 1.1 1.1
Lab Results
Hemoglobin A1c 15.9 % (4.0-5.6) H 05/14/25 08:10
Insulin Pump Settings
IP Diabetes Regimen
05/18/25 05/18/25 05/18/25
08:56 13:11 18:22
Glucose 139 H
POC Glucose 217 H 182 H
05/19/25 05/19/25 05/19/25
00:03 05:20 05:25
Glucose 189 H
POC Glucose 248 H 163 H
05/19/25
08:15
Glucose
POC Glucose 184 H
Meal type: Lunch
Meal type: Breakfast
Patient Education
[2025-05-19] MEDS: CUBICIN 14 MG IV (10:00)
[2025-05-19 11:53] LABS: Glucose - Point of Care 200 mg/dl (70-99)
[2025-05-19] MEDS: NOVOLOG FLEXPEN 4 UNITS SC ×2 (12:22→17:30)
--- NOTE | 2025-05-19 12:36 | PTCARENOTE ---
pt drowsy , flat affect , becomes agitated with any nursing care , pt is very agitated with any type of physical therapy or activity progression , he was refusing to get oob with Physical therapy , he became verbally aggressive and after attempting
to encourage pt to get oob for his improvement he was grabbing in bed rails and aggressively shaking rails and yelling out , at bedside and pt verbally abusive towards her , the patient is not understanding reasons for treatments with diabetes
and medication regimen , pt now has a psyc consult the states the patient has been acting this way at home for a few weeks. poor appetite , able to swallow at tolerate full liquids , pt is telemetry , to be transferred to 419-1
--- NOTE | 2025-05-19 13:58 | W.PN.HOSP.TC ---
Today's Communication/Plan
-
Assessment / Plan
Assessment / Plan
Gen: NAD, Awake and alert, appears chronically ill and malnourished
Eyes: EOMI, PERRLA, no scleral icterus.
Neck: supple.
CV: tachy, reg rhythm, +S1/S2, no m/r/g.
Resp: remains CTAB anteriorly, no rales, wheezes, or rhonchi.
Abd: +BS, soft, NT, ND
: Chronic Zarate draining clear yellow urine
Skin: No rashes.
Neuro: continues to remain CN 2-12 intact, non-focal.
Psych: Normal mood and affect.
74 yo man with hx HTN, HLD, BPH, ER visit 04/30/25 for urinary retention s/p zarate brought in by for confusion x 24 hours. Patient had a syncopal episode in triage.
Severe sepsis due to CAUTI:
- zarate catheter was present on admission
- with lactic acidosis, now resolved
- Blood cultures positive for Klebsiella and MSSA
- cont Zosyn and daptomycin, appreciate ID guidance
- leukocytosis has improved from 51.9 to 12.2
- No evidence of vegetations on TTE, tentatively planning ISAI tomorrow 05/20 after barium swallow today
DKA:
-new Dx DM2, a1c 15.9%
-on admission AG 30 with glucose > 700 and elevated beta hydroxybutyric acid. Patient was not on insulin at home, had not been on oral anti-hyperglycemics.
-s/p 2L and insulin regular 6 units x 1 followed by initiation of insulin gtt
-glucose improved and AG resolved with insulin gtt
-hyperkalemia resolved
-now transitioned to Lantus/SSI/accuchecks
- Appreciate diabetes management CORRUGATOR input
LUIS:
-due to dehydration causing prerenal azotemia as well as osmotic diuresis from DKA
- Resolved
-cont IVFs, monitor renal function
-CT A/P with mild right hydro, no stone
-continue zarate catheter
Atrial Fibrillation with RVR:
-converted to SR
-echo technical difficult study showing LVEF estimated at 50% with no clear regional wall motion abnormalities, did show mild concentric LVH, normal diastolic function
-TSH normal
-Cardiology following
-was on Heparin gtt, now on Eliquis
Acute on chronic chronic urinary Retention with chronic zarate catheter:
-Due to underlying BPH and possibly a component of neurogenic bladder
-Mild right hydroureteronephrosis as likely ureteral reflux from urinary retention
-Uro following
-cont Flomax
Dysphagia:
-speech following, pt now of full liquids
-start IVFs with dec PO intake
- Barium swallow pending
Other problems:
Right Inguinal Hernia, reducible
Constipation
FULL/Eliquis
Downgraded to MS on 05/17/25
Anticipated Discharge: > 48 hours
Subjective/Interval History
-
Date of Service: May 19, 2025
Patient was seen and examined at bedside this morning. Comfortable, no complaints. Awaiting barium swallow study prior to ISAI tentatively scheduled for tomorrow.
Objective Data
-
Labs:
Laboratory Results
05/19/25
05:20
WBC 12.2 H
Hgb 13.1
Hct 37.8 L
Plt Count 230
Sodium 136
Potassium 3.5
Chloride 108 H
Carbon Dioxide 24
BUN 24 H
Creatinine 1.1
Glucose 189 H
Calcium 7.5 L
Vital Signs:
Vital Signs
Temp Pulse Resp BP Pulse Ox
97.7 F 81 17 105/65 96
05/19/25 13:39 05/19/25 13:39 05/19/25 13:39 05/19/25 13:39 05/19/25 13:39
I&O
05/18/25 05/19/25 05/20/25
06:59 06:59 06:59
Intake Total 1909 3190 / 3190 800 / 800
Output Total 1410 / 1410 1290 / 1290 750 / 750
Balance 500 / 500 1900 / 1900 50 / 50
Review of Systems
-
History Source: Patient
Physical Exam
-
General: No Apparent Distress
--- NOTE | 2025-05-19 14:41 | CM ---
Transferred to Room [facility].
--- NOTE | 2025-05-19 15:35 | CS.PSYCHR ---
Consult Summary - Psychiatry
-
Pt is a 74 yo male with hx HTN, HLD, BPH, ER visit 04/30/25 for urinary retention s/p Dickinson; brought in by for confusion, had a syncopal episode after arrival in ED. provided hx, reported pt has not been eating well, was not taking
prescribed med for recent dx of diabetes. Pt admitted with DKA, LUIS, UTI. Psychiatry asked to evaluate due to behavior disturbance, pt was agitated earlier per nursing staff, when being transferred from the ICU. Pt seen resting calmly in bed,
states he has been here for a week, just needs to be allowed to rest, c/o being made to get out of bed and sit on a hard chair. Pt denies depression or anxiety, shows no signs of psychosis. Pt appears to have limited tolerance for questions.
provided more background info in the hallway, stated pt has rarely sought medical care, but wants things to be on his terms. Years ago when he first developed a hernia, he presented to the local hospital requesting surgery and staff joked that he
acted like it was a hotel where he just check in and check out. states pt has issues about appearing weak if he is in under medical care/monitoring.
Psych Hx: denied by pt and
MSE: alert, oriented, calm, cooperative though limited tolerance for questioning. Mood stable, denies feeling depressed. Affect calm/appropriate. No signs of psychosis. Insight appears limited
Imp: TME, resolving. Adjustment d/o; personality factors complicating pt's adjustment to medical diagnosis and mgt, as well as ability to cope with hospitalization
Rec: supportive management, pt education. No indication for psychiatric medication
Will follow peripherally
[2025-05-19 16:59] LABS: Glucose - Point of Care 90 mg/dl (70-99)
[2025-05-19] MEDS: NOVOLOG FLEXPEN SC (17:16)
[2025-05-19] MEDS: NOVOLOG FLEXPEN-MODERATE RESISTANCE SC (17:29)
[2025-05-19 21:47] LABS: Glucose - Point of Care 122 mg/dl (70-99)
[2025-05-20] MEDS: ZOSYN 50 IV ×4 (03:00→21:06)
[2025-05-20] MEDS: TYLENOL 650 MG PO ×2 (03:06→07:41)
[2025-05-20 07:13] LABS: Hematocrit 37.8 % (39.0-52.0); Hemoglobin 12.7 g/dL (13.0-18.0); Mean Corp Hgb Conc. 33.6 g/dL (33.0-37.0); Mean Corpuscular Volume 81.6 fL (80.0-94.0); Platelet Count 223 10^3/uL (130-400); Red Cell Dist. Width 13.8 % (11.5-14.5)
[2025-05-20 07:19] VITALS: BP 144/78
[2025-05-20] MEDS: FLOMAX 0.4 MG PO (07:30)
[2025-05-20] MEDS: NEUTRA-PHOS POWDER PACKET 250 MG PO ×4 (07:30→21:06)
[2025-05-20] MEDS: LANTUS 0.12 UNITS SC (07:30)
[2025-05-20] MEDS: ELIQUIS 5 MG PO ×2 (07:30→20:22)
[2025-05-20 07:31] LABS: Blood Urea Nitrogen 15 mg/dl (9-20); Calcium 6.7 mg/dl (8.4-10.2); Carbon Dioxide 24 mmol/L (22-30); Chloride 109 mmol/L (98-107); Estimated Creatinine Clearance 57 ml/min; Glucose 102 mg/dl (70-99); Potassium 2.8 mmol/L (3.5-5.1); Sodium 137 mmol/L (135-145); eGFR > 60.00
[2025-05-20] MEDS: TOPROL XL 12.5 MG PO (07:40)
[2025-05-20 07:42] LABS: C-Reactive Protein 65.90 mg/L (0.0-10.00)
[2025-05-20] MEDS: NOVOLOG FLEXPEN-MODERATE RESISTANCE SC ×3 (07:45→17:41)
[2025-05-20 07:46] LABS: Glucose - Point of Care 97 mg/dl (70-99)
[2025-05-20] MEDS: NOVOLOG FLEXPEN 4 UNITS SC ×3 (07:46→17:41)
--- NOTE | 2025-05-20 08:18 | PN.DE.MGMTRT ---
Insulin Management
- -
05/20/2025: Diabetes Management follow up
Patient admitted on 05/14 with confusion, failure to thrive, and weight loss over the last month in the setting of recent Dx of T2DM, and urinary retention with Dickinson placement within the last several weeks. On arrival is noted for hyperglycemia,
DKA (GAP 30) with evidence of acute renal failure hyperkalemia and UTI with severe sepsis. PMH: HTN, HLD, diabetes, BPH - chronic Dickinson catheter. 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 Family is at bedside
and very supportive, answering questions for patient. states they were not aware patient had diabetes, they found the prescribed medications and other prescriptions in his truck. They think he has had diabetes ~ 1 year but did not follow up.
A1C 15.9%, cr 2.1, eGFR 32.83.
Patient awake alert and oriented able to discuss diabetes plan of care. Daughter at bedside, very supportive
Transitioned off insulin infusion to SQ insulin on 05/16 to Lantus 12 units and low corrective Q6 while NPO.
05/20 cr 1.1, eGFR > 60. Diet advanced to 2000 calorie. AC novolog 4 units started with lunch 05/19; glucose improved, range 90 to 122.
Will continue Lantus 12 units daily in AM, with 4 units novolog ac and low corrective insulin. Please HOLD 4 units novolog if patient does not eat but continue corrective.
Discussed with nurse. Will cont to follow.
05/15 Discussed with and daughter patient will require insulin injections and begin testing his blood sugar at home at discharge.
Will ask nurse educator to provide and educate on monitor and insulin.
Diabetes History
- -
Type of Diabetes: 2 requiring insulin
Pre-Admission Diabetes Regimen
05/20/25
06:23
Creatinine 1.1
Lab Results
Hemoglobin A1c 15.9 % (4.0-5.6) H 05/14/25 08:10
Insulin Pump Settings
IP Diabetes Regimen
05/19/25 05/19/25 05/19/25
08:15 11:42 16:55
Glucose
POC Glucose 184 H 200 H 90
05/19/25 05/20/25 05/20/25
21:43 06:23 07:44
Glucose 102 H
POC Glucose 122 H 97
Patient Education
[2025-05-20] MEDS: KCL 40 MEQ PO (08:42)
[2025-05-20] MEDS: OSCAL CAL 500 1000 MG PO (08:42)
[2025-05-20] MEDS: CUBICIN 14 MG IV (09:32)
[2025-05-20 09:42] VITALS: BP 100/65; PULSE 87
[2025-05-20 11:36] LABS: Glucose - Point of Care 130 mg/dl (70-99)
[2025-05-20] MEDS: KCL 20 MEQ PO (11:55)
--- NOTE | 2025-05-20 12:02 | W.PN.UPDATE ---
Update Note
Progress Note Update
Cardiology consulted for ISAI for bacteremia, but ISAI was deferred until patient could have barium swallow. In the meantime patient underwent speech therapy evaluation and he has been cleared to resume regular diet. Esophagram no longer needed.
Plan is for ISAI in a.m.
--- NOTE | 2025-05-20 12:40 | W.PN.UPDATE ---
Update Note
Progress Note Update
Patient seen with daughter at bedside, chart reviewed. Mr. Wright reports doing well. Mood is good, No further agitation. He feels much more rested. Reports good sleep overnight. He explains his previous agitation as he really did not like being
moved all around, told what to do, all he wanted to do was rest. His daughter has concerns he may be developing dementia and would like to pursue a work up as an outpatient. Case management to provide resources.
Impression/Recommendations: TME, resolved; ? Adjustment disorder - No indication for psychiatric medication at this time. Psych will sign off, please call or reconsult with any new or immediate concerns. Please provide family with outpatient
resources if they would like to pursue a dementia diagnosis.
--- NOTE | 2025-05-20 13:42 | W.PN.ID1 ---
Date of Service
Date of Service: May 20, 2025
Today's Communication
Continue antibiotics.
Assessment / Plan
Bacteremia with Klebsiella oxytoca / S. aureus
- suspect urinary source
- S. aureus bacteremia sustained over 48 hours.
Leukocytosis
Obstructive uropathy
Hematuria
DM (uncontrolled; HbA1c = 15.9)
BPH
HTN
HLD
Recommendations:
Currently Zosyn 2.25 g IV every 6 hours (d#6)
Daptomycin 700 mg IV every 24 hours (d#3)
Continue Zosyn / daptomycin
Follow white count and temperature curve.
TTE technically difficult. Cardiology consulted for ISAI; to be performed tomorrow.
����������������������������������������������������������
Chief Complaint
-: Leukocytosis, UTI and Bacteremia
Subjective / Review of Systems
Patient seen and examined.
Review of Systems: No Fever and No Chills
Vital Signs / Physical Exam
Vital Signs
Vital Signs
Temp Pulse Resp BP Pulse Ox
98.3 F 81 18 144/78 100
05/20/25 07:19 05/20/25 07:19 05/20/25 07:19 05/20/25 07:19 05/20/25 07:30
Physical Exam
Constitutional: No Acute Distress, Comfortable and Non-toxic
Cardiovascular: S1/S2; Negative S3/S4 or Murmur
Pulmonary: Non Labored
Gastrointestinal: Soft, Non Tender and Non Distended
Genito-Urinary: Dickinson, Turbid Urine and Hematuria
Extremities: Edema (1+); Negative Cyanosis or Erythema
Skin: Warm and Dry; Negative Rash
Neurological: Awake and Alert
Psychological: Calm
Objective Data
Lab Data
Lab Results
05/20/25 06:23
ESR 46 mm/hour (0-20) H 05/20/25 06:23
PT 18.6 Sec (11.4-14.6) H 05/14/25 14:09
INR 1.50 05/14/25 14:09
APTT 90.9 Sec (23.4-35.0) H 05/16/25 07:52
Estimated Creat Clear 57 ml/min 05/20/25 06:23
Lactic Acid 2.0 mmol/L (0.7-2.0) 05/16/25 10:33
Total Bilirubin 0.5 mg/dl (0.2-1.3) 05/16/25 01:21
AST 18 U/L (17-59) 05/16/25 01:21
ALT 12 U/L (0-50) 05/16/25 01:21
Alkaline Phosphatase 71 U/L (38-126) 05/16/25 01:21
C-Reactive Protein 65.90 mg/L (0.0-10.00) H 05/20/25 06:23
Most recent labs reviewed.
Micro Results:
05/18/25 15:49 Blood Culture - Preliminary
Blood/Venous No Growth in 24 hours- Final report to follow
05/18/25 15:03 Blood Culture - Preliminary
Blood/Venous No Growth in 24 hours- Final report to follow
05/15/25 18:09 Blood Culture - Preliminary
Blood/Venous S aureus-Methicillin Sensitive
Gram Stain - Preliminary
05/16/25 17:58 Urine Culture - Final
Urine Yolis albicans
05/14/25 08:15 Blood Culture - Final
Blood/Venous S aureus-Methicillin Sensitive
Gram Stain - Final
05/14/25 08:15 Blood Culture - Preliminary
Blood/Venous Klebsiella oxytoca
Gram Stain - Final
05/14/25 08:29 Urine Culture - Final
Urine
Imaging:
05/15/2025 ECHO (TTE): Technically difficult study. Small LV chamber size. EF approximately 50%. Mild concentric left ventricular hypertrophy. No significant valvular pathology noted. Thickened mitral valve leaflets. Mitral annular
calcification noted. Aortic valve leaflets also noted to be thickened.
05/14/2025 CT abdomen/pelvis without contrast: Limited CT in the absence of contrast. Small left nephrolith noted. Mild right hydroureteronephrosis, without evidence for obstructing ureteral calculus. A collapsed urinary bladder with a Dickinson
catheter in place. Prostamegaly noted. Please see full dictation for additional detail.
05/14/2025 CXR (portable): No focal consolidation, pleural effusion or pneumothorax noted.
--- NOTE | 2025-05-20 14:23 | W.PN.HOSP.TC ---
Today's Communication/Plan
-
Assessment / Plan
Assessment / Plan
Gen: NAD, Awake and alert, appears chronically ill and malnourished
Eyes: EOMI, PERRLA, no scleral icterus.
Neck: supple.
CV: tachy, reg rhythm, +S1/S2, no m/r/g.
Resp: remains CTAB anteriorly, no rales, wheezes, or rhonchi.
Abd: +BS, soft, NT, ND
: Chronic Zarate draining dark yellow urine
Skin: No rashes.
Neuro: continues to remain CN 2-12 intact, non-focal.
Psych: Normal mood and affect.
74 yo man with hx HTN, HLD, BPH, ER visit 04/30/25 for urinary retention s/p zarate brought in by for confusion x 24 hours. Patient had a syncopal episode in triage.
Severe sepsis due to CAUTI with bacteremia:
- zarate catheter was present on admission
- Had lactic acidosis, now resolved
- Blood cultures positive for Klebsiella and MSSA
- cont Zosyn and daptomycin, appreciate ID guidance
- leukocytosis improving
- No evidence of vegetations on TTE, planning ISAI tomorrow 05/21, passed bedside swallow and diet advanced to regular/thins
DKA:
-new Dx DM2, a1c 15.9%
-on admission AG 30 with glucose > 700 and elevated beta hydroxybutyric acid. Patient was not on insulin at home, had not been on oral anti-hyperglycemics.
-s/p 2L and insulin regular 6 units x 1 followed by initiation of insulin gtt
-glucose improved and AG resolved with insulin gtt
-hyperkalemia resolved
-now transitioned to Lantus/SSI/accuchecks
- Appreciate diabetes management AUDITOR TAX input
LUIS:
-due to dehydration causing prerenal azotemia as well as osmotic diuresis from DKA
- Resolved
-cont IVFs, monitor renal function
-CT A/P with mild right hydro, no stone
-continue zarate catheter
Atrial Fibrillation with RVR:
-converted to SR
-echo technical difficult study showing LVEF estimated at 50% with no clear regional wall motion abnormalities, did show mild concentric LVH, normal diastolic function
-TSH normal
-Cardiology following
-was on Heparin gtt, now on Eliquis
Chronic urinary Retention with chronic zarate catheter:
-Due to underlying BPH and possibly a component of neurogenic bladder
-Mild right hydroureteronephrosis as likely ureteral reflux from urinary retention
-Uro following
-cont Flomax
Dysphagia:
-speech following, passed bedside swallow 05/20 and diet is now advanced to regular/thin
- Family like to pursue outpatient workup for dementia
Hypokalemia:
- Serum potassium 2.8 on labs this morning, repleted
- Will monitor
Hypocalcemia:
- Serum calcium 6.7 on labs this morning, repleted
- Will monitor
Other problems:
Right Inguinal Hernia, reducible
Constipation
FULL/Eliquis
Anticipated Discharge: > 48 hours
Subjective/Interval History
-
Date of Service: May 20, 2025
Patient was seen and examined at bedside this morning. His daughter was also present. He is feeling less agitated today. Passed bedside swallow and diet has been advanced to regular/thins. Planning ISAI tomorrow.
Objective Data
-
Labs:
Laboratory Results
05/20/25 05/20/25
06:23 15:00
WBC 16.4 H
Hgb 12.7 L
Hct 37.8 L
Plt Count 223
Sodium 137 Pending
Potassium 2.8 L Pending
Chloride 109 H Pending
Carbon Dioxide 24 Pending
BUN 15 Pending
Creatinine 1.1 Pending
Glucose 102 H Pending
Calcium 6.7 L* Pending
Vital Signs:
Vital Signs
Temp Pulse Resp BP Pulse Ox
98.3 F 81 18 144/78 100
05/20/25 07:19 05/20/25 07:19 05/20/25 07:19 05/20/25 07:19 05/20/25 07:30
I&O
05/19/25 05/20/25 05/21/25
06:59 06:59 06:59
Intake Total 3190 / 3190 1400 / 1400
Output Total 1290 / 1290 1000 / 1000
Balance 1900 / 1900 400 / 400
Review of Systems
-
History Source: Patient
All other systems: Reviewed and negative
Physical Exam
-
General: No Apparent Distress
[2025-05-20 15:15] LABS: Blood Urea Nitrogen 16 mg/dl (9-20); Calcium 7.1 mg/dl (8.4-10.2); Carbon Dioxide 26 mmol/L (22-30); Chloride 110 mmol/L (98-107); Estimated Creatinine Clearance 63 ml/min; Glucose 98 mg/dl (70-99); Magnesium 1.5 mg/dl (1.6-2.3); Potassium 3.1 mmol/L (3.5-5.1); Sodium 136 mmol/L (135-145); eGFR > 60.00
[2025-05-20 15:34] VITALS: BP 119/70
[2025-05-20 16:58] LABS: Glucose - Point of Care 101 mg/dl (70-99)
[2025-05-20 22:54] LABS: Glucose - Point of Care 70 mg/dl (70-99)
[2025-05-20 23:59] VITALS: BP 119/76
[2025-05-21] MEDS: ZOSYN 50 IV ×4 (03:56→22:28)
[2025-05-21] MEDS: TYLENOL 650 MG PO ×2 (03:58→20:12)
[2025-05-21 04:03] LABS: Glucose - Point of Care 132 mg/dl (70-99)
[2025-05-21] MEDS: NOVOLOG FLEXPEN-MODERATE RESISTANCE SC ×2 (07:20→11:50)
[2025-05-21] MEDS: NOVOLOG FLEXPEN SC (07:20)
[2025-05-21] MEDS: ELIQUIS 5 MG PO ×2 (07:22→20:03)
[2025-05-21] MEDS: NEUTRA-PHOS POWDER PACKET 250 MG PO ×4 (07:22→22:28)
[2025-05-21] MEDS: TOPROL XL 12.5 MG PO (07:22)
[2025-05-21] MEDS: FLOMAX 0.4 MG PO (07:22)
[2025-05-21 07:31] VITALS: BP 107/60
[2025-05-21 08:08] LABS: Glucose - Point of Care 87 mg/dl (70-99)
--- NOTE | 2025-05-21 08:33 | PN.DE.MGMTRT ---
Insulin Management
- -
05/21/2025: Diabetes Management follow up
Patient admitted on 05/14 with confusion, failure to thrive, and weight loss over the last month in the setting of recent Dx of T2DM, and urinary retention with Dickinson placement within the last several weeks. On arrival is noted for hyperglycemia,
DKA (GAP 30) with evidence of acute renal failure hyperkalemia and UTI with severe sepsis. 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 Family is at bedside
and very supportive, answering questions for patient. states they were not aware patient had diabetes, they found the prescribed medications and other prescriptions in his truck. They think he has had diabetes ~ 1 year but did not follow up.
A1C 15.9%, cr 2.1, eGFR 32.83.
Patient off of the unit for ISAI.
Transitioned off insulin infusion to SQ insulin on 05/16 to Lantus 12 units and low corrective Q6 while NPO.
05/20 cr 1.1, eGFR > 60. Diet advanced to 2000 calorie. AC novolog 4 units started with lunch 05/19; glucose improved, range 130 to 70.
05/21 cr 1, eGFR >60. Fasting glucose 87. Will decrease Lantus 10 units daily in AM, with 3 units novolog ac and low corrective insulin. Please HOLD 3 units novolog if patient does not eat but continue corrective.
Discussed with nurse. Will cont to follow.
05/15 Discussed with and daughter patient will require insulin injections and begin testing his blood sugar at home at discharge.
Will ask nurse educator to provide and educate on monitor and insulin.
Diabetes History
- -
Type of Diabetes: 2 requiring insulin
Pre-Admission Diabetes Regimen
05/20/25
14:41
Creatinine 1.0
Lab Results
Hemoglobin A1c 15.9 % (4.0-5.6) H 05/14/25 08:10
Insulin Pump Settings
IP Diabetes Regimen
05/20/25 05/20/25 05/20/25
11:35 14:41 16:57
Glucose 98
POC Glucose 130 H 101 H
05/20/25 05/21/25 05/21/25
22:53 04:02 08:07
Glucose
POC Glucose 70 132 H 87
Patient Education
[2025-05-21] MEDS: LANTUS SC (08:40)
[2025-05-21 08:51] LABS: Hematocrit 35.4 % (39.0-52.0); Hemoglobin 12.3 g/dL (13.0-18.0); Mean Corp Hgb Conc. 34.7 g/dL (33.0-37.0); Mean Corpuscular Volume 80.5 fL (80.0-94.0); Platelet Count 172 10^3/uL (130-400); Red Cell Dist. Width 13.6 % (11.5-14.5)
[2025-05-21 09:14] LABS: Albumin 1.7 g/dl (3.5-5.0); Blood Urea Nitrogen 14 mg/dl (9-20); Calcium 6.8 mg/dl (8.4-10.2); Carbon Dioxide 23 mmol/L (22-30); Chloride 107 mmol/L (98-107); Estimated Creatinine Clearance 63 ml/min; Glucose 97 mg/dl (70-99); Potassium 3.3 mmol/L (3.5-5.1); Sodium 134 mmol/L (135-145); eGFR > 60.00
--- NOTE | 2025-05-21 10:44 | W.PN.UPDATE ---
Update Note
Progress Note Update
ISAI. Normal LVF. No vegetations seen. Full report to follow.
[2025-05-21 11:50] LABS: Glucose - Point of Care 91 mg/dl (70-99)
[2025-05-21] MEDS: NOVOLOG FLEXPEN 3 UNITS SC ×2 (11:50→17:20)
[2025-05-21] MEDS: LANTUS 0.1 UNITS SC (11:51)
[2025-05-21] MEDS: CUBICIN 14 MG IV (11:52)
--- NOTE | 2025-05-21 11:55 | CM ---
Chart reviewed. ISAI today
Patient has progressed w/ therapy, previous recommendation was for SNF, now recommendation is for home PT at d/c
[facility] reviewing SNF referral. Updated clinicals sent in [facility]
Will discuss w/ patient if he prefers home PT vs SNF
Plan: SNF vs home PT
[2025-05-21] MEDS: MAGNESIUM OXIDE 500 MG PO (13:27)
[2025-05-21] MEDS: KCL 40 MEQ PO (13:27)
--- NOTE | 2025-05-21 13:42 | W.PN.HOSP.TC ---
Addendum entered and electronically signed by Bernabe Guaman DO 05/21/25 14:34:
Subjective assessment: Patient was seen and examined at bedside after returning from transesophageal echocardiogram. Somnolent but easily arousable. No current complaints.
Original Note:
Today's Communication/Plan
-
Assessment / Plan
Assessment / Plan
Gen: NAD, Awake and alert, appears chronically ill and malnourished
Eyes: EOMI, PERRLA, no scleral icterus.
Neck: supple.
CV: tachy, reg rhythm, +S1/S2, no m/r/g.
Resp: remains CTAB anteriorly, no rales, wheezes, or rhonchi.
Abd: +BS, soft, NT, ND
: Chronic Zarate draining dark yellow urine
Skin: No rashes.
Neuro: continues to remain CN 2-12 intact, non-focal.
Psych: Normal mood and affect.
74 yo man with hx HTN, HLD, BPH, ER visit 04/30/25 for urinary retention s/p zarate brought in by for confusion x 24 hours. Patient had a syncopal episode in triage.
Severe sepsis due to CAUTI with bacteremia:
- zarate catheter was present on admission
- Had lactic acidosis, now resolved
- Blood cultures positive for Klebsiella and MSSA
- cont Zosyn and daptomycin, appreciate ID guidance
- leukocytosis resolving
- No evidence of vegetations on TTE, further evaluation with ISAI today 05/21 and no vegetations identified
DKA:
-new Dx DM2, a1c 15.9%
-on admission AG 30 with glucose > 700 and elevated beta hydroxybutyric acid. Patient was not on insulin at home, had not been on oral anti-hyperglycemics.
-s/p 2L and insulin regular 6 units x 1 followed by initiation of insulin gtt
-glucose improved and AG resolved with insulin gtt
-hyperkalemia resolved
-now transitioned to Lantus/SSI/accuchecks
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
LUIS:
-due to dehydration causing prerenal azotemia as well as osmotic diuresis from DKA
- Resolved
-cont IVFs, monitor renal function
-CT A/P with mild right hydro, no stone
-continue zarate catheter
Atrial Fibrillation with RVR:
-converted to SR
-echo technical difficult study showing LVEF estimated at 50% with no clear regional wall motion abnormalities, did show mild concentric LVH, normal diastolic function
-TSH normal
-Cardiology following
-was on Heparin gtt, now on Eliquis
Chronic urinary Retention with chronic zarate catheter:
-Due to underlying BPH and possibly a component of neurogenic bladder
-Mild right hydroureteronephrosis as likely ureteral reflux from urinary retention
-Uro following
-cont Flomax
Dysphagia:
-speech following, passed bedside swallow 05/20 and diet is now advanced to regular/thin
- Family like to pursue outpatient workup for dementia
Hypokalemia:
- Serum potassium improved to 3.3 on labs this morning
- Will replete further and monitor
Hypocalcemia:
- Serum calcium 6.8 on labs this morning, is actually 8.6 when corrected for hypoalbuminemia
- Will monitor
Hypomagnesemia:
- Mild with a serum magnesium of 1.5
- Repleted, monitor
Other problems:
Right Inguinal Hernia, reducible
Constipation
FULL/Eliquis
Anticipated Discharge: > 48 hours
Subjective/Interval History
-
Date of Service: May 21, 2025
Objective Data
-
Labs:
Laboratory Results
05/21/25
07:39
WBC 9.3
Hgb 12.3 L
Hct 35.4 L
Plt Count 172 D
Sodium 134 L
Potassium 3.3 L
Chloride 107
Carbon Dioxide 23
BUN 14
Creatinine 1.0
Glucose 97
Calcium 6.8 L*
Vital Signs:
Vital Signs
Temp Pulse Resp BP Pulse Ox
98.2 F 82 18 107/60 94
05/21/25 07:31 05/21/25 07:31 05/21/25 07:31 05/21/25 07:31 05/21/25 07:31
I&O
05/20/25 05/21/25 05/22/25
06:59 06:59 06:59
Intake Total 1400 / 1400 1300 / 1300
Output Total 1000 / 1000 1700 / 1700
Balance 400 / 400 -400 / -400
Review of Systems
-
History Source: Patient
All other systems: Reviewed and negative
Physical Exam
-
General: No Apparent Distress
--- NOTE | 2025-05-21 14:10 | PTCARENOTE ---
05/21/2025 DIABETES EDUCATION CONSULT
I met with Anthony and his daughter, Ligia to review diabetes management. Anthony was sleeping at times through the demonstration, per daughter Ligia she states it is doubtful he would be compliant.
I educated on physiology of T2D, organ damage, managing with medications, monitoring BG, nutrition, and activity I reinforced signs of hyperglycemia, hypoglycemia and hypoglycemia protocol; BS parameters and recommended HbA1c goals, glucometer and
CGM instructions, glucose tracker, medic alert bracelet and outpatient DSME program. Written material provided.
With Ligia, I educated and reviewed using Contour Next glucometer and provided her with a Contour Next sample kit.
I educated and demonstrated on insulin injection technique, timing, and storage. Discussed long and short acting insulin; onset/peak/duration, and encouraged Anthony to administer his own injections with RN supervision while admitted. Discussed
normal target glucose ranges and a monitoring schedule 15 minutes before each meal when prescribed Novolog, and preprandial AM and/or bedtime as recommended by MD.
Encouraged patient to follow up with his PCP for post d/c appointment and to monitor medication and blood glucose levels. Provided list of endocrinologists if desired, to contact insurance company to verify in network status. Requested
prescription sent to pharmacy for test strips and lancets for back up SMBG. Patient verbalized understanding.
--- NOTE | 2025-05-21 14:53 | W.PN.CARDCBS ---
Addendum entered and electronically signed by Tamie Martinez DO 05/21/25 22:53:
I saw and examined the patient.
The Ambulance Operations Supervisor's note was reviewed and I agree with the note.
Comment: Late entry. Patient was seen and examined with daughter at bedside prior to transesophageal echocardiogram. Patient is NPO. Reviewed transesophageal echocardiogram risk and benefits. Mildly loose posterior right sided molar however no
absolute contraindications to proceeding. Patient and family members are agreeable to proceed. All questions answered.
General: No acute distress, AAOX3
Heart: Regular, positive S1/S2, No murmur
Lungs: CTA b/l, negative wheezes/rales/rhonchi
Abd: Positive BS, NT/ND, neg rebound/rigidity/guarding
Ext: Negative cyanosis/clubbing/edema
Neuro: nonfocal
Plan:
Severe sepsis due to UTI with bacteremia:
- Blood cultures positive for Klebsiella and MSSA
- cont Zosyn and daptomycin, appreciate ID guidance
-Transesophageal echocardiogram today without vegetations. Information relayed to ID and hospitalist services
-Possible neurogenic bladder now with urinary retention
DKA:
-new Dx DM2, a1c 15.9%
-on admission AG 30 with glucose > 700 and elevated beta hydroxybutyric acid. Patient was not on insulin at home, had not been on oral anti-hyperglycemics.
-s/p 2L and insulin regular 6 units x 1 followed by initiation of insulin gtt
-glucose improved and AG resolved with insulin gtt
-hyperkalemia resolved
-now transitioned to Lantus/SSI/accuchecks
- Appreciate diabetes management BIOLOGICAL TECHNICAL OFFICER input
LUIS:
-due to dehydration causing prerenal azotemia as well as osmotic diuresis from DKA
- Resolved with IV hydration
Atrial Fibrillation with RVR:
-converted to Sinus rhythm
-TSH normal
-Transition to Eliquis
Cardiac follow-up to be arranged
Will sign off, recall if needed
Original Note:
Today's Communication / Plan
-
Cont Eliquis and Toprol XL, appears to be in Afib on ISAI, check ECG
No vegetation on ISAI
Impression / Plan
-
PCP: Dr. Bandar Culp
Primary Fox Raiser: none prior to admission
Impression:
Confusion, FTT, Weight loss
DKA , with hx recent diagnosis DM-2
Acute renal failure, improved
Sepsis, UTI
Bacteremia with Klebsiella oxytoca / S. aureus, possibly urinary source
Leukocytosis; improving
Hyperkalemia and hyponatremia, resolved
Paroxysmal atrial fibrillation, new diagnosis status post spontaneous conversion to sinus rhythm
Urinary retention with Dickinson in place last several weeks
R Inguinal hernia
Hypertension
Hyperlipidemia
BPH
Echo 05/15/2025: TDS, small LV chamber size with LVEF 50%, no gross WMA, mild concentric LVH, no significant valvular pathology
ISAI 05/21/2025: EF 60 to 65%, LVH, mild MR, mild TR, no vegetation seen
Plan:
-Patient admitted with confusion, failure to thrive, and weight loss over the last month in the setting of recent diagnosis type 2 diabetes and urinary retention with Dickinson placement within the last several weeks. On arrival is noted to be in DKA
with evidence of acute renal failure hyperkalemia and UTI with severe sepsis.
-Patient completed ISAI on 05/21/2025 and there is no evidence of vegetation
-Patient with newly diagnosed paroxysmal atrial fibrillation this admission with spontaneous conversion to SR, but telemetry monitoring was stopped on 05/17/2025 and there is evidence of recurrent A-fib on ISAI 05/21/2025. Check ECG, ordered by me
05/21/2025.
-For now we will continue with rate control efforts and Toprol-XL 12.5 mg daily was new this admission and should be continued
-[id number] is 3 and Eliquis 5 mg BID (age 74, Cre 1.0) is new this admission and should be continued
-Patient did not have a nail maker prior to admission and will arrange for cardiology follow-up
Progress Note - Fox Raiser
Subjective
Date of Service: May 21, 2025
No palpitations
Objective
Labs:
05/21/25 07:39
05/21/25 07:39
Labs
Hgb 12.3 g/dL (13.0-18.0) L 05/21/25 07:39
Hct 35.4 % (39.0-52.0) L 05/21/25 07:39
Plt Count 172 10^3/uL (130-400) D 05/21/25 07:39
PT 18.6 Sec (11.4-14.6) H 05/14/25 14:09
INR 1.50 05/14/25 14:09
APTT 90.9 Sec (23.4-35.0) H 05/16/25 07:52
Sodium 134 mmol/L (135-145) L 05/21/25 07:39
Potassium 3.3 mmol/L (3.5-5.1) L 05/21/25 07:39
BUN 14 mg/dl (9-20) 05/21/25 07:39
Creatinine 1.0 mg/dL (0.7-1.3) 05/21/25 07:39
Glucose 97 mg/dl (70-99) 05/21/25 07:39
Vital Signs and I&O:
Vital Signs
Temp Pulse Resp BP Pulse Ox
98.2 F 82 18 107/60 94
05/21/25 07:31 05/21/25 07:05/21/25 07:31 05/21/25 07:05/21/25 07:31
Vital Signs
Temp Pulse Resp BP Pulse Ox
98.2 F 82 18 107/60 94
05/21/25 07:31 05/21/25 07:31 05/21/25 07:31 05/21/25 07:31 05/21/25 07:31
Intake & Output
05/19/25 05/20/25 05/21/25 05/22/25
06:59 06:59 06:59 06:59
Intake Total 3190 / 3190 1400 / 1400 1300 / 1300
Output Total 1290 / 1290 1000 / 1000 1700 / 1700
Balance 1900 / 1900 400 / 400 -400 / -400
[2025-05-21 15:10] VITALS: BP 103/64; PULSE 105; O2SAT 96
[2025-05-21 15:36] VITALS: BP 126/73
[2025-05-21 16:49] LABS: Glucose - Point of Care 153 mg/dl (70-99)
[2025-05-21] MEDS: NOVOLOG FLEXPEN-MODERATE RESISTANCE 1 UNITS SC (17:20)
[2025-05-21 19:58] VITALS: BP 111/72
[2025-05-21 21:30] LABS: Glucose - Point of Care 71 mg/dl (70-99)
[2025-05-21 22:41] LABS: Glucose - Point of Care 93 mg/dl (70-99)
[2025-05-21 23:18] VITALS: BP 129/77
[2025-05-22] VITALS (7 sets, daily range): BP systolic 93–157; BP diastolic 51–100
[2025-05-22] MEDS: ZOSYN 50 IV ×4 (04:26→21:14)
[2025-05-22] MEDS: TOPROL XL 12.5 MG PO (07:45)
[2025-05-22] MEDS: ELIQUIS 5 MG PO ×2 (07:45→20:36)
[2025-05-22] MEDS: NEUTRA-PHOS POWDER PACKET 250 MG PO ×2 (07:45→21:14)
[2025-05-22] MEDS: FLOMAX 0.4 MG PO (07:45)
--- NOTE | 2025-05-22 08:02 | PN.DE.MGMTRT ---
Insulin Management
- -
05/22/2025: Diabetes Management follow up
Patient admitted on 05/14 with confusion, failure to thrive, and weight loss over the last month in the setting of recent Dx of T2DM, and urinary retention with Dickinson placement within the last several weeks. On arrival is noted for hyperglycemia,
DKA (GAP 30) with evidence of acute renal failure hyperkalemia and UTI with severe sepsis. PMH: HTN, HLD, diabetes, BPH - chronic Dickinson catheter. 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 Family is at bedside
and very supportive, answering questions for patient. states they were not aware patient had diabetes, they found the prescribed medications and other prescriptions in his truck. They think he has had diabetes ~ 1 year but did not follow up.
A1C 15.9%, cr 2.1, eGFR 32.83.
Patient is sleeping, not awakened. Daughter at bedside. Lengthy discussion with daughter regarding importance of timing of insulin, obtaining blood sugars, consistency of amount of food at meals. She is quite concerned that her father will not
comply. She states he was very aggressive and argumentative to the point she felt the police should have been called prior to admission.
Transitioned off insulin infusion to SQ insulin on 05/16 to Lantus 12 units and low corrective Q6 while NPO.
05/21 cr 1, eGFR >60. Fasting glucose 87. Will decrease Lantus 10 units daily in AM, with 3 units novolog ac and low corrective insulin. Please HOLD 3 units novolog if patient does not eat but continue corrective. HS glucose 71, repeated 93
05/22 Cr 1.1, eGFR > 60. Fasting glucose this AM 74. Will further reduce AM lantus to 8 units and continue 3 units novolog AC. HOLD if patient does not eat.
Discussed with nurse. Will cont to follow.
05/15 Discussed with and daughter patient will require insulin injections and begin testing his blood sugar at home at discharge.
Diabetes nurse educator provided monitor and insulin instruction to patients daughter.
Diabetes History
- -
Type of Diabetes: 2 requiring insulin
Pre-Admission Diabetes Regimen
05/21/25
07:39
Creatinine 1.0
Lab Results
Hemoglobin A1c 15.9 % (4.0-5.6) H 05/14/25 08:10
Insulin Pump Settings
IP Diabetes Regimen
05/21/25 05/21/25 05/21/25
07:39 08:07 11:48
Glucose 97
POC Glucose 87 91
05/21/25 05/21/25 05/21/25
16:48 21:29 22:40
Glucose
POC Glucose 153 H 71 93
Patient Education
[2025-05-22 08:11] LABS: Hematocrit 41.2 % (39.0-52.0); Hemoglobin 13.7 g/dL (13.0-18.0); Mean Corp Hgb Conc. 33.3 g/dL (33.0-37.0); Mean Corpuscular Volume 81.9 fL (80.0-94.0); Platelet Count 209 10^3/uL (130-400); Red Cell Dist. Width 13.9 % (11.5-14.5)
[2025-05-22 08:30] LABS: Glucose - Point of Care 74 mg/dl (70-99)
[2025-05-22] MEDS: NOVOLOG FLEXPEN SC ×3 (08:31→17:33)
[2025-05-22] MEDS: NOVOLOG FLEXPEN-MODERATE RESISTANCE SC ×3 (08:32→17:33)
[2025-05-22] MEDS: LANTUS 0.08 UNITS SC (08:36)
[2025-05-22 08:55] LABS: Blood Urea Nitrogen 12 mg/dl (9-20); Calcium 6.9 mg/dl (8.4-10.2); Carbon Dioxide 26 mmol/L (22-30); Chloride 105 mmol/L (98-107); Estimated Creatinine Clearance 57 ml/min; Glucose 83 mg/dl (70-99); Magnesium 1.4 mg/dl (1.6-2.3); Potassium 4.0 mmol/L (3.5-5.1); Sodium 134 mmol/L (135-145); eGFR > 60.00
[2025-05-22] MEDS: CUBICIN 14 MG IV (10:23)
[2025-05-22] MEDS: MAGNESIUM SULFATE 100 IV (11:15)
[2025-05-22 12:04] LABS: Glucose - Point of Care 69 mg/dl (70-99)
[2025-05-22] MEDS: NEUTRA-PHOS POWDER PACKET PO ×2 (12:06→17:30)
--- NOTE | 2025-05-22 12:20 | PTCARENOTE ---
05/22- Patient is AAOX2, getting progressively more lethargic throughout shift. VSS, but Accucheck=69 after 15 minutes after eating watermelon. He is refusing applejuice. He is responsive to tactile stimulation and when educated about blood sugar
and importance of drinking applejuice and taking care of himself, he repeats loudly, 'I'm fine. I'm fine. It's ok. It's ok. It's ok' with eyes still closed and goes back to sleep. Notified Physician. Continue Hypoglycemic Protocol.
[2025-05-22 12:22] LABS: Glucose - Point of Care 69 mg/dl (70-99)
[2025-05-22 12:47] LABS: Glucose - Point of Care 76 mg/dl (70-99)
--- NOTE | 2025-05-22 12:52 | CM ---
Spoke with dgt Ligia at length .
Pt is more agitated and not participating in PT.
Dgt is unsure if he would agree with SNF.
He has refused SNF in past.
Dgt given managed care director list.
If he is dc to home she said she would like [facility] at home.
IMM reviewed with dgt Copy given IMM signed on chart.
PLAN Possible home with [facility]
--- NOTE | 2025-05-22 13:32 | W.PN.HOSP.TC ---
Today's Communication/Plan
-
Assessment / Plan
Assessment / Plan
Gen: NAD, somnolent but easily arousable, appears chronically ill and malnourished
Eyes: EOMI, PERRLA, no scleral icterus.
Neck: supple.
CV: tachy, reg rhythm, +S1/S2, no m/r/g.
Resp: remains CTAB anteriorly, no rales, wheezes, or rhonchi.
Abd: +BS, soft, NT, ND
: Chronic Zarate draining dark yellow urine
Skin: No rashes.
Neuro: continues to remain CN 2-12 intact, non-focal.
Psych: Normal mood and affect.
74 yo man with hx HTN, HLD, BPH, ER visit 04/30/25 for urinary retention s/p zarate brought in by for confusion x 24 hours. Patient had a syncopal episode in triage.
Severe sepsis due to CAUTI with bacteremia:
- zarate catheter was present on admission
- Lactic acidosis resolved, remains afebrile
- Blood cultures positive for Klebsiella and MSSA
- cont Zosyn and daptomycin, will follow-up with ID regarding antibiotic duration
- No evidence of vegetations on TTE or ISAI
- PT/OT recommending home PT versus independent
DKA:
-new Dx DM2, a1c 15.9%
-on admission AG 30 with glucose > 700 and elevated beta hydroxybutyric acid. Patient was not on insulin at home, had not been on oral anti-hyperglycemics.
-s/p 2L and insulin regular 6 units x 1 followed by initiation of insulin gtt
-glucose improved and AG resolved with insulin gtt
-hyperkalemia resolved
-now transitioned to Lantus/SSI/accuchecks
- Blood glucose has been difficult to control due to poor p.o. intake, continue to encourage adequate meals, will ask for inpatient surgical lead consult
- Appreciate diabetes management ROOFER APPRENTICE input
LUIS:
-due to dehydration causing prerenal azotemia as well as osmotic diuresis from DKA
- Resolved
-CT A/P with mild right hydro, no stone
-continue zarate catheter
Atrial Fibrillation with RVR:
-converted to SR
-echo technical difficult study showing LVEF estimated at 50% with no clear regional wall motion abnormalities, did show mild concentric LVH, normal diastolic function
-TSH normal
-Cardiology following
-was on Heparin gtt, now on Eliquis
Chronic urinary Retention with chronic zarate catheter:
-Due to underlying BPH and possibly a component of neurogenic bladder
-Mild right hydroureteronephrosis as likely ureteral reflux from urinary retention
-Uro following
-cont Flomax
Dysphagia:
-speech following, passed bedside swallow 05/20 and diet is now advanced to regular/thin
- Family like to pursue outpatient workup for dementia
Hypokalemia:
- Serum potassium improved to 3.3 on labs this morning
- Will replete further and monitor
Hypocalcemia:
- Serum calcium 6.9 on labs this morning, is actually within normal limits when corrected for hypoalbuminemia
- Will monitor
Hypomagnesemia:
- Mild with a serum magnesium of 1.4
- Repleted, monitor
Other problems:
Right Inguinal Hernia, reducible
Constipation
FULL/Eliquis
Anticipated Discharge: 24 - 48 hours
Subjective/Interval History
-
Date of Service: May 22, 2025
Patient was seen and examined at bedside this morning. No acute distress but is somnolent. Continues to have poor p.o. intake.
Objective Data
-
Labs:
Laboratory Results
05/22/25
07:42
WBC 13.6 H
Hgb 13.7
Hct 41.2
Plt Count 209 D
Sodium 134 L
Potassium 4.0
Chloride 105
Carbon Dioxide 26
BUN 12
Creatinine 1.1
Glucose 83
Calcium 6.9 L*
Vital Signs:
Vital Signs
Temp Pulse Resp BP Pulse Ox
99.2 F 102 16 122/85 98
05/22/25 12:20 05/22/25 12:20 05/22/25 12:20 05/22/25 12:20 05/22/25 12:20
I&O
05/21/25 05/22/25 05/23/25
06:59 06:59 06:59
Intake Total 1300 / 1300 480 / 480
Output Total 1700 / 1700 1900 / 1900
Balance -400 / -400 -1420 / -1420 -20
Review of Systems
-
History Source: Patient
All other systems: Reviewed and negative
Constitutional: Reports No Appetite and Fatigue
Physical Exam
-
General: No Apparent Distress
[2025-05-22 17:33] LABS: Glucose - Point of Care 68 mg/dl (70-99)
[2025-05-22 18:06] LABS: Glucose - Point of Care 113 mg/dl (70-99)
[2025-05-22] MEDS: TYLENOL 650 MG PO (20:36)
[2025-05-22 21:32] LABS: Glucose - Point of Care 150 mg/dl (70-99)
[2025-05-23] MEDS: ZOSYN 50 IV ×2 (04:15→09:59)
[2025-05-23 07:14] LABS: Hematocrit 37.1 % (39.0-52.0); Hemoglobin 12.5 g/dL (13.0-18.0); Mean Corp Hgb Conc. 33.7 g/dL (33.0-37.0); Mean Corpuscular Volume 81.4 fL (80.0-94.0); Platelet Count 194 10^3/uL (130-400); Red Cell Dist. Width 13.9 % (11.5-14.5)
[2025-05-23 07:18] VITALS: BP 130/70
[2025-05-23 07:42] LABS: Glucose - Point of Care 96 mg/dl (70-99)
[2025-05-23 07:52] LABS: Blood Urea Nitrogen 12 mg/dl (9-20); Calcium 6.7 mg/dl (8.4-10.2); Carbon Dioxide 25 mmol/L (22-30); Chloride 101 mmol/L (98-107); Estimated Creatinine Clearance 57 ml/min; Glucose 94 mg/dl (70-99); Potassium 3.9 mmol/L (3.5-5.1); Sodium 130 mmol/L (135-145); eGFR > 60.00
[2025-05-23] MEDS: NOVOLOG FLEXPEN-MODERATE RESISTANCE SC ×3 (08:03→16:36)
[2025-05-23] MEDS: LANTUS 0.08 UNITS SC (08:04)
[2025-05-23] MEDS: NEUTRA-PHOS POWDER PACKET 250 MG PO ×4 (08:04→22:19)
[2025-05-23] MEDS: FLOMAX 0.4 MG PO (08:05)
[2025-05-23] MEDS: TOPROL XL 12.5 MG PO (08:05)
[2025-05-23] MEDS: ELIQUIS 5 MG PO ×2 (08:05→19:57)
[2025-05-23] MEDS: NOVOLOG FLEXPEN 2 UNITS SC ×3 (08:07→16:37)
[2025-05-23] MEDS: TYLENOL 650 MG PO ×2 (08:22→23:13)
[2025-05-23] MEDS: CUBICIN 14 MG IV (09:58)
--- NOTE | 2025-05-23 11:15 | W.PN.URO.CBU ---
Today's Communication / Plan
-
urologically stable plan per hospitalist and id
Assessment / Plan
-
retention keep zarate outpatient evaluation
Diagnosis
-
Date of Service: May 23, 2025
-
Patient Diagnosis:retention uti in pt with zarate in 2 weeks due to rettnion prior to admit
Post Op Day:
Subjective
-
baseline according to
Objective
-
Vital Signs
Temp Pulse Resp BP Pulse Ox
98 F 88 18 130/70 95
05/23/25 07:18 05/23/25 08:05 05/23/25 07:18 05/23/25 08:05 05/23/25 07:18
Intake and Output
05/22/25 05/23/25 05/24/25
06:59 06:59 06:59
Intake Total 480 / 480 1440 / 1440 480 / 480
Output Total 1900 / 1900 670 / 670
Balance -1420 / -1420 770 / 770 480 / 480
Intake:
Oral fluids 480 / 480 1440 / 1440 480 / 480
Output:
Urine, Zarate 1600 / 1600 650 / 650
Urine, Voided 300 / 300
True urine output from hand 20 / 20
irrigation
Other:
How many times incontinent 1
MODERATE amount urine
How many times incontinent 2
SATURATED amount urine
Laboratory Results
05/23/25 06:17
05/23/25 06:17
Review of Systems
-
: Difficulty Voiding
Physical Exam
-
General - well developed, well nourished, no acute distress
Chest - clear bilaterally
Abdomen - soft, non-tender, positive bowel sounds, no CVAT, no incisional pain or distention
Genitalia - normal
Rectal - normal
Skin - warm & dry with no rash
Neuro - AOx3, no motor deficits
Extremities - no clubbing, no cyanosis, no edema
Incision - clean, dry
Dressing - clean, dry, intact
Care Review
Data Reviewed
Discussed with: Infectious Disease
[2025-05-23 11:20] VITALS: BP 96/54
--- NOTE | 2025-05-23 11:24 | W.PN.ID1 ---
Date of Service
Date of Service: May 23, 2025
Today's Communication
Continue antibiotics. See below�
Assessment / Plan
Bacteremia with Klebsiella oxytoca / S. aureus
- suspect urinary source
- S. aureus bacteremia sustained over 48 hours.
- Repeat blood cultures clear
Leukocytosis
Obstructive uropathy
Hematuria
DM (uncontrolled; HbA1c = 15.9)
BPH
HTN
HLD
Recommendations:
Transition Zosyn to oral ciprofloxacin, to complete 4 more days in the treatment of recovered Klebsiella
TTE and ISAI negative for vegetations/evidence of endocarditis. Repeat blood cultures negative x 4 days.
Would complete an additional 10 days of antibiotics in the treatment of recovered MSSA.
Once daily daptomycin would be easiest for home infusion, but cefazolin 2 g IV every 8 hours also an option.
Follow white count and temperature curve.
����������������������������������������������������������
Chief Complaint
-: Leukocytosis, UTI and Bacteremia
Subjective / Review of Systems
Patient seen and examined. Denies fevers or chills. Denies pain. Specifically, denies any back pain.
Review of Systems: No Fever and No Chills
Vital Signs / Physical Exam
Vital Signs
Vital Signs
Temp Pulse Resp BP Pulse Ox
98 F 88 18 130/70 95
05/23/25 07:18 05/23/25 08:05 05/23/25 07:18 05/23/25 08:05 05/23/25 07:18
Physical Exam
Constitutional: No Acute Distress, Comfortable and Non-toxic
Cardiovascular: S1/S2; Negative S3/S4 or Murmur
Pulmonary: Non Labored
Gastrointestinal: Soft, Non Tender and Non Distended
Genito-Urinary: Dickinson, Turbid Urine and Hematuria
Extremities: Edema (1+); Negative Cyanosis or Erythema
Skin: Warm and Dry; Negative Rash
Neurological: Awake and Alert
Psychological: Calm
Objective Data
Lab Data
Lab Results
05/23/25 06:17
05/23/25 06:17
ESR 46 mm/hour (0-20) H 05/20/25 06:23
PT 18.6 Sec (11.4-14.6) H 05/14/25 14:09
INR 1.50 05/14/25 14:09
APTT 90.9 Sec (23.4-35.0) H 05/16/25 07:52
Estimated Creat Clear 57 ml/min 05/23/25 06:17
Lactic Acid 2.0 mmol/L (0.7-2.0) 05/16/25 10:33
Total Bilirubin 0.5 mg/dl (0.2-1.3) 05/16/25 01:21
AST 18 U/L (17-59) 05/16/25 01:21
ALT 12 U/L (0-50) 05/16/25 01:21
Alkaline Phosphatase 71 U/L (38-126) 05/16/25 01:21
C-Reactive Protein 65.90 mg/L (0.0-10.00) H 05/20/25 06:23
Most recent labs reviewed.
Micro Results:
05/18/25 15:49 Blood Culture - Preliminary
Blood/Venous No Growth in 4 days- Final report to follow
05/18/25 15:03 Blood Culture - Preliminary
Blood/Venous No Growth in 4 days- Final report to follow
05/15/25 18:09 Blood Culture - Final
Blood/Venous S aureus-Methicillin Sensitive
Gram Stain - Final
05/14/25 08:15 Blood Culture - Final
Blood/Venous Klebsiella oxytoca
Gram Stain - Final
05/16/25 17:58 Urine Culture - Final
Urine Yolis albicans
05/14/25 08:15 Blood Culture - Final
Blood/Venous S aureus-Methicillin Sensitive
Gram Stain - Final
05/14/25 08:29 Urine Culture - Final
Urine
Imaging:
05/21/2025 ECHO (ISAI): Normal LV systolic function. EF approximately 60%. Mild mitral regurgitation. No vegetations noted.
05/15/2025 ECHO (TTE): Technically difficult study. Small LV chamber size. EF approximately 50%. Mild concentric left ventricular hypertrophy. No significant valvular pathology noted. Thickened mitral valve leaflets. Mitral annular
calcification noted. Aortic valve leaflets also noted to be thickened.
05/14/2025 CT abdomen/pelvis without contrast: Limited CT in the absence of contrast. Small left nephrolith noted. Mild right hydroureteronephrosis, without evidence for obstructing ureteral calculus. A collapsed urinary bladder with a Dickinson
catheter in place. Prostamegaly noted. Please see full dictation for additional detail.
05/14/2025 CXR (portable): No focal consolidation, pleural effusion or pneumothorax noted.
Care Review
Plan reviewed with: Physician (Hospitalist)
[2025-05-23 11:38] LABS: Glucose - Point of Care 90 mg/dl (70-99)
--- NOTE | 2025-05-23 13:12 | W.PN.HOSP.TC ---
Today's Communication/Plan
-
Assessment / Plan
Assessment / Plan
Gen: NAD, awake and alert
Eyes: EOMI, PERRLA, no scleral icterus.
Neck: supple.
CV: tachy, reg rhythm, +S1/S2, no m/r/g.
Resp: remains CTAB anteriorly, no rales, wheezes, or rhonchi.
Abd: +BS, soft, NT, ND
: Chronic Zarate draining dark yellow urine
Skin: No rashes.
Neuro: continues to remain CN 2-12 intact, non-focal.
Psych: Normal mood and affect.
74 yo man with hx HTN, HLD, BPH, ER visit 04/30/25 for urinary retention s/p zarate brought in by for confusion x 24 hours. Patient had a syncopal episode in triage.
Severe sepsis due to CAUTI with bacteremia:
- zarate catheter was present on admission
- Lactic acidosis resolved, remains afebrile
- Blood cultures positive for Klebsiella and MSSA
- Planning midline placement and transition to oral Cipro for 4 more days and continuing IV Dapto for another 10 days of antibiotics
- No evidence of vegetations on TTE or ISAI
- PT/OT recommending home PT versus independent
- Appreciate case management assistance in arranging for outpatient infusion of daptomycin
DKA:
-new Dx DM2, a1c 15.9%
-on admission AG 30 with glucose > 700 and elevated beta hydroxybutyric acid. Patient was not on insulin at home, had not been on oral anti-hyperglycemics.
-s/p 2L and insulin regular 6 units x 1 followed by initiation of insulin gtt
-glucose improved and AG resolved with insulin gtt
-hyperkalemia resolved
-now transitioned to Lantus/SSI/accuchecks
- Blood glucose has been difficult to control due to poor p.o. intake, continue to encourage adequate meals, inpatient hospitality job titles consulted and recommendations are appreciated
- Appreciate diabetes management SINK MAKER input
LUIS:
-due to dehydration causing prerenal azotemia as well as osmotic diuresis from DKA
- Resolved
-CT A/P with mild right hydro, no stone
-continue zarate catheter
Atrial Fibrillation with RVR:
-converted to SR
-echo technical difficult study showing LVEF estimated at 50% with no clear regional wall motion abnormalities, did show mild concentric LVH, normal diastolic function
-TSH normal
-Cardiology following
-was on Heparin gtt, now on Eliquis
Chronic urinary Retention with chronic zarate catheter:
-Due to underlying BPH and possibly a component of neurogenic bladder
-Mild right hydroureteronephrosis as likely ureteral reflux from urinary retention
-Uro following
-cont Flomax
Dysphagia:
-speech following, passed bedside swallow 05/20 and diet is now advanced to regular/thin
- Family like to pursue outpatient workup for dementia
Hypokalemia:
- Resolved
Hypocalcemia:
- Serum calcium 6.7 on labs this morning, is actually within normal limits when corrected for hypoalbuminemia
- Will monitor
Hypomagnesemia:
- Mild
- Repleted, monitor
Other problems:
Right Inguinal Hernia, reducible
Constipation
FULL/Eliquis
Anticipated Discharge: 24 - 48 hours
Subjective/Interval History
-
Date of Service: May 23, 2025
Patient was seen and examined at bedside this morning. Awake and alert today, no longer somnolent. Eager for discharge to home.
Objective Data
-
Labs:
Laboratory Results
05/23/25
06:17
WBC 15.4 H
Hgb 12.5 L
Hct 37.1 L
Plt Count 194
Sodium 130 L
Potassium 3.9
Chloride 101
Carbon Dioxide 25
BUN 12
Creatinine 1.1
Glucose 94
Calcium 6.7 L*
Vital Signs:
Vital Signs
Temp Pulse Resp BP Pulse Ox
97.8 F 84 18 96/54 97
05/23/25 11:20 05/23/25 11:20 05/23/25 11:20 05/23/25 11:20 05/23/25 11:20
I&O
05/22/25 05/23/25 05/24/25
06:59 06:59 06:59
Intake Total 480 / 480 1440 / 1440 480 / 480
Output Total 1900 / 1900 670 / 670
Balance -1420 / -1420 770 / 770 480 / 480
Review of Systems
-
History Source: Patient
All other systems: Reviewed and negative
Physical Exam
-
General: No Apparent Distress
[2025-05-23 15:23] VITALS: BP 114/63
--- NOTE | 2025-05-23 16:13 | CM ---
Addendum entered by Rosa Piper 05/23/25 16:15:
Script on chart.
Original Note:
CM following re: d/c planning.
D/c plan is for home with IV abx:
Dapto 700 mg q24.
Script obtained from ID.
Arrangements already made for VN.
Call placed to [facility], prompted to leave VM on after hours line.
Await correspondence and arrangements.
[2025-05-23 16:19] LABS: Glucose - Point of Care 93 mg/dl (70-99)
[2025-05-23 19:25] VITALS: BP 119/72
[2025-05-23] MEDS: CIPRO 500 MG PO (19:57)
[2025-05-23 21:21] LABS: Glucose - Point of Care 158 mg/dl (70-99)
[2025-05-23 23:33] VITALS: BP 128/75
[2025-05-24 03:17] VITALS: BP 101/60
[2025-05-24 07:00] VITALS: BP 144/82
[2025-05-24] MEDS: CIPRO 500 MG PO ×2 (07:48→19:54)
[2025-05-24] MEDS: ELIQUIS 5 MG PO ×2 (07:48→19:54)
[2025-05-24] MEDS: TOPROL XL 12.5 MG PO (07:48)
[2025-05-24] MEDS: FLOMAX 0.4 MG PO (07:48)
[2025-05-24 07:53] LABS: Glucose - Point of Care 114 mg/dl (70-99)
[2025-05-24] MEDS: LANTUS 0.08 UNITS SC (07:56)
[2025-05-24] MEDS: NOVOLOG FLEXPEN 2 UNITS SC ×3 (07:57→17:41)
[2025-05-24] MEDS: NOVOLOG FLEXPEN-MODERATE RESISTANCE SC ×3 (07:57→16:31)
--- NOTE | 2025-05-24 08:44 | W.PN.URO.CBU ---
Today's Communication / Plan
-
continue present care
Assessment / Plan
-
retention keep zarate outpatient evaluation no anticholinergics despite zarate
Diagnosis
-
Date of Service: May 24, 2025
-
Patient Diagnosis:
Post Op Day:
Patient Diagnosis:retention uti in pt with zarate in 2 weeks due to rettnion prior to admit bladder swpasms despoite antibiotics
Post Op Day:
Subjective
-
tolerating zarate some spasms
Objective
-
Vital Signs
Temp Pulse Resp BP Pulse Ox
99.2 F 99 16 144/82 99
05/24/25 07:00 05/24/25 07:48 05/24/25 07:00 05/24/25 07:48 05/24/25 07:00
Intake and Output
05/23/25 05/24/25 05/25/25
06:59 06:59 06:59
Intake Total 1440 / 1440 720 / 720
Output Total 670 / 670
Balance 770 / 770 720 / 720
Intake:
Oral fluids 1440 / 1440 720 / 720
Output:
Urine, Zarate 650 / 650
True urine output from hand 20 / 20
irrigation
Other:
How many times incontinent 2 1
MODERATE amount urine
How many times incontinent 2 2
SATURATED amount urine
Laboratory Results
05/23/25 06:17
Review of Systems
-
: Incontinence and Difficulty Voiding
Physical Exam
-
General - well developed, well nourished, no acute distress
Chest - clear bilaterally
Abdomen - soft, non-tender, positive bowel sounds, no CVAT, no incisional pain or distention
Genitalia - normal
Rectal - normal
Skin - warm & dry with no rash
Neuro - AOx3, no motor deficits
Extremities - no clubbing, no cyanosis, no edema
Incision - clean, dry
Dressing - clean, dry, intact
Care Review
Data Reviewed
Discussed with: Family
[2025-05-24 08:49] LABS: Blood Urea Nitrogen 13 mg/dl (9-20); Calcium 7.1 mg/dl (8.4-10.2); Carbon Dioxide 28 mmol/L (22-30); Chloride 102 mmol/L (98-107); Estimated Creatinine Clearance 63 ml/min; Glucose 138 mg/dl (70-99); Potassium 3.8 mmol/L (3.5-5.1); Sodium 130 mmol/L (135-145); eGFR > 60.00
[2025-05-24] MEDS: NEUTRA-PHOS POWDER PACKET 250 MG PO ×4 (09:49→21:42)
[2025-05-24] MEDS: CUBICIN 14 MG IV (10:47)
[2025-05-24 11:00] VITALS: BP 111/56
[2025-05-24] MEDS: TYLENOL 650 MG PO (11:01)
[2025-05-24 11:55] LABS: Glucose - Point of Care 112 mg/dl (70-99)
--- NOTE | 2025-05-24 13:44 | W.PN.HOSP.TC ---
Today's Communication/Plan
-
Assessment / Plan
Assessment / Plan
Gen: NAD, awake and alert
Eyes: EOMI, PERRLA, no scleral icterus.
Neck: supple.
CV: tachy, reg rhythm, +S1/S2, no m/r/g.
Resp: remains CTAB anteriorly, no rales, wheezes, or rhonchi.
Abd: +BS, soft, NT, ND
: Chronic Zarate draining dark yellow urine
Skin: No rashes.
Neuro: continues to remain CN 2-12 intact, non-focal.
Psych: Normal mood and affect.
74 yo man with hx HTN, HLD, BPH, ER visit 04/30/25 for urinary retention s/p zarate brought in by for confusion x 24 hours. Patient had a syncopal episode in triage.
Severe sepsis due to CAUTI with bacteremia:
- zarate catheter was present on admission
- Lactic acidosis resolved, remains afebrile
- Blood cultures positive for Klebsiella and MSSA
- Planning midline placement and transition to oral Cipro for 4 more days and continuing IV Dapto for another 10 days of antibiotics
- No evidence of vegetations on TTE or ISAI
- PT/OT recommending home PT versus independent
- Appreciate case management assistance in arranging for outpatient infusion of daptomycin, anticipate discharge to home on Saturday 05/26 after home infusion is set up
DKA:
-new Dx DM2, a1c 15.9%
-on admission AG 30 with glucose > 700 and elevated beta hydroxybutyric acid. Patient was not on insulin at home, had not been on oral anti-hyperglycemics.
-s/p 2L and insulin regular 6 units x 1 followed by initiation of insulin gtt
-glucose improved and AG resolved with insulin gtt
-hyperkalemia resolved
-now transitioned to Lantus/SSI/accuchecks
- Blood glucose has been difficult to control due to poor p.o. intake, continue to encourage adequate meals, inpatient parts puller consulted and recommendations are appreciated
- Appreciate diabetes management PACKAGE CHECKER input
LUIS:
-due to dehydration causing prerenal azotemia as well as osmotic diuresis from DKA
- Resolved
-CT A/P with mild right hydro, no stone
-continue zarate catheter
Atrial Fibrillation with RVR:
-converted to SR
-echo technical difficult study showing LVEF estimated at 50% with no clear regional wall motion abnormalities, did show mild concentric LVH, normal diastolic function
-TSH normal
-Cardiology following
-was on Heparin gtt, now on Eliquis
Chronic urinary Retention with chronic zarate catheter:
-Due to underlying BPH and possibly a component of neurogenic bladder
-Mild right hydroureteronephrosis as likely ureteral reflux from urinary retention
-Uro following
-cont Flomax
Dysphagia:
-speech following, passed bedside swallow 05/20 and diet is now advanced to regular/thin
- Family like to pursue outpatient workup for dementia
Suspected dementia:
- No formal diagnosis, family will follow-up with PCP to pursue neuropsychiatric testing
- Started on low-dose escitalopram daily and olanzapine at night for agitation symptoms
Hyponatremia:
- Mild with serum sodium 130 today, has been fluctuating during this admission
- Suspect related to nutritional status, encourage adequate p.o. intake
Hypokalemia:
- Resolved
Hypocalcemia:
- Serum calcium stable around 7.0, is actually within normal limits when corrected for hypoalbuminemia
- Will monitor
Hypomagnesemia:
- Mild
- Repleted, monitor
Other problems:
Right Inguinal Hernia, reducible
Constipation
FULL/Eliquis
Anticipated Discharge: 24 - 48 hours
Subjective/Interval History
-
Date of Service: May 24, 2025
Patient was seen and examined at bedside this morning. Feeling generally well with no complaints. Family reports ongoing intermittent agitation. Starting on escitalopram and olanzapine. Awaiting arrangements for home IV antibiotic infusions.
Objective Data
-
Labs:
Laboratory Results
05/24/25
08:10
Sodium 130 L
Potassium 3.8
Chloride 102
Carbon Dioxide 28
BUN 13
Creatinine 1.0
Glucose 138 H
Calcium 7.1 L
Vital Signs:
Vital Signs
Temp Pulse Resp BP Pulse Ox
98.0 F 88 16 111/56 96
05/24/25 11:00 05/24/25 11:00 05/24/25 11:00 05/24/25 11:00 05/24/25 11:00
I&O
05/23/25 05/24/25 05/25/25
06:59 06:59 06:59
Intake Total 1440 / 1440 720 / 720
Output Total 670 / 670
Balance 770 / 770 720 / 720
Review of Systems
-
History Source: Patient
All other systems: Reviewed and negative
Physical Exam
-
General: No Apparent Distress
[2025-05-24 15:00] VITALS: BP 91/54
[2025-05-24] MEDS: LEXAPRO 5 MG PO (15:01)
--- NOTE | 2025-05-24 15:37 | CM ---
Chart reviewed and case resource manager met with patient and faxed over script for IV ABX, and face sheet to [facility] to check on patient's benefit for home infusion.
Plan; Home with [facility] infusion, referral faxed, [facility] to check with patient's insurance home IV ABX benefit. Referral sent to [facility].
[2025-05-24 16:28] LABS: Glucose - Point of Care 113 mg/dl (70-99)
[2025-05-24 19:30] VITALS: BP 101/65
[2025-05-24] MEDS: ZYPREXA 2.5 MG PO (21:38)
[2025-05-24 23:30] VITALS: BP 143/78
[2025-05-25 03:32] VITALS: BP 129/74
[2025-05-25] MEDS: TYLENOL 650 MG PO (04:26)
[2025-05-25 06:50] LABS: Blood Urea Nitrogen 10 mg/dl (9-20); Carbon Dioxide 24 mmol/L (22-30); Chloride 104 mmol/L (98-107); Estimated Creatinine Clearance 69 ml/min; Glucose 119 mg/dl (70-99); Potassium 3.4 mmol/L (3.5-5.1); Sodium 129 mmol/L (135-145); eGFR > 60.00
[2025-05-25 06:51] LABS: Calcium 7.0 mg/dl (8.4-10.2)
[2025-05-25 07:00] VITALS: BP 121/69
[2025-05-25] MEDS: LEXAPRO 5 MG PO (08:04)
[2025-05-25] MEDS: TOPROL XL 12.5 MG PO (08:04)
[2025-05-25] MEDS: FLOMAX 0.4 MG PO (08:04)
[2025-05-25] MEDS: CIPRO 500 MG PO ×2 (08:04→20:05)
[2025-05-25] MEDS: ELIQUIS 5 MG PO ×2 (08:04→20:05)
[2025-05-25 08:05] LABS: Glucose - Point of Care 160 mg/dl (70-99)
[2025-05-25] MEDS: NOVOLOG FLEXPEN-MODERATE RESISTANCE 1 UNITS SC (08:11)
[2025-05-25] MEDS: NOVOLOG FLEXPEN 2 UNITS SC ×2 (08:12→17:19)
[2025-05-25] MEDS: NEUTRA-PHOS POWDER PACKET 250 MG PO ×4 (08:16→21:25)
[2025-05-25] MEDS: LANTUS 0.08 UNITS SC (08:16)
--- NOTE | 2025-05-25 11:02 | W.PN.HOSP.TC ---
Today's Communication/Plan
-
see plan
Assessment / Plan
Assessment / Plan
Gen: NAD, Awake and alert
Eyes: EOMI, PERRLA, no scleral icterus.
Neck: supple.
CV: RRR, +S1/S2, no m/r/g.
Resp: CTAB, no rales, wheezes, or rhonchi.
Abd: +BS, soft, NT, ND
Skin: No rashes.
Neuro: CN 2-12 intact, non-focal.
Psych: Normal mood and affect.
05/18/25 15:49 Blood/Venous Blood Culture - Final
No Growth - Final Report
05/18/25 15:03 Blood/Venous Blood Culture - Final
No Growth - Final Report
05/15/25 18:09 Blood/Venous Blood Culture - Final
S aureus-Methicillin Sensitive
05/15/25 18:09 Blood/Venous Gram Stain - Final
05/14/25 08:15 Blood/Venous Blood Culture - Final
Klebsiella oxytoca
05/14/25 08:15 Blood/Venous Gram Stain - Final
05/16/25 17:58 Urine Urine Culture - Final
Yolis albicans
05/14/25 08:15 Blood/Venous Blood Culture - Final
S aureus-Methicillin Sensitive
05/14/25 08:15 Blood/Venous Gram Stain - Final
05/14/25 08:29 Urine Urine Culture - Final
Severe sepsis due to CAUTI with bacteremia:
-zarate catheter POA
-lactic acidosis resolved, afebrile throughout hospitalization
-BCxs pOS for Klebsiella and MSSA
-planning midline placement
-cont Cipro through 05/27/25 (date confirmed with Dr. Foss on 05/25/25)
-cont IV Dapto through 06/06/25 (date confirmed with Dr. Foss on 05/25/25)
-no evidence of vegetations on TTE or ISAI
-likely d/c home 05/26 with home infusion for Dapto
DKA:
-new Dx DM2, a1c 15.9%
-on admission AG 30 with glucose > 700 and elevated beta hydroxybutyric acid. Patient was not on insulin at home, had not been on oral anti-hyperglycemics.
-s/p 2L and insulin regular 6 units x 1 followed by initiation of insulin gtt
-glucose improved and AG resolved with insulin gtt
-hyperkalemia resolved
-now transitioned to Lantus and premeal Novolog
-cont SSI/accuchecks
LUIS:
-due to dehydration causing prerenal azotemia as well as osmotic diuresis from DKA
-resolved
-CT A/P with mild right hydro, no stone
-continue zarate catheter as per urology due to urinary retention
Atrial Fibrillation with RVR:
-converted to SR
-echo technical difficult study showing LVEF estimated at 50% with no clear regional wall motion abnormalities, did show mild concentric LVH, normal diastolic function
-TSH normal
-Cardiology following
-was on Heparin gtt, now on Eliquis
-cont BB
Chronic urinary Retention with chronic zarate catheter:
-Due to underlying BPH and possibly a component of neurogenic bladder
-Mild right hydroureteronephrosis as likely ureteral reflux from urinary retention
-Uro following
-cont Flomax
Dysphagia:
-speech following, passed bedside swallow 05/20 and diet is now advanced to regular/thin
-family like to pursue outpatient workup for dementia
Suspected dementia:
-no formal diagnosis, family will follow-up with PCP to pursue neuropsychiatric testing
-started on low-dose escitalopram daily and olanzapine at night for agitation symptoms
Other problems:
Hyponatremia, mild trend
Hypokalemia: 40meq K
Hypomagnesemia: check Mg today
Right Inguinal Hernia, reducible
Constipation
Pt's daughter updated at bedside.
FULL/Eliquis
Total time spent on today's encounter was 50 minutes which included time spent in counseling the patient/family regarding diagnosis and treatment plan as listed above, goals of care, and symptom management. Case was discussed with nursing staff,
specialists, and care coordinators/case management. All labs and imaging personally reviewed by me. Remainder the time spent in detailed review of previous records, lab data, imaging, and other medical provider documentation.
Anticipated Discharge: Within 24 hours
Subjective/Interval History
-
Date of Service: May 25, 2025
No new complaints.
Objective Data
-
Labs:
Laboratory Results
05/25/25
05:58
Sodium 129 L
Potassium 3.4 L
Chloride 104
Carbon Dioxide 24
BUN 10
Creatinine 0.9
Glucose 119 H
Calcium 7.0 L
Vital Signs:
Vital Signs
Temp Pulse Resp BP Pulse Ox
98.5 F 89 12 121/69 96
05/25/25 07:00 05/25/25 07:00 05/25/25 07:00 05/25/25 08:04 05/25/25 07:00
I&O
05/24/25 05/25/25 05/26/25
06:59 06:59 06:59
Intake Total 720 / 720
Balance 720 / 720
[2025-05-25] MEDS: CUBICIN 14 MG IV (11:08)
[2025-05-25] MEDS: KCL 40 MEQ PO (11:08)
[2025-05-25] MEDS: NOVOLOG FLEXPEN-MODERATE RESISTANCE SC ×2 (12:38→16:56)
[2025-05-25] MEDS: NOVOLOG FLEXPEN SC (12:38)
--- NOTE | 2025-05-25 12:57 | W.PN.URO.CBU ---
Today's Communication / Plan
-
PER HOSPITALIST
Assessment / Plan
-
retention keep zarate outpatient evaluation no anticholinergics despite zarate
Diagnosis
-
Date of Service: May 25, 2025
-
Patient Diagnosis:
Post Op Day:
Patient Diagnosis:
Post Op Day:
Patient Diagnosis:retention uti in pt with zarate in 2 weeks due to rettnion prior to admit bladder swpasms despoite antibiotics
Post Op Day:
Subjective
-
WET AROUND ZARATE
Objective
-
Vital Signs
Temp Pulse Resp BP Pulse Ox
98.5 F 89 12 121/69 96
05/25/25 07:00 05/25/25 07:00 05/25/25 07:00 05/25/25 08:04 05/25/25 07:00
Intake and Output
05/24/25 05/25/25 05/26/25
06:59 06:59 06:59
Intake Total 720 / 720
Balance 720 / 720
Intake:
Oral fluids 720 / 720
Other:
How many times incontinent 2 1
MODERATE amount urine
How many times incontinent 2 3
SATURATED amount urine
Laboratory Results
05/23/25 06:17
05/25/25 05:58
Review of Systems
-
: Difficulty Voiding
Physical Exam
-
General - well developed, well nourished, no acute distress
Chest - clear bilaterally
Abdomen - soft, non-tender, positive bowel sounds, no CVAT, no incisional pain or distention
Genitalia - normal
Rectal - normal
Skin - warm & dry with no rash
Neuro - AOx3, no motor deficits
Extremities - no clubbing, no cyanosis, no edema
Incision - clean, dry
Dressing - clean, dry, intact
Care Review
Data Reviewed
Discussed with: Hospitalist and Family
--- NOTE | 2025-05-25 13:43 | W.PN.ID1 ---
Date of Service
Date of Service: May 25, 2025
Today's Communication
Continue current course of antibiotics.
Assessment / Plan
Bacteremia with Klebsiella oxytoca / S. aureus
- suspect urinary source
- S. aureus bacteremia sustained over 48 hours.
- Repeat blood cultures clear
Leukocytosis
Obstructive uropathy
Hematuria
DM (uncontrolled; HbA1c = 15.9)
BPH
HTN
HLD
Recommendations:
Continue ciprofloxacin, to complete 2 more days in the treatment of recovered Klebsiella
TTE and ISAI negative for vegetations/evidence of endocarditis. Repeat blood cultures negative x 4 days.
Continue daptomycin through 06/06. Home infusion sheet given to case management.
- CPK <20 (05/23/25)
Follow white count and temperature curve.
����������������������������������������������������������
Chief Complaint
-: Leukocytosis, UTI and Bacteremia
Subjective / Review of Systems
Review of Systems: No Fever, No Chills and No Abdominal Pain
Vital Signs / Physical Exam
Vital Signs
Vital Signs
Temp Pulse Resp BP Pulse Ox
98.5 F 89 12 121/69 96
05/25/25 07:00 05/25/25 07:00 05/25/25 07:00 05/25/25 08:04 05/25/25 07:00
Physical Exam
Constitutional: No Acute Distress, Comfortable and Non-toxic
Cardiovascular: S1/S2; Negative S3/S4 or Murmur
Pulmonary: Non Labored
Gastrointestinal: Soft, Non Tender and Non Distended
Genito-Urinary: Dickinson, Turbid Urine and Hematuria
Extremities: Edema (1+); Negative Cyanosis or Erythema
Skin: Warm and Dry; Negative Rash
Neurological: Awake and Alert
Psychological: Calm
Objective Data
Lab Data
Lab Results
05/23/25 06:17
05/25/25 05:58
ESR 46 mm/hour (0-20) H 05/20/25 06:23
PT 18.6 Sec (11.4-14.6) H 05/14/25 14:09
INR 1.50 05/14/25 14:09
APTT 90.9 Sec (23.4-35.0) H 05/16/25 07:52
Estimated Creat Clear 69 ml/min 05/25/25 05:58
Lactic Acid 2.0 mmol/L (0.7-2.0) 05/16/25 10:33
Total Bilirubin 0.5 mg/dl (0.2-1.3) 05/16/25 01:21
AST 18 U/L (17-59) 05/16/25 01:21
ALT 12 U/L (0-50) 05/16/25 01:21
Alkaline Phosphatase 71 U/L (38-126) 05/16/25 01:21
C-Reactive Protein 65.90 mg/L (0.0-10.00) H 05/20/25 06:23
Most recent labs reviewed.
Micro Results:
05/18/25 15:49 Blood Culture - Final
Blood/Venous No Growth - Final Report
05/18/25 15:03 Blood Culture - Final
Blood/Venous No Growth - Final Report
05/15/25 18:09 Blood Culture - Final
Blood/Venous S aureus-Methicillin Sensitive
Gram Stain - Final
05/14/25 08:15 Blood Culture - Final
Blood/Venous Klebsiella oxytoca
Gram Stain - Final
05/16/25 17:58 Urine Culture - Final
Urine Yolis albicans
05/14/25 08:15 Blood Culture - Final
Blood/Venous S aureus-Methicillin Sensitive
Gram Stain - Final
05/14/25 08:29 Urine Culture - Final
Urine
Imaging:
05/21/2025 ECHO (ISAI): Normal LV systolic function. EF approximately 60%. Mild mitral regurgitation. No vegetations noted.
05/15/2025 ECHO (TTE): Technically difficult study. Small LV chamber size. EF approximately 50%. Mild concentric left ventricular hypertrophy. No significant valvular pathology noted. Thickened mitral valve leaflets. Mitral annular
calcification noted. Aortic valve leaflets also noted to be thickened.
05/14/2025 CT abdomen/pelvis without contrast: Limited CT in the absence of contrast. Small left nephrolith noted. Mild right hydroureteronephrosis, without evidence for obstructing ureteral calculus. A collapsed urinary bladder with a Idckinson
catheter in place. Prostamegaly noted. Please see full dictation for additional detail.
05/14/2025 CXR (portable): No focal consolidation, pleural effusion or pneumothorax noted.
[2025-05-25 15:00] VITALS: BP 98/65
[2025-05-25 16:34] LABS: Glucose - Point of Care 109 mg/dl (70-99)
[2025-05-25 21:08] LABS: Glucose - Point of Care 115 mg/dl (70-99)
[2025-05-25] MEDS: ZYPREXA 2.5 MG PO (21:25)
[2025-05-25 23:32] VITALS: BP 114/63
[2025-05-26 07:20] VITALS: BP 127/87
--- NOTE | 2025-05-26 07:45 | PN.DE.MGMTRT ---
Insulin Management
- -
05/26/2025: Diabetes Management follow up
Patient admitted on 05/14 with confusion, failure to thrive, and weight loss over the last month in the setting of recent Dx of T2DM, and urinary retention with Dickinson placement within the last several weeks. On arrival is noted for hyperglycemia,
DKA (GAP 30) with evidence of acute renal failure hyperkalemia and UTI with severe sepsis. PMH: HTN, HLD, diabetes, BPH - chronic Dickinson catheter. 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 Family is at bedside
and very supportive, answering questions for patient. states they were not aware patient had diabetes, they found the prescribed medications and other prescriptions in his truck. They think he has had diabetes ~ 1 year but did not follow up.
Lengthy discussion with daughter regarding importance of timing of insulin, obtaining blood sugars, consistency of amount of food at meals. She is quite concerned that her father will not comply. She states he was very aggressive and argumentative
to the point she felt the police should have been called prior to admission. A1C 15.9%, cr 2.1, eGFR 32.83.
Patient is sleeping, not awakened. at bedside, very supportive. LUIS resolved, Cr 0.9, eGFR > 60 today
Transitioned off insulin infusion to SQ insulin on 05/16; Lantus 12 units and low corrective.
05/22 Lantus dose was reduced to 8 units @ HS due to hypoglycemia.
His appetite remains guarded with poor food consumption.
05/25 premeal Glucose 109 to 160, 115 @ HS and FBG 112 this AM.
Will make no changes to current regimen: Cont Lantus 8 units @ HS and NovoLog 2 units AC.
Please HOLD 2 units NovoLog if patient does not eat but continue corrective.
Will cont to follow. Discussed with nurse.
05/15 Discussed with and daughter patient will require insulin injections and begin testing his blood sugar at home at discharge.
Diabetes nurse educator provided monitor and insulin instruction to patients daughter.
Diabetes History
- -
Type of Diabetes: 2 requiring insulin
Pre-Admission Diabetes Regimen
Lab Results
Hemoglobin A1c 15.9 % (4.0-5.6) H 05/14/25 08:10
Insulin Pump Settings
IP Diabetes Regimen
05/25/25 05/25/25 05/25/25
08:04 16:33 21:06
POC Glucose 160 H 109 H 115 H
Meal type: Breakfast
Amount consumed: 50%
Patient Education
[2025-05-26 07:56] LABS: Glucose - Point of Care 112 mg/dl (70-99)
--- NOTE | 2025-05-26 10:52 | W.PN.HOSP.TC ---
Today's Communication/Plan
-
see plan
Assessment / Plan
Assessment / Plan
Gen: NAD, Awake and alert
Eyes: EOMI, PERRLA, no scleral icterus.
Neck: supple.
CV: remains RRR, +S1/S2, no m/r/g.
Resp: remains CTAB, no rales, wheezes, or rhonchi.
Abd: remains +BS, soft, NT, ND
Skin: No rashes.
Neuro: CN 2-12 intact, non-focal.
Psych: Normal mood and affect.
05/18/25 15:49 Blood/Venous Blood Culture - Final
No Growth - Final Report
05/18/25 15:03 Blood/Venous Blood Culture - Final
No Growth - Final Report
05/15/25 18:09 Blood/Venous Blood Culture - Final
S aureus-Methicillin Sensitive
05/15/25 18:09 Blood/Venous Gram Stain - Final
05/14/25 08:15 Blood/Venous Blood Culture - Final
Klebsiella oxytoca
05/14/25 08:15 Blood/Venous Gram Stain - Final
05/16/25 17:58 Urine Urine Culture - Final
Yolis albicans
05/14/25 08:15 Blood/Venous Blood Culture - Final
S aureus-Methicillin Sensitive
05/14/25 08:15 Blood/Venous Gram Stain - Final
05/14/25 08:29 Urine Urine Culture - Final
Severe sepsis due to CAUTI with bacteremia:
-zarate catheter POA
-lactic acidosis resolved, afebrile throughout hospitalization
-BCxs pOS for Klebsiella and MSSA
-planning midline placement
-cont Cipro through 05/27/25 (date confirmed with Dr. Foss on 05/25/25)
-cont IV Dapto through 06/06/25 (date confirmed with Dr. Foss on 05/25/25)
-no evidence of vegetations on TTE or ISAI
-d/c home 05/26 with home infusion for Dapto
DKA:
-new Dx DM2, a1c 15.9%
-on admission AG 30 with glucose > 700 and elevated beta hydroxybutyric acid. Patient was not on insulin at home, had not been on oral anti-hyperglycemics.
-s/p 2L and insulin regular 6 units x 1 followed by initiation of insulin gtt
-glucose improved and AG resolved with insulin gtt
-hyperkalemia resolved
-now transitioned to Lantus and premeal Novolog
-cont SSI/accuchecks
LUIS:
-due to dehydration causing prerenal azotemia as well as osmotic diuresis from DKA
-resolved
-CT A/P with mild right hydro, no stone
-continue zarate catheter as per urology due to urinary retention
Atrial Fibrillation with RVR:
-converted to SR
-echo technical difficult study showing LVEF estimated at 50% with no clear regional wall motion abnormalities, did show mild concentric LVH, normal diastolic function
-TSH normal
-Cardiology following
-was on Heparin gtt, now on Eliquis
-cont BB
Chronic urinary Retention with chronic zarate catheter:
-Due to underlying BPH and possibly a component of neurogenic bladder
-Mild right hydroureteronephrosis as likely ureteral reflux from urinary retention
-Uro following
-cont Flomax
Dysphagia:
-speech following, passed bedside swallow 05/20 and diet is now advanced to regular/thin
-family like to pursue outpatient workup for dementia
Suspected dementia:
-no formal diagnosis, family will follow-up with PCP to pursue neuropsychiatric testing
-started on low-dose escitalopram daily and olanzapine at night for agitation symptoms
Other problems:
Hyponatremia, mild trend
Hypokalemia: 40meq K
Hypomagnesemia: check Mg today
Right Inguinal Hernia, reducible
Constipation
FULL/Eliquis
Extensive discussion was had with CM (multiple discussions). Pt will be discharged tomorrow.
Total time spent on today's encounter was 52 minutes which included time spent in counseling the patient/family regarding diagnosis and treatment plan as listed above, goals of care, and symptom management. Case was discussed with nursing staff,
specialists, and care coordinators/case management. All labs and imaging personally reviewed by me. Remainder the time spent in detailed review of previous records, lab data, imaging, and other medical provider documentation.
Anticipated Discharge: Within 24 hours
Subjective/Interval History
-
Date of Service: May 26, 2025
No new complaints.
Objective Data
-
Vital Signs:
Vital Signs
Temp Pulse Resp BP Pulse Ox
98.6 F 100 16 127/87 91
05/26/25 07:20 05/26/25 07:20 05/26/25 07:20 05/26/25 07:20 05/26/25 07:20
I&O
05/25/25 05/26/25 05/27/25
06:59 06:59 06:59
Output Total 0 / 0
Balance 0 / 0
--- NOTE | 2025-05-26 11:04 | CM ---
Addendum entered by Cecile Shahid 05/26/25 15:11:
CM spoke with Shelbi at [facility], awaiting patient benefits, patient can start Monday 11:30 a.m, can receive dose tomorrow then discharge. Patient will receive print out of schedule for OID, aware will need to go to ED on weekends. Patient updated
with bedside. IMM verbally reviewed, provided with copy, placed in chart.
Plan; home tomorrow, OID Monday 11:30 a.m.
Addendum entered by Cecile Shahid 05/26/25 12:42:
Patient and seen bedside, agreeable to referral to outpatient infusion center, aware patient will need to come to center daily for infusions. Spoke to Lenore at [facility], script faxed to [phone], will need a reaction sheet from ID. Will need to
check cost/benefits/availability, aware patient stable for discharge, Lenore will update CM once information obtained on patients benefits/availability to start.
Addendum entered by Cecile Shahid 05/26/25 11:53:
Per Rossy, patient medication cost $676 a week, supplies/nursing covered 80%. aware, will speak with children regarding home with [facility] versus Outpatient infusion center. [facility] able to set up payment plan. Will follow up with
regarding decision.
Original Note:
CM reviewed chart, spoke with Rossy from [facility], line information faxed. Rossy checking benefits, will come to hospital today to do bedside teaching. seen bedside, tearful, reports patient has been agitated. CM explained once [facility]
does teaching, patient can receive dose prior to discharge, [facility] will deliver supplies tonight. reports she will transport patient home, her son will be getting patient a walker for home, patient will have a first floor set up. Referral
previously sent to [facility]. CM will wait benefits/time for teaching from [facility]. CM will continue to follow for all discharge planning needs.
Plan; home with [facility]
[2025-05-26] MEDS: NOVOLOG FLEXPEN-MODERATE RESISTANCE SC ×3 (11:13→17:39)
[2025-05-26] MEDS: NOVOLOG FLEXPEN SC ×2 (11:17→17:41)
[2025-05-26 11:37] LABS: Glucose - Point of Care 124 mg/dl (70-99)
[2025-05-26 11:40] LABS: Blood Urea Nitrogen 9 mg/dl (9-20); Calcium 7.2 mg/dl (8.4-10.2); Carbon Dioxide 25 mmol/L (22-30); Chloride 106 mmol/L (98-107); Estimated Creatinine Clearance 69 ml/min; Glucose 138 mg/dl (70-99); Magnesium 1.6 mg/dl (1.6-2.3); Potassium 4.1 mmol/L (3.5-5.1); Sodium 132 mmol/L (135-145); eGFR > 60.00
[2025-05-26] MEDS: FLOMAX 0.4 MG PO (11:43)
[2025-05-26] MEDS: LEXAPRO 5 MG PO (11:44)
[2025-05-26] MEDS: TOPROL XL 12.5 MG PO (11:45)
[2025-05-26] MEDS: ELIQUIS 5 MG PO ×2 (11:45→20:29)
[2025-05-26] MEDS: CUBICIN 14 MG IV (11:47)
[2025-05-26] MEDS: FLUSH (NSS) 1 FLUSH IV (11:48)
[2025-05-26] MEDS: NOVOLOG FLEXPEN 2 UNITS SC (11:51)
[2025-05-26] MEDS: LANTUS 0.08 UNITS SC (11:53)
[2025-05-26] MEDS: CIPRO 500 MG PO ×2 (12:00→20:29)
[2025-05-26] MEDS: NEUTRA-PHOS POWDER PACKET PO ×4 (12:01→17:42)
--- NOTE | 2025-05-26 13:56 | W.PN.ID1 ---
Date of Service
Date of Service: May 26, 2025
Today's Communication
Continue antibiotics.
Assessment / Plan
Bacteremia with Klebsiella oxytoca / S. aureus
- suspect urinary source
- S. aureus bacteremia sustained over 48 hours.
- Repeat blood cultures clear
Leukocytosis
Obstructive uropathy
Hematuria
DM (uncontrolled; HbA1c = 15.9)
BPH
HTN
HLD
Recommendations:
Continue ciprofloxacin, to complete 1 more day in the treatment of recovered Klebsiella
TTE and ISAI negative for vegetations/evidence of endocarditis. Repeat blood cultures negative x 4 days.
Continue daptomycin through 06/06. Complete course of therapy and OID
- CPK <20 (05/23/25)
Follow white count and temperature curve.
����������������������������������������������������������
Chief Complaint
-: Leukocytosis, UTI and Bacteremia
Subjective / Review of Systems
Review of Systems: No Fever and No Chills
Vital Signs / Physical Exam
Vital Signs
Vital Signs
Temp Pulse Resp BP Pulse Ox
98.6 F 103 16 128/70 94
05/26/25 07:20 05/26/25 11:45 05/26/25 07:20 05/26/25 11:45 05/26/25 12:01
Physical Exam
Constitutional: No Acute Distress, Comfortable and Non-toxic
Cardiovascular: S1/S2; Negative S3/S4 or Murmur
Pulmonary: Non Labored
Gastrointestinal: Soft, Non Tender and Non Distended
Genito-Urinary: Dickinson and Clear Urine
Extremities: Edema (1+); Negative Cyanosis or Erythema
Skin: Warm and Dry; Negative Rash
Neurological: Awake and Alert
Psychological: Calm
Objective Data
Lab Data
Lab Results
05/23/25 06:17
05/26/25 11:06
ESR 46 mm/hour (0-20) H 05/20/25 06:23
PT 18.6 Sec (11.4-14.6) H 05/14/25 14:09
INR 1.50 05/14/25 14:09
APTT 90.9 Sec (23.4-35.0) H 05/16/25 07:52
Estimated Creat Clear 69 ml/min 05/26/25 11:06
Lactic Acid 2.0 mmol/L (0.7-2.0) 05/16/25 10:33
Total Bilirubin 0.5 mg/dl (0.2-1.3) 05/16/25 01:21
AST 18 U/L (17-59) 05/16/25 01:21
ALT 12 U/L (0-50) 05/16/25 01:21
Alkaline Phosphatase 71 U/L (38-126) 05/16/25 01:21
C-Reactive Protein 65.90 mg/L (0.0-10.00) H 05/20/25 06:23
Most recent labs reviewed.
Micro Results:
05/18/25 15:49 Blood Culture - Final
Blood/Venous No Growth - Final Report
05/18/25 15:03 Blood Culture - Final
Blood/Venous No Growth - Final Report
05/15/25 18:09 Blood Culture - Final
Blood/Venous S aureus-Methicillin Sensitive
Gram Stain - Final
05/14/25 08:15 Blood Culture - Final
Blood/Venous Klebsiella oxytoca
Gram Stain - Final
05/16/25 17:58 Urine Culture - Final
Urine Yolis albicans
05/14/25 08:15 Blood Culture - Final
Blood/Venous S aureus-Methicillin Sensitive
Gram Stain - Final
05/14/25 08:29 Urine Culture - Final
Urine
Imaging:
05/21/2025 ECHO (ISAI): Normal LV systolic function. EF approximately 60%. Mild mitral regurgitation. No vegetations noted.
05/15/2025 ECHO (TTE): Technically difficult study. Small LV chamber size. EF approximately 50%. Mild concentric left ventricular hypertrophy. No significant valvular pathology noted. Thickened mitral valve leaflets. Mitral annular
calcification noted. Aortic valve leaflets also noted to be thickened.
05/14/2025 CT abdomen/pelvis without contrast: Limited CT in the absence of contrast. Small left nephrolith noted. Mild right hydroureteronephrosis, without evidence for obstructing ureteral calculus. A collapsed urinary bladder with a Dickinson
catheter in place. Prostamegaly noted. Please see full dictation for additional detail.
05/14/2025 CXR (portable): No focal consolidation, pleural effusion or pneumothorax noted.
[2025-05-26 15:30] VITALS: BP 110/65
[2025-05-26 16:51] VITALS: BP 110/65
[2025-05-26 17:03] LABS: Glucose - Point of Care 118 mg/dl (70-99)
[2025-05-26] MEDS: MAGNESIUM SULFATE 50 IV (17:40)
[2025-05-26] MEDS: NEUTRA-PHOS POWDER PACKET 250 MG PO (20:30)
[2025-05-26] MEDS: ZYPREXA 2.5 MG PO (20:30)
[2025-05-26 21:51] LABS: Glucose - Point of Care 171 mg/dl (70-99)
[2025-05-26 23:26] VITALS: BP 121/69
[2025-05-27] MEDS: TYLENOL 650 MG PO (02:40)
[2025-05-27 07:48] VITALS: BP 122/71
--- NOTE | 2025-05-27 07:59 | PN.DE.MGMTRT ---
Insulin Management
- -
05/27/2025: Diabetes Management follow up
Patient admitted on 05/14 with confusion, failure to thrive, and weight loss over the last month in the setting of recent Dx of T2DM, and urinary retention with Dickinson placement within the last several weeks. On arrival is noted for hyperglycemia,
DKA (GAP 30) with evidence of acute renal failure hyperkalemia and UTI with severe sepsis. PMH: HTN, HLD, diabetes, BPH - chronic Dickinson catheter. 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 Family is at bedside
and very supportive, answering questions for patient. states they were not aware patient had diabetes, they found the prescribed medications and other prescriptions in his truck. They think he has had diabetes ~ 1 year but did not follow up.
Lengthy discussion with daughter regarding importance of timing of insulin, obtaining blood sugars, consistency of amount of food at meals. She is quite concerned that her father will not comply. She states he was very aggressive and argumentative
to the point she felt the police should have been called prior to admission. A1C 15.9%, cr 2.1, eGFR 32.83.
Patient is sleeping, not awakened. at bedside, very supportive. LUIS resolved, Cr 0.9, eGFR > 60 today
Transitioned off insulin infusion to SQ insulin on 05/16; Lantus 12 units and low corrective.
05/26 premeal Glucose 112 to 124, 171 @ HS.
05/27 Fasting glucose 230 this AM.
Will make no changes to current regimen: Cont Lantus 8 units @ HS and NovoLog 2 units AC.
Please HOLD 2 units NovoLog if patient does not eat but continue corrective.
Patient for possible discharge today.
Will cont to follow. Discussed with nurse.
05/15 Discussed with and daughter patient will require insulin injections and begin testing his blood sugar at home at discharge.
Diabetes nurse educator provided monitor and insulin instruction to patients daughter.
Diabetes History
- -
Type of Diabetes: 2 requiring insulin
Pre-Admission Diabetes Regimen
05/26/25
11:06
Creatinine 0.9
Lab Results
Hemoglobin A1c 15.9 % (4.0-5.6) H 05/14/25 08:10
Insulin Pump Settings
IP Diabetes Regimen
05/26/25 05/26/25 05/26/25
11:06 11:36 17:01
Glucose 138 H
POC Glucose 124 H 118 H
05/26/25
21:49
Glucose
POC Glucose 171 H
Patient Education
--- NOTE | 2025-05-27 09:05 | W.PN.HOSP.TC ---
Today's Communication/Plan
-
d/c
Assessment / Plan
Assessment / Plan
Patient seen and examined with KADE Lubin present at bedside for the entirety of the interview and physical exam
Gen: N:AD, Awake and alert
Eyes: EOMI, PERRLA, no scleral icterus.
Neck: supple.
CV: continues to remain RRR, +S1/S2, no m/r/g.
Resp: CTAB anteriorly, no rales, wheezes, or rhonchi.
Abd: continues to remain +BS, soft, NT, ND
Skin: No rashes.
Neuro: CN 2-12 intact, non-focal.
Psych: agitated
05/18/25 15:49 Blood/Venous Blood Culture - Final
No Growth - Final Report
05/18/25 15:03 Blood/Venous Blood Culture - Final
No Growth - Final Report
05/15/25 18:09 Blood/Venous Blood Culture - Final
S aureus-Methicillin Sensitive
05/15/25 18:09 Blood/Venous Gram Stain - Final
05/14/25 08:15 Blood/Venous Blood Culture - Final
Klebsiella oxytoca
05/14/25 08:15 Blood/Venous Gram Stain - Final
05/16/25 17:58 Urine Urine Culture - Final
Yolis albicans
05/14/25 08:15 Blood/Venous Blood Culture - Final
S aureus-Methicillin Sensitive
05/14/25 08:15 Blood/Venous Gram Stain - Final
05/14/25 08:29 Urine Urine Culture - Final
Severe sepsis due to CAUTI with bacteremia:
-zarate catheter POA
-lactic acidosis resolved, afebrile throughout hospitalization
-BCxs pOS for Klebsiella and MSSA
-planning midline placement
-cont Cipro through 05/27/25 (date confirmed with Dr. Foss on 05/25/25)
-cont IV Dapto through 06/06/25 (date confirmed with Dr. Foss on 05/25/25)
-no evidence of vegetations on TTE or ISAI
-d/c home today and pt will continue Dapto via infusion center
DKA:
-new Dx DM2, a1c 15.9%
-on admission AG 30 with glucose > 700 and elevated beta hydroxybutyric acid. Patient was not on insulin at home, had not been on oral anti-hyperglycemics.
-s/p 2L and insulin regular 6 units x 1 followed by initiation of insulin gtt
-glucose improved and AG resolved with insulin gtt
-hyperkalemia resolved
-now transitioned to Lantus and premeal Novolog
-cont SSI/accuchecks
LUIS:
-due to dehydration causing prerenal azotemia as well as osmotic diuresis from DKA
-resolved
-CT A/P with mild right hydro, no stone
-continue zarate catheter as per urology due to urinary retention
Atrial Fibrillation with RVR:
-converted to SR
-echo technical difficult study showing LVEF estimated at 50% with no clear regional wall motion abnormalities, did show mild concentric LVH, normal diastolic function
-TSH normal
-Cardiology following
-was on Heparin gtt, now on Eliquis
-cont BB
Chronic urinary Retention with chronic zarate catheter:
-Due to underlying BPH and possibly a component of neurogenic bladder
-Mild right hydroureteronephrosis as likely ureteral reflux from urinary retention
-Uro following
-cont Flomax
Dysphagia:
-speech following, passed bedside swallow 05/20 and diet is now advanced to regular/thin
-family like to pursue outpatient workup for dementia
Suspected dementia:
-no formal diagnosis, family will follow-up with PCP to pursue neuropsychiatric testing
-started on low-dose escitalopram daily and olanzapine at night for agitation symptoms
Other problems:
Hyponatremia, mild trend
Hypokalemia, resolved
Hypomagnesemia, resolved
Right Inguinal Hernia, reducible
Constipation
FULL/Eliquis
Medically cleared for discharge if pt agrees to take his medications today.
Total time spent on d/c = 42 min. This included today's physical exam, progress note, review of laboratory and diagnostic data, preparation of discharge documents and prescriptions, and discussions about the pt's hospital course and discharge plan
with the patient and other medical registrar involved in the patient's care.
Anticipated Discharge: Today
Subjective/Interval History
-
Date of Service: May 27, 2025
Patient interviewed with KADE Lubin present at bedside:
No new complaints. Pt upset as he was expecting to be discharged at 0900. Currently agitated. Was refusing medications prior.
Objective Data
-
Vital Signs:
Vital Signs
Temp Pulse Resp BP Pulse Ox
98.7 F 86 20 122/71 97
05/27/25 07:48 05/27/25 07:48 05/27/25 07:48 05/27/25 07:48 05/27/25 07:48
I&O
05/26/25 05/27/25 05/28/25
06:59 06:59 06:59
Intake Total 290 / 290
Output Total 0 / 0
Balance 0 / 0 290 / 290
[2025-05-27] MEDS: LEXAPRO 5 MG PO (09:25)
[2025-05-27] MEDS: CIPRO 500 MG PO (09:25)
[2025-05-27] MEDS: CUBICIN 14 MG IV (09:26)
[2025-05-27] MEDS: TOPROL XL 12.5 MG PO (09:26)
[2025-05-27] MEDS: FLOMAX 0.4 MG PO (09:26)
[2025-05-27] MEDS: ELIQUIS 5 MG PO (09:26)
[2025-05-27 09:31] LABS: Glucose - Point of Care 230 mg/dl (70-99)
[2025-05-27] MEDS: NOVOLOG FLEXPEN 2 UNITS SC (09:32)
[2025-05-27] MEDS: NOVOLOG FLEXPEN-MODERATE RESISTANCE 3 UNITS SC (09:32)
[2025-05-27] MEDS: LANTUS 0.08 UNITS SC (09:32)
[2025-05-27] MEDS: NEUTRA-PHOS POWDER PACKET PO (09:37)
[2025-05-27 10:12] VITALS: BP 137/86; PULSE 121; PULSE 95; O2SAT 96
--- NOTE | 2025-05-27 11:12 | CM ---
CM reviewed chart, reviewed with Hospitalist and Nurse, for discharge today. Patients seen in hallway, will provide transportation home. CM spoke with Shelbi from [facility], confirmed patient scheduled to receive dose tomorrow 11:30 a.m. CM will
continue to follow for all discharge planning needs.
Plan; home with , EDDIE tomorrow 11:30 a.m., [place]
--- NOTE | 2025-05-27 13:13 | W.DCSUMMARY ---
Discharge Summary
Discharge Data
Date of Admission: 05/14/25
Date of Discharge: 05/27/25
-
Pending Results: No
Hospital Course
Primary diagnoses:
Severe sepsis due to CAUTI with bacteremia
Diabetic ketoacidosis, new diagnosis of type 2 diabetes mellitus
Acute kidney injury
Atrial fibrillation with a rapid ventricular response
Secondary diagnoses:
Hyponatremia
Hyperkalemia and hypokalemia
Hypomagnesemia
Right Inguinal Hernia
Constipation
Chronic urinary Retention with chronic zarate catheter due to underlying BPH and possibly a component of neurogenic bladder
Suspected dementia
Sacrum Stage 1 Pressure Injury, POA
severe protein calorie malnutrition
Consultants:
Diabetes nurse practitioner
Infectious disease
Urology
Cardiology
Psychiatry
Critical care medicine
Imaging:
CXR: No acute cardiopulmonary process.
CT A/P: Limited CT examination in the absence of intravenous and oral contrast. Small left nephrolith. Mild right hydroureteronephrosis without evidence for an obstructing ureteral calculus. Collapsed urinary bladder with a Zarate catheter in place
and urinary bladder wall thickening. Recommend correlation with a urinalysis. Prostatomegaly. Bowel containing right inguinal hernia.
CT brain: No acute intracranial abnormality.
TTE 05/15/25: Technically difficult study
Small left ventricular chamber size. Low normal left ventricular systolic
function. Left ventricular ejection fraction is 50% by visual estimate. No
gross regional wall motion abnormalities within limits of the study. Mild
concentric left ventricular hypertrophy. Normal diastolic function.
Normal right ventricular size and function.
No significant valvular pathology
ISAI 05/21/25: Normal left ventricular systolic function.
Estimated ejection fraction 60 to 65%.
LVH
Mild mitral regurgitation
Mild tricuspid regurgitation
No vegetations seen
B/L LE art U/S:
1. Normal ankle brachial indices on each side. No large vessel arterial stenosis demonstrated on either side.
2. Aphasic waveforms of each great toe, therefore toe brachial indices could not be calculated. Findings are suggestive of small vessel disease, hypotension, and/or vasopressor medication.
74-year-old male who initially presented with chief complaint of confusion as outlined in the H&P done on admission. Hospital course per problem list:
Severe sepsis due to CAUTI with bacteremia: Patient had a Zarate catheter that was present on admission. This was in place due to underlying BPH and possibly a component of neurogenic bladder. Patient had a lactic acidosis on admission that
resolved. He was afebrile throughout hospitalization. Initially the patient was on Zosyn. After cultures resulted (BCxs with Klebsiella oxytoca and MSSA) patient's antibiotics were narrowed to Cipro through 05/27/25 and IV Dapto through 06/06/25.
The patient had no evidence of vegetations on TTE or ISAI.
DKA: Patient has diagnosis of type 2 diabetes mellitus was new on this admission. His Hba1c was 15.9%. On admission AG 30 with glucose > 700 and elevated beta hydroxybutyric acid. Patient was not on insulin at home, had not been on oral
anti-hyperglycemics. Patient received aggressive IV fluids and was placed on insulin drip. His glucose improved and AG resolved with the insulin gtt. his hyperkalemia resolved. He was transition to basal bolus insulin.
LUIS: This was due to dehydration causing prerenal azotemia as well as osmotic diuresis from DKA and resolved with IVFs
Atrial Fibrillation with RVR: The patient converted to sinus rhythm. Echocardiogram as above. TSH was normal. The patient was seen in consultation by cardiology. He was on a heparin drip and transitioned to Eliquis. He was placed on
beta-emily.
Discharge Plan
-
Patient Disposition: Home with Home Care
Discharge Diagnosis/Procedures: Severe sepsis due to CAUTI with bacteremia, diabetic ketoacidosis, acute kidney injury, atrial fibrillation with a rapid ventricular response
Condition: Good
Diet: Diabetic, Carb Controlled
Activity: With assistance
Driving Restrictions: No driving
Blood Work: BMP and CBC in 1 week, prescription from PCP
Referrals:
Bridgett Meng CRNP [Specified Professional Personl, Cardiology] - 06/09/25 9:00 am
Referral Note: You have a follow up visit with Dr. Del Rio's APPLICATIONS DEVELOPER, Bridgett, at the [place] office. Please call with questions.
Bandar Culp MD [Family Provider] - in less than 1 week
Prescriptions:
New
metoprolol succinate 25 mg Tablet Extended Release 24 Hr
12.5 mg PO DAILY Qty: 30 11RF
Eliquis 5 mg Tablet
5 mg PO BID Qty: 60 11RF
(DME) Dexcom G7 Sensor Device
Qty: 1 3RF
Rx Instructions:
Change sensor every 10 days. As Directed
insulin aspart U-100 [Novolog FlexPen U-100 Insulin] 100 unit/mL (3 mL) Insulin Pen
2 unit SC AC Qty: 5 0RF
Rx Instructions:
TAKE 2 UNITSOF INSULIN BEFORE EACH MEAL
insulin glargine [Lantus Solostar U-100 Insulin] 100 unit/mL (3 mL) Insulin Pen
8 unit SC DAILY Qty: 5 0RF
Rx Instructions:
TAKE 8 UNITS AT BEDTIME
(DME) pen needle, diabetic [Ree 2nd Gen Pen Needle] 32 gauge x 5/32' Needle
Qty: 200 0RF
Rx Instructions:
As Directed
(DME) pen needle, diabetic [Ree 2nd Gen Pen Needle] 32 gauge x 5/32' Needle
Qty: 200 0RF
Rx Instructions:
Taking insulin 4 times a day
ciprofloxacin HCl 500 mg Tablet
500 mg PO BID Qty: 3 0RF
olanzapine 2.5 mg Tablet
2.5 mg PO HS Qty: 30 0RF
escitalopram oxalate 5 mg Tablet
5 mg PO DAILY Qty: 30 0RF
DAPTOmycin [Cubicin] 700 MG
Syringe [Syringe-Pump] 0 ML
As Directed mls/hr IV Q24H
Ordered By: Alfredo Persaud MD
Last Taken: 05/27/25 09:26 14 mls
(DME) blood-glucose meter [Accu-Chek Guide Glucose Meter] Misc
Qty: 1 0RF
Rx Instructions:
As Directed
(DME) Accu-Chek Guide test strips Strip
Qty: 100 1RF
Rx Instructions:
Test 3 times per day pre breakfast dinner and bedtime As Directed
(DME) lancets [Accu-Chek Softclix Lancets] Misc
Qty: 100 1RF
Rx Instructions:
Test 3 times per day pre breakfast dinner and bedtime As Directed
Continued
tamsulosin 0.4 MG capsule
0.4 mg PO DAILY
Discontinued
losartan 50 mg Tablet
50 mg PO DAILY
atorvastatin [Lipitor] 20 mg Tablet
20 mg PO DAILY
pioglitazone [Actos] 45 mg Tablet
45 mg PO DAILY
metformin 1,000 mg Tablet
2,000 mg PO DAILY
glucosamine-chondroitin [Osteo Bi-Flex] 250-200 mg Tablet
2 tab PO DAILY
cinnamon bark [Cinnamon] 500 mg Capsule
2,000 mg PO DAILY
Rybelsus 14 mg Tablet
14 mg PO DAILY
Discharge Orders:
Discharge Patient (As Directed); Ordered 05/27/25
Ordered By: Alfredo Persaud
Discharge Date and Time
Discharge Date/Time: 05/27/25 11:46
Print Language: CYMRAES
--- NOTE | 2025-05-28 14:37 | PTCARENOTE ---
05/28/2025 DIABETES EDUCATION NOTE
I received phone call from daughter, Ligia. They received the Dexcom G7, she inquired if this is difficult to administer. I educated this is applied to back of arm, michael to be downloaded on patient's phone and data can be shared with other
family members. Also educated this CGM lasts for 10 days, if it comes off before 10 days cannot be reused and must start a new sensor. Anthony's injected insulin in the thigh and the needle bent, patient has very little body fat. I suggested
they inject in the fatty tissue in back of arm, as was injected in the hospital. Ligia also questioned the timing of the Lantus prescription, the prescription states to administer at night which they started last night. I educated to injected at
approximately the same time every day, continue at night as she administered last night as this medication's duration is approximately 24 hours. She verbalized understanding, will contact the office with any further questions.
== END 2025-05-27 11:46 | disposition home health service (06) | DRG 698 ==
LOC: 4 WEST ACU 14:44
PROVIDERS: Internal Medicine; Internal Medicine Cardiovascular Disease; Internal Medicine Infectious Disease; Physician Assistant; ADMITTING PHYSICIAN Student in an Organized Health Care Education/Training Program; ATTENDING PHYSICIAN Internal Medicine; CONSULT PHYSICIAN Internal Medicine Cardiovascular Disease; CONSULT PHYSICIAN Internal Medicine Critical Care Medicine; CONSULT PHYSICIAN Urology; EMERGENCY PHYSICIAN Emergency Medicine; FAMILY PHYSICIAN Family Medicine; OTHER PHYSICIAN Hospitalist; OTHER PHYSICIAN Psychiatry & Neurology Psychiatry
PROC: B24BZZ4 Ultrasonography of Heart with Aorta, Transesophageal (ICD-10-PCS; 2025-05-21)
DX: T83.518A Infection and inflammatory reaction due to other urinary catheter, initial encounter (principal); A41.9 Sepsis, unspecified organism; E11.10 Type 2 diabetes mellitus with ketoacidosis without coma; R65.20 Severe sepsis without septic shock; E43 Unspecified severe protein-calorie malnutrition; G92.8 Other toxic encephalopathy; N13.6 Pyonephrosis; N17.9 Acute kidney failure, unspecified; E87.1 Hypo-osmolality and hyponatremia; I48.0 Paroxysmal atrial fibrillation; E87.5 Hyperkalemia; I10 Essential (primary) hypertension; Y84.6 Urinary catheterization as the cause of abnormal reaction of the patient, or of later complication, without mention of misadventure at the time of the procedure; E87.6 Hypokalemia; E83.42 Hypomagnesemia; K59.00 Constipation, unspecified; L89.151 Pressure ulcer of sacral region, stage 1; Z68.22 Body mass index [BMI] 22.0-22.9, adult
CPT/HCPCS: 70450; 71045; 74176; 80048; 80053; 80061; 81003; 81015; 82010; 82040; 82550; 82570; 82805; 82947; 82962; 83036; 83605; 83735; 84100; 84300; 84443; 84484; 85025; 85027; 85610; 85652; 85730; 86140; 87040; 87077; 87086; 87147; 87154; 87186; 87205; 92526; 92610; 93005; 93306; 93312; 93320; 93325; 93922; 93925; 96361; 96365; 96372; 96374; 97163; 97166; 97530; 97535; 99285; J0878

== ENCOUNTER 2025-06-06 10:53 | Outpatient (RCR) | payer OTHER, SELFPAY ==
[2025-05-28] MEDS: CUBICIN 114 MG IV (11:14)
[2025-05-29 10:53] VITALS: BP 115/67
[2025-05-29] MEDS: CUBICIN 114 MG IV (10:59)
[2025-05-29 11:39] VITALS: BP 131/63
[2025-05-30] MEDS: CUBICIN 114 MG IV (10:05)
[2025-05-30 10:21] VITALS: BP 122/70
[2025-05-31 07:10] VITALS: BP 123/80
[2025-05-31] MEDS: CUBICIN 114 MG IV (07:15)
[2025-06-01 07:15] VITALS: BP 122/76
[2025-06-01] MEDS: CUBICIN 114 MG IV (07:15)
[2025-06-02 11:08] VITALS: BP 131/78
[2025-06-02] MEDS: CUBICIN 114 MG IV (11:19)
[2025-06-02 11:21] LABS: Hematocrit 34.0 % (39.0-52.0); Hemoglobin 11.1 g/dL (13.0-18.0); Mean Corp Hgb Conc. 32.6 g/dL (33.0-37.0); Mean Corpuscular Volume 84.0 fL (80.0-94.0); Platelet Count 434 10^3/uL (130-400); Red Cell Dist. Width 14.2 % (11.5-14.5)
[2025-06-02 12:03] LABS: C-Reactive Protein 80.40 mg/L (0.0-10.00)
[2025-06-02 12:04] LABS: Blood Urea Nitrogen 10 mg/dl (9-20); Calcium 7.8 mg/dl (8.4-10.2); Carbon Dioxide 30 mmol/L (22-30); Chloride 106 mmol/L (98-107); Glucose 85 mg/dl (70-99); Potassium 3.5 mmol/L (3.5-5.1); Sodium 136 mmol/L (135-145); eGFR > 60.00
[2025-06-03] MEDS: CUBICIN 114 MG IV (11:04)
[2025-06-03 11:06] VITALS: BP 122/68
[2025-06-04 10:18] VITALS: BP 97/55
[2025-06-04] MEDS: CUBICIN 114 MG IV (10:25)
[2025-06-05 11:02] VITALS: BP 109/68
[2025-06-05] MEDS: CUBICIN 114 MG IV (11:06)
[2025-06-06 11:08] VITALS: BP 145/70
[2025-06-06] MEDS: CUBICIN 114 MG IV (11:24)
== END 2025-06-11 15:28 | disposition home or self-care (01) ==
LOC: OID 10:53
PROVIDERS: ATTENDING PHYSICIAN Internal Medicine Infectious Disease; FAMILY PHYSICIAN Family Medicine
DX: R78.81 Bacteremia (principal)
CPT/HCPCS: 36415; 80048; 82550; 85025; 85652; 86140; 96365; J0878

== ENCOUNTER 2025-06-10 07:16 | Observation (INO) | payer OTHER, SELFPAY ==
[2025-06-10] VITALS (10 sets, daily range): BP systolic 82–146; BP diastolic 43–103; BMI 22.9
[2025-06-10 04:31] LABS: Hematocrit 33.5 % (39.0-52.0); Hemoglobin 10.6 g/dL (13.0-18.0); Mean Corp Hgb Conc. 31.6 g/dL (33.0-37.0); Mean Corpuscular Volume 85.5 fL (80.0-94.0); Nucleated Red Blood Cells % 0 % (-); Platelet Count 740 10^3/uL (130-400); Red Cell Dist. Width 14.7 % (11.5-14.5)
[2025-06-10 04:39] LABS: APTT 40.9 Sec (23.4-35.0)
--- NOTE | 2025-06-10 04:40 | ED.GENMED ---
History of Present Illness
General
Chief Complaint: Urinary Symptoms
Source: patient
Exam Limitations: none
Time Seen by Provider: 06/10/25 04:39
Nursing documentation reviewed up to this point in time: agreed with
History of Present Illness
History of Present Illness:
Note:
CHIEF COMPLAINT(S)
Bleeding from the Dickinson catheter and associated pain.
HISTORY OF PRESENT ILLNESS
The patient is a 74-year-old male with a past medical history of BPH indwelling catheter, dementia, A-fib, who presenting with acute hematuria. This started yesterday afternoon after he got up and inadvertently pulled on the Dickinson catheter. He
subsequently had pelvic pain as well. The pelvic pain is intermittent. The catheter had initially been placed due to a urinary tract infection as well as retention issues, and the patient had been seen by urology with Dr. Sanchez involved in his
care. The complication began after an accident where the catheter tube was disconnected at the Y joint due to an event where the patient got out of bed without assistance, at which point the fast food assistant restaurant manager pushed it back on. Initially, the urine output
was slightly bloody, with increasing redness and darkness over time. They called urology and Dr. Bettencourt was crop pest control specialist who suggested the bleeding might be exacerbated by the use of a blood thinner, apixaban (Eliquis), which the patient is currently
taking, making it necessary to consult with a harness cutter about potentially stopping this medication. The patient reports current symptoms of discomfort while urinating and scarlet blood output in urine alongside localized pain where the catheter
enters the penis. The patient denies generalized abdominal pain, experiencing discomfort specifically during attempts to urinate, which all started after the initial catheter disconnection and manual reconnection. He has not had any fevers or
chills, nausea or vomiting.
CHRONIC MEDICAL CONDITIONS SIGNIFICANTLY AFFECTING CARE
The patient has a history of diabetes and had experienced diabetic ketoacidosis two weeks prior, with an associated high blood sugar level around 780, and urosepsis prompting an 11-day hospital stay.
PHYSICAL EXAM
Nursing notes reviewed and vital signs are reviewed.
General: Patient is well appearing and in no acute distress; non-toxic
Skin: Warm and dry, no rashes or lesions
Head: Normocephalic, atraumatic
Eyes: Sclera non-icteric. EOMs intact.
Cardiac: Regular rate and rhythm, no murmurs
Pulm: Normal respiratory effort, no wheezes, rales, rhonchi
Abdomen: No abdominal tenderness to palpation
Genitourinary: Urinary urethral catheter in place. No penile lesions. Output of bright red bloody urine noted.
Neuro: CN II-XII intact, no focal neurologic deficits.
Psychiatric: Appropriate mood and affect.
PROBLEM LIST
- Acute Problems: Bleeding around Dickinson catheter, urinary tract infection, localized pain with Dickinson catheter use.
PLAN
- Initiate catheter irrigation with a saline flush to evaluate for blood clots or sources of persistent bleeding.
- Provide analgesics to address pain associated with urination and catheter use.
- Consult with cardiology about discontinuation of apixaban (Eliquis) due to ongoing bleeding and risk factors.
DIFFERENTIAL DIAGNOSIS
The Differential Diagnosis includes, in no particular order and is not limited to:
1. Urethral trauma
2. Urinary tract infection
3. Bladder catheterization complications
4. Coagulopathy due to apixaban (Eliquis)
5. Benign prostatic hyperplasia
6. Prostatitis
7. Urethral stricture
8. Bladder stones
9. Hematuria from other urinary tract lesions
10. Ureteral injury
CHART REVIEW
Reviewed discharge summary from 05/27/2025 patient seen for severe sepsis due to catheter associated UTI with bacteremia as well as diabetic ketoacidosis
MDM/disposition
74-year-old male with past medical history of BPH with indwelling Dickinson catheter, dementia, diabetes who presents emergency department today with concerns of pelvic pain and hematuria. Said yesterday afternoon after he actually tugged on the
catheter when he stood up on his own. He was just discharged 05/27/2025 for severe sepsis secondary to catheter associated UTI with bacteremia and finished IV daptomycin 5 days ago. Today he had some bladder irrigation done by nurses in the ER and
at that time, some clots were irrigated out and he is feeling better and his pain is improved. Spoke to Dr. Diamond, urology on-call who recommends admission for observation pending urine culture and initiation of antibiotics. Will give dose of
Rocephin.
Past History
Past History
ED Past Medical History: Other (Acute urinary retention September 2020; BPH)
ED Past Surgical History: Other (Hernia repair 1989)
Social History
Tobacco: Non-smoker
Alcohol: None
Drug: None
Personal:
Living: with family
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
Family History
Family History: Other (Noncontributory)
Phy Exam
Physical Exam
Physical Exam:
see hpi
Course
Orders/Labs/Results
Orders:
Orders
06/10/25 04:19
Complete Blood Count/With Diff Urgent
Comprehensive Metabolic Panel Urgent
06/10/25 04:21
PTT Urgent
06/10/25 04:54
Acetaminophen [Tylenol] 1,000 mg PO NOW STA
06/10/25 05:01
Urinalysis Reflex To Culture Urgent
Date Specimen was Collected: 06/10/25
Time Specimen was Collected: 04:56
Urine Microscopic Reflex Cult Urgent
Urine Culture Urgent
JEFF Source: U
Specimen Description:
Date Specimen was Collected: 06/10/25
Time Specimen was Collected: 04:56
Abnormal Lab Results
06/10/25 06/10/25 06/10/25
04:19 04:21 05:01
WBC 14.9 H 10^3/uL
(4.8-10.8)
RBC 3.92 L 10^6/uL
(4.70-6.10)
Hgb 10.6 L g/dL
(13.0-18.0)
Hct 33.5 L %
(39.0-52.0)
MCHC 31.6 L g/dL
(33.0-37.0)
RDW 14.7 H %
(11.5-14.5)
Plt Count 740 H 10^3/uL
(130-400)
Abs Immat Gran (auto) 0.3 H 10^3/uL
(0-0.05)
Absolute Neuts (auto) 10.4 H 10^3/uL
(1.4-6.5)
Absolute Monos (auto) 1.2 H 10^3/uL
(0.1-0.6)
Absolute Eos (auto) 1.1 H 10^3/uL
(0-0.7)
Immature Gran % 2.3 H %
(0-0.5)
Lymphocytes % 11.7 L %
(20.5-51.1)
Eosinophils % 7.6 H %
(0-6)
APTT 40.9 H Sec
(23.4-35.0)
Glucose 283 H mg/dl
(70-99)
Calcium 8.3 L mg/dl
(8.4-10.2)
Alkaline Phosphatase 241 H U/L
(38-126)
Total Protein 4.7 L g/dl
(6.3-8.2)
Albumin 2.3 L g/dl
(3.5-5.0)
Ur Occult Blood Reflex 4+ A
(Negative)
Leukocyte Esterase Rfl 3+ A
(Negative)
Urine RBC >100 A /HPF
(0-2)
Urine Glucose 1+ A
(Negative)
Urine Albumin (Reflex) 4+ A
(Neg - Trace)
06/10/25 04:19
06/10/25 04:19
Vital Signs
Initial and Last Documented VS:
Initial Vital Signs
Temp Pulse Resp BP Pulse Ox
97.6 F 107 20 143/103 99
06/10/25 03:48 06/10/25 03:48 06/10/25 03:48 06/10/25 03:48 06/10/25 03:48
Last Documented Vital Signs
Temp Pulse Resp BP Pulse Ox
97.6 F 93 23 143/103 97
06/10/25 03:48 06/10/25 06:45 06/10/25 06:45 06/10/25 03:48 06/10/25 04:45
*Pulse Oximetry
SaO2: 99
Oxygen Mode of Delivery: Room air
Patient hypoxic: no
*Critical Care Note
Total Time (30-74mins, 75-104mins- exclusive of procedures): Not Applicable
ED Attending Note
-
Portions of this chart may have been created with voice recognition software.� Occasional wrong word or��sound alike� substitutions may have occurred due to the inherent limitations of voice recognition software.
Discharge Plan
Departure
Patient Disposition: Admit
Date of Disposition: 06/10/25
Time of Disposition: 06:26
Admit to: Med/Surg
Presentation/result/management discussed w/ accepting MD/DO: Hospitalist
Condition: Fair
Discharge Problem:
Hematuria, Acute pelvic pain
Prescriptions:
No Action
tamsulosin 0.4 MG capsule
0.4 mg PO DAILY
metoprolol succinate 25 mg Tablet Extended Release 24 Hr
12.5 mg PO DAILY Qty: 30 11RF
Eliquis 5 mg Tablet
5 mg PO BID Qty: 60 11RF
(DME) Dexcom G7 Sensor Device
Qty: 1 3RF
Rx Instructions:
Change sensor every 10 days. As Directed
insulin aspart U-100 [Novolog FlexPen U-100 Insulin] 100 unit/mL (3 mL) Insulin Pen
2 unit SC AC Qty: 5 0RF
Rx Instructions:
TAKE 2 UNITSOF INSULIN BEFORE EACH MEAL
(DME) pen needle, diabetic [Ree 2nd Gen Pen Needle] 32 gauge x 5/32' Needle
Qty: 200 0RF
Rx Instructions:
As Directed
(DME) pen needle, diabetic [Ree 2nd Gen Pen Needle] 32 gauge x 5/32' Needle
Qty: 200 0RF
Rx Instructions:
Taking insulin 4 times a day
ciprofloxacin HCl 500 mg Tablet
500 mg PO BID Qty: 3 0RF
olanzapine 2.5 mg Tablet
2.5 mg PO HS Qty: 30 0RF
escitalopram oxalate 5 mg Tablet
5 mg PO DAILY Qty: 30 0RF
DAPTOmycin [Cubicin] 700 MG
Syringe [Syringe-Pump] 0 ML
As Directed mls/hr IV Q24H
Ordered By: Alfredo Persaud MD
Last Taken: Unknown
(DME) blood-glucose meter [Accu-Chek Guide Glucose Meter] Misc
Qty: 1 0RF
Rx Instructions:
As Directed
(DME) Accu-Chek Guide test strips Strip
Qty: 100 1RF
Rx Instructions:
Test 3 times per day pre breakfast dinner and bedtime As Directed
(DME) lancets [Accu-Chek Softclix Lancets] Misc
Qty: 100 1RF
Rx Instructions:
Test 3 times per day pre breakfast dinner and bedtime As Directed
insulin glargine [Lantus Solostar U-100 Insulin] 100 unit/mL (3 mL) insulin pen
8 unit SC HS
Rx Instructions:
TAKE 8 UNITS AT BEDTIME
Referrals:
Bandar Culp MD [Family Provider]
Interventions
Interventions:
*Risk Screen - Suicide Last Done: 06/10/25 03:48
*General Assessment Last Done: 06/10/25 04:10
*ED- Fall Risk Assessment Last Done: 06/10/25 04:10
*ED COVID-19 Vaccine History Last Done: 06/10/25 04:10
ED-Male Genitourinary Assessment Last Done: 06/10/25 04:10
Discharge Date and Time
Print Language: PASHTO
[2025-06-10 05:01] LABS: ALT (SGPT) 22 U/L (0-50); AST (SGOT) 17 U/L (17-59); Albumin 2.3 g/dl (3.5-5.0); Alkaline Phosphatase 241 U/L (38-126); Blood Urea Nitrogen 20 mg/dl (9-20); Calcium 8.3 mg/dl (8.4-10.2); Carbon Dioxide 30 mmol/L (22-30); Chloride 104 mmol/L (98-107); Estimated Creatinine Clearance 72 ml/min; Glucose 283 mg/dl (70-99); Potassium 5.1 mmol/L (3.5-5.1); Sodium 136 mmol/L (135-145); Total Protein 4.7 g/dl (6.3-8.2); eGFR > 60.00
[2025-06-10] MEDS: TYLENOL 1000 MG PO (05:05)
[2025-06-10 05:30] LABS: Urine Character Cloudy (Clear)
[2025-06-10 06:20] LABS: Urine Red Blood Cell >100 /HPF (0-2)
--- NOTE | 2025-06-10 06:34 | HPS.HSE ---
Family Physician
-
Family Physician: Bandar Culp
Chief Complaint
-
Hematuria
History of Present Illness
Patient is a 74-year-old with past medical history of urinary retention status post chronic indwelling catheter, paroxysmal atrial fibrillation anticoagulation, diabetes, dementia, presenting to the emergency department with episode of hematuria and
pelvic pain.
Patient was ambulating with a walker without his usual personal assistance and inadvertently yanked the catheter. It was not extracted from the urethra but the connection was . Family members were able to reconnect him. They then noticed
that there was punch colored urine coming out. Later on it nonbloody. They talked with urologist with the patient is on Eliquis and possibly can be washed and then to call the fire sprinkler installer if the Eliquis could be held. Overnight however patient
developed significant pelvic discomfort and continued bloody urine. He had no fevers or chills. He had no nausea or vomiting.
On arrival in the emergency department he had bladder irrigation with marked improvement in symptoms. Clots were irrigated out. At the time of my exam there is scant urine from the catheter although it just been irrigated. Patient denied having
any abdominal pain.
Patient was reliably admitted for complicated UTI where he had a catheter related urinary tract infection with Klebsiella and MSSA and ultimately developed MSSA bacteremia. He did not have any evidence of endocarditis on TTE and ISAI. He completed
prolonged course of antibiotics and was discharged on daptomycin. Completed additional 10 days of outpatient daptomycin.
He was afebrile with a temp of 97.6, blood pressure was 140/100 with a pulse rate of 92 and was satting at 7% on room air.
White count was 14.9 hemoglobin 11.6 platelet of 740. Electrolytes were stable. BUN/creatinine were normal at 20 and 0.9. Glucose was 283. No anion gap
Medical History
Past Medical History
Past Medical History: Reports Other ( HTN, HLD, BPH, ER visit 04/30/25 for urinary retention s/p zarate)
Past Surgical History: Reports Other
Social History
Tobacco: Non-smoker
Alcohol: None
Family History
Family History: Not pertinent
Allergies / Home Medications
Allergies reflects when Allergies were last updated in [employer].
Home Medications with original date entered in [employer]
Allergy/Medication List:
Allergies
Allergy/AdvReac Type Severity Reaction Status Date / Time
No Known Allergies Allergy Verified 04/30/25 14:51
Home Medications
tamsulosin 0.4 mg capsule 0.4 mg PO DAILY BPH 10/10/20
atorvastatin 20 mg tablet (Lipitor) 20 mg PO DAILY High Cholesterol 05/14/25
cinnamon bark 500 mg capsule (Cinnamon) 2,000 mg PO DAILY Supplement 05/14/25
glucosamine-chondroitin 250 mg-200 mg tablet 2 tab PO DAILY Supplement 05/14/25
losartan 50 mg tablet 50 mg PO DAILY Blood Pressure 05/14/25
metformin 1,000 mg tablet 2,000 mg PO DAILY Diabetes 05/14/25
pioglitazone 45 mg tablet (Actos) 45 mg PO DAILY Diabetes 05/14/25
semaglutide 14 mg tablet (Rybelsus) 14 mg PO DAILY Diabetes 05/14/25
Review of Systems
-
History Source: Patient
A 12 point ROS was completed and negative except as noted: Yes
Constitutional: Reports No Symptoms
EENT: Reports No Symptoms
Respiratory: Reports No Symptoms
Cardiac: Reports No Symptoms
Abdomen/GI: Reports Abdominal Pain
: Reports Bleeding and Zarate
Musculoskeletal: Reports No Symptoms
Skin: Reports No Symptoms
Neurological: Reports No Symptoms
Endocrine: Reports No Symptoms
Hematologic/Lymphatic: Reports No Symptoms
Psych: Reports No Symptoms
Physical Exam
Vital Signs
Vital Signs
Temp Pulse Resp BP Pulse Ox
97.6 F 92 22 143/103 97
06/10/25 03:48 06/10/25 06:15 06/10/25 06:15 06/10/25 03:48 06/10/25 04:45
Physical Exam
General: No Apparent Distress and Conversant
HEENT: PERRLA
Respiratory: Clear; No Wheezes
Cardiac: S1/S2 and Regular Rhythm
GI: Soft, Non Tender, Non Distended and Other (reducible inguinal hernia)
Genito-urinary: Turbid Urine and Zarate
Musculoskeletal: No Edema
Skin: Warm and Dry; No Rash
Neuro: AO x 3
Psych: Calm
Laboratory Results
-
06/10/25 04:19
06/10/25 04:19
Laboratory Results
APTT 40.9 Sec (23.4-35.0) H 06/10/25 04:21
Total Bilirubin 0.4 mg/dl (0.2-1.3) 06/10/25 04:19
AST 17 U/L (17-59) 06/10/25 04:19
ALT 22 U/L (0-50) 06/10/25 04:19
Alkaline Phosphatase 241 U/L (38-126) H 06/10/25 04:19
Data Reviewed
-
Lab Data: Labs Reviewed by me
Old Records: Reviewed
Impression/Plan
-
IMPRESSION:
74-year-old with past medical history significant for insulin-dependent diabetes, BPH with chronic retention status post chronic indwelling urinary catheter, dementia, atrial fibrillation on anticoagulation who presents to the emergency department
with pelvic pain and hematuria and found to have some clots in the urinary catheter. Patient's urinary that was irrigated in the ED with evacuation of clots and improvement in his symptoms. Cath appears to be free-flowing at this time. He has
leukocytosis to 14.9. UA is less informative given gross hematuria.
PLAN:
Hematuria -patient on Eliquis and had traumatic accident due to urinary catheter yesterday. He is afebrile and hemodynamically stable with leukocytosis to 14. He had just completed a course of daptomycin for MSSA UTI and bacteremia. Irrigation
seems to have resolved his discomfort. There does seem to be less than expected urine coming from the catheter
-Admit to MedSurg observation
-Discussed with urology and plan is to observe while awaiting urine culture
-Given ceftriaxone in the ED which will cover his most recent urinary culture result
-monitor ins and outs and scan for retention if drop in urinary output, we may need repeat irrigation.
-Hold Eliquis this morning
-Gentle hydration
- urology consult
AFIB RVR
- continue metoprolol
DM II
- sliding scale insulin
- lantus 8 units hs
DVT PPX - SCDs
Code status - full code
[2025-06-10] MEDS: NSS 1000 IV (09:17)
[2025-06-10 09:18] LABS: Glucose - Point of Care 200 mg/dl (70-99)
[2025-06-10] MEDS: NOVOLOG FLEXPEN 2 UNITS SC ×3 (09:21→17:44)
[2025-06-10] MEDS: LEXAPRO 5 MG PO (09:22)
[2025-06-10] MEDS: FLOMAX 0.4 MG PO (09:22)
[2025-06-10] MEDS: TOPROL XL PO (09:22)
[2025-06-10] MEDS: ROCEPHIN 1000 MG IV (12:49)
[2025-06-10] MEDS: STERILE WATER FOR INJECTION 10 ML IV (12:50)
--- NOTE | 2025-06-10 13:12 | CM ---
CM met with pt and spouse bedside
They reside in a 2SH with 1 NEERAJ, full flight to 2nd floor
Pt discharged earlier this month from [facility] with [facility], outpt infusion for IV abx and VN
Prior to that admission, he was indep with no DMEs, drives+
Since his return home these past few weeks, pt now has 1st floor setup, limited ambulation with use of WW
Unable to negotiate stairs so sponge bathing in powder room
Pt has a bed downstairs with rails and a transport chair
Pt has been requiring a 1 person assist for personal care tasks
Pt recently closed to the outpt infusion center for IV abx on 06/06 and picc was removed
PCP- Bandar Culp
Rx- ALOK Warminspauly
Spouse noted that VN never provided service or contacted them since recent discharge
Discussion with [facility]N liaison and CM boarder steam
Homecare was not referred to during last admission
Update was provided to pt and spouse
[facility] lia[facility]
Pt is OBS-PERRY verbally reviewed, copy provided
Discharge Disposition- anticipate home with [facility] (referral pending)
[2025-06-10 13:22] LABS: Glucose - Point of Care 130 mg/dl (70-99)
--- NOTE | 2025-06-10 15:30 | PTCARENOTE ---
Received pt from ED via stretcher. Pt ambulated to bed x1 with RW. Dickinson in place, output= bloody urine with clots. AAOx2-3. Confused, forgetful, bed alarm placed and plugged in. Assessed and oriented to room. Family at bedside. Call ward placed
within close reach. Will cont to monitor.
--- NOTE | 2025-06-10 17:04 | W.PN.URO.CBU ---
Today's Communication / Plan
-
no gu changes
Assessment / Plan
-
hematuria due to zarate trauma on eliquis However pt wth wbc 14 k and was instrumented to remove clotsOn observation and wbc elevated but hematuria resolving and afebrilwe will bserve in am await urine cxs . homw once stable and wbc normalizes
Diagnosis
-
Date of Service: June 10, 2025
-
Patient Diagnosis:cath trauma hematuria on eliquis in pt with candidal urosepsis less than month ago now wbc appox 15 k on arrival before instrumentation to remove blood clots from bladder
Post Op Day:
Subjective
-
feels well hematuria resolvong no clots no systemic complaints
Objective
-
Vital Signs
Temp Pulse Resp BP Pulse Ox
98.1 F 107 17 146/91 97
06/10/25 15:19 06/10/25 15:19 06/10/25 15:19 06/10/25 15:19 06/10/25 15:19
Laboratory Results
06/10/25 04:19
06/10/25 04:19
Review of Systems
-
: Difficulty Voiding and Dark Urine
Physical Exam
-
General - well developed, well nourished, no acute distress
Chest - clear bilaterally
Abdomen - soft, non-tender, positive bowel sounds, no CVAT, no incisional pain or distention
Genitalia - normal
Rectal - normal
Skin - warm & dry with no rash
Neuro - AOx3, no motor deficits
Extremities - no clubbing, no cyanosis, no edema
Incision - clean, dry
Dressing - clean, dry, intact
Care Review
Data Reviewed
Discussed with: Nursing and Family
[2025-06-10 17:16] LABS: Glucose - Point of Care 146 mg/dl (70-99)
[2025-06-10 21:04] LABS: Glucose - Point of Care 226 mg/dl (70-99)
[2025-06-10] MEDS: ZYPREXA 2.5 MG PO (21:50)
[2025-06-10] MEDS: LANTUS 0.08 UNITS SC (21:50)
[2025-06-10] MEDS: TYLENOL 650 MG PO (21:56)
[2025-06-11 05:46] LABS: Hematocrit 28.1 % (39.0-52.0); Hemoglobin 9.3 g/dL (13.0-18.0); Mean Corp Hgb Conc. 33.1 g/dL (33.0-37.0); Mean Corpuscular Volume 81.4 fL (80.0-94.0); Platelet Count 592 10^3/uL (130-400); Red Cell Dist. Width 14.5 % (11.5-14.5)
[2025-06-11 06:02] LABS: Blood Urea Nitrogen 16 mg/dl (9-20); Calcium 8.2 mg/dl (8.4-10.2); Carbon Dioxide 28 mmol/L (22-30); Chloride 109 mmol/L (98-107); Estimated Creatinine Clearance 92 ml/min; Glucose 83 mg/dl (70-99); Potassium 4.3 mmol/L (3.5-5.1); Sodium 138 mmol/L (135-145); eGFR > 60.00
[2025-06-11 07:48] VITALS: BP 138/84
[2025-06-11 07:59] LABS: Glucose - Point of Care 79 mg/dl (70-99)
--- NOTE | 2025-06-11 08:48 | W.PN.URO.CBU ---
Today's Communication / Plan
-
per hospitalist
Assessment / Plan
-
hematuria due to zarate trauma on eliquis However pt wth wbc 14 k and was instrumented to remove clotsOn observation and wbc elevated but hematuria resolving and afebrile hgb 9.3 bu t no blood in zarate plan per hospitalist buit i rachel keep
zarate and hold eliquis for week if medically able and check cxs for discharge
Diagnosis
-
Date of Service: June 11, 2025
-
Patient Diagnosis:
Post Op Day:
Patient Diagnosis:cath trauma hematuria on eliquis in pt with candidal urosepsis less than month ago now wbc appox 15 k on arrival before instrumentation to remove blood clots from bladder
Post Op Day:
Subjective
-
wants to go home
Objective
-
Vital Signs
Temp Pulse Resp BP Pulse Ox
98.0 F 96 16 138/84 97
06/11/25 07:48 06/11/25 07:48 06/11/25 07:48 06/11/25 07:48 06/11/25 07:48
Intake and Output
06/10/25 06/11/25 06/12/25
06:59 06:59 06:59
Intake Total 480 / 480
Output Total 1500 / 1500
Balance -1020 / -1020
Intake:
Oral fluids 480 / 480
Output:
Urine, Zarate 1500 / 1500
Laboratory Results
06/11/25 05:27
06/11/25 05:27
Review of Systems
-
: Difficulty Voiding and Bleeding
Physical Exam
-
General - well developed, well nourished, no acute distress
Chest - clear bilaterally
Abdomen - soft, non-tender, positive bowel sounds, no CVAT, no incisional pain or distention
Genitalia - normal
Rectal - normal
Skin - warm & dry with no rash
Neuro - AOx3, no motor deficits
Extremities - no clubbing, no cyanosis, no edema
Incision - clean, dry
Dressing - clean, dry, intact
Care Review
Data Reviewed
Discussed with: Nursing
[2025-06-11] MEDS: LEXAPRO 5 MG PO (09:09)
[2025-06-11] MEDS: TOPROL XL 12.5 MG PO (09:09)
[2025-06-11] MEDS: FLOMAX 0.4 MG PO (09:09)
[2025-06-11] MEDS: NOVOLOG FLEXPEN 2 UNITS SC ×2 (09:10→12:30)
--- NOTE | 2025-06-11 11:28 | CM ---
Addendum entered by Tiffani Cárdenas 06/11/25 14:54:
Spoke with patient and spouse bedside. PT saw patient and recommendation is for home with VN and 12/06 supervision.
[facility] will follow with patient.
PERYR again reviewed and copy placed on chart.
Patient to be d/c home with Dickinson catheter, leg bag.
will transport.
TC to spouse to let her know to call me with any d/c concerns.
Plan: home with [facility]
Original Note:
Patient seen bedside with spouse. Patient easily agitated and wants to go home. CM explained to patient and spouse that PT/OT needs to evaluate patient prior to any dc plans being made. CM spoke with spouse independently in the hallway, she was
teary eyed and distressed re patients behavior and condition. 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 Per spouse patient came in with elevated blood sugars and
sepsis. Patient at that time was adamant about discharge. Per spouse he was d/c with a Dickinson catheter (they had not received a leg bag). Per spouse patient has become difficult at home and was needing more assistance. He was independent with all
activities prior to last admission. Patient has had urological interventions in the past and was able to manage his own Dickinson/leg bag. CM will f/u with patient after he is seen by therapy and MD.
[2025-06-11 11:36] LABS: Glucose - Point of Care 95 mg/dl (70-99)
--- NOTE | 2025-06-11 11:39 | VNURNOTE ---
Addendum entered by Lenore Joyner RN 06/11/25 13:49:
List of private CGs provided to spouse.
Original Note:
Home Health Liaison met with patient and spouse at bedside. Spouse requested to speak w/this author outside the room. Discussed [facility] nurse/therapy, visits, schedule and homebound status. Spouse is agreeable and understands that visits at home
will be 2-3 x per week to assess and teach medical management. Spouse stated the pt had a zarate intermittently in the past. Spouse aware that [facility] will contact them for start of care in 1-2 days after discharge from . Provided spouse with
liaison contact number and PM [facility] office contact number.
Spouse mentioned that she would prefer DC to SNF. She is overwhelmed and feels unable to care for pt at home. Per spouse, MARIONETTE PERFORMER, pt got up by himself, went into the kitchen, and ate cookies and soda in the middle of the night. She is aware that the
patient has to agree to work w/ PT, OT prior to determining DC plan/if appropriate for SNF. She understands if the pt goes to SNF that SNF will request VN when ready to go back home. CM is aware of above.
PM [facility] referral accepted in [facility]. [facility] liaison will continue to follow for final DC dispo.
[2025-06-11] MEDS: TYLENOL 650 MG PO (11:47)
[2025-06-11] MEDS: STERILE WATER FOR INJECTION 10 ML IV (11:49)
[2025-06-11] MEDS: ROCEPHIN 1000 MG IV (11:49)
--- NOTE | 2025-06-11 13:40 | W.PN.HOSP.TC ---
Today's Communication/Plan
-
Discharge to home versus rehab based on PT evaluation
Assessment / Plan
Assessment / Plan
Hematuria -resolved
-Hematuria likely induced by accidental pulling at Dickinson catheter while walking with a walker
-Urology evaluated and recommended for patient to be remain off of Eliquis for week
-Hematuria has resolved at this point
-Patient had minimal blood loss anemia
AFIB RVR
- continue metoprolol
DM II
- sliding scale insulin
- lantus 8 units hs
DVT PPX - SCDs
Code status - full code
Anticipated Discharge: Today
Subjective/Interval History
-
Date of Service: June 11, 2025
no complains overnight
No further hematuria
Objective Data
-
Labs:
Laboratory Results
06/11/25
05:27
WBC 14.5 H
Hgb 9.3 L
Hct 28.1 L
Plt Count 592 H
Sodium 138
Potassium 4.3
Chloride 109 H
Carbon Dioxide 28
BUN 16
Creatinine 0.7
Glucose 83
Calcium 8.2 L
Vital Signs:
Vital Signs
Temp Pulse Resp BP Pulse Ox
98.0 F 96 16 138/84 97
06/11/25 07:48 06/11/25 09:09 06/11/25 07:48 06/11/25 09:09 06/11/25 07:48
I&O
06/10/25 06/11/25 06/12/25
06:59 06:59 06:59
Intake Total 480 / 480
Output Total 1500 / 1500
Balance -1020 / -1020
Review of Systems
-
Respiratory: Reports No Symptoms
Cardiac: Reports No Symptoms
Abdomen/GI: Reports No Symptoms
Physical Exam
-
General: Negative Appears in Distress
HEENT: Negative Oxygen
Genito-urinary: Dickinson (Clear urine)
Neuro: Awake, Alert, Oriented and No Motor Deficits
[2025-06-11 15:51] VITALS: BP 126/75
[2025-06-12 14:48] LABS: Hepatitis C Antibody Negative (Negative)
== END 2025-06-11 16:15 | disposition home health service (06) ==
LOC: 3 WEST ACU 07:16
PROVIDERS: Physician Assistant; ADMITTING PHYSICIAN Internal Medicine; ATTENDING PHYSICIAN Hospitalist; CONSULT PHYSICIAN Specialist; EMERGENCY PHYSICIAN Student in an Organized Health Care Education/Training Program; FAMILY PHYSICIAN Family Medicine
DX: T83.83XA Hemorrhage due to genitourinary prosthetic devices, implants and grafts, initial encounter (principal); Y84.9 Medical procedure, unspecified as the cause of abnormal reaction of the patient, or of later complication, without mention of misadventure at the time of the procedure; Y73.1 Therapeutic (nonsurgical) and rehabilitative gastroenterology and urology devices associated with adverse incidents; R31.9 Hematuria, unspecified; D50.0 Iron deficiency anemia secondary to blood loss (chronic); I48.0 Paroxysmal atrial fibrillation; E11.9 Type 2 diabetes mellitus without complications; Z79.01 Long term (current) use of anticoagulants; N40.0 Benign prostatic hyperplasia without lower urinary tract symptoms; F03.90 Unspecified dementia, unspecified severity, without behavioral disturbance, psychotic disturbance, mood disturbance, and anxiety
CPT/HCPCS: 51798; 80048; 80053; 81003; 81015; 82962; 85025; 85027; 85730; 86803; 87070; 87086; 97162; 97530; 99284; G0378

== ENCOUNTER 2025-06-14 11:46 | Emergency (ER) | payer OTHER, SELFPAY ==
[2025-06-14 11:48] VITALS: BP 114/71
[2025-06-14 12:13] VITALS: BP 118/76
--- NOTE | 2025-06-14 13:10 | ED.GENMED ---
History of Present Illness
General
Chief Complaint: Fall
Source: patient and spouse
Time Seen by Provider: 06/14/25 12:16
History of Present Illness
History of Present Illness:
This patient is a 74-year-old male who presents to the emergency department after suffering 2 falls overnight. states that his bed is now in the dining room on the first floor and she heard his blood sugar meter alarm. When she went down
there at around 2 AM she noted that patient was on the floor. Her and her son helped the patient back up into bed and there were no signs of injury at that time. Then, again approximately 4 AM the alarm again went off and patient was noted to be
on the floor. It was clear that he had suffered a injury to the lateral aspect of the right eyebrow at that time although no reported loss of consciousness. In general, is reporting difficulty caring for patient at home due to falls and
difficulty getting him back up. However, patient is resistant to coming to the hospital, rehab, etc. Because of the fall at approximately 4 AM patient is noted to have multiple abrasions about the elbows, knee, head, and right lateral eyebrow.
is unclear what his blood sugar was at 2 or 4 AM but notes that at 6 AM it was 133. Although triage note states that he 'took about a bunch of medications for diabetes last night', states that she administers all his medications and has
not changed that. He is temporarily not taking his anticoagulation medication due to a recent event whereby there was trauma to his Dickinson associated with hematuria. Patient states that he was using his walker, there was a blanket on top of the
walker that caused him to trip, and that is why he fell. He denies preceding dizziness, chest pain, shortness of breath, or other complaints. Despite him denying dizziness this is in contrast to the triage note.
Past History
Past History
ED Past Medical History: Other (Acute urinary retention September 2020; BPH, diabetes)
ED Past Surgical History: Other (Hernia repair 1989)
Social History
Tobacco: Non-smoker
Alcohol: None
Drug: None
Personal:
Living: with family
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
Family History
Family History: Other (Noncontributory)
Phy Exam
Physical Exam
Physical Exam:
GENERAL: Alert , in no apparent distress
EYE: pupils equal and reactive, EOMI, no nystagmus, no photophobia
NECK: Supple, no significant adenopathy, no midline tenderness.
ENT: o/p clr, mmm, no toure, no raccoon. There is a very small superficial abrasion noted at the posterior occiput without active bleed, otherwise no signs of head or facial injury with the exception of this and eyebrow abrasion/laceration.
CARDIAC: Regular rate and rhythm .
LUNGS: Clear breath sounds bilaterally, no acute respiratory distress, no wheezes/rales/rhonchi
ABDOMEN: Soft, without focal tenderness, no r/g, no cvat
NEUROLOGICAL: Alert and oriented, no focal neuro deficits
SKIN: Warm and dry, multiple superficial abrasions noted about right elbow, left elbow, right knee. No associated bony tenderness, deformity, or limitation in range of motion
MUSCULOSKELETAL: No edema, well perfused.
PSYCH: Normal and appropriate interaction.
Course
Orders/Labs/Results
Orders:
Orders
06/14/25
Electrocardiogram (*1) Stat
Reason for Study: Chest Pain
Comment: DONE NO ORDER ENTERED
06/14/25 11:47
CT Head W/o Iv Contrast Urgent
Comment:
Reason For Exam: fall on Eliquis
06/14/25 12:17
EKG [Electrocardiogram (*1)] Urgent
Reason for Study: Vertigo / Dizzy
EKG- Treatment ONCE
06/14/25 12:58
Cardiac Monitoring- Treatment ONCE
06/14/25 13:34
Complete Blood Count/No Diff Urgent
Comprehensive Metabolic Panel Urgent
Magnesium Urgent
Troponin I Urgent
Abnormal Lab Results
06/14/25
13:34
WBC 13.6 H 10^3/uL
(4.8-10.8)
RBC 3.49 L 10^6/uL
(4.70-6.10)
Hgb 9.5 L g/dL
(13.0-18.0)
Hct 29.7 L %
(39.0-52.0)
MCHC 32.0 L g/dL
(33.0-37.0)
RDW 15.3 H %
(11.5-14.5)
Plt Count 525 H 10^3/uL
(130-400)
Carbon Dioxide 31 H mmol/L
(22-30)
Glucose 103 H mg/dl
(70-99)
Alkaline Phosphatase 213 H U/L
(38-126)
Total Protein 4.8 L g/dl
(6.3-8.2)
Albumin 2.4 L g/dl
(3.5-5.0)
06/14/25 13:34
06/14/25 13:34
Vital Signs
Initial and Last Documented VS:
Initial Vital Signs
Temp Pulse Resp BP Pulse Ox
98.8 F 97 16 114/71 97
06/14/25 11:48 06/14/25 11:48 06/14/25 11:48 06/14/25 11:48 06/14/25 11:48
Last Documented Vital Signs
Temp Pulse Resp BP Pulse Ox
98.8 F 89 19 137/77 93
06/14/25 11:48 06/14/25 15:45 06/14/25 15:45 06/14/25 15:00 06/14/25 15:45
Procedures
Laceration Closure
Face:
Status of Wound: clean
Size of Wound in cm: 1
Description of Wound Edges: sharp
Preparation: cleaned with saline
Revision/Debridement: routine- no revision
Wound exploration: explored to base- no FB
Type of Closure: single layer closure
Skin Closure Material: other (Steri-Strips)
*Pulse Oximetry
SaO2: 94
Oxygen Mode of Delivery: Room air
Update Note
Update Note:
Patient presents to the Emergency Department with ___frequent falls
Number and Complexity of Problems Addressed at the Encounter
� Chronic conditions affecting care:
� Acute Exacerbation and/or Progression of Chronic Illness:
� Differential Diagnosis includes: But not limited to intracranial bleed, electrolyte disorder, DKA, etc. etc.
Amount and/or Complexity of Data to be Reviewed and Analyzed
� I performed an independent evaluation of and my interpretation is:
EKG: Read by me, normal sinus rhythm, low voltage, no acute ischemia
CT:head ct nad
Xrays:
Laboratory Studies: Reviewed by me, leukocytosis unchanged, anemia unchanged, thrombocytopenia unchanged, troponin unremarkable
Other:
� Review of other/old records reveals: Reviewed discharge summary from recent hospitalization for sepsis and new onset diabetes, DKA
� Clinical information was obtained by an independent historian: who is at bedside. She expresses concern regarding patient's frequent falls and being up through much of the night and sleeping through much of the day.
Patient is very reluctant to consider any location except being at home and in fact does not want to be in the emergency department at this time. He is up-to-date on tetanus.
� Prescriptions/Medications Considered but not given:
� Further testing considered but not performed:
Risk of Complications and/or Morbidity or Mortality of Patient Management
� Social determinants of health affecting care:
� Discussion with other providers (PCP, Hospitalists, Consultants, etc):
� Escalation of care including admission/observation vs risk of discharge considered: Case discussed with patient and in detail, both myself and patient's expressed concern regarding patient's frequent falls prickly in
the context of DOAC use. He is very very specific that he does not want to stay in the hospital, does not want placement at a rehab facility, and is only willing to consider going home immediately. He does have a home nurses coming on a regular
basis. Discussed with them importance of follow-up and reasons return to the ER as well as wound care.
ED Attending Note
-
Portions of this chart may have been created with voice recognition software.� Occasional wrong word or��sound alike� substitutions may have occurred due to the inherent limitations of voice recognition software.
Discharge Plan
Departure
Patient Disposition: Home (Routine Discharge)
Date of Disposition: 06/14/25
Time of Disposition: 16:44
Patient with high blood pressure during this ER visit?: Yes
Condition: Good
Discharge Problem:
Head injury, acute, Laceration
Instructions: Wound Care (DC), Head Injury in Adults (DC), Skin Abrasions (DC), BLOOD PRESSURE
Prescriptions:
No Action
metoprolol succinate 25 mg Tablet Extended Release 24 Hr
12.5 mg PO DAILY Qty: 30 11RF
Eliquis 5 mg Tablet
5 mg PO BID Qty: 60 11RF
insulin aspart U-100 [Novolog FlexPen U-100 Insulin] 100 unit/mL (3 mL) Insulin Pen
2 unit SC AC Qty: 5 0RF
Rx Instructions:
TAKE 2 UNITSOF INSULIN BEFORE EACH MEAL
olanzapine 2.5 mg Tablet
2.5 mg PO HS Qty: 30 0RF
escitalopram oxalate 5 mg Tablet
5 mg PO DAILY Qty: 30 0RF
insulin glargine [Lantus Solostar U-100 Insulin] 100 unit/mL (3 mL) insulin pen
8 unit SC HS
Rx Instructions:
TAKE 8 UNITS AT BEDTIME
ibuprofen [Advil] 200 mg Tablet
200 mg PO Q6HPRN PRN (Reason: mild pain)
lorazepam 1 mg Tablet
1 mg PO TID
Referrals:
Bandar Culp MD [Family Provider] - Follow up in 2-3 days
Activity Restrictions/Additional Instructions:
IF YOU DEVELOP DIZZINESS, HEADACHE, NECK PAIN, NUMBNESS, VOMITING, SHORTNESS OF BREATH, CHEST PAIN, OR OTHER WORRISOME SIGNS, PLEASE RETURN TO THE ER IMMEDIATELY!
Interventions
Interventions:
*Risk Screen - Suicide Last Done: 06/14/25 11:50
*General Assessment Last Done: 06/14/25 12:15
*Neglect/Abuse Screening Last Done: 06/14/25 11:50
*ED- Fall Risk Assessment Last Done: 06/14/25 12:08
*ED COVID-19 Vaccine History Last Done: 06/14/25 12:08
ED-Musculoskeletal Assessment Last Done: 06/14/25 12:15
ED- Neurological Assessment Last Done: 06/14/25 12:15
ED-Skin Assessment Last Done: 06/14/25 12:15
Discharge Date and Time
Print Language: FRENCH
[2025-06-14 13:24] VITALS: BP 136/86
[2025-06-14 13:40] LABS: Hematocrit 29.7 % (39.0-52.0); Hemoglobin 9.5 g/dL (13.0-18.0); Mean Corp Hgb Conc. 32.0 g/dL (33.0-37.0); Mean Corpuscular Volume 85.1 fL (80.0-94.0); Platelet Count 525 10^3/uL (130-400); Red Cell Dist. Width 15.3 % (11.5-14.5)
[2025-06-14 14:00] VITALS: BP 146/86
[2025-06-14 14:39] LABS: Troponin I < 0.012 ng/ml
[2025-06-14 14:49] LABS: ALT (SGPT) 20 U/L (0-50); AST (SGOT) 21 U/L (17-59); Albumin 2.4 g/dl (3.5-5.0); Alkaline Phosphatase 213 U/L (38-126); Blood Urea Nitrogen 11 mg/dl (9-20); Calcium 8.5 mg/dl (8.4-10.2); Carbon Dioxide 31 mmol/L (22-30); Chloride 105 mmol/L (98-107); Glucose 103 mg/dl (70-99); Magnesium 2.0 mg/dl (1.6-2.3); Potassium 4.2 mmol/L (3.5-5.1); Sodium 138 mmol/L (135-145); Total Protein 4.8 g/dl (6.3-8.2); eGFR > 60.00
[2025-06-14 15:00] VITALS: BP 137/77
[2025-06-14 16:00] VITALS: BP 136/82
== END 2025-06-14 17:00 | disposition home or self-care (01) ==
LOC: EMR 11:46
PROVIDERS: EMERGENCY PHYSICIAN Emergency Medicine; FAMILY PHYSICIAN Family Medicine
DX: S01.81XA Laceration without foreign body of other part of head, initial encounter (principal); S50.312A Abrasion of left elbow, initial encounter; S50.311A Abrasion of right elbow, initial encounter; S80.211A Abrasion, right knee, initial encounter; W01.0XXA Fall on same level from slipping, tripping and stumbling without subsequent striking against object, initial encounter; E11.9 Type 2 diabetes mellitus without complications; Z79.01 Long term (current) use of anticoagulants
CPT/HCPCS: 99284; 70450; 80053; 83735; 84484; 85027; 93005

== ENCOUNTER 2025-06-19 17:05 | Inpatient (IN) | payer OTHER, SELFPAY ==
[2025-06-19] VITALS (19 sets, daily range): BP systolic 75–145; BP diastolic 41–87; BMI 22.6; BMI 22.8
[2025-06-19] MEDS: NSS 1000 IV ×3 (15:14→19:30)
--- NOTE | 2025-06-19 15:19 | ED.GENMED ---
History of Present Illness
General
Chief Complaint: Change in Mental Status
Source: patient, records and spouse
Exam Limitations: none
Time Seen by Provider: 06/19/25 15:07
Nursing documentation reviewed up to this point in time: agreed with
History of Present Illness
History of Present Illness:
74-year-old male with a past medical history of insulin-dependent diabetes, BPH with urinary retention and chronic Dickinson catheter, atrial fibrillation on Eliquis, dementia who presents to the emergency room with his for evaluation of lethargy.
is at bedside and helps with collateral history, patient is somewhat limited by his dementia. She says that over the past 24 hours patient has been increasingly lethargic and weak. Difficulty standing due to severe generalized weakness today.
Occupational therapist came today and was not able to do therapy with him because he was so weak; on top of this they noted that his blood pressure was elevated that his heart rate was elevated�after discussion with the primary doctor patient was
given a dose of his diuretic to help with hypertension. As the day went on he continued to be lethargic which prompted ER visit. He was noted to be febrile on arrival, no fever noted at home. He did have some loose stools today but no vomiting
and has not complained of abdominal pain. He has not had any coughing or breathing difficulties. He has had reasonable urine output no hematuria noted, urine not necessarily dark. He does have a small sacral wounds and visiting nurse has been
managing this, no drainage noted by . He did have a fall this past Monday that was reportedly a mechanical trip and fall. He was seen in the emergency room here with no serious injuries aside from minor abrasions and was discharged home.
Past History
Past History
ED Past Medical History: Other (Acute urinary retention September 2020; BPH, diabetes)
ED Past Surgical History: Other (Hernia repair 1989)
Social History
Tobacco: Non-smoker
Alcohol: None
Drug: None
Personal:
Living: with family
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
Family History
Family History: Other (Noncontributory)
Review of Systems
Review of Systems
All Other Systems: ROS reviewed and negative except as documented in HPI and ROS
Constitutional: Reports fever and fatigue
EENT: Denies sore throat
Respiratory: Denies cough or trouble breathing
Cardiac: Denies chest pain
ABD/GI: Reports diarrhea (X 1 episode); Denies abdominal pain, nausea or vomiting
: Denies flank pain or dark urine
Neurological: Reports weakness (Generalized); Denies headache
Phy Exam
Physical Exam
Physical Exam:
General: Awake, alert; no acute distress
Head: Normocephalic, patient has well-healing laceration lateral margin of the right eyebrow with Steri-Strips in place; minor well-healing abrasion to the right posterior parietal scalp
Eyes: Conjunctiva normal, EOMI, pupils equal round and reactive to light bilaterally
Throat: Airway intact, handling secretions
Neck: Trachea midline, supple without meningismus
Lungs: Clear to auscultation bilaterally, no wheezing, rales, rhonchi, mild tachypnea but no hypoxia noted
Heart: Tachycardia with regular rhythm, no murmurs, gallops, or rubs
Abd: Soft, non distended, nontender
Back: No signs of trauma to the back or flank
Neuro: No gross deficits
Skin: Patient has stage II sacral wound with no signs of acute infection (open wound is approximately 3 cm diameter)
Extremities: Patient has healing abrasion on the right arm as well as a minor healing abrasion to the right knee, no other signs of acute trauma to the extremities, no significant edema in the extremities and good pulses throughout
Scores
Heart Failure Risk
Heart Failure Risk Score: Not Applicable
Heart Score for Chest Pain Patients
STEMI patient?: Not applicable
Withdrawal Assessment of Alcohol
Withdrawal Assessment Completed?: Not applicable
Sepsis
Sepsis Screening
Sepsis Assessment: Sepsis
Sepsis Screen
Sepsis Screen: Sepsis
Date: 06/19/25
Time: 16:02
Course
Orders/Labs/Results
Orders:
Orders
06/19/25 14:21
Electrocardiogram (*1) Urgent
Reason for Study: Tachycardia
06/19/25 14:23
EKG- Treatment ONCE
06/19/25 14:52
CT Head W/o Iv Contrast Urgent
Comment:
Reason For Exam: confusion
06/19/25 14:54
Complete Blood Count/With Diff Urgent
Comprehensive Metabolic Panel Urgent
Lactate Level [Lactic Acid] Urgent
Blood Culture Urgent
JEFF Source: Blood/Venous
Specimen Description:
06/19/25 15:08
CR Chest Portable - 1 View Urgent
Comment:
Reason For Exam: sepsis
Reason Study Needs to be Portable: Unable to Transport
06/19/25 15:09
Dickinson Placement- Treatment ONCE
Reason for insertion: Chronic Dickinson on Admit
0.9% Sodium Chloride 1000 ml [Nss] 1,000 ml IV BOLUS
06/19/25 15:18
0.9% Sodium Chloride 1000 ml [Nss] 1,000 ml IV BOLUS
06/19/25 15:24
Piperacillin/Tazo 3.375 Gram [Zosyn] 3.375 gram in 50 ml IV NOW
06/19/25 15:30
COVID-19 Antigen Urgent
Source: Nasal Swab
Urinalysis Reflex To Culture Urgent
Date Specimen was Collected: 06/19/25
Time Specimen was Collected: 14:23
Urine Microscopic Reflex Cult Urgent
Influenza A+B Rapid Molecular Urgent
JEFF Source: Nasal Swab
Specimen Description:
Urine Culture Urgent
JEFF Source: U
Specimen Description:
Date Specimen was Collected: 06/19/25
Time Specimen was Collected: 14:23
Abnormal Lab Results
06/19/25 06/19/25
14:54 15:30
WBC 47.7 H* 10^3/uL
(4.8-10.8)
RBC 3.49 L 10^6/uL
(4.70-6.10)
Hgb 9.5 L g/dL
(13.0-18.0)
Hct 28.8 L %
(39.0-52.0)
RDW 15.4 H %
(11.5-14.5)
Plt Count 811 H D 10^3/uL
(130-400)
Abs Immat Gran (auto) 0.7 H 10^3/uL
(0-0.05)
Absolute Neuts (auto) 42.2 H 10^3/uL
(1.4-6.5)
Absolute Monos (auto) 2.7 H 10^3/uL
(0.1-0.6)
Absolute Basos (auto) 0.4 H 10^3/uL
(0-0.2)
Immature Gran % 1.4 H %
(0-0.5)
Neutrophils % 88.5 H %
(42.2-75.2)
Lymphocytes % 3.5 L %
(20.5-51.1)
Glucose 152 H mg/dl
(70-99)
Lactic Acid 2.4 H mmol/L
(0.7-2.0)
Calcium 8.3 L mg/dl
(8.4-10.2)
Alkaline Phosphatase 219 H U/L
(38-126)
Total Protein 5.5 L g/dl
(6.3-8.2)
Albumin 2.8 L g/dl
(3.5-5.0)
Ur Occult Blood Reflex 4+ A
(Negative)
Leukocyte Esterase Rfl 3+ A
(Negative)
Urine Albumin (Reflex) 2+ A
(Neg - Trace)
06/19/25 14:54
06/19/25 14:54
Vital Signs
Initial and Last Documented VS:
Initial Vital Signs
Temp Pulse Resp BP Pulse Ox
38.2 C H 141 16 91/41 100
06/19/25 14:17 06/19/25 14:17 06/19/25 14:17 06/19/25 14:17 06/19/25 14:17
Last Documented Vital Signs
Temp Pulse Resp BP Pulse Ox
38.2 C H 124 27 80/47 93
06/19/25 14:17 06/19/25 15:08 06/19/25 15:08 06/19/25 15:08 06/19/25 15:24
MDM/Problems Addressed
Differential Diagnosis Includes:
UTI, viral syndrome, pneumonia
MDM/Problems Addressed:
74-year-old male with history as noted presents to the ER for evaluation of increased lethargy, noted to be febrile on arrival here. He arrives hypotensive, tachycardic, mildly tachypneic and febrile. Physical exam as above. Established
large-bore IV access labs sent off including a CBC and a CMP, lactate and blood cultures. Will change Dickinson catheter and send urinalysis and culture. Swab for COVID and flu. Will check chest x-ray. With recent fall and increased lethargy today
we will repeat CT head to ensure no delayed traumatic sequela. Will provide IV fluid resuscitation. Empiric antibiotics for suspected urosepsis. Will plan for admission pending initial evaluation and resuscitation.
Labs and imaging reviewed: CBC shows marked leukocytosis to 47.7, stable anemia; thrombocytosis with platelet count 811�I suspect these abnormalities are at least in part due to hypovolemia although I suspect sepsis underlying as well. Continue
fluid resuscitation. Already ordered for broad-spectrum antibiotic coverage. Chemistry shows no significant electrolyte derangements. Lactate is mildly elevated at 2.4. Urinalysis cloudy with positive leukocyte esterase and positive
blood�microscopic analysis pending but suspect that this is likely source of sepsis. COVID and flu is negative, chest x-ray no acute pneumonia on my independent review. CT head shows no acute changes. Clinical reassessment patient's blood
pressure is improving with fluids. At this point we will admit for continued management�discussed case with hospitalist for admission.
Chronic conditions affecting care:
Dementia
*Pulse Oximetry
SaO2: 93
Oxygen Mode of Delivery: Room air
Patient hypoxic: no (93%)
*EKG
Interpreted by ED Provider?: Yes
Heart Rate: 129
Rate: tachycardiac
Rhythm: sinus and sinus tachycardia
[place]: normal axis
Interval: normal interval
QRS Pattern: normal QRS
Ischemia: no ischemia
*Critical Care Note
Total Time (30-74mins, 75-104mins- exclusive of procedures): 33
comment:
Critical care statement: A total of 33 minutes of critical care time was provided for this patient. This includes management of unstable vital signs, evaluation of the patient at bedside, frequent reassessment, discussion with
consultants/hospitalist, and review of pertinent medical records. This time was separate from time utilized to perform any aforementioned documented procedures
Data Reviewed
Review of Other/Old Records Reveals: Labs, Records and Radiology Studies
Source: patient, records and spouse
Patient Management
Discussion with other providers: Hospitalist (Discussed with hospitalist)
Escalation/DeEscalation of care consider admission/obs:
Admission indicated
ED Attending Note
-
Portions of this chart may have been created with voice recognition software.� Occasional wrong word or��sound alike� substitutions may have occurred due to the inherent limitations of voice recognition software.
Discharge Plan
Departure
Patient Disposition: Admit
Date of Disposition: 06/19/25
Time of Disposition: 16:04
Admit to doctor: Adams
Presentation/result/management discussed w/ accepting MD/DO: Hospitalist
Discharge Problem:
Sepsis, Acute UTI
Prescriptions:
No Action
metoprolol succinate 25 mg Tablet Extended Release 24 Hr
12.5 mg PO DAILY Qty: 30 11RF
insulin aspart U-100 [Novolog FlexPen U-100 Insulin] 100 unit/mL (3 mL) Insulin Pen
2 unit SC AC Qty: 5 0RF
olanzapine 2.5 mg Tablet
2.5 mg PO HS Qty: 30 0RF
escitalopram oxalate 5 mg Tablet
5 mg PO DAILY Qty: 30 0RF
insulin glargine [Lantus Solostar U-100 Insulin] 100 unit/mL (3 mL) insulin pen
8 unit SC HS
ibuprofen [Advil] 200 mg Tablet
200 mg PO Q6HPRN PRN (Reason: mild pain)
furosemide [Lasix] 20 mg Tablet
20 mg PO DAILY@1200
Eliquis 5 mg Tablet
5 mg PO BID
Centrum MultiGummies 80 mcg Tablet,Chewable
1 tab PO DAILY
Referrals:
Bandar Culp MD [Family Provider]
Interventions
Interventions:
*Risk Screen - Suicide Last Done: 06/19/25 14:17
*General Assessment Last Done: 06/19/25 14:17
*Neglect/Abuse Screening Last Done: 06/19/25 14:17
*ED- Fall Risk Assessment Last Done: 06/19/25 15:18
*ED COVID-19 Vaccine History Last Done: 06/19/25 14:17
ED- Pulmonary Assessment Last Done: 06/19/25 15:14
ED- Neurological Assessment Last Done: 06/19/25 15:15
Discharge Date and Time
Print Language: FRISIAN
[2025-06-19 15:22] LABS: ALT (SGPT) 20 U/L (0-50); AST (SGOT) 24 U/L (17-59); Albumin 2.8 g/dl (3.5-5.0); Alkaline Phosphatase 219 U/L (38-126); Blood Urea Nitrogen 16 mg/dl (9-20); Calcium 8.3 mg/dl (8.4-10.2); Carbon Dioxide 25 mmol/L (22-30); Chloride 104 mmol/L (98-107); Estimated Creatinine Clearance 80 ml/min; Glucose 152 mg/dl (70-99); Potassium 4.1 mmol/L (3.5-5.1); Sodium 136 mmol/L (135-145); Total Protein 5.5 g/dl (6.3-8.2); eGFR > 60.00
[2025-06-19 15:45] LABS: Hematocrit 28.8 % (39.0-52.0); Hemoglobin 9.5 g/dL (13.0-18.0); Mean Corp Hgb Conc. 33.0 g/dL (33.0-37.0); Mean Corpuscular Volume 82.5 fL (80.0-94.0); Nucleated Red Blood Cells % 0 % (-); Platelet Count 811 10^3/uL (130-400); Red Cell Dist. Width 15.4 % (11.5-14.5)
[2025-06-19 15:53] LABS: Urine Character Cloudy (Clear)
[2025-06-19 15:57] LABS: COVID-19 Antigen Negative (Negative)
[2025-06-19] MEDS: ZOSYN 50 IV ×2 (16:07→21:45)
[2025-06-19 16:13] LABS: Urine Squamous Cell 0-2 /LPF (Few)
[2025-06-19 16:14] LABS: Urine Red Blood Cell 70-80 /HPF (0-2); Urine White Cell 30-40 /HPF (0-5)
--- NOTE | 2025-06-19 16:56 | HPS.HSE ---
Family Physician
-
Family Physician: Bandar Culp
Chief Complaint
-
Change in mental status and weakness
History of Present Illness
As 74-year-old male with past medical history of insulin-dependent diabetes mellitus, BPH, chronic urinary retention with chronic Dickinson, atrial fibrillation on Eliquis, dementia came to the hospital with family with lethargy, weakness and chills.
While patient was in the ER he also had a fever. Also has elevated white count concerning for sepsis. Start patient was recently here with Klebsiella and MSSA bacteremia. Per spouse at bedside, patient was fine after last hospitalization until
yesterday he started having some confusion along with lethargy. This morning he started having chills. His Dickinson catheter was changed in the ED. UA suggestive of possible infection. Currently he denies any nausea, vomiting. Per spouse he did
had loose stool this morning. Denies any shortness of breath.
Medical History
Past Medical History
Past Medical History: Reports Arrhythmia (atrial fibrillation), IDDM and Other (Chronic urinary retention)
Past Surgical History: Reports Other (hernia repair)
Social History
Unable to obtain full social history at this time due to: Dementia
Tobacco: Non-smoker
Alcohol: None
Family History
Family History: Not pertinent
Allergies / Home Medications
Allergies reflects when Allergies were last updated in [facility].
Home Medications with original date entered in [facility]
Allergy/Medication List:
Allergies
Allergy/AdvReac Type Severity Reaction Status Date / Time
No Known Allergies Allergy Verified 06/10/25 03:47
Home Medications
metoprolol succinate 25 mg tablet,extended release 24 hr 12.5 mg (1/2 x 25 mg) PO DAILY Arrhythmia #30 tabs 05/21/25
insulin aspart U-100 100 unit/mL (3 mL) subcutaneous pen (Novolog FlexPen U-100 Insulin aspart) 2 unit (0.02 mL) SC AC Diabetes #5 ea 05/26/25
escitalopram oxalate 5 mg tablet 5 mg PO DAILY #30 tabs 05/27/25
olanzapine 2.5 mg tablet 2.5 mg PO HS #30 tabs 05/27/25
insulin glargine 100 unit/mL (3 mL) subcutaneous pen (Lantus Solostar U-100 Insulin) 8 unit SC HS Diabetes 05/28/25
ibuprofen 200 mg tablet (Advil) 200 mg PO Q6HPRN PRN mild pain 06/10/25
apixaban 5 mg tablet (Eliquis) 5 mg PO BID 06/19/25
furosemide 20 mg tablet (Lasix) 20 mg PO DAILY@1200 06/19/25
multivitamin with minerals-folic acid 80 mcg chewable tablet 1 tab PO DAILY 06/19/25
Review of Systems
-
History Source: Patient
A 12 point ROS was completed and negative except as noted: Yes
Constitutional: Reports Fatigue and Chills
Physical Exam
Vital Signs
Vital Signs
Temp Pulse Resp BP Pulse Ox
100.8 F H 117 14 132/70 100
06/19/25 14:17 06/19/25 16:00 06/19/25 15:32 06/19/25 16:00 06/19/25 16:13
Physical Exam
General: Well Developed and Appears Chronically Ill
HEENT: Anicteric and Moist mucous membranes
Respiratory: Clear and Non Labored Respirations; No Wheezes
Cardiac: S1/S2, Regular Rhythm and Tachycardia
Breast: Deferred by me
GI: Soft, Non Tender, Non Distended and Normal Bowel Sounds
Genito-urinary: Dickinson
Musculoskeletal: Edema, Left Lower Extremity and Edema, Right Lower Extremity
Neuro: Awake
Psych: Calm and Apparent Dementia
Laboratory Results
-
06/19/25 14:54
06/19/25 14:54
Laboratory Results
Lactic Acid 2.4 mmol/L (0.7-2.0) H 06/19/25 14:54
Total Bilirubin 0.8 mg/dl (0.2-1.3) 06/19/25 14:54
AST 24 U/L (17-59) 06/19/25 14:54
ALT 20 U/L (0-50) 06/19/25 14:54
Alkaline Phosphatase 219 U/L (38-126) H 06/19/25 14:54
Data Reviewed
-
Diagnostic Radiology: Report Reviewed by me and Discussed with Family
Lab Data: Labs Reviewed by me, Discussed with Patient and Discussed with Family
Impression/Plan
-
Severe sepsis likely secondary to complicated catheter related UTI
Recent history of Klebsiella and MSSA bacteremia
Dickinson exchanged in the ED, UA suggestive of UTI
Start vancomycin and Zosyn and de-escalate as necessary
Chest x-ray with limited study questionable opacity, will continue to monitor. Speech evaluation
Until seen by speech, dysphagia diet
ID evaluation
Continue with IV fluids, responded to fluids in the ED
Given complaint of loose stool today, will check stool studies to rule out C. difficile given recent antibiotics and hospitalization
Lactic acidosis
Continue with fluids, trend lactic
paroxysmal atrial fibrillation
Hold metoprolol currently given hypotension
Continue Eliquis
Chronic lower extremity swelling
On daily Lasix which is on hold given hypotension
Chronic urinary retention with chronic Dickinson catheter
Follows up with Dr. Doran outpatient
Anemia, suspect secondary to acute on chronic blood loss from recent hematuria hospitalization
Hemoglobin slowly trickling down, monitor
check iron panel,b12,folate
Dementia with intermittent behavioral changes
Continue ertapenem, olanzapine nightly
DVT prophylaxis
Eliquis
Full code, discussed on this admission
I spent a total of 78 minutes with the patient or on the floor. More than 50% of this time involved counseling and coordination of care.
--- NOTE | 2025-06-19 17:27 | PHA.VAN.IN ---
Assessment
- Assessment
Renal Function: Appears similar to baseline (06/14/25 SCR = 0.7)
Concomitant Antimicrobials: ZOSYN
- Previous Dosing Experience
Previous Regimen: SINGLE DOSE ONLY
AUC Dosing Plan
- Dosing Variables
Dosing Weight (kg): 67
Dosing CrCl (ml/min): 80
Vd coefficient (L/kg): 0.7
- Empiric Dosing
Initial / Loading Dose: 1500MG
Maintenance Regimen: 750MG IV Q12H
Estimated AUC (mcg*h/mL): 465
Estimated Peak (mcg*h/mL): 27.8
Estimated Trough (mcg/ml): 12.7
Estimated Half Life (H): 9.8
Pharmacokinetics Vancomycin I
- -
Patient Age: 74
Patient Sex: Male
Vancomycin Day #: 1
Indication: Bacteremia
Requesting Provider: SANTI
Height / Weight:
Height 5 ft 8 in
Actual Weight 67.4 kg
Pertinent Past Medical History: IDDM
- Vital Signs / Lab Results
Temp Pulse Resp BP Pulse Ox
100.8 F H 117 14 132/70 100
06/19/25 14:17 06/19/25 16:00 06/19/25 15:32 06/19/25 16:00 06/19/25 16:13
Lab Results - Hematology
06/19/25
14:54
WBC 47.7 H*
Lab Results - Chemistry
06/19/25
14:54
BUN 16
Creatinine 0.8
Estimated Creat Clear 80
Albumin 2.8 L
06/19/25
14:54
Lactic Acid 2.4 H
Lab Results - Urine
06/19/25
15:30
Urine Nitrite (Reflex) Negative
Leukocyte Esterase Rfl 3+ A
Urine WBC (Reflex) 30-40 A
Ur Squamous Epith Cells 0-2
Urine Bacteria (Reflex) Moderate A
Microbiology Results
06/19/25 15:30 Influenza Types A & B (TROY) - Final
Nasal Swab Negative for Influenza A & B, NAAT
Negative results must be combined with clinical observations
and patient history.
Nucleic Acid Amplification test (NAAT)performed on the
[employer] platform.
--- NOTE | 2025-06-19 17:41 | CM ---
CM reviewed chart and met with pt's bedside in ED.
Pt lives with in 2 story home, 1 [address], pt has first floor set up, bed with rails, half BA, pt has zarate catheter.
Needs assistance with ADLs and personal care, ambulates with wheeled walker, has transport chair.
Does have small sacral wound. Current with [facility] for RN/PT/OT.
Has had significant decline over past few months. states he tries to get up at night so she is sleeping on the floor next to him. She is tearful and overwhelmed with his care. Verbal support provided.
PCP: Bandar Culp
Pharmacy: [facility]
CM will continue to follow for all discharge planning needs.
[2025-06-19] MEDS: VANCOCIN 530 MG IV (17:55)
[2025-06-19] MEDS: TYLENOL 650 MG PO ×2 (18:09→22:09)
[2025-06-19 18:12] LABS: Total Iron Binding Capacity 177 ug/dl (261-462)
[2025-06-19 18:13] LABS: Iron 20 ug/dl (49-181)
[2025-06-19 18:39] LABS: Ferritin 888.0 ng/ml (17.9-464.0)
[2025-06-19 19:11] LABS: Folate 8.8 ng/ml (2.76-20); Vitamin B12 522 pg/ml (239-931)
[2025-06-19] MEDS: NSS 500 IV (19:39)
[2025-06-19 21:28] LABS: Glucose - Point of Care 238 mg/dl (70-99)
[2025-06-19] MEDS: ZYPREXA 5 MG PO (21:44)
[2025-06-19] MEDS: ELIQUIS 5 MG PO (21:44)
[2025-06-19] MEDS: LANTUS 0.08 UNITS SC (21:45)
[2025-06-20] VITALS (8 sets, daily range): BP systolic 92–145; BP diastolic 60–85; BMI 23.0
[2025-06-20] MEDS: ZOSYN 50 IV ×2 (03:17→08:41)
[2025-06-20] MEDS: VANCOCIN 150 IV (06:13)
[2025-06-20 08:36] LABS: Glucose - Point of Care 145 mg/dl (70-99)
[2025-06-20] MEDS: NOVOLOG FLEXPEN 2 UNITS SC ×2 (08:38→18:52)
[2025-06-20] MEDS: NOVOLOG FLEXPEN-LOW RESISTANCE SC ×3 (08:39→17:49)
[2025-06-20] MEDS: LEXAPRO 5 MG PO (08:40)
[2025-06-20] MEDS: ELIQUIS 5 MG PO ×2 (08:40→21:43)
[2025-06-20 09:22] LABS: Hematocrit 22.8 % (39.0-52.0); Hemoglobin 7.3 g/dL (13.0-18.0); Mean Corp Hgb Conc. 32.0 g/dL (33.0-37.0); Mean Corpuscular Volume 84.1 fL (80.0-94.0); Platelet Count 589 10^3/uL (130-400); Red Cell Dist. Width 15.2 % (11.5-14.5)
[2025-06-20 09:34] LABS: Glycohemoglobin (HgbA1c) 9.9 % (4.0-5.6)
--- NOTE | 2025-06-20 09:37 | VNURNOTE ---
Chart reviewed.� Patient is current with [facility] [place] [facility].� Will continue to follow hospital course and DC plans.
[2025-06-20 09:41] LABS: Nucleated Red Blood Cells % 0 % (-)
[2025-06-20 09:49] LABS: ALT (SGPT) 12 U/L (0-50); AST (SGOT) 13 U/L (17-59); Albumin 2.0 g/dl (3.5-5.0); Alkaline Phosphatase 143 U/L (38-126); Blood Urea Nitrogen 15 mg/dl (9-20); Calcium 7.3 mg/dl (8.4-10.2); Carbon Dioxide 23 mmol/L (22-30); Chloride 108 mmol/L (98-107); Estimated Creatinine Clearance 81 ml/min; Glucose 124 mg/dl (70-99); Potassium 3.6 mmol/L (3.5-5.1); Sodium 135 mmol/L (135-145); Total Protein 4.2 g/dl (6.3-8.2); eGFR > 60.00
[2025-06-20 11:47] LABS: Hepatitis C Antibody Negative (Negative)
[2025-06-20] MEDS: NSS 1000 IV (11:56)
--- NOTE | 2025-06-20 12:01 | PTOTSP ---
ST Acute Care Evaluation
Pt currently presents with clinical signs of mild oral dysphagia as evidenced by prolonged mastication and bolus formation with hard dry solids, reduced bolus formation with diffuse oral residue that requires multiple liquid washes to clear, and
reduced oral awareness. Pharyngeal and esophageal phases appear WFL at bedside - no overt s/s of penetration or aspiration noted at bedside. Please note that silent aspiration cannot be ruled out at bedside.
Pt is at an elevated risk for aspiration given his disorientation, reduced insight into deficits, reduced judgment, agitation, insistence on eating/drinking lying down, and difficulty with following guidelines provided by others.
Recommendations:
- Soft bite sized solids, thin liquids, meds whole in puree.
- Aspiration precautions: HOB must be raised during all PO intake - NO EXCEPTIONS; encourage pt to eat/drink slowly; small bite/sips - encourage pt to finish his bite before he takes a new bite.
- AUTOMOTIVE MACHINIST APPRENTICE team to f/u re: diet tolerance to ensure he is tolerating the recommended diet consistencies with the recommended aspiration precautions without evidence of aspiration and to determine if pt would benefit from an instrumental swallow study.
[2025-06-20 12:10] LABS: Glucose - Point of Care 115 mg/dl (70-99)
--- NOTE | 2025-06-20 12:27 | WOUNDNOTE ---
WO RN note: Patient admitted with weakness/sepsis
See H&P for complete history.
PMH: IDDM, dementia, afib, chronic zarate
Wound Location and type/assessment: Patient admitted with: unstageable PI to sacral/coccyx. Wound is surrounded by blanchable red skin which is likely caused by moisture. Patient now with C-diff and frequent BM's. Please see worklist for
measurement and description of wound. Patient also with MASD of groin and stage 1 boggy heels.
Appetite: Likely poor intake, soft bite solids with aspiration precautions.
Pressure redistribution devices in place: Versa Care Air, patient can turn in bed. Heels off-loaded with pillows under calves. Turning schedule added to care plan due to sacral wound.
Plan: Santyl to sacral wound, cover with transparent dressing. Desenex powder to fungal appearing skin on buttocks and groin. Adhesive foam to heels. Patient has several comorbidities including IDDM and C-diff. Wounds may worsen and new wounds may
develop even with optimal care. Will confirm orders with hospitalist and update nurse.
Updated care plan and will follow as needed.
Note to case management of equipment requested for discharge: Patient will require air bed or air overlay upon discharge.
Recommend follow up at wound care center upon discharge.
[2025-06-20] MEDS: FIRVANQ PO (12:46)
[2025-06-20] MEDS: FIRVANQ 125 MG PO (12:46)
[2025-06-20] MEDS: NOVOLOG FLEXPEN SC (12:49)
--- NOTE | 2025-06-20 12:56 | W.PN.HOSP.TC ---
Today's Communication/Plan
-
Monitor vital signs see plan
Repeat H&H later today and transfuse if necessary
Heme stool
Start oral vancomycin
ID to evaluate today
Discussed with spouse
Continue with fluids
Monitor leukocytosis
Assessment / Plan
Assessment / Plan
General: Well Developed and Appears Chronically Ill
HEENT: Anicteric and Moist mucous membranes
Respiratory: Clear and Non Labored Respirations; No Wheezes
Cardiac: S1/S2, Regular Rhythm and Tachycardia
Breast: Deferred by me
GI: Soft, Non Tender, Non Distended and Normal Bowel Sounds
Genito-urinary: Dickinson
Musculoskeletal: Edema, Left Lower Extremity and Edema, Right Lower Extremity
Neuro: Awake
Psych: Calm and Apparent Dementia
Severe sepsis secondary to C. difficile
Recent history of Klebsiella and MSSA bacteremia
Dickinson exchanged in the ED, UA suggestive of UTI, urine culture without any growth. Now that we have source for patient sepsis which is likely C. difficile will discontinue further antibiotics
ID to evaluate
Chest x-ray with limited study questionable opacity, will continue to monitor. Speech following.
ID evaluation
Continue with IV fluids, responded to fluids in the ED
Blood culture pending
Lactic acidosis
Continue with fluids, trend lactic
paroxysmal atrial fibrillation
Hold metoprolol currently given hypotension
Continue Eliquis
Chronic lower extremity swelling
On daily Lasix which is on hold given hypotension
Chronic urinary retention with chronic Dickinson catheter
Dickinson exchanged 06/19
Follows up with Dr. Doran outpatient
Anemia, suspect secondary to acute on chronic blood loss from recent hematuria hospitalization
Drop in hemoglobin noted, appears some is hemodilution
Continue to monitor
Blood transfusion consented and in chart. Repeat H&H later today and transfuse hemoglobin less than 7 . Check heme test stool
Has good iron stores, monitor
Diabetes mellitus
a1c 9.9; accuchecks. cw insulin
Dementia with intermittent behavioral changes
Continue SSRI, olanzapine nightly
Will need to follow-up with neurology outpatient
DVT prophylaxis
Eliquis
Full code, discussed on this admission
I spent a total of 54 minutes with the patient or on the floor. More than 50% of this time involved counseling and coordination of care.
Anticipated Discharge: > 48 hours
Subjective/Interval History
-
Date of Service: June 20, 2025
denies pain
Objective Data
-
Labs:
Laboratory Results
06/20/25
08:54
WBC 38.1 H
Hgb 7.3 L D
Hct 22.8 L
Plt Count 589 H D
Sodium 135
Potassium 3.6
Chloride 108 H
Carbon Dioxide 23
BUN 15
Creatinine 0.8
Glucose 124 H
Calcium 7.3 L
Total Bilirubin 0.7
AST 13 L
ALT 12
Alkaline Phosphatase 143 H
Vital Signs:
Vital Signs
Temp Pulse Resp BP Pulse Ox
98.2 F 100 20 128/69 98
06/20/25 11:00 06/20/25 11:00 06/20/25 11:00 06/20/25 11:00 06/20/25 11:00
I&O
06/19/25 06/20/25 06/21/25
06:59 06:59 06:59
Intake Total 1480 / 1480
Output Total 1200 / 1200
Balance 280 / 280
--- NOTE | 2025-06-20 13:26 | CON.ID ---
Consultation
-
Date/Time Consultation Requested: 06/19/2025 1655
Date/Time Consultation Performed: 06/20/2025 1315
Requesting Provider: Dr. Alonso
Performing Provider: Dr. Foss
Reason for Consultation: Leukocytosis
Chief Complaint / Past History
History of Present Illness
Anthony Wright is a 74-year-old man with a significant past medical history of diabetes and urinary retention with chronic Dickinson catheter being evaluated at the request of Dr. Alonso in regards to leukocytosis. History is obtained from chart review,
along with patient interview.
The patient is known to the Infectious Diseases service, having been seen while admitted in early May. During that admission he was assessed for obstructive uropathy and found to be bacteremic with Klebsiella oxytoca and MSSA. He ultimately was
discharged on ciprofloxacin, and also on daptomycin to continue through 06/06/2025 (to complete a 2-week course of antibiotics.).
And reviewed notes, he was seen in the ER on 06/10 secondary to urinary trauma after he inadvertently pulled on his Dickinson catheter. This resulted in hematuria, but he was discharged directly from the ER. He was again seen in the ER on 06/14
secondary to sustaining several falls overnight. He was again discharged to home.
He presents back to the ER on 06/19 secondary to progressive lethargy and generalized weakness over the prior 24 hours. Weakness progressed to the point where he found it difficult to even stand and home physical therapy could not work with him.
In the ER, he was found to have marked leukocytosis. C. difficile testing has been found to be positive. The patient reports that he has had diarrhea over the past week or so. He denies any pain. He denies any fevers or chills.
Past History
Additional Past Medical History:
HLD
DM
BPH
Urinary retention
Additional Past Surgical History:
Hernia repair (1989)
Allergy History:
No Known Allergies Allergy (Verified 06/10/25 03:47)
Medications Reviewed: Yes
Current Antibiotics:
Vancomycin 125 mg p.o. q.6 hours
Social History
Tobacco: Non-Smoker
Alcohol: None
Drug: None
Personal:
Living: With Family
Employment: Retired
Family History
Family History: Not Pertinent
Review of Systems
Vital Signs
Temp Pulse Resp BP Pulse Ox
98.2 F 100 20 128/69 98
06/20/25 11:00 06/20/25 11:00 06/20/25 11:00 06/20/25 11:00 06/20/25 11:00
Physical Exam
Physical Exam
Constitutional: Comfortable, Chronically Ill and Non-toxic
Eyes: No Conjunctival Hemorrhage and Sclera Anicteric
Oral: No Thrush and No Ulcers
Cardiovascular: S1/S2; Negative S3/S4
Pulmonary: Clear; Negative Wheezes, Rales or Rhonchi
Gastrointestinal: Soft, Non Tender, Non Distended, Normal Bowel Sounds, No Rebound and No Guarding
Genito-Urinary: Dickinson and Clear Urine; Negative Turbid Urine or Hematuria
Extremities: Negative Edema, Cyanosis or Erythema
Neurological: Awake and Alert
Psychological: Calm
Lab / Diagnostic Study Results
06/20/25 08:54
Abs Immat Gran (auto) 0.6 10^3/uL (0-0.05) H 06/20/25 08:54
Absolute Neuts (auto) 32.6 10^3/uL (1.4-6.5) H 06/20/25 08:54
Absolute Lymphs (auto) 2.1 10^3/uL (1.2-3.4) 06/20/25 08:54
Absolute Monos (auto) 2.3 10^3/uL (0.1-0.6) H 06/20/25 08:54
Absolute Basos (auto) 0.3 10^3/uL (0-0.2) H 06/20/25 08:54
Immature Gran % 1.6 % (0-0.5) H 06/20/25 08:54
Neutrophils % 85.7 % (42.2-75.2) H 06/20/25 08:54
Lymphocytes % 5.6 % (20.5-51.1) L 06/20/25 08:54
Monocytes % 6.1 % (1.7-9.3) 06/20/25 08:54
Eosinophils % 0.2 % (0-6) 06/20/25 08:54
Basophils % 0.8 % (0-2) 06/20/25 08:54
Lactic Acid 1.2 mmol/L (0.7-2.0) 06/19/25 19:20
Ur Squamous Epith Cells 0-2 /LPF (Few) 06/19/25 15:30
Microbiology Results
Micro:
06/19/25 17:37 Salmonella/Shigella Culture - Pending
Feces/Stool Campylobacter Culture - Pending
Shiga Toxin Test - Pending
Stool Leukocytes - Final
06/19/25 15:30 Urine Culture - Final
Urine NO GROWTH
06/19/25 17:37 C. difficile GDH Antigen & Toxins - Final
Feces/Stool Toxigenic C.difficile Positive
06/19/25 22:11 MRSA Screen - Pending
Nose
06/19/25 17:12 Blood Culture - Pending
Blood/Venous
06/19/25 15:30 Influenza Types A & B (TROY) - Final
Nasal Swab Negative for Influenza A & B, NAAT
Negative results must be combined with clinical observations
and patient history.
Nucleic Acid Amplification test (NAAT)performed on the
[employer] platform.
06/19/25 14:54 Blood Culture - Pending
Blood/Venous
Assessment / Plan
Leukocytosis
C. difficile colitis
Generalized weakness
Thrombocytosis; reactive
HLD
DM (uncontrolled; HbA1c= 9.9)
BPH
Urinary retention with chronic Dickinson catheter
Recommendations:
Continue with enteral Vanco but increase to 500 mg p.o. q.6 hours for now.
Trend white count. If improvement noted, can decrease back down to 125 mg p.o. q.6 hours.
Would treat for a full 14-day course.
Follow blood cultures.
Monitor white count and temperature curve.
Follow stool output and consistency.
[2025-06-20 14:09] LABS: Hematocrit 22.1 % (39.0-52.0); Hemoglobin 7.3 g/dL (13.0-18.0)
--- NOTE | 2025-06-20 14:38 | PN.CDI ---
CDI
- -
CDI:
Physician Documentation Request
Admit Date: 06/19/25 17:05
Dear Doctor Gavin,
Clinical Indicators:
Patient admitted with severe sepsis, due to c diff colitis.
06/19 ED report, 'She says that over the past 24 hours patient has been increasingly lethargic and weak. Difficulty standing due to severe generalized weakness today... As the day went on he continued to be lethargic which prompted ER visit.'
06/19H & P, 'Dementia with intermittent behavioral changes'
Based on the above, could you clarify which, if any of the following, is the most likely etiology of the confusion/altered mental status.
Acute Metabolic Encephalopathy due to sepsis
Baseline Dementia with lethargy/weakness only -
Other, please specify
Use of terms such as suspected, likely, concern for, or probable (associated with a specific diagnosis that is being evaluated, monitored, or treated as if it exists) are acceptable and can be coded in the inpatient setting, when documented at the
time of discharge.
Thank you,
WENDY Blanc RN
CDI Specialist
available via tiger text
Please use your independent medical judgment in providing your response.
--- NOTE | 2025-06-20 14:47 | PN.CDI ---
CDI
- -
CDI:
Physician Documentation Request
Admit Date: 06/19/25 17:05
Dear Doctor Gavin,
Clinical Indicators:
Patient admitted with severe sepsis.
06/20 WO RN skin/wound assessment: Sacrum Unstageable Pressure Injury, POA
Bilateral Heels Stage 1 Pressure Injury, POA
Treatment: Sacrum-Santyl, transparent dressing
Heels- adhesive foam dressings
Physician documentation of the type and location of wounds is required for compliant documentation. Based on the above clinical findings and your assessment, please provide the following in your progress note:
1. Location of the ulcer/wound, including laterality.
2. Type (etiology) of ulcer/wound:
- Pressure (decubitus) ulcer
- Other, please specify
3. If a pressure ulcer, please also include the stage* of the ulcer:
- Stage 1 - Skin intact, non-blanchable redness
- Stage 2 - Partial thickness loss of dermis, includes intact or open blister
- Stage 3 - Full thickness tissue not including bone, tendon or muscle
- Stage 4 - Full thickness tissue loss, including exposed bone, tendon or muscle
- Unstageable - Full thickness loss in which the base of the ulcer is covered by slough (yellow, tompkins, bradshaw, green or brown) and/or eschar (tompkins, brown or black) in the wound bed.
- Unable to determine
Use of terms such as suspected, likely, concern for, or probable (associated with a specific diagnosis that is being evaluated, monitored, or treated as if it exists) are acceptable and can be coded in the inpatient setting, when documented at the
time of discharge.
Thank you,
WENDY Blanc RN
CDI Specialist
available via tiger text
Please use your independent medical judgment in providing your response.
*Source: National Pressure Ulcer Advisory Panel (NPUAP)
--- NOTE | 2025-06-20 16:07 | CM ---
CM reviewed chart, patient seen asleep bedside. CM spoke with patients , Cyndi, to discuss therapy recommendations of SNF. agreeable, reports patient has been declining at home and she cannot manage him at his current level, will need
rehab prior to returning home. requesting referrals to [facility]], [facility], [facility], and [facility]. Patient will need insurance auth once accepting facility found. CM will continue to follow for all discharge planning needs.
Plan; SNF pending accepting facility
[2025-06-20 16:54] LABS: Glucose - Point of Care 108 mg/dl (70-99)
[2025-06-20] MEDS: SANTYL OINTMENT 1 APPLIC TOPICAL (17:22)
[2025-06-20] MEDS: FIRVANQ 500 MG PO ×2 (17:52→23:08)
[2025-06-20 21:08] LABS: Glucose - Point of Care 109 mg/dl (70-99)
[2025-06-20] MEDS: LANTUS 0.08 UNITS SC (21:43)
[2025-06-20] MEDS: ZYPREXA 5 MG PO (21:43)
[2025-06-21] MEDS: TYLENOL 650 MG PO ×2 (01:39→20:47)
[2025-06-21 03:01] LABS: Hematocrit 23.5 % (39.0-52.0); Hemoglobin 7.8 g/dL (13.0-18.0); Mean Corp Hgb Conc. 33.2 g/dL (33.0-37.0); Mean Corpuscular Volume 81.6 fL (80.0-94.0); Platelet Count 624 10^3/uL (130-400); Red Cell Dist. Width 15.2 % (11.5-14.5)
[2025-06-21] MEDS: NSS 1000 IV ×2 (03:11→17:24)
[2025-06-21 03:12] LABS: ALT (SGPT) 12 U/L (0-50); AST (SGOT) 13 U/L (17-59); Albumin 2.0 g/dl (3.5-5.0); Alkaline Phosphatase 136 U/L (38-126); Blood Urea Nitrogen 14 mg/dl (9-20); Calcium 7.4 mg/dl (8.4-10.2); Carbon Dioxide 22 mmol/L (22-30); Chloride 110 mmol/L (98-107); Estimated Creatinine Clearance 92 ml/min; Glucose 103 mg/dl (70-99); Magnesium 1.7 mg/dl (1.6-2.3); Potassium 3.0 mmol/L (3.5-5.1); Sodium 134 mmol/L (135-145); Total Protein 4.2 g/dl (6.3-8.2); eGFR > 60.00
[2025-06-21] MEDS: KCL 270 MEQ IV ×2 (03:52→12:26)
[2025-06-21 04:37] VITALS: BMI 22.9
[2025-06-21 04:42] VITALS: BP 108/62
[2025-06-21 05:52] LABS: Absolute Neutrophils -Man Diff 39.0 10^3/uL (1.4-6.5); Anisocytosis 1+; Normal RBC Morphology No; Platelets Checked Yes; Total Cells Counted 100
[2025-06-21] MEDS: FIRVANQ 500 MG PO ×2 (06:00→12:34)
[2025-06-21 07:00] VITALS: BP 113/72
[2025-06-21 08:16] LABS: Glucose - Point of Care 60 mg/dl (70-99)
[2025-06-21 08:37] LABS: Glucose - Point of Care 70 mg/dl (70-99)
[2025-06-21] MEDS: MAGNESIUM SULFATE 100 IV (09:40)
[2025-06-21] MEDS: NOVOLOG FLEXPEN SC (09:42)
[2025-06-21] MEDS: ELIQUIS 5 MG PO ×2 (09:43→20:47)
[2025-06-21] MEDS: NOVOLOG FLEXPEN-LOW RESISTANCE SC ×3 (09:43→17:26)
[2025-06-21] MEDS: SANTYL OINTMENT 1 APPLIC TOPICAL (09:44)
[2025-06-21] MEDS: LEXAPRO 5 MG PO (09:44)
[2025-06-21 11:00] VITALS: BP 105/62
[2025-06-21 12:32] LABS: Glucose - Point of Care 122 mg/dl (70-99)
--- NOTE | 2025-06-21 12:53 | W.PN.HOSP.TC ---
Today's Communication/Plan
-
Monitor vital signs
see plan
Monitor leukocytosis
Continue with oral vancomycin
Maintain Dickinson
Monitor mental status
Assessment / Plan
Assessment / Plan
General: Well Developed and Appears Chronically Ill
HEENT: Anicteric and Moist mucous membranes
Respiratory: Clear and Non Labored Respirations; No Wheezes
Cardiac: S1/S2, Regular Rhythm and Tachycardia
Breast: Deferred by me
GI: Soft, Non Tender, Non Distended and Normal Bowel Sounds
Genito-urinary: Dickinson
Musculoskeletal: Edema, Left Lower Extremity and Edema, Right Lower Extremity
Neuro: Awake
Psych: Calm
Severe sepsis secondary to C. difficile
Recent history of Klebsiella and MSSA bacteremia
Dickinson exchanged in the ED, UA suggestive of UTI, urine culture without any growth. Now that we have source for patient sepsis which is likely C. difficile will discontinue further antibiotics
ID following
Chest x-ray with limited study questionable opacity, will continue to monitor. Speech following.
ID following, increased vancomycin to 500 4 times daily
Continue with IV fluids, responded to fluids in the ED
Blood culture NGTD
Lactic acidosis
Continue with fluids, trend lactic
paroxysmal atrial fibrillation
Hold metoprolol currently given hypotension
Continue Eliquis
Hyponatremia
Monitor
Hypokalemia
Replete
Chronic lower extremity swelling
On daily Lasix which is on hold given hypotension
Chronic urinary retention with chronic Dickinson catheter
Dickinson exchanged 06/19
Follows up with Dr. Doran outpatient
Anemia, suspect secondary to acute on chronic blood loss from recent hematuria hospitalization
Drop in hemoglobin noted, appears some is hemodilution
Continue to monitor
Blood transfusion consented and in chart. Heme test stool negative. Transfuse for hemoglobin less than 7
Has good iron stores, monitor
Sacrum Unstageable Pressure Injury, POA
Bilateral Heels Stage 1 Pressure Injury, POA
Diabetes mellitus
a1c 9.9; accuchecks. cw insulin
Dementia with intermittent behavioral changes
Do not believe any metabolic encephalopathy
Continue SSRI, olanzapine nightly
Will need to follow-up with neurology outpatient
DVT prophylaxis
Eliquis
Full code, discussed on this admission
I spent a total of 52 minutes with the patient or on the floor. More than 50% of this time involved counseling and coordination of care.
Anticipated Discharge: > 48 hours
Subjective/Interval History
-
Date of Service: June 21, 2025
denies pain
Objective Data
-
Labs:
Laboratory Results
06/21/25
02:40
WBC 40.7 H*
Hgb 7.8 L
Hct 23.5 L
Plt Count 624 H
Sodium 134 L
Potassium 3.0 L
Chloride 110 H
Carbon Dioxide 22
BUN 14
Creatinine 0.7
Glucose 103 H
Calcium 7.4 L
Total Bilirubin 0.5
AST 13 L
ALT 12
Alkaline Phosphatase 136 H
Vital Signs:
Vital Signs
Temp Pulse Resp BP Pulse Ox
98.4 F 103 20 105/62 93
06/21/25 11:00 06/21/25 11:00 06/21/25 11:00 06/21/25 11:00 06/21/25 11:00
I&O
06/20/25 06/21/25 06/22/25
06:59 06:59 06:59
Intake Total 1480 / 1480 240 / 240 1240 / 1240
Output Total 1200 / 1200 750 / 750 650 / 650
Balance 280 / 280 -510 / -510 590 / 590
[2025-06-21 15:00] VITALS: BP 115/69
--- NOTE | 2025-06-21 15:33 | W.PN.ID1 ---
Date of Service
Date of Service: June 21, 2025
Today's Communication
Replace po Vanco with fidaxomicin.
Assessment / Plan
C. difficile colitis
Leukocytosis - worse
Fever
Generalized weakness
Thrombocytosis; reactive
HLD
DM (uncontrolled; HbA1c= 9.9)
BPH
Urinary retention with chronic Dickinson catheter
Recommendations:
Continues with liquid diarrhea.
Significant leukocytosis trended up today.
No abd distention/tenderness.
DC po Vancomycin.
Start fidaxomicin 200mg po bid
Monitor white count and temperature curve.
Follow stool output and consistency.
Enhanced contact isolation.
Chief Complaint
-: C-diff
Subjective / Review of Systems
No abdominal pain. Continues to have diarrhea.
Vital Signs / Physical Exam
Vital Signs
Vital Signs
Temp Pulse Resp BP Pulse Ox
98.4 F 103 20 105/62 98
06/21/25 11:00 06/21/25 11:00 06/21/25 11:00 06/21/25 11:00 06/21/25 14:26
Physical Exam
Constitutional: No Acute Distress and Comfortable
Eyes: No Conjunctival Hemorrhage and Sclera Anicteric
Pulmonary: Clear
Gastrointestinal: Soft, Non Tender, Non Distended and Decreased Bowel Sounds
Genito-Urinary: Dickinson and Clear Urine
Extremities: Negative Edema
Objective Data
Lab Data
Lab Results
06/21/25 02:40
06/21/25 02:40
Estimated Creat Clear 92 ml/min 06/21/25 02:40
Lactic Acid 1.2 mmol/L (0.7-2.0) 06/19/25 19:20
Total Bilirubin 0.5 mg/dl (0.2-1.3) 06/21/25 02:40
AST 13 U/L (17-59) L 06/21/25 02:40
ALT 12 U/L (0-50) 06/21/25 02:40
Alkaline Phosphatase 136 U/L (38-126) H 06/21/25 02:40
Most recent labs reviewed.
Micro Results:
06/19/25 14:54 Blood Culture - Preliminary
Blood/Venous No Growth in 48 hours- Final report to follow
06/19/25 17:37 Salmonella/Shigella Culture - Preliminary
Feces/Stool Culture in Progress
Campylobacter Culture - Preliminary
Culture in Progress
Shiga Toxin Test - Pending
Stool Leukocytes - Final
06/19/25 22:11 MRSA Screen - Final
Nose No Methicillin Resistant Staphylococcus aureus isolated.
06/19/25 17:12 Blood Culture - Preliminary
Blood/Venous No Growth in 24 hours- Final report to follow
06/19/25 15:30 Urine Culture - Final
Urine NO GROWTH
06/19/25 17:37 C. difficile GDH Antigen & Toxins - Final
Feces/Stool Toxigenic C.difficile Positive
06/19/25 15:30 Influenza Types A & B (TROY) - Final
Nasal Swab Negative for Influenza A & B, NAAT
Negative results must be combined with clinical observations
and patient history.
Nucleic Acid Amplification test (NAAT)performed on the
[employer] platform.
Care Review
Plan reviewed with: Physician (Dr. Alonso)
[2025-06-21 17:21] LABS: Glucose - Point of Care 123 mg/dl (70-99)
[2025-06-21] MEDS: NSS IV (17:24)
[2025-06-21] MEDS: DIFICID 200 MG PO (17:26)
[2025-06-21 19:00] VITALS: BP 120/76
[2025-06-21 21:39] LABS: Glucose - Point of Care 106 mg/dl (70-99)
[2025-06-21] MEDS: LANTUS 0.05 UNITS SC (22:00)
[2025-06-21] MEDS: ZYPREXA 5 MG PO (22:00)
[2025-06-21 23:00] VITALS: BP 113/70
[2025-06-22 03:00] VITALS: BP 129/73
[2025-06-22 04:25] VITALS: BMI 23.5
[2025-06-22] MEDS: DIFICID 200 MG PO ×2 (05:52→17:08)
[2025-06-22] MEDS: NSS 1000 IV ×2 (06:29→20:29)
[2025-06-22 07:00] VITALS: BP 144/79
[2025-06-22 07:55] LABS: Glucose - Point of Care 57 mg/dl (70-99)
[2025-06-22 08:22] LABS: Glucose - Point of Care 63 mg/dl (70-99)
[2025-06-22] MEDS: NOVOLOG FLEXPEN-LOW RESISTANCE SC ×2 (08:39→12:04)
[2025-06-22] MEDS: LEXAPRO 5 MG PO (08:42)
[2025-06-22] MEDS: ELIQUIS 5 MG PO ×2 (08:42→20:18)
[2025-06-22] MEDS: SANTYL OINTMENT 1 APPLIC TOPICAL (08:43)
[2025-06-22 08:55] LABS: Hematocrit 26.9 % (39.0-52.0); Hemoglobin 8.6 g/dL (13.0-18.0); Mean Corp Hgb Conc. 32.0 g/dL (33.0-37.0); Mean Corpuscular Volume 84.3 fL (80.0-94.0); Nucleated Red Blood Cells % 0 % (-); Platelet Count 772 10^3/uL (130-400); Red Cell Dist. Width 15.3 % (11.5-14.5)
[2025-06-22 09:09] LABS: ALT (SGPT) 12 U/L (0-50); AST (SGOT) 13 U/L (17-59); Albumin 2.3 g/dl (3.5-5.0); Alkaline Phosphatase 133 U/L (38-126); Blood Urea Nitrogen 10 mg/dl (9-20); Calcium 8.6 mg/dl (8.4-10.2); Carbon Dioxide 22 mmol/L (22-30); Chloride 115 mmol/L (98-107); Estimated Creatinine Clearance 92 ml/min; Glucose 63 mg/dl (70-99); Potassium 3.6 mmol/L (3.5-5.1); Sodium 140 mmol/L (135-145); Total Protein 4.6 g/dl (6.3-8.2); eGFR > 60.00
[2025-06-22 09:10] LABS: Glucose - Point of Care 79 mg/dl (70-99)
[2025-06-22 11:00] VITALS: BP 133/87
[2025-06-22 11:58] LABS: Glucose - Point of Care 95 mg/dl (70-99)
--- NOTE | 2025-06-22 12:00 | W.PN.HOSP.TC ---
Today's Communication/Plan
-
monitor vitals
see plan
Continue Dificid
Restart metoprolol
Maintain fluids for now
Monitor leukocytosis
Assessment / Plan
Assessment / Plan
General: Well Developed and Appears Chronically Ill
HEENT: Anicteric and Moist mucous membranes
Respiratory: Clear and Non Labored Respirations; No Wheezes
Cardiac: S1/S2, Regular Rhythm and Tachycardia
Breast: Deferred by me
GI: Soft, Non Tender, Non Distended and Normal Bowel Sounds
Genito-urinary: Dickinson
Musculoskeletal: Edema, Left Lower Extremity and Edema, Right Lower Extremity
Neuro: Awake
Psych: Calm
Severe sepsis secondary to C. difficile
Recent history of Klebsiella and MSSA bacteremia
Dickinson exchanged in the ED, UA suggestive of UTI, urine culture without any growth. Now that we have source for patient sepsis which is likely C. difficile will discontinue further antibiotics
ID following
Chest x-ray with limited study questionable opacity, will continue to monitor. Speech following. Not complaining of any shortness of breath
ID following, leukocytosis was still worsening on vancomycin, ID changed to with fidaxomicin. Monitor leukocytosis improving
Continue with IV fluids, responded to fluids in the ED
Blood culture NGTD
Lactic acidosis
Continue with fluids, trend lactic
paroxysmal atrial fibrillation
Restart metoprolol
Continue Eliquis
Hyponatremia
Resolved
Hypokalemia
Improved
Chronic lower extremity swelling
On daily Lasix which is on hold given hypotension
Diabetes mellitus
a1c 9.9; accuchecks. lower long-acting insulin given periods of hypoglycemia, hold mealtime insulin
Chronic urinary retention with chronic Dickinson catheter
Dickinson exchanged 06/19
Follows up with Dr. Doran outpatient
Anemia, suspect secondary to acute on chronic blood loss from recent hematuria hospitalization
Drop in hemoglobin noted, appears some is hemodilution
Continue to monitor
Blood transfusion consented and in chart. Heme test stool negative. Transfuse for hemoglobin less than 7
Has good iron stores, monitor
Sacrum Unstageable Pressure Injury, POA
Bilateral Heels Stage 1 Pressure Injury, POA
Dementia with intermittent behavioral changes
Do not believe any metabolic encephalopathy
Continue SSRI, olanzapine nightly
Will need to follow-up with neurology outpatient
DVT prophylaxis
Eliquis
Full code, discussed on this admission
PT/OT recommending SNF, family interested. manager strategic sourcing aware
I spent a total of 52 minutes with the patient or on the floor. More than 50% of this time involved counseling and coordination of care.
Anticipated Discharge: 24 - 48 hours
Subjective/Interval History
-
Date of Service: June 22, 2025
denies pain
Objective Data
-
Labs:
Laboratory Results
06/22/25
08:20
WBC 20.6 H
Hgb 8.6 L
Hct 26.9 L
Plt Count 772 H D
Sodium 140
Potassium 3.6
Chloride 115 H
Carbon Dioxide 22
BUN 10
Creatinine 0.7
Glucose 63 L
Calcium 8.6
Total Bilirubin 0.4
AST 13 L
ALT 12
Alkaline Phosphatase 133 H
Vital Signs:
Vital Signs
Temp Pulse Resp BP Pulse Ox
97.2 F 104 18 133/87 97
06/22/25 11:00 06/22/25 11:00 06/22/25 11:00 06/22/25 11:00 06/22/25 11:00
I&O
06/21/25 06/22/25 06/23/25
06:59 06:59 06:59
Intake Total 240 / 240 2680 / 2680
Output Total 750 / 750 1999 / 1999
Balance -510 / -510 680 / 680
[2025-06-22] MEDS: TOPROL XL 12.5 MG PO (12:58)
--- NOTE | 2025-06-22 13:51 | W.PN.ID1 ---
Date of Service
Date of Service: June 22, 2025
Today's Communication
Continue Fidaxomicin.
Assessment / Plan
C. difficile colitis
Leukocytosis - improved
Fever - resolved
Thrombocytosis; reactive
HLD
DM (uncontrolled; HbA1c= 9.9)
BPH
Urinary retention with chronic Dickinson catheter
Recommendations:
Diarrhea an leukocytosis improving with change to fidaxomicin.
Continue fidaxomicin 200mg po bid (d2 of 10)
Will need to check if insurance covers outpatient fidaxomicin.
Monitor white count and temperature curve.
Follow stool output and consistency.
Enhanced contact isolation.
Chief Complaint
-: C-diff
Subjective / Review of Systems
Diarrhea much improved.
Vital Signs / Physical Exam
Vital Signs
Vital Signs
Temp Pulse Resp BP Pulse Ox
97.2 F 104 18 133/87 97
06/22/25 11:00 06/22/25 11:00 06/22/25 11:00 06/22/25 11:00 06/22/25 11:00
Physical Exam
Constitutional: No Acute Distress and Comfortable
Gastrointestinal: Soft, Non Tender, Non Distended and Normal Bowel Sounds
Neurological: AO x 3
Objective Data
Lab Data
Lab Results
06/22/25 08:20
06/22/25 08:20
Estimated Creat Clear 92 ml/min 06/22/25 08:20
Lactic Acid 1.2 mmol/L (0.7-2.0) 06/19/25 19:20
Total Bilirubin 0.4 mg/dl (0.2-1.3) 06/22/25 08:20
AST 13 U/L (17-59) L 06/22/25 08:20
ALT 12 U/L (0-50) 06/22/25 08:20
Alkaline Phosphatase 133 U/L (38-126) H 06/22/25 08:20
Most recent labs reviewed.
Micro Results:
06/19/25 17:37 Salmonella/Shigella Culture - Final
Feces/Stool No Salmonella, Shigella, Aeromonas or Plesiomonas species
isolated.
Campylobacter Culture - Final
No Campylobacter species isolated.
Shiga Toxin Test - Pending
Stool Leukocytes - Final
06/19/25 17:12 Blood Culture - Preliminary
Blood/Venous No Growth in 48 hours- Final report to follow
06/19/25 14:54 Blood Culture - Preliminary
Blood/Venous No Growth in 48 hours- Final report to follow
06/19/25 22:11 MRSA Screen - Final
Nose No Methicillin Resistant Staphylococcus aureus isolated.
06/19/25 15:30 Urine Culture - Final
Urine NO GROWTH
06/19/25 17:37 C. difficile GDH Antigen & Toxins - Final
Feces/Stool Toxigenic C.difficile Positive
06/19/25 15:30 Influenza Types A & B (TROY) - Final
Nasal Swab Negative for Influenza A & B, NAAT
Negative results must be combined with clinical observations
and patient history.
Nucleic Acid Amplification test (NAAT)performed on the
[employer] platform.
Care Review
Plan reviewed with: Physician (Dr. Alonso)
[2025-06-22 15:00] VITALS: BP 134/80
--- NOTE | 2025-06-22 16:04 | CM ---
CM reviewed chart, SNF referrals previously placed, [facility] reviewing and will have determination on Monday. Patient will require insurance auth on stable for discharge. CM will continue to follow for all discharge planning needs.
Plan; SNF when stable, will require [facility] to review for Monday
[2025-06-22 16:38] LABS: Glucose - Point of Care 212 mg/dl (70-99)
[2025-06-22] MEDS: NOVOLOG FLEXPEN-LOW RESISTANCE 2 UNITS SC (17:08)
[2025-06-22 19:51] VITALS: BP 116/85
[2025-06-22] MEDS: ZYPREXA 5 MG PO (20:18)
[2025-06-22 21:40] LABS: Glucose - Point of Care 120 mg/dl (70-99)
[2025-06-22] MEDS: TYLENOL 650 MG PO (23:19)
[2025-06-22 23:20] VITALS: BP 131/86
[2025-06-23 00:14] LABS: Transferrin 121 mg/dL (200-360)
[2025-06-23 06:00] VITALS: BMI 23.6
[2025-06-23] MEDS: DIFICID 200 MG PO ×2 (06:13→16:39)
[2025-06-23 07:00] VITALS: BP 140/87
[2025-06-23 07:16] LABS: Hematocrit 27.0 % (39.0-52.0); Hemoglobin 8.7 g/dL (13.0-18.0); Mean Corp Hgb Conc. 32.2 g/dL (33.0-37.0); Mean Corpuscular Volume 83.9 fL (80.0-94.0); Nucleated Red Blood Cells % 0 % (-); Platelet Count 805 10^3/uL (130-400); Red Cell Dist. Width 15.5 % (11.5-14.5)
[2025-06-23 07:27] LABS: ALT (SGPT) 11 U/L (0-50); AST (SGOT) 11 U/L (17-59); Albumin 2.1 g/dl (3.5-5.0); Alkaline Phosphatase 120 U/L (38-126); Blood Urea Nitrogen 8 mg/dl (9-20); Calcium 8.2 mg/dl (8.4-10.2); Carbon Dioxide 20 mmol/L (22-30); Chloride 116 mmol/L (98-107); Estimated Creatinine Clearance 108 ml/min; Glucose 105 mg/dl (70-99); Potassium 3.5 mmol/L (3.5-5.1); Sodium 141 mmol/L (135-145); Total Protein 4.3 g/dl (6.3-8.2); eGFR > 60.00
[2025-06-23 07:54] LABS: Glucose - Point of Care 124 mg/dl (70-99)
[2025-06-23] MEDS: NOVOLOG FLEXPEN-LOW RESISTANCE SC ×2 (07:55→12:21)
[2025-06-23] MEDS: SANTYL OINTMENT 1 APPLIC TOPICAL (08:18)
[2025-06-23] MEDS: ELIQUIS 5 MG PO ×3 (08:18→20:36)
[2025-06-23] MEDS: TOPROL XL 12.5 MG PO (08:18)
[2025-06-23] MEDS: LEXAPRO 5 MG PO (08:18)
--- NOTE | 2025-06-23 11:00 | PTOTSP ---
Speech Language Pathology
Pt seen for dysphagia tx. Daughter present at bedside. Pt refused to have HOB higher than 30 degrees given pain. Discussed increased risks of aspiration with this, and pt stated he understood, but could not tolerate higher. Provided P.O. trials
of regular solids and thin liquids. Adequate mastication, bolus formation, and A-P transit noted with no oral residue. Appropriate rate of intake noted. No overt signs of aspiration.
Recommend:
(1) Upgrade to regular solids/thin liquids
(2) Aspiration precautions: sit as upright as possible for meals
(3) Meds as tolerated
(4) GAMING TABLE OPERATOR to follow, likely briefly
[2025-06-23 12:01] LABS: Glucose - Point of Care 131 mg/dl (70-99)
--- NOTE | 2025-06-23 12:13 | W.PN.ID1 ---
Date of Service
Date of Service: June 23, 2025
Today's Communication
See below.
Assessment / Plan
C. difficile colitis
Leukocytosis - improved
Fever - resolved
Thrombocytosis; reactive
HLD
DM (uncontrolled; HbA1c= 9.9)
BPH
Urinary retention with chronic Dickinson catheter
Recommendations:
Diarrhea an leukocytosis resolving with change to fidaxomicin.
Continue fidaxomicin 200mg po bid (d3 of 10)
If SNF does not accept patient due to fidaxomicin, will check if insurance covers outpatient fidaxomicin. If insurance covers, family member can fill script and take to SNF.
If both SNF and insurance do not cover fidaxomicin, then will have to resume po vancomycin.
Discussed with porter sample case.
Continue Enhanced contact isolation.
Chief Complaint
-: C-diff
Subjective / Review of Systems
Wants to go to SNF rehab today.
Diarrhea resolved.
Vital Signs / Physical Exam
Vital Signs
Vital Signs
Temp Pulse Resp BP Pulse Ox
97.9 F 98 18 140/87 93
06/23/25 07:00 06/23/25 07:00 06/23/25 07:00 06/23/25 07:00 06/23/25 07:00
Physical Exam
Constitutional: Comfortable
Cardiovascular: Regular Rate and S1/S2
Pulmonary: Clear
Gastrointestinal: Soft, Non Tender and Non Distended
Objective Data
Lab Data
Lab Results
06/23/25 06:34
06/23/25 06:34
Estimated Creat Clear 108 ml/min 06/23/25 06:34
Lactic Acid 1.2 mmol/L (0.7-2.0) 06/19/25 19:20
Total Bilirubin 0.3 mg/dl (0.2-1.3) 06/23/25 06:34
AST 11 U/L (17-59) L 06/23/25 06:34
ALT 11 U/L (0-50) 06/23/25 06:34
Alkaline Phosphatase 120 U/L (38-126) 06/23/25 06:34
Most recent labs reviewed.
Micro Results:
06/19/25 17:37 Salmonella/Shigella Culture - Final
Feces/Stool No Salmonella, Shigella, Aeromonas or Plesiomonas species
isolated.
Campylobacter Culture - Final
No Campylobacter species isolated.
Shiga Toxin Test - Final
No E. coli Shiga Toxin 1 or 2 detected.
Stool Leukocytes - Final
06/19/25 17:12 Blood Culture - Preliminary
Blood/Venous No Growth in 72 hours- Final report to follow
06/19/25 14:54 Blood Culture - Preliminary
Blood/Venous No Growth in 72 hours- Final report to follow
06/19/25 22:11 MRSA Screen - Final
Nose No Methicillin Resistant Staphylococcus aureus isolated.
06/19/25 15:30 Urine Culture - Final
Urine NO GROWTH
06/19/25 17:37 C. difficile GDH Antigen & Toxins - Final
Feces/Stool Toxigenic C.difficile Positive
06/19/25 15:30 Influenza Types A & B (TROY) - Final
Nasal Swab Negative for Influenza A & B, NAAT
Negative results must be combined with clinical observations
and patient history.
Nucleic Acid Amplification test (NAAT)performed on the
[employer] platform.
[2025-06-23 12:25] VITALS: BP 138/85; PULSE 94; O2SAT 97
--- NOTE | 2025-06-23 14:06 | CM ---
CM reviewed chart, spoke with patients , [facility], discussed SNF referrals placed, [facility] to review. left for liaison at [facility] to discuss bed availability/acceptance of patient, updated clinicals sent via [facility]. Per ID,
patient will require Fidaxomicin, will need to confirm SNF able to accept patient with this medication. Patient will continue to follow for all discharge planning needs.
Plan; SNF pending accepting facility, awaiting response from [facility], will need auth
--- NOTE | 2025-06-23 14:29 | W.PN.HOSP.TC ---
Today's Communication/Plan
-
Improved.
Continue Dificid for total of 10 days of therapy.
Dickinson catheter in place for
Urine cultures negative to date.
Pending SNF rehab placement
Assessment / Plan
Assessment / Plan
General: Well Developed and Appears Chronically Ill
HEENT: Anicteric and Moist mucous membranes
Respiratory: Clear and Non Labored Respirations; No Wheezes
Cardiac: S1/S2, Regular Rhythm and Tachycardia
Breast: Deferred by me
GI: Soft, Non Tender, Non Distended and Normal Bowel Sounds
Genito-urinary: Dickinson
Musculoskeletal: Edema, Left Lower Extremity and Edema, Right Lower Extremity
Neuro: Awake
Psych: Calm
Severe sepsis secondary to C. difficile
Recent history of Klebsiella and MSSA bacteremia
Dickinson exchanged in the ED, UA suggestive of UTI, urine culture without any growth. Now that we have source for patient sepsis which is likely C. difficile will discontinue further antibiotics
ID following
Chest x-ray with limited study questionable opacity, will continue to monitor. Speech following. Not complaining of any shortness of breath
ID following, leukocytosis was still worsening on vancomycin, ID changed to with fidaxomicin. Monitor leukocytosis improving
Continue with IV fluids, responded to fluids in the ED
Blood culture NGTD
Lactic acidosis
Continue with fluids, trend lactic
paroxysmal atrial fibrillation
Restart metoprolol
Continue Eliquis
Hyponatremia
Resolved
Hypokalemia
Improved
Chronic lower extremity swelling
On daily Lasix which is on hold given hypotension
Diabetes mellitus
a1c 9.9; accuchecks. lower long-acting insulin given periods of hypoglycemia, hold mealtime insulin
Chronic urinary retention with chronic Dickinson catheter
Dickinson exchanged 06/19
Follows up with Dr. Doran outpatient
Anemia, suspect secondary to acute on chronic blood loss from recent hematuria hospitalization
Drop in hemoglobin noted, appears some is hemodilution
Continue to monitor
Blood transfusion consented and in chart. Heme test stool negative. Transfuse for hemoglobin less than 7
Has good iron stores, monitor
Sacrum Unstageable Pressure Injury, POA
Bilateral Heels Stage 1 Pressure Injury, POA
Dementia with intermittent behavioral changes
Do not believe any metabolic encephalopathy
Continue SSRI, olanzapine nightly
Will need to follow-up with neurology outpatient
DVT prophylaxis
Eliquis
Full code, discussed on this admission
PT/OT recommending SNF, family interested. manager community development aware
Anticipated Discharge: Within 24 hours
Subjective/Interval History
-
Date of Service: June 23, 2025
Objective Data
-
Labs:
Laboratory Results
06/23/25
06:34
WBC 11.5 H
Hgb 8.7 L
Hct 27.0 L
Plt Count 805 H
Sodium 141
Potassium 3.5
Chloride 116 H
Carbon Dioxide 20 L
BUN 8 L
Creatinine 0.6 L
Glucose 105 H
Calcium 8.2 L
Total Bilirubin 0.3
AST 11 L
ALT 11
Alkaline Phosphatase 120
Vital Signs:
Vital Signs
Temp Pulse Resp BP Pulse Ox
97.9 F 98 18 140/87 93
06/23/25 07:00 06/23/25 07:00 06/23/25 07:00 06/23/25 07:00 06/23/25 07:00
I&O
06/22/25 06/23/25 06/24/25
06:59 06:59 06:59
Intake Total 2680 / 2680 960 / 960 240 / 240
Output Total 1999 / 1999 650 / 650 700 / 700
Balance 680 / 680 310 / 310 -460 / -460
[2025-06-23 15:00] VITALS: BP 133/85
[2025-06-23 16:40] LABS: Glucose - Point of Care 172 mg/dl (70-99)
[2025-06-23] MEDS: NOVOLOG FLEXPEN-LOW RESISTANCE 1 UNITS SC (16:41)
[2025-06-23] MEDS: NSS IV (16:47)
[2025-06-23] MEDS: TYLENOL 650 MG PO (20:35)
[2025-06-23] MEDS: ZYPREXA 5 MG PO (21:11)
[2025-06-23 21:58] LABS: Glucose - Point of Care 179 mg/dl (70-99)
[2025-06-23 23:57] VITALS: BP 136/72
[2025-06-24] MEDS: DIFICID 200 MG PO ×2 (05:03→18:02)
[2025-06-24 05:07] VITALS: BMI 23.6
[2025-06-24 07:41] LABS: Glucose - Point of Care 162 mg/dl (70-99)
[2025-06-24 07:59] VITALS: BP 151/89
[2025-06-24] MEDS: TOPROL XL 12.5 MG PO (08:14)
[2025-06-24] MEDS: SANTYL OINTMENT 1 APPLIC TOPICAL (08:15)
[2025-06-24] MEDS: LEXAPRO 5 MG PO (08:15)
[2025-06-24] MEDS: NOVOLOG FLEXPEN-LOW RESISTANCE 1 UNITS SC ×2 (08:16→18:02)
--- NOTE | 2025-06-24 10:17 | CM ---
Addendum entered by Tina Shelton 06/24/25 16:50:
[facility] and [facility] have denied patient.
Addendum entered by Tina Shelton 06/24/25 15:33:
Call placed to [facility] and they are willing to review chart, all clinicals faxed to [facility] at .
Original Note:
Chart reviewed and housing case manager contacted Donna at [facility], and per Donna they cannot accept patient due to the cost of medication, [facility] do not have a contract with patient's insurance, [facility] have no private rooms,
call placed to patient's spouse to provide more options for skilled placement.
Plan; Skilled placement on [facility], cost is $7,000 for 14 pills.
[2025-06-24 11:41] LABS: Glucose - Point of Care 143 mg/dl (70-99)
[2025-06-24] MEDS: NOVOLOG FLEXPEN-LOW RESISTANCE SC (11:55)
--- NOTE | 2025-06-24 14:27 | W.PN.HOSP.TC ---
Today's Communication/Plan
-
Medically optimized for placement to half-way facility pending disposition options.
Assessment / Plan
Assessment / Plan
General: Well Developed and Appears Chronically Ill
HEENT: Anicteric and Moist mucous membranes
Respiratory: Clear and Non Labored Respirations; No Wheezes
Cardiac: S1/S2, Regular Rhythm and Tachycardia
Breast: Deferred by me
GI: Soft, Non Tender, Non Distended and Normal Bowel Sounds
Genito-urinary: Dickinson
Musculoskeletal: Edema, Left Lower Extremity and Edema, Right Lower Extremity
Neuro: Awake
Psych: Calm
Severe sepsis secondary to C. difficile
Recent history of Klebsiella and MSSA bacteremia
Dickinson exchanged in the ED, UA suggestive of UTI, urine culture without any growth. Now that we have source for patient sepsis which is likely C. difficile will discontinue further antibiotics
ID following
Chest x-ray with limited study questionable opacity, will continue to monitor. Speech following. Not complaining of any shortness of breath
ID following, leukocytosis was still worsening on vancomycin, ID changed to with fidaxomicin. Monitor leukocytosis improving
Continue with IV fluids, responded to fluids in the ED
Blood culture NGTD
Lactic acidosis
Continue with fluids, trend lactic
paroxysmal atrial fibrillation
Restart metoprolol
Continue Eliquis
Hyponatremia
Resolved
Hypokalemia
Improved
Chronic lower extremity swelling
On daily Lasix which is on hold given hypotension
Diabetes mellitus
a1c 9.9; accuchecks. lower long-acting insulin given periods of hypoglycemia, hold mealtime insulin
Chronic urinary retention with chronic Dickinson catheter
Dickinson exchanged 06/19
Follows up with Dr. Doran outpatient
Anemia, suspect secondary to acute on chronic blood loss from recent hematuria hospitalization
Drop in hemoglobin noted, appears some is hemodilution
Continue to monitor
Blood transfusion consented and in chart. Heme test stool negative. Transfuse for hemoglobin less than 7
Has good iron stores, monitor
Sacrum Unstageable Pressure Injury, POA
Bilateral Heels Stage 1 Pressure Injury, POA
Dementia with intermittent behavioral changes
Do not believe any metabolic encephalopathy
Continue SSRI, olanzapine nightly
Will need to follow-up with neurology outpatient
DVT prophylaxis
Eliquis
Full code, discussed on this admission
PT/OT recommending SNF, family interested. shift manager aware
Anticipated Discharge: Within 24 hours
Subjective/Interval History
-
Date of Service: June 24, 2025
Objective Data
-
Vital Signs:
Vital Signs
Temp Pulse Resp BP Pulse Ox
98.1 F 100 18 151/89 97
06/24/25 07:59 06/24/25 07:59 06/24/25 07:59 06/24/25 07:59 06/24/25 07:59
I&O
06/23/25 06/24/25 06/25/25
06:59 06:59 06:59
Intake Total 960 / 960 1920 / 1920
Output Total 650 / 650 2150 / 2150
Balance 310 / 310 -230 / -230
Physical Exam
-
General: Negative Appears in Distress
HEENT: Negative Oxygen
Genito-urinary: Dickinson (Clear urine)
Neuro: Awake, Alert, Oriented and No Motor Deficits
[2025-06-24 15:41] VITALS: BP 162/102
--- NOTE | 2025-06-24 17:10 | W.PN.ID1 ---
Date of Service
Date of Service: June 24, 2025
Today's Communication
See below
Assessment / Plan
C. difficile colitis, improving
Leukocytosis - improved
Fever - resolved
HLD
DM (uncontrolled; HbA1c= 9.9)
BPH
Urinary retention with chronic Dickinson catheter
Recommendations:
Diarrhea and leukocytosis resolving with change to fidaxomicin.
Continue fidaxomicin 200mg po bid (d4 of 10) through 06/30/25.
SNF declining pt due to cost of fidaxomicin.
Asked community case manager if insurance covers fidaxomicin. If yes, family member can fill script and take to SNF.
If SNF does not accept patient due to fidaxomicin, will check if insurance covers outpatient fidaxomicin.
Continue Enhanced contact isolation.
Chief Complaint
-: C-diff
Subjective / Review of Systems
No diarrhea
Vital Signs / Physical Exam
Vital Signs
Vital Signs
Temp Pulse Resp BP Pulse Ox
97.4 F 89 18 162/102 97
06/24/25 15:41 06/24/25 15:41 06/24/25 15:41 06/24/25 15:41 06/24/25 15:41
Physical Exam
Constitutional: No Acute Distress
Cardiovascular: Regular Rate and S1/S2
Pulmonary: Clear
Gastrointestinal: Soft, Non Tender and Non Distended
Extremities: Negative Edema
Objective Data
Lab Data
Lab Results
06/23/25 06:34
06/23/25 06:34
Estimated Creat Clear 108 ml/min 06/23/25 06:34
Lactic Acid 1.2 mmol/L (0.7-2.0) 06/19/25 19:20
Total Bilirubin 0.3 mg/dl (0.2-1.3) 06/23/25 06:34
AST 11 U/L (17-59) L 06/23/25 06:34
ALT 11 U/L (0-50) 06/23/25 06:34
Alkaline Phosphatase 120 U/L (38-126) 06/23/25 06:34
Most recent labs reviewed.
Micro Results:
06/19/25 14:54 Blood Culture - Final
Blood/Venous No Growth - Final Report
06/19/25 17:12 Blood Culture - Preliminary
Blood/Venous No Growth in 4 days- Final report to follow
06/19/25 17:37 Salmonella/Shigella Culture - Final
Feces/Stool No Salmonella, Shigella, Aeromonas or Plesiomonas species
isolated.
Campylobacter Culture - Final
No Campylobacter species isolated.
Shiga Toxin Test - Final
No E. coli Shiga Toxin 1 or 2 detected.
Stool Leukocytes - Final
06/19/25 22:11 MRSA Screen - Final
Nose No Methicillin Resistant Staphylococcus aureus isolated.
06/19/25 15:30 Urine Culture - Final
Urine NO GROWTH
06/19/25 17:37 C. difficile GDH Antigen & Toxins - Final
Feces/Stool Toxigenic C.difficile Positive
06/19/25 15:30 Influenza Types A & B (TROY) - Final
Nasal Swab Negative for Influenza A & B, NAAT
Negative results must be combined with clinical observations
and patient history.
Nucleic Acid Amplification test (NAAT)performed on the
[employer] platform.
[2025-06-24 17:14] LABS: Glucose - Point of Care 172 mg/dl (70-99)
--- NOTE | 2025-06-24 19:11 | PTCARENOTE ---
Addendum entered by Ashley Huerta RN 06/24/25 19:24:
spoke with provider. bleeding could potentially be from trauma relating to re-insertion of zarate, on admission. this RN will continue to monitor and communicate changes with provider.
Original Note:
Emptied patient's zarate for 1100 mls. Urine assessed to be cloudy, yellow with a couple of small clots. Provider notified. Awaiting response.
[2025-06-24] MEDS: ELIQUIS 5 MG PO (20:23)
[2025-06-24] MEDS: ZYPREXA 5 MG PO (20:25)
[2025-06-24 21:19] LABS: Glucose - Point of Care 330 mg/dl (70-99)
--- NOTE | 2025-06-24 21:20 | PTCARENOTE ---
Evening accucheck 330. Provider notified. 10 units novolog ordered for one time administration.
[2025-06-24] MEDS: NOVOLOG FLEXPEN 10 UNITS SC (21:25)
[2025-06-24 23:44] VITALS: BP 125/77
[2025-06-25] MEDS: TYLENOL 650 MG PO ×3 (03:18→22:51)
[2025-06-25] MEDS: DIFICID 200 MG PO ×2 (03:18→17:38)
[2025-06-25 05:02] VITALS: BMI 22.9
[2025-06-25 08:14] LABS: Glucose - Point of Care 155 mg/dl (70-99)
[2025-06-25] MEDS: LEXAPRO 5 MG PO (08:20)
[2025-06-25] MEDS: TOPROL XL 12.5 MG PO (08:20)
[2025-06-25] MEDS: SANTYL OINTMENT 1 APPLIC TOPICAL (08:20)
[2025-06-25] MEDS: ELIQUIS 5 MG PO ×2 (08:20→19:55)
[2025-06-25] MEDS: NOVOLOG FLEXPEN-LOW RESISTANCE 1 UNITS SC ×2 (08:21→13:39)
[2025-06-25 08:24] VITALS: BP 155/86
--- NOTE | 2025-06-25 10:54 | CM ---
aviation manager continues to fillow with patient progress and plan is for skilled placement, Dificid is not covered by patient's insurance, call placed to [facility] in [place] and there is no funding at this time for medication. Patient's
spouse made aware that patient would have to pay for medication, correctional counselor/case manager spoke with [facility] pharmacy and cost for 10 pills is $2,784. Patient's spouse is upset that patient would have to pay for medication.
Plan; Skilled placement hopefully at [facility]. Spouse will need to pay for Dificid.
[2025-06-25 12:20] LABS: Glucose - Point of Care 154 mg/dl (70-99)
[2025-06-25 13:15] VITALS: BP 130/79; PULSE 79; O2SAT 96
[2025-06-25 13:42] VITALS: BMI 22.9
[2025-06-25 16:18] VITALS: BP 127/75
--- NOTE | 2025-06-25 16:35 | W.PN.ID1 ---
Date of Service
Date of Service: June 25, 2025
Today's Communication
Continue fidaxomicin 200mg po bid x 10d through 07/01/25 am.
Assessment / Plan
C. difficile colitis, improving
Leukocytosis - improved
Fever - resolved
HLD
DM (uncontrolled; HbA1c= 9.9)
BPH
Urinary retention with chronic Dickinson catheter
Recommendations:
Diarrhea and leukocytosis resolving with change to fidaxomicin.
Continue fidaxomicin 200mg po bid x 10d through 07/01/25 am.
SNF declining pt due to cost of fidaxomicin.
Pt' insurance does not cover fidaxomicin.
Continue Enhanced contact isolation.
Chief Complaint
-: C-diff
Subjective / Review of Systems
Waiting for placment.
Vital Signs / Physical Exam
Vital Signs
Vital Signs
Temp Pulse Resp BP Pulse Ox
97.8 F 93 16 127/75 97
06/25/25 16:18 06/25/25 16:18 06/25/25 16:18 06/25/25 16:18 06/25/25 16:18
Physical Exam
Constitutional: No Acute Distress
Cardiovascular: Regular Rate and S1/S2
Pulmonary: Clear
Gastrointestinal: Soft, Non Tender and Non Distended
Extremities: Negative Edema
Objective Data
Lab Data
Lab Results
06/23/25 06:34
06/23/25 06:34
Estimated Creat Clear 108 ml/min 06/23/25 06:34
Lactic Acid 1.2 mmol/L (0.7-2.0) 06/19/25 19:20
Total Bilirubin 0.3 mg/dl (0.2-1.3) 06/23/25 06:34
AST 11 U/L (17-59) L 06/23/25 06:34
ALT 11 U/L (0-50) 06/23/25 06:34
Alkaline Phosphatase 120 U/L (38-126) 06/23/25 06:34
Most recent labs reviewed.
Micro Results:
06/19/25 17:12 Blood Culture - Final
Blood/Venous No Growth - Final Report
06/19/25 14:54 Blood Culture - Final
Blood/Venous No Growth - Final Report
06/19/25 17:37 Salmonella/Shigella Culture - Final
Feces/Stool No Salmonella, Shigella, Aeromonas or Plesiomonas species
isolated.
Campylobacter Culture - Final
No Campylobacter species isolated.
Shiga Toxin Test - Final
No E. coli Shiga Toxin 1 or 2 detected.
Stool Leukocytes - Final
06/19/25 22:11 MRSA Screen - Final
Nose No Methicillin Resistant Staphylococcus aureus isolated.
06/19/25 15:30 Urine Culture - Final
Urine NO GROWTH
06/19/25 17:37 C. difficile GDH Antigen & Toxins - Final
Feces/Stool Toxigenic C.difficile Positive
06/19/25 15:30 Influenza Types A & B (TROY) - Final
Nasal Swab Negative for Influenza A & B, NAAT
Negative results must be combined with clinical observations
and patient history.
Nucleic Acid Amplification test (NAAT)performed on the
[employer] platform.
Care Review
Plan reviewed with: Other (bus and sys integration senior manager, Nikita)
--- NOTE | 2025-06-25 16:47 | W.PN.HOSP.TC ---
Today's Communication/Plan
-
Remains stable while on Dificid
Ongoing disposition efforts.
Assessment / Plan
Assessment / Plan
General: Well Developed and Appears Chronically Ill
HEENT: Anicteric and Moist mucous membranes
Respiratory: Clear and Non Labored Respirations; No Wheezes
Cardiac: S1/S2, Regular Rhythm and Tachycardia
Breast: Deferred by me
GI: Soft, Non Tender, Non Distended and Normal Bowel Sounds
Genito-urinary: Dickinson
Musculoskeletal: Edema, Left Lower Extremity and Edema, Right Lower Extremity
Neuro: Awake
Psych: Calm
Severe sepsis secondary to C. difficile
Recent history of Klebsiella and MSSA bacteremia
Dickinson exchanged in the ED, UA suggestive of UTI, urine culture without any growth. Now that we have source for patient sepsis which is likely C. difficile will discontinue further antibiotics
ID following
Chest x-ray with limited study questionable opacity, will continue to monitor. Speech following. Not complaining of any shortness of breath
ID following, leukocytosis was still worsening on vancomycin, ID changed to with fidaxomicin. Monitor leukocytosis improving
Continue with IV fluids, responded to fluids in the ED
Blood culture NGTD
Lactic acidosis
Continue with fluids, trend lactic
paroxysmal atrial fibrillation
Restart metoprolol
Continue Eliquis
Hyponatremia
Resolved
Hypokalemia
Improved
Chronic lower extremity swelling
On daily Lasix which is on hold given hypotension
Diabetes mellitus
a1c 9.9; accuchecks. lower long-acting insulin given periods of hypoglycemia, hold mealtime insulin
Chronic urinary retention with chronic Dickinson catheter
Dickinson exchanged 06/[address] up with Dr. Doran outpatient
Anemia, suspect secondary to acute on chronic blood loss from recent hematuria hospitalization
Drop in hemoglobin noted, appears some is hemodilution
Continue to monitor
Blood transfusion consented and in chart. Heme test stool negative. Transfuse for hemoglobin less than 7
Has good iron stores, monitor
Sacrum Unstageable Pressure Injury, POA
Bilateral Heels Stage 1 Pressure Injury, POA
Dementia with intermittent behavioral changes
Do not believe any metabolic encephalopathy
Continue SSRI, olanzapine nightly
Will need to follow-up with neurology outpatient
DVT prophylaxis
Eliquis
Full code, discussed on this admission
PT/OT recommending SNF, family interested. manager equipment aware
Anticipated Discharge: 24 - 48 hours
Subjective/Interval History
-
Date of Service: June 25, 2025
Objective Data
-
Vital Signs:
Vital Signs
Temp Pulse Resp BP Pulse Ox
97.8 F 93 16 127/75 97
06/25/25 16:18 06/25/25 16:18 06/25/25 16:18 06/25/25 16:18 06/25/25 16:18
I&O
06/24/25 06/25/25 06/26/25
06:59 06:59 06:59
Intake Total 1920 / 1920 960 / 960 480 / 480
Output Total 2150 / 2150 1999 / 1999 650 / 650
Balance -230 / -230 -1040 / -1040 -170 / -170
Physical Exam
-
General: Negative Appears in Distress
HEENT: Negative Oxygen
Genito-urinary: Dickinson (Clear urine)
Neuro: Awake, Alert, Oriented and No Motor Deficits
[2025-06-25 16:58] LABS: Glucose - Point of Care 209 mg/dl (70-99)
[2025-06-25] MEDS: NOVOLOG FLEXPEN-LOW RESISTANCE 2 UNITS SC (18:23)
[2025-06-25] MEDS: ZYPREXA 5 MG PO (21:11)
[2025-06-25 23:17] VITALS: BP 143/82
[2025-06-26] MEDS: DIFICID 200 MG PO ×2 (04:23→17:19)
[2025-06-26 04:28] VITALS: BMI 22.9
[2025-06-26] MEDS: LEXAPRO 5 MG PO (07:23)
[2025-06-26] MEDS: ELIQUIS 5 MG PO ×2 (07:24→20:59)
[2025-06-26] MEDS: SANTYL OINTMENT 1 APPLIC TOPICAL (07:24)
[2025-06-26] MEDS: TOPROL XL 12.5 MG PO (07:26)
[2025-06-26 07:31] LABS: Glucose - Point of Care 182 mg/dl (70-99)
[2025-06-26] MEDS: NOVOLOG FLEXPEN-LOW RESISTANCE 1 UNITS SC ×2 (07:31→12:55)
[2025-06-26 08:38] VITALS: BP 156/91
[2025-06-26 11:40] LABS: Glucose - Point of Care 177 mg/dl (70-99)
[2025-06-26] MEDS: TYLENOL 650 MG PO (15:29)
[2025-06-26 15:32] VITALS: BP 150/91
--- NOTE | 2025-06-26 16:20 | CM ---
CM reviewed chart, spoke with [facility] pharmacy- per Pharmacist, 8 pills (Dificid) will be $270. TT to Hospitalist to send script to pharmacy to confirm. CM spoke with [facility] again once script received, confirmed medication Dificid is $270, filling
medication for patients family to diamond picker for tomorrow. CM spoke with patients , Cyndi, aware of cost of medication, will bring to SNF. CM spoke with arley [facility] [phone], confirmed ability to accept patient- [facility] Auth submitted via [employer]- reference #[id number], faxed to [phone]. Patient will require ambulance transport to SNF. CM will continue to follow for all discharge planning needs.
Plan; auth submitted through [employer], pending approval to [facility] [place], to bring Dificid
[2025-06-26 17:14] LABS: Glucose - Point of Care 233 mg/dl (70-99)
[2025-06-26] MEDS: NOVOLOG FLEXPEN-LOW RESISTANCE 2 UNITS SC (17:19)
--- NOTE | 2025-06-26 17:29 | W.PN.HOSP.TC ---
Today's Communication/Plan
-
Remains stable while completing 10-day course of Dificid
Plan is to discharge to long-term facility on 06/27.
Family will picker Dificid from the pharmacy to provide at the nursing facility
Assessment / Plan
Assessment / Plan
Severe sepsis secondary to C. difficile
Recent history of Klebsiella and MSSA bacteremia
Dickinson exchanged in the ED, UA suggestive of UTI, urine culture without any growth. Now that we have source for patient sepsis which is likely C. difficile will discontinue further antibiotics
ID following
Chest x-ray with limited study questionable opacity, will continue to monitor. Speech following. Not complaining of any shortness of breath
ID following, leukocytosis was still worsening on vancomycin, ID changed to with fidaxomicin. Monitor leukocytosis improving
Continue with IV fluids, responded to fluids in the ED
Blood culture NGTD
Lactic acidosis
Continue with fluids, trend lactic
paroxysmal atrial fibrillation
Restart metoprolol
Continue Eliquis
Hyponatremia
Resolved
Hypokalemia
Improved
Chronic lower extremity swelling
On daily Lasix which is on hold given hypotension
Diabetes mellitus
a1c 9.9; accuchecks. lower long-acting insulin given periods of hypoglycemia, hold mealtime insulin
Chronic urinary retention with chronic Dickinson catheter
Dickinson exchanged 06/[address] up [address] Dr. Doran outpatient
Anemia, suspect secondary to acute on chronic blood loss from recent hematuria hospitalization
Drop in hemoglobin noted, appears some is hemodilution
Continue to monitor
Blood transfusion consented and in chart. Heme test stool negative. Transfuse for hemoglobin less than 7
Has good iron stores, monitor
Sacrum Unstageable Pressure Injury, POA
Bilateral Heels Stage 1 Pressure Injury, POA
Dementia with intermittent behavioral changes
Do not believe any metabolic encephalopathy
Continue SSRI, olanzapine nightly
Will need to follow-up with neurology outpatient
DVT prophylaxis
Eliquis
Full code, discussed on this admission
PT/OT recommending SNF, family interested. security project manager aware
Anticipated Discharge: Within 24 hours
Subjective/Interval History
-
Date of Service: June 26, 2025
Objective Data
-
Vital Signs:
Vital Signs
Temp Pulse Resp BP Pulse Ox
99.4 F 87 16 150/91 95
06/26/25 15:32 06/26/25 15:32 06/26/25 15:32 06/26/25 15:32 06/26/25 15:32
I&O
06/25/25 06/26/25 06/27/25
06:59 06:59 06:59
Intake Total 960 / 960 960 / 960
Output Total 1999 / 1999 1550 / 1550
Balance -1040 / -1040 -590 / -590
Physical Exam
-
General: Negative Appears in Distress
HEENT: Negative Oxygen
Genito-urinary: Dickinson (Clear urine)
Neuro: Awake, Alert, Oriented and No Motor Deficits
[2025-06-26] MEDS: ZYPREXA 5 MG PO (20:59)
[2025-06-26 22:08] LABS: Glucose - Point of Care 276 mg/dl (70-99)
[2025-06-26 23:12] VITALS: BP 141/91
[2025-06-27] MEDS: DIFICID 200 MG PO (05:35)
[2025-06-27 06:00] VITALS: BMI 22.7
[2025-06-27 07:20] VITALS: BP 157/98
[2025-06-27] MEDS: TOPROL XL 12.5 MG PO (07:26)
[2025-06-27] MEDS: ELIQUIS 5 MG PO (07:26)
[2025-06-27] MEDS: SANTYL OINTMENT 1 APPLIC TOPICAL (07:27)
[2025-06-27] MEDS: LEXAPRO 5 MG PO (07:31)
[2025-06-27] MEDS: NOVOLOG FLEXPEN-LOW RESISTANCE 2 UNITS SC (07:36)
[2025-06-27 07:37] LABS: Glucose - Point of Care 202 mg/dl (70-99)
[2025-06-27 09:58] LABS: Hematocrit 27.5 % (39.0-52.0); Hemoglobin 8.7 g/dL (13.0-18.0); Mean Corp Hgb Conc. 31.6 g/dL (33.0-37.0); Mean Corpuscular Volume 85.1 fL (80.0-94.0); Platelet Count 835 10^3/uL (130-400); Red Cell Dist. Width 17.0 % (11.5-14.5)
[2025-06-27 10:08] LABS: Blood Urea Nitrogen 6 mg/dl (9-20); Calcium 8.2 mg/dl (8.4-10.2); Carbon Dioxide 30 mmol/L (22-30); Chloride 112 mmol/L (98-107); Estimated Creatinine Clearance 106 ml/min; Glucose 141 mg/dl (70-99); Potassium 3.3 mmol/L (3.5-5.1); Sodium 143 mmol/L (135-145); eGFR > 60.00
--- NOTE | 2025-06-27 10:35 | CM ---
Addendum entered by Cecile Shahid 06/27/25 11:49:
CM met with patients , discussed transport scheduled for 4:00 p.m. IMM verbally reviewed, provided with copy, placed in chart.
Original Note:
CM reviewed chart, patient for discharge today to [facility]. Auth approved through [employer], also received call from Julissa with [employer] ([phone])- 06/27-07/03, next review 07/04, auth #[id number], fax updates to [phone], updates
provided to Mary liaison at [facility]. Patient will require ambulance transport, forms provided to Corporate Quality Assurance Manager. CM will continue to follow for all discharge planning needs.
Plan; auth approved, d/c to [facility], ambulance transport
[place]
Report: [phone]
[2025-06-27 11:42] LABS: Glucose - Point of Care 149 mg/dl (70-99)
--- NOTE | 2025-06-27 11:44 | W.PN.HOSP.TC ---
Addendum entered and electronically signed by Familia Reyna MD 06/27/25 13:58:
[id number]
Original Note:
Today's Communication/Plan
-
Continue fidaxomicin 200mg po bid x 10d through 07/01/25 am.
F/u PCP and Neuropsychology outpatient
Assessment / Plan
Assessment / Plan
#Severe sepsis secondary to C. difficile
Recent history of Klebsiella and MSSA bacteremia
Dickinson exchanged in the ED, UA suggestive of UTI, urine culture without any growth. Now that we have source for patient sepsis which is likely C. difficile will discontinue further antibiotics
ID following
Chest x-ray with limited study questionable opacity, will continue to monitor. Speech following. Not complaining of any shortness of breath
ID following, leukocytosis was still worsening on vancomycin, ID changed to with fidaxomicin. Monitor leukocytosis improving
Continue with IV fluids, responded to fluids in the ED
Blood culture NGTD
Diarrhea and leukocytosis resolving with change to fidaxomicin.
Continue fidaxomicin 200mg po bid x 10d through 07/01/25 am.
#Lactic acidosis, resolved
Continue with fluids, trend lactic
#paroxysmal atrial fibrillation
Restart metoprolol
Continue Eliquis
#Hyponatremia
Resolved
#Hypokalemia
Improved
#Chronic lower extremity swelling
lasix resumed
#Diabetes mellitus
a1c 9.9; accuchecks. lower long-acting insulin given periods of hypoglycemia, hold mealtime insulin
#Chronic urinary retention with chronic Dickinson catheter
Dickinson exchanged 06/19
Follow[address] up with Dr. Doran outpatient
#Anemia, suspect secondary to acute on chronic blood loss from recent hematuria hospitalization
Drop in hemoglobin noted, appears some is hemodilution
Continue to monitor
Blood transfusion consented and in chart. Heme test stool negative. Transfuse for hemoglobin less than 7
Has good iron stores, monitor
#Sacrum Unstageable Pressure Injury, POA
Bilateral Heels Stage 1 Pressure Injury, POA
#Dementia with intermittent behavioral changes
Do not believe any metabolic encephalopathy
Continue SSRI, olanzapine nightly
Will need to follow-up with neurology outpatient
DVT prophylaxis
Eliquis
Full code, discussed on this admission
More than 30 minutes spent in discharge including
Final examination of the patient
Summarizing hospital stay
Instructions for continuing care to all relevant caregivers
Preparation of discharge records, prescriptions, and referral forms
Total time spent (in minutes): 37
Anticipated Discharge: Today
Subjective/Interval History
-
Date of Service: June 27, 2025
no acute events overnight, no diarrhea
Objective Data
-
Labs:
Laboratory Results
06/27/25
09:34
WBC 12.8 H
Hgb 8.7 L
Hct 27.5 L
Plt Count 835 H
Sodium 143
Potassium 3.3 L
Chloride 112 H
Carbon Dioxide 30
BUN 6 L
Creatinine 0.6 L
Glucose 141 H
Calcium 8.2 L
Vital Signs:
Vital Signs
Temp Pulse Resp BP Pulse Ox
97.5 F 85 18 157/98 97
06/27/25 07:20 06/27/25 07:26 06/27/25 07:20 06/27/25 07:26 06/27/25 07:20
I&O
06/26/25 06/27/25 06/28/25
06:59 06:59 06:59
Intake Total 960 / 960 1440 / 1440
Output Total 1550 / 1550 1050 / 1050
Balance -590 / -590 390 / 390
Review of Systems
-
Respiratory: Reports No Symptoms
Cardiac: Reports No Symptoms
Abdomen/GI: Reports No Symptoms
Physical Exam
-
General: Negative Appears in Distress
HEENT: Negative Oxygen
Genito-urinary: Dickinson (Clear urine)
Neuro: Awake, Alert, Oriented and No Motor Deficits
Data Reviewed
-
Diagnostic Radiology: Report Reviewed by me
CT Scan: Report Reviewed by me
Labs: Labs Reviewed by me
[2025-06-27] MEDS: NOVOLOG FLEXPEN-LOW RESISTANCE SC (11:46)
--- NOTE | 2025-06-27 11:49 | W.DS.TRANS ---
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
-
Discharge Instructions:
Discharge Diagnosis/Procedures C-diff colitis
Diet Diabetic, Carb Controlled,Low Residue,Low Fat,
Low Cholesterol
Activity As tolerated
Blood Work cbc and cmp in 1 week with pcp
Instructions:
Stand-Alone Forms:
Changes to Home Medications: Yes
Discharge Medications:
DC Medications w/original date entered in [facility]
metoprolol succinate 25 mg tablet,extended release 24 hr 12.5 mg (1/2 x 25 mg) PO DAILY Arrhythmia #30 tabs 05/21/25
insulin aspart U-100 100 unit/mL (3 mL) subcutaneous pen (Novolog FlexPen U-100 Insulin aspart) 2 unit (0.02 mL) SC AC Diabetes #5 ea 05/26/25
escitalopram oxalate 5 mg tablet 5 mg PO DAILY #30 tabs 05/27/25
insulin glargine 100 unit/mL (3 mL) subcutaneous pen (Lantus Solostar U-100 Insulin) 8 unit SC HS Diabetes 05/28/25
ibuprofen 200 mg tablet (Advil) 200 mg PO Q6HPRN PRN mild pain 06/10/25
apixaban 5 mg tablet (Eliquis) 5 mg PO BID 06/19/25
furosemide 20 mg tablet (Lasix) 20 mg PO DAILY@1200 06/19/25
multivitamin with minerals-folic acid 80 mcg chewable tablet 1 tab PO DAILY 06/19/25
olanzapine 5 mg tablet 5 mg PO HS 06/19/25
fidaxomicin 200 mg tablet (Dificid) 200 mg PO Q12H #12 tabs 06/26/25
Home Medication Changes
fidaxomicin 200 mg tablet (Dificid) 200 mg PO Q12H #12 tabs 06/26/25
Pending Results: No
--- NOTE | 2025-06-27 13:46 | PTCARENOTE ---
report given to nurse Gia at [facility]
[2025-06-27 15:21] VITALS: BP 150/82
== END 2025-06-27 16:45 | DRG 872 ==
LOC: 4 WEST ACU 17:05
PROVIDERS: Emergency Medicine; Nurse Practitioner Family; ADMITTING PHYSICIAN Internal Medicine; ATTENDING PHYSICIAN Internal Medicine; EMERGENCY PHYSICIAN Emergency Medicine; FAMILY PHYSICIAN Family Medicine; OTHER PHYSICIAN Internal Medicine Infectious Disease
DX: A41.4 Sepsis due to anaerobes (principal); E87.20 Acidosis, unspecified; A04.72 Enterocolitis due to Clostridium difficile, not specified as recurrent; E87.1 Hypo-osmolality and hyponatremia; F03.918 Unspecified dementia, unspecified severity, with other behavioral disturbance; D62 Acute posthemorrhagic anemia; N40.1 Benign prostatic hyperplasia with lower urinary tract symptoms; E78.5 Hyperlipidemia, unspecified; E87.6 Hypokalemia; D75.838 Other thrombocytosis; I48.0 Paroxysmal atrial fibrillation; R33.8 Other retention of urine; E11.9 Type 2 diabetes mellitus without complications; I10 Essential (primary) hypertension; L89.621 Pressure ulcer of left heel, stage 1; R65.20 Severe sepsis without septic shock; L89.611 Pressure ulcer of right heel, stage 1; L89.156 Pressure-induced deep tissue damage of sacral region; W01.0XXA Fall on same level from slipping, tripping and stumbling without subsequent striking against object, initial encounter; Y93.9 Activity, unspecified; Y92.9 Unspecified place or not applicable; Z79.4 Long term (current) use of insulin; Z79.01 Long term (current) use of anticoagulants; Z75.1 Person awaiting admission to adequate facility elsewhere
CPT/HCPCS: 51702; 70450; 71045; 80048; 80053; 81003; 81015; 82607; 82728; 82746; 82962; 83036; 83540; 83550; 83605; 83735; 84466; 85014; 85018; 85025; 85027; 86803; 86850; 86900; 86901; 87040; 87045; 87046; 87070; 87086; 87324; 87427; 87449; 87502; 87811; 89055; 92526; 92610; 93005; 96365; 96366; 96375; 97163; 97167; 97530; 97535; 99291

== ENCOUNTER 2025-07-13 18:11 | Emergency (ER) | payer OTHER, SELFPAY ==
[2025-07-13 18:21] VITALS: BP 123/73
--- NOTE | 2025-07-13 20:05 | ED.GENMED ---
History of Present Illness
General
Chief Complaint: Catheter/Tube Problem
Time Seen by Provider: 07/13/25 19:31
History of Present Illness
History of Present Illness:
74-year-old male presents from rehab facility due to a dislodged Dickinson catheter. The Dickinson was replaced at the facility however due to bleeding from the urethra he was sent into the ED. He is concerned he may have sustained an injury to his thigh
as a result of the procedure. Currently off his anticoagulants. Follows up with urology in 2 days for possible catheter removal
Past History
Past History
ED Past Medical History: Other (Acute urinary retention September 2020; BPH, diabetes)
ED Past Surgical History: Other (Hernia repair 1989)
Social History
Tobacco: Non-smoker
Alcohol: None
Drug: None
Personal:
Living: with family
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
Family History
Family History: Other (Noncontributory)
Review of Systems
Review of Systems
Allergies reviewed?: Yes
All Other Systems: ROS reviewed and negative except as documented in HPI and ROS
Phy Exam
Physical Exam
Physical Exam:
GEN: Well appearing, NAD, WDWN
HEENT: Oral mucosa moist, no scleral icterus
Cardiac: Regular rate
Lung: No respiratory distress, no tachypnea
: Copious dried blood around the pelvis and thighs, no evidence for skin injury. Scant blood in the urethral meatus, urine is clear
MSK: No gross deformity or injuries
Skin: Good color, no pallor or jaundice, no rashes
Neuro: AO x3, moves all extremities freely
Psych: Calm, cooperative
Course
Vital Signs
Initial and Last Documented VS:
Initial Vital Signs
Temp Pulse Resp BP Pulse Ox
97.9 F 89 18 123/73 99
07/13/25 18:21 07/13/25 18:21 07/13/25 18:21 07/13/25 18:21 07/13/25 18:21
Last Documented Vital Signs
Temp Pulse Resp BP Pulse Ox
97.9 F 89 18 123/73 99
07/13/25 18:21 07/13/25 18:21 07/13/25 18:21 07/13/25 18:21 07/13/25 20:07
MDM/Problems Addressed
MDM/Problems Addressed:
Urine bag draining well, likely urethral injury due to catheter traumatic removal
*Pulse Oximetry
SaO2: 99
Oxygen Mode of Delivery: Room air
Patient hypoxic: no
*Critical Care Note
Total Time (30-74mins, 75-104mins- exclusive of procedures): Not Applicable
ED Attending Note
-
Portions of this chart may have been created with voice recognition software.� Occasional wrong word or��sound alike� substitutions may have occurred due to the inherent limitations of voice recognition software.
Discharge Plan
Departure
Patient Disposition: Home (Routine Discharge)
Date of Disposition: 07/13/25
Time of Disposition: 20:06
Patient with high blood pressure during this ER visit?: No
Discharge Problem:
Dislodged Dickinson catheter
Instructions: How to Care for Your Dickinson Catheter, Male
Prescriptions:
No Action
metoprolol succinate 25 mg Tablet Extended Release 24 Hr
12.5 mg PO DAILY Qty: 30 11RF
insulin aspart U-100 [Novolog FlexPen U-100 Insulin] 100 unit/mL (3 mL) Insulin Pen
2 unit SC AC Qty: 5 0RF
escitalopram oxalate 5 mg Tablet
5 mg PO DAILY Qty: 30 0RF
insulin glargine [Lantus Solostar U-100 Insulin] 100 unit/mL (3 mL) insulin pen
8 unit SC HS
ibuprofen [Advil] 200 mg Tablet
200 mg PO Q6HPRN PRN (Reason: mild pain)
furosemide [Lasix] 20 mg Tablet
20 mg PO DAILY@1200
Eliquis 5 mg Tablet
5 mg PO BID
multivit with min-folic acid 80 mcg Tablet,Chewable
1 tab PO DAILY
olanzapine 5 mg Tablet
5 mg PO HS
fidaxomicin [Dificid] 200 mg tablet
200 mg PO Q12H Qty: 12 0RF
Referrals:
Bandar Culp MD [Family Provider]
Interventions
Interventions:
*Risk Screen - Suicide Last Done: 07/13/25 18:21
*General Assessment Last Done: 07/13/25 18:21
*Neglect/Abuse Screening Last Done: 07/13/25 18:21
*ED- Fall Risk Assessment Last Done: 07/13/25 20:23
*ED COVID-19 Vaccine History Last Done: 07/13/25 20:23
*Nursing Disposition Last Done: 07/13/25 20:23
ZP-Cveluo-Pykxvrxnmb Assessment Last Done: 07/13/25 20:23
ED-Male Genitourinary Assessment Last Done: 07/13/25 20:23
Discharge Date and Time
Discharge Date/Time: 07/13/25 20:24
Print Language: [id number]
== END 2025-07-13 20:24 | disposition home or self-care (01) ==
LOC: EMR 18:11
PROVIDERS: EMERGENCY PHYSICIAN Emergency Medicine; FAMILY PHYSICIAN Family Medicine
DX: T83.021A Displacement of indwelling urethral catheter, initial encounter (principal); Y73.2 Prosthetic and other implants, materials and accessory gastroenterology and urology devices associated with adverse incidents; N40.1 Benign prostatic hyperplasia with lower urinary tract symptoms; R33.8 Other retention of urine; E11.9 Type 2 diabetes mellitus without complications; Z79.4 Long term (current) use of insulin; Z79.01 Long term (current) use of anticoagulants
CPT/HCPCS: 99283